=== PATIENT | male | born 1940 | race Caucasian/White ===

== ENCOUNTER 2020-04-10 13:44 | Emergency (ER) | payer MEDICARE, SELFPAY ==
[2020-04-10] VITALS (9 sets, daily range): BP systolic 57–136; BP diastolic 48–85; PULSE 99–132; RESP 17–115; O2SAT 88–100
--- NOTE | ~2020-04-10 | XR_ITS ---
EXAMINATION: XR chest ET placement EXAM DATE: 04/10/2020 15:00 INDICATION: Pulmonary emboli, cardiac arrest, respiratory failure. TECHNIQUE: Portable AP frontal chest x-ray was obtained. There is no prior study for comparison. FINDINGS: Endotracheal and nasogastric tubes are in position. There is mild cardiomegaly. There is pu lmonary vascular congestion. Patchy bilateral perihilar airspace disease probably some developing pul monary edema. Aspiration pneumonia not excludable. No pneumothorax or pleural effusion. IMPRESSION: 1. ET, NG tube in position. 2. Cardiomegaly, congestion. 3. Perihilar airspace disease, could be edema or pneumonia, aspiration pneumonia. Reviewed, dictated and finalized at location A. IMPRESSION: 1. ET, NG tube in position. 2. Cardiomegaly, congestion. 3. Perihilar airspace disease, could be edema or pneumonia, aspiration pneumon ia.
--- NOTE | ~2020-04-10 | CT_ITS ---
EXAMINATION: CTA chest abdomen pelvis DATE: 04/10/2020 14:21 INDICATION: Chest pain, syncope and shortness of breath TECHNIQUE: Computed tomography (CT) pulmonary angiogram of the chest was performed with 100 mL Omnipa que-350 intravenous contrast. Additional 3D reconstructions utilizing coronal maximum intensity proje ction (MIP) were performed. Additional CT angiogram of the abdomen and pelvis was performed utilizing the same contrast bolus. The dose-length product was 831.36 mGy-cm. COMPARISON: CT abdomen and pelvis dated 01/07/2010 FINDINGS: Chest: Good contrast opacification of the pulmonary arteries. There is moderate streak artifact from dense c ontrast in the superior vena cava and right atrium. Mild scattered respiratory motion artifact. There are extensive pulmonary arterial filling defects involving each of the lobar and many of the segment al and subsegmental pulmonary arteries in both lungs. Right-sided cardiomegaly with rightward bowing of the ventricular septum consistent with right heart strain. There is tricuspid regurgitation with r eflux of contrast into the inferior vena cava, hepatic and right renal veins. Mosaic attenuation with dependent predominant groundglass opacities in both lungs likely related to expiratory phase of imag ing and atelectasis with concave posterior wall of the trachea. There are few scattered bilateral dung cified pulmonary nodules as well as calcified mediastinal and hilar lymph nodes consistent with old g ranulomatous disease. Thoracic aorta is normal in caliber with no dissection. No pericardial or pleur al effusion moderate-sized hiatal hernia. Moderate thoracic spondylosis. There is streak artifact at the right shoulder related to a reverse left total shoulder arthroplasty. Abdomen/pelvis: Liver, pancreas, bilateral adrenal glands are normal. High attenuation sludge versus gallstones at th e neck of the otherwise normal-appearing gallbladder. Splenic calcifications consistent with old gran ulomatous disease. Bilateral nonobstructing nephrolithiasis bowels are normal with no wall thickening or obstruction. The appendix is not visualized. No pericecal inflammatory change to suggest acute ap pendicitis. Bladder is partially decompressed which limits evaluation. Prostatomegaly. No free intrap eritoneal gas or fluid. No pathologically enlarged abdominal or pelvic lymphadenopathy. Moderate lumb ar spondylosis with grade 1 anterolisthesis L4 on L5. IMPRESSION: 1. Extensive bilateral pulmonary emboli with high clot burden and with secondary right heart strain. Dr. Lucero discussed these findings with Dr. Gillespie at 2:25 PM. 2. Moderate-sized sliding-type hiatal hernia. 3. Sludge versus gallstones at the neck of the gallbladder. 4. Bilateral nonobstructing nephrolithiasis. Reviewed, dictated and finalized at location A. IMPRESSION: 1. Extensive bilateral pulmonary emboli with high clot burden and with secondar y right heart strain. Dr. Lucero discussed these findings with Dr. Gillespie at 2: 25 PM. 2. Moderate-sized sliding-type hiatal hernia. 3. Sludge versus gallstones at the neck of the gallbladder. 4. Bilateral nonobstructing nephrolithiasis.
--- NOTE | 2020-04-10 13:43 | ECG_ITS ---
Measurements Intervals [place] Rate: 101 P: 54 SC: 162 QRS: 82 QRSD: 120 T: 1 QT: 351 QTc: 457 Interpretive Statements SINUS TACHYCARDIA RIGHT BUNDLE BRANCH BLOCK BASELINE ARTIFACT- II, III, AVF ABNORMAL ECG Electronically Signed On 04-13-2020 7:06:00 CDT by Johann Jones D.O.
--- NOTE | 2020-04-10 13:48 | ECG_ITS ---
Measurements Intervals [place] Rate: 132 P: 14 MT: 201 QRS: 74 QRSD: 158 T: -20 QT: 368 QTc: 547 Interpretive Statements SINUS OR ECTOPIC ATRAL TACHYCARDIA VENTRICULAR BIGEMINY RIGHT BUNDLE BRANCH BLOCK ST-T WAVE ABNORMALITY IN INFERIOR LEADS- CONSIDER ISCHEMIA BASELINE WANDER- V1-V3 ABNORMAL ECG Electronically Signed On 04-10-2020 15:08:01 CDT by Johann Jones D.O.
--- NOTE | 2020-04-10 13:57 | WPDPROCEDUR ---
Procedures Intubation Intubation Date: 04/10/20 A pre-procedural Time-Out was completed immediately before starting the procedure and confirmed: Patient Identification, Site, Procedure, Patient Position and the Availability of Requisite Equipment: No ( patient was intubated with CPR was in progress in this CT scan area) Sedative: none Laryngoscope: Ton ET tube size: 8 Tube placement confirmation: visualized tube passing through cords, equal breath sounds bilaterally, no breath sounds over epigastrium and confirmation by capnometry Patient tolerated procedure: well Intubation complications: none Additional comments: ET Tube in appropriate position on chest x-ray done on 04/10/2020
[2020-04-10 14:04] LABS: Basophils Absolute Auto 0.1 K/mm3 (0.0-0.1); Basophils Percent Auto 0.5 % (0.2-1.2); Eosinophils Absolute Auto 0.3 K/mm3 (0-0.3); Eosinophils Percent Auto 2.3 % (0-4.4); Hematocrit 43.8 % (42.0-52.0); Hemoglobin 14.2 g/dL (14.0-18.0); Immature Granulocyte Absolute 0.07 K/mm3 (0.00-0.031); Immature Granulocyte Percent A 0.5 % (0-0.5); Lymphocytes Absolute Auto 4.49 K/mm3 (0.9-3.2); Lymphocytes Percent Auto 33.8 % (18.3-44.2); Mean Corpuscular HGB Conc 32.4 g/dl (32-36); Mean Corpuscular Hemoglobin 31.4 pg (26-34); Mean Corpuscular Volume 96.9 fl (80-100); Mean Platelet Volume 10.3 fl (7.4-10.4); Monocytes Absolute Auto 1.4 K/mm3 (0.1-0.6); Monocytes Percent Auto 10.3 % (2.6-8.5); Neutrophils Percent Auto 52.6 % (45.5-73.1); Platelet Count Result 241 k/mm3 (150-375); Red Blood Count 4.52 M/mm3 (4.6-6.20); Red Cell Distribution Width 13.6 % (11.5-14.5); White Blood Count 13.3 K/mm3 (4.5-10.0)
--- NOTE | 2020-04-10 14:10 | PC.NURSE ---
pt to ct via stretcher with 3 nurses at this time.
[2020-04-10 14:14] LABS: INR 1.2; Partial Thromboplastin Time 27.2 SECONDS (22.3-36.8); Prothrombin Time 14.5 Seconds (11.1-14.7)
--- NOTE | 2020-04-10 14:17 | PC.NURSE ---
pt became unresponsive during CT. Margarita borjas called, compressions started. See code blue sheet.
[2020-04-10 14:18] LABS: Anion Gap 9 mmol/L (8-16); Blood Urea Nitrogen 15 mg/dL (9-20); Calcium 8.4 mg/dL (8.4-10.2); Carbon Dioxide 23 mmol/L (22-30); Chloride 109 mmol/L (98-107); Estimated CRCL calculation 45 ml/min; Estimated Glomerular Filt Rate 53; Glucose 163 mg/dL (75-110); Potassium 3.7 mmol/L (3.4-5.0); Sodium 141 mmol/L (137-145)
[2020-04-10 14:30] LABS: Troponin I < 0.012 ng/mL (0.000-0.034)
--- NOTE | 2020-04-10 14:40 | PC.NURSE ---
VRBO 2mg iv push versed from dr red 1 time.
--- NOTE | 2020-04-10 14:40 | PC.NURSE ---
verbal order to give 20mg TPA bolus, then continue the Remaining 80mg over 2 hours.
--- NOTE | 2020-04-10 14:45 | PC.NURSE ---
TPA 80mg over 2 hours started at this time.
--- NOTE | 2020-04-10 14:46 | ED.GENADULT ---
HPI - General Adult General Chief complaint: Chest Pain Stated complaint: cp/syncopal episode Time Seen by Provider: 04/10/20 14:05 Source: patient and family History of Present Illness HPI narrative: Patient a 79 y/o male brought in by EMS for SOB and syncope. Patient appears to be in distress and unable to provide reliable history. He complained about chest pain earlier, but denies pain when asked about chest pain currently. He does admit to SOB when asked about it. states that they [place] from [place] and patient was complaining of SOB. She checked his BP and pulse and his BP was 110s and pulse in 80s. He came out rest room feeling dizziness and then laid down in bed. Then he became unresponsive. EMS then called. Per EMS, patient had another episode of syncope en route. Related Data Home Medications Medication Instructions Recorded Confirmed Lipitor 20 mg BYMOUTH DAILY 04/10/20 amlodipine 10 mg PO DAILY 04/10/20 aspirin 81 mg PO DAILY 04/10/20 docusate sodium [Stool Softener] 250 mg PO TID 04/10/20 folic acid 1 mg PO DAILY 04/10/20 levothyroxine 75 mcg PO DAILY 04/10/20 methotrexate sodium 20 mg PO WEEKLY 04/10/20 pdbnaddmbkas-spj-ahra-FA-vit K tablet PO 04/10/20 [Adults Multivitamin] naproxen 500 mg PO BID 04/10/20 omeprazole 20 mg PO DAILY 04/10/20 prednisone 1 mg DAILY 04/10/20 prednisone 2 mg PO DAILY 04/10/20 Allergies Allergy/AdvReac Type Severity Reaction Status Date / Time No Known Allergies Allergy Mild Verified 04/10/20 13:44 Review of Systems Review of Systems: ROS unobtainable: Yes unobtainable due to medical condition Constitutional: Constitutional: Reports as per HPI Cardiovascular: Cardiovascular: Reports as per HPI [facility] Family History Family History Mother Hypertension Father Family history of malignant neoplasm of urinary bladder Social History Social History Smoking status: Never smoker Alcohol intake: never Sexual Orientation (if Verbalized by the Patient): Straight or Heterosexual Exam Const: General: acute distress and ill appearing Orientation/consciousness: oriented to person and confusion HENMT: Head: normocephalic Ears: external ears normal General nose exam: Normal external nose present Eyes: General: appearance normal, both eyes and all related structures Conjunctivae: conjunctivae normal Neck: Neck: normal visual inspection and full ROM Chest: Chest palpation & inspection: normal inspection of the chest and no tenderness Resp: Effort & Inspection: not able to speak in complete sentences, respiratory distress and tachypneic Auscultation: clear to auscultation bilaterally Cardio: Rate: tachycardic Rhythm: regular rhythm GI: GI Palp: No abdominal tenderness and Yes Soft to palpation Skin: General skin exam: pallor Neuro: General: oriented to person and confusion Extrem: General: normal to inspection, full ROM and no pedal edema Psych: Appearance: grossly normal Mental Status: mental status grossly abnormal Affect: Blunted affect present Course Reevaluation(s) Reevaluation #1: Patient was in CT for evaluation of PE and/or dissection. However, shortly after CT is done while patient is still in CT room, he became pulseless and apneic. CPR was started. Monitor showed bradycardic, regular rhythm. He was in PEA. Patient is intubated by Dr. Knapp while CPR is in progress. ROSC was achieved later. I discussed with Dr. Lucero (radiologist) about CT results of PE shortly after ROSC. I discussed with patient's about patient's condition and advised tPA for massive PE causing cardiac arrest. I informed her about the risks of internal bleed and intracranial bleed. The risks of bleeding may be high due to recent CPR. However, I felt the benefits still outweigh the risks due to patient's condition. She agrees with tPA. Date: 04/10/20 Consulta
--- NOTE | 2020-04-10 15:15 | PC.NURSE ---
johanna spoke to penny at the [facility].
--- NOTE | 2020-04-10 15:24 | PC.NURSE ---
rn at bedside to collect covid swab.
--- NOTE | 2020-04-10 15:30 | PC.NURSE ---
face sheet faxed to [facility] [phone]
--- NOTE | 2020-04-10 16:20 | PC.NURSE ---
VRBO midazolam 4mg iv push per dr red.
--- NOTE | 2020-04-10 16:42 | PC.NURSE ---
Ivy RN report given to at [facility]
--- NOTE | 2020-04-10 17:35 | PC.NURSE ---
[facility] report given to Teresa. Midazolam drip not started, but [facility] took with them for during the flight if pt bp increased enough to start it..
[2020-04-10 17:38] LABS: Troponin I 0.401 ng/mL (0.000-0.034)
--- NOTE | 2020-04-10 17:38 | PC.NURSE ---
fentanyl drip taken by anthony rn's. fentanyl drip started outside on helipad by Teresa solorio.
[2020-04-11 18:20] LABS: SARS-CoV-2 RNA PCR Negative
== END 2020-04-10 17:44 | disposition short-term general hospital (02) ==
PROVIDERS: Emergency Provider Emergency Medicine; PCP Internal Medicine
DX: I26.99 Other pulmonary embolism without acute cor pulmonale (principal); I46.9 Cardiac arrest, cause unspecified; Z20.828 Contact with and (suspected) exposure to other viral communicable diseases; Z79.82 Long term (current) use of aspirin; R00.0 Tachycardia, unspecified; I45.10 Unspecified right bundle-branch block; R00.8 Other abnormalities of heart beat; R94.31 Abnormal electrocardiogram [ECG] [EKG]
CPT/HCPCS: 31500; 36415; 37195; 51702; 71275; 74174; 80048; 84484; 85025; 85610; 85730; 87635; 92950; 93005; 99291; C9803; J2250; J2310; J2997; J7030; Q9967; U0003

== ENCOUNTER 2020-06-22 10:57 | Emergency (ER) | payer MEDICARE, SELFPAY ==
[2020-06-22] VITALS (37 sets, daily range): BP systolic 136–151; BP diastolic 70–112; PULSE 88–109; RESP 13–23; TEMP 36.6; O2SAT 95–100
--- NOTE | ~2020-06-22 | XR_ITS ---
XR chest 2V 06/22/2020 12:19 Indication: Cough and shortness of breath Procedure: 2 view chest Comparison: 04/10/2020 Findings: Heart size normal for technique. Large hiatal hernia. No focal air space disease, pulmonary edema, pleural effusion or suspected pneumothorax. There are scattered calcified granulomas. There i s a left shoulder arthroplasty. Impression: 1: No acute cardiopulmonary disease. 2: Large hiatal hernia. Reviewed, dictated and finalized at location B. Impression: 1: No acute cardiopulmonary disease. 2: Large hiatal hernia.
--- NOTE | 2020-06-22 11:07 | ECG_ITS ---
Measurements Intervals [place] Rate: 100 P: 19 WI: 155 QRS: 31 QRSD: 94 T: 35 QT: 329 QTc: 424 Interpretive Statements SINUS TACHYCARDIA BORDERLINE ECG Electronically Signed On 06-22-2020 12:02:17 CDT by Johann Jones D.O.
--- NOTE | 2020-06-22 11:20 | PC.NURSE ---
patient here with dyspnea on exertion. see triage note. alert. oriented. resting on stretcher. hx reviewed with .
--- NOTE | 2020-06-22 11:55 | PC.NURSE ---
provider orders received. labs sent. resting on stretcher. on cashier office. at bedside.
[2020-06-22 12:01] LABS: Basophils Percent Auto 0.5 % (0.2-1.2); Eosinophils Absolute Auto 0.2 K/mm3 (0-0.3); Eosinophils Percent Auto 2.6 % (0-4.4); Hematocrit 35.1 % (42.0-52.0); Hemoglobin 11.2 g/dL (14.0-18.0); Immature Granulocyte Absolute 0.02 K/mm3 (0.00-0.031); Immature Granulocyte Percent A 0.2 % (0-0.5); Lymphocytes Absolute Auto 1.64 K/mm3 (0.9-3.2); Lymphocytes Percent Auto 18.8 % (18.3-44.2); Mean Corpuscular HGB Conc 31.9 g/dl (32-36); Mean Corpuscular Hemoglobin 29.8 pg (26-34); Mean Corpuscular Volume 93.4 fl (80-100); Mean Platelet Volume 10.1 fl (7.4-10.4); Monocytes Absolute Auto 0.6 K/mm3 (0.1-0.6); Monocytes Percent Auto 7.2 % (2.6-8.5); Neutrophils Absolute Auto 6.2 K/mm3 (1.3-6.7); Neutrophils Percent Auto 70.7 % (45.5-73.1); Platelet Count Result 393 k/mm3 (150-375); Red Blood Count 3.76 M/mm3 (4.6-6.20); Red Cell Distribution Width 15.1 % (11.5-14.5); White Blood Count 8.7 K/mm3 (4.5-10.0)
[2020-06-22 12:13] LABS: Anion Gap 5 mmol/L (8-16); Blood Urea Nitrogen 17 mg/dL (9-20); Calcium 9.3 mg/dL (8.4-10.2); Carbon Dioxide 29 mmol/L (22-30); Chloride 106 mmol/L (98-107); Estimated Glomerular Filt Rate 59; Glucose 99 mg/dL (75-110); Potassium 3.9 mmol/L (3.4-5.0); Sodium 140 mmol/L (137-145)
--- NOTE | 2020-06-22 12:14 | PC.NURSE ---
patient to Xray
[2020-06-22 12:22] LABS: NT Pro B Type Natriuretic Pept 50 PG/ML (5-100)
[2020-06-22] MEDS: ALBUTEROL SULFATE NEB 2.5 MG/0.5 ML INH 5 MG INHALATION ×2 (13:13→15:03)
[2020-06-22] MEDS: IPRATROPIUM BR 0.02% INH SOLN 0.5 MG/2.5 ML VIAL INHALATION ×2 (13:13→15:03)
--- NOTE | 2020-06-22 13:15 | PC.NURSE ---
respiratory at bedside for neb treatment.
--- NOTE | 2020-06-22 14:05 | PC.NURSE ---
resting on stretcher. in room. waiting for test results. call light in reach. on potline monitor.
--- NOTE | 2020-06-22 14:55 | PC.NURSE ---
patient has order for 2nd neb treatment. increased wheezing per MD after initial neb given. resting on stretcher. alert. oriented. in room. denies any other needs. questioning need for CT of chest due to recent dx of PE.
--- NOTE | 2020-06-22 15:22 | ED.SOB ---
HPI - SOB/Dyspnea General Chief Complaint: Shortness of Breath/Dyspnea Stated Complaint: SOB X2WKS Time Seen by Provider: 06/22/20 11:08 History of Present Illness HPI Narrative: Patient is a 79-year-old male who presents to the ER with complaint of shortness of breath. Ongoing for a couple of weeks but worsening over the last few days. Patient has history of pulmonary embolism that caused him to receive TPA and then be on ECMO. He has been compliant with his anticoagulation. He denies any recent infectious symptoms including sinus congestion/sore throat. He has had some persistent cough and can hear himself wheezing. She without nausea/vomiting/chest pain/dizziness. No lower extremity swelling. Patient reports recurrent negative Covid test. Related Data Home Medications Medication Instructions Recorded Confirmed Lipitor 20 mg BYMOUTH DAILY 04/10/20 amlodipine 10 mg PO DAILY 04/10/20 aspirin 81 mg PO DAILY 04/10/20 docusate sodium [Stool Softener] 250 mg PO TID 04/10/20 folic acid 1 mg PO DAILY 04/10/20 levothyroxine 75 mcg PO DAILY 04/10/20 methotrexate sodium 20 mg PO WEEKLY 04/10/20 pelldyapzxwa-dks-rcyr-FA-vit K tablet PO 04/10/20 [Adults Multivitamin] omeprazole 20 mg PO DAILY 04/10/20 apixaban [Eliquis] mg BID 06/22/20 Allergies Allergy/AdvReac Type Severity Reaction Status Date / Time No Known Allergies Allergy Mild Verified 04/10/20 13:44 Review of Systems Review of Systems: All systems reviewed & are unremarkable except as noted in HPI and below Constitutional: Constitutional: Denies chills and Denies fever(s) ENT: Denies nasal congestion and Denies sore throat Cardiovascular: Cardiovascular: Denies chest pain and Denies radiating jaw, neck or arm pain Respiratory: Respiratory: Reports cough, Reports dyspnea and Reports wheezing Gastrointestinal: Gastrointestinal: Denies abdominal pain, Denies diarrhea, Denies nausea and Denies vomiting [facility] Past Medical History Medical History (Updated 06/22/20 @ 16:34 by Ketan Gonzalez MD) BPH (benign prostatic hyperplasia) Colon cancer Hypercholesterolemia Hypothyroidism Pulmonary embolism Rheumatoid arthritis Surgical History Surgical History (Updated 06/22/20 @ 15:25 by Ketan Gonzalez MD) History of partial colectomy Family History Family History Mother Hypertension Father Family history of malignant neoplasm of urinary bladder Social History Social History Smoking status: Never smoker Alcohol intake: never Exam Narrative: Exam Narrative: GENERAL: Well-appearing, well-nourished, and in no acute distress. HEAD: Normocephalic, atraumatic. CHEST: Expiratory wheezing noted in bilateral lung damico in the apices and midlung zones. No basilar wheezing or rales. No respiratory distress. HEART: Regular rate and rhythm. Normal peripheral pulses. ABDOMEN: Soft, nontender, nondistended. EXTREMITIES: Normal range of motion. No edema. SKIN: Warm, dry, no rash. NEURO: Alert and oriented x3. PSYCH: Normal mood and affect. Course Course Emergency Course: Patient has had 2 nebulizer treatments. His lung sounds have improved and he now has some rhonchi throughout without the wheezing. He is ambulatory without hypoxia or fatigue. is concerned about pulmonary embolism. Discussed with arterial patient's symptoms and response to therapy or more indicative of bronchitis. Plan to start patient on a prednisone taper given his long-term use of prednisone at 3 mg daily. I also prescribed an albuterol inhaler that he should use scheduled for the next 3 to 4 days and then use as needed for shortness of breath. Patient's also concerned about patient having ventricular tachycardia in the ER. I reviewed patient's monitor and the alarm for which she reported him having V. tach shows artifact at 1529. I gave her reassurance.
--- NOTE | 2020-06-22 16:00 | PC.NURSE ---
discussed patient with Dr. Gonzalez. feels better after 2nd neb treatment. resting on stretcher. appears comfortable. wants to discuss need for CT of chest with MD.
--- NOTE | 2020-06-22 16:10 | PC.NURSE ---
patient ambulated approximately 20 feet on RA. sat >96% during walk. denies dyspnea. states he usually only feels short of breath with stairs. back in bed. back on monitor.
--- NOTE | 2020-06-22 16:26 | PC.NURSE ---
provider in room now. reviewing test results with patient and .
== END 2020-06-22 16:50 | disposition home or self-care (01) ==
PROVIDERS: Emergency Provider Emergency Medicine; PCP Physician Assistant
DX: J40 Bronchitis, not specified as acute or chronic (principal); Z86.711 Personal history of pulmonary embolism; Z79.01 Long term (current) use of anticoagulants; Z79.82 Long term (current) use of aspirin; N40.0 Benign prostatic hyperplasia without lower urinary tract symptoms; Z85.828 Personal history of other malignant neoplasm of skin; E78.00 Pure hypercholesterolemia, unspecified; E03.9 Hypothyroidism, unspecified; M06.9 Rheumatoid arthritis, unspecified; Z90.49 Acquired absence of other specified parts of digestive tract; K44.9 Diaphragmatic hernia without obstruction or gangrene; R00.0 Tachycardia, unspecified
CPT/HCPCS: 36415; 71046; 80048; 83880; 85025; 93005; 94640; 99283

== ENCOUNTER 2020-08-01 10:56 | Outpatient (CLI) | payer MEDICARE, SELFPAY ==
--- NOTE | ~2020-08-01 | CT_ITS ---
EXAMINATION: CT chest high resolution wo ma DATE: 08/01/2020 11:23 INDICATION: Dyspnea TECHNIQUE: Computed tomography (CT) of the chest was performed without intravenous contrast. The dose -length product was 299.44 mGy-cm. Automated exposure control and iterative reconstruction technique were employed. COMPARISON: CT dated 04/10/2020 FINDINGS: There is a large hiatal hernia possibly paraesophageal. No thoracic lymphadenopathy. There are calcified mediastinal lymph nodes and pulmonary nodules, consistent with chronic granulomatous di sease. No significant pleural or pericardial effusion. Heart size is normal. There are nonobstructing bilateral renal stones partially visualized. There are gallstones. No focal airspace consolidation. No evidence for focal pneumonia, edema or pneumothorax. IMPRESSION: 1. No acute cardiopulmonary disease. 2: Large hiatal hernia, possibly paraesophageal. 3: Nonobstructing bilateral nephrolithiasis. 4: Cholelithiasis. Reviewed, dictated and finalized at location B. [employer]
== END 2020-08-01 10:57 | disposition home or self-care (01) ==
PROVIDERS: PCP Physician Assistant; Visit Provider Physician Assistant
DX: R06.00 Dyspnea, unspecified (principal); K80.80 Other cholelithiasis without obstruction; K44.9 Diaphragmatic hernia without obstruction or gangrene; N20.0 Calculus of kidney; K80.20 Calculus of gallbladder without cholecystitis without obstruction
CPT/HCPCS: 71250

== ENCOUNTER 2020-08-11 13:32 | Outpatient (CLI) | payer MEDICARE, SELFPAY ==
--- NOTE | 2020-08-11 | ECHO_ITS ---
Patient Info Name: Kosta Li Age: 79 years : 1940 Gender: Male Ht: 70 in Wt: 195 lbs BSA: 2.11 m2 HR: 100 bpm BP: 136 / 95 mmHg Technical Quality: Good Exam Date: 08/11/2020 3:04 PM Exam Location: [facility] Patient Status: Outpatient Admit Date: 08/11/2020 Staff Ordering Physician: Jovanna, Savi BAUTISTA Mirror Installer: Tremayne Tam, SPEEDY, RT Attending Provider: Jovanna, Savi BAUTISTA Exam Type: CA echo doppler color flow Study Info Indications R06.00 - Dyspnea, unspecified Complete two-dimensional, color flow and Doppler transthoracic echocardiogram is performed. Strain analysis performed. Summary 1. Complete two-dimensional, color flow and Doppler transthoracic echocardiogram is performed. 2. Left ventricular chamber dimension is normal. 3. Ventricular septum is sigmoid shaped. No LVOT obstruction. 4. Left ventricular systolic function is normal, estimated at 55-60%. 5. There is mildly increased left ventricular wall thickness. 6. The left ventricular diastolic function is grade I diastolic dysfunction. 7. E/e' 13 is mildly elevated. 8. Global longitudinal strain is abnormal at -12.2%. 9. There is mild aortic valve sclerosis. Left Ventricle E/e' 13 is mildly elevated. Global longitudinal strain is abnormal at -12.2%. Ventricular septum is sigmoid shaped. No LVOT obstruction. Left ventricular chamber dimension is normal. Left ventricular systolic function is normal, estimated at 55-60%. There is mildly increased left ventricular wall thickness. The left ventricular diastolic function is grade I diastolic dysfunction. Right Ventricle Right ventricular chamber dimension is normal. Right ventricular systolic function is normal. Left Atria Left atrial chamber dimension is normal. Right Atria Right atrial chamber dimension is normal. Aortic Valve The aortic valve is trileaflet. There is mild aortic valve sclerosis. There is no aortic valve stenosis. There is no aortic valve regurgitation. Pulmonic Valve There is no pulmonic regurgitation. Mitral Valve There is no mitral valve stenosis. There is no mitral valve regurgitation. Tricuspid Valve There is no tricuspid valve regurgitation. Pericardium/Pleural There is no pericardial effusion. Inferior Vena Cava Normal inferior vena cava with >50% collapse upon inspiration consistent with normal right atrial pressure, 5 mmHg. Aorta The aortic root size at the sinus of Valsalva is normal. Left Ventricular Outflow Tract Name Value Normal LVOT 2D LVOT Diameter 2.1 cm LVOT Doppler LVOT Peak Gradient 3 mmHg LVOT Mean Gradient 2 mmHg LVOT VTI 16 cm LVOT VTI/AV VTI Ratio 0.8 LVOT Stroke Volume 55 ml LVOT CO 5.8 l/min LVOT CI 2.7 l/min/m2 Pulmonic Valve Name Value Normal --
--- NOTE | 2020-08-16 09:48 | WPDPFTINT ---
PFT Interpretation PFT Interpretation: This PFT met all criteria for ATS standards and reproducibility FEV/FVC post bronchodilator 74% FEV1 101% FVC 88% No bronchodilator challenge was given. TLC 90% RV 79% RV/TLC 37% DLCO 77% when adjusted for alveolar volume but not adjusted for hemoglobin Flow volume loops showed some end expiratory coving Impression: No significant obstruction or restriction. Mildly reduced diffusion capacity. In the absence of anemia or pulmonary hypertension, intrinsic lung disease cannot be ruled out. Clinical correlation is advised.
== END 2020-08-11 13:33 | disposition home or self-care (01) ==
PROVIDERS: PCP Physician Assistant; Visit Provider Physician Assistant
DX: R06.00 Dyspnea, unspecified (principal)
CPT/HCPCS: 93306; 94375; 94726; 94729

== ENCOUNTER 2020-10-11 00:31 | Emergency (ER) | payer MEDICARE, SELFPAY ==
--- NOTE | ~2020-10-11 | CT_ITS ---
EXAMINATION: CT abdomen pelvis wo con DATE: 10/11/2020 01:58 INDICATION: Left lower quadrant abdominal pain. TECHNIQUE: Computed tomography (CT) of the abdomen and pelvis was performed without intravenous contr ast. Automated exposure control and iterative reconstruction technique were employed. The dose-length product was 710.12 mGy-cm. COMPARISON: CT abdomen and pelvis 04/10/2020 FINDINGS: The visualized portions of the lung bases demonstrate mild atelectasis. Calcified pulmonary nodules and calcified hilar and mediastinal lymph nodes are consistent with old granulomatous diseas e. No pleural effusion. The heart size is normal. There are coronary artery calcifications. No perica rdial effusion. There is a moderate-sized sliding hiatal hernia. The liver is normal. There are galls tones in the gallbladder, which is normal in size. Calcifications in the spleen are consistent with o ld granulomatous disease. The pancreas and adrenal glands are normal. There are approximately 8 stone s in right kidney measuring up to 5 mm. There are greater than 10 stones in left kidney measuring up to 5 mm. There is mild left hydronephrosis. There is a 5 mm stone in proximal left ureter. The prosta te is mildly enlarged. There is diverticulosis of the colon without evidence of diverticulitis. There are no dilated loops of bowel. The appendix is not visualized. There are no pathologically enlarged lymph nodes. There is no free intraperitoneal fluid. There is a right inguinal hernia containing fat. Prominent fat in left inguinal canal may be a hernia. There are old healed right rib fractures. Ther e is moderate lumbar spondylosis. IMPRESSION: 1. 5 mm stone in proximal left ureter with mild left hydronephrosis. 2. Bilateral nonobstructing kidney stones. 3. Moderate-sized sliding hiatal hernia. Reviewed, dictated and finalized at location A. CHGEAR REPAIRER
[2020-10-11 00:34] VITALS: BP 94/59; PULSE 88; RESP 12; TEMP 36.8; O2SAT 97
[2020-10-11 01:39] LABS: Basophils Percent Auto 0.3 % (0.2-1.2); Eosinophils Absolute Auto 0.2 K/mm3 (0-0.3); Eosinophils Percent Auto 1.4 % (0-4.4); Hematocrit 37.4 % (42.0-52.0); Hemoglobin 11.6 g/dL (14.0-18.0); Immature Granulocyte Absolute 0.08 K/mm3 (0.00-0.031); Immature Granulocyte Percent A 0.5 % (0-0.5); Lymphocytes Absolute Auto 1.69 K/mm3 (0.9-3.2); Lymphocytes Percent Auto 11.5 % (18.3-44.2); Mean Corpuscular Hemoglobin 28.5 pg (26-34); Mean Corpuscular Volume 91.9 fl (80-100); Mean Platelet Volume 10.4 fl (7.4-10.4); Monocytes Absolute Auto 1.5 K/mm3 (0.1-0.6); Monocytes Percent Auto 10.4 % (2.6-8.5); Neutrophils Absolute Auto 11.2 K/mm3 (1.3-6.7); Neutrophils Percent Auto 75.9 % (45.5-73.1); Nucleated Red Blood Cells Perc 0.1 % (0.0-0.2); Platelet Count Result 336 k/mm3 (150-375); Red Blood Count 4.07 M/mm3 (4.6-6.20); Red Cell Distribution Width 18.7 % (11.5-14.5); White Blood Count 14.8 K/mm3 (4.5-10.0)
[2020-10-11 01:45] LABS: Alanine Aminotransferase 21 U/L (4-50); Albumin Level 3.6 g/dL (3.5-5.1); Alkaline Phosphatase 68 U/L (38-126); Anion Gap 4 mmol/L (8-16); Aspartate Amino Transferase 27 U/L (17-59); Bilirubin,Total 0.4 mg/dL (0.2-1.3); Blood Urea Nitrogen 17 mg/dL (9-20); Calcium 8.6 mg/dL (8.4-10.2); Carbon Dioxide 30 mmol/L (22-30); Chloride 105 mmol/L (98-107); Estimated CRCL calculation 37 ml/min; Estimated Glomerular Filt Rate 45; Glucose 146 mg/dL (75-110); Lipase 122 U/L (23-300); Potassium 4.4 mmol/L (3.4-5.0); Sodium 139 mmol/L (137-145)
[2020-10-11] MEDS: MORPHINE SULFATE (*CRX) 4 MG/ML INJ IV PUSH (01:48)
[2020-10-11] MEDS: SODIUM CHLORIDE 0.9% IV 500 ML 999 ML IV CONT (01:49)
[2020-10-11 02:00] VITALS: BP 133/81; PULSE 84; RESP 16; O2SAT 99
[2020-10-11 03:03] VITALS: BP 101/68; PULSE 91; RESP 17; O2SAT 100
[2020-10-11 03:27] LABS: Add Urine Microscopic? YES; Appearance Urine Clear (Clear); Bilirubin Urine Negative (Negative); Blood Urine 2+ (Negative); Color Urine Yellow (Yellow); Glucose Urine UA Negative (Negative); Ketones Urine Negative (Negative); Leukocyte Esterase Ur Negative LEU/UL (Negative); Mucus Urine Rare /lpf; Nitrate Urine Negative (Negative); Protein Urine 1+ mg/dL (Negative); RBC Urine 21-50 /hpf (0-2); Squamous Epithelial Cell Urine Rare /hpf (Few); Urobilinogen Urine Negative mg/dL (<2.0); WBC Urine 0-3 /hpf
--- NOTE | 2020-10-11 03:38 | ED.ABDPAIN ---
HPI - Abdominal Pain General Chief Complaint: Abdominal Pain Stated Complaint: Kidney Stone Time Seen by Provider: 10/11/20 01:23 History of Present Illness HPI narrative: Patient is a 80-year-old male who presents the ER with concerns for possible kidney stone. Has been having left lower quadrant pain for the last day but worsened tonight. Associate with some nausea but no vomiting. Denies urinary frequency urgency or dysuria. No aggravating or alleviating factors. No radiation. Related Data Home Medications Medication Instructions Recorded Confirmed Lipitor 20 mg BYMOUTH DAILY 04/10/20 amlodipine 10 mg PO DAILY 04/10/20 aspirin 81 mg PO DAILY 04/10/20 docusate sodium [Stool Softener] 250 mg PO TID 04/10/20 folic acid 1 mg PO DAILY 04/10/20 levothyroxine 75 mcg PO DAILY 04/10/20 methotrexate sodium 20 mg PO WEEKLY 04/10/20 hmbpxinkpbbc-noz-chvu-FA-vit K tablet PO 04/10/20 [Adults Multivitamin] omeprazole 20 mg PO DAILY 04/10/20 apixaban [Eliquis] mg BID 06/22/20 Allergies Allergy/AdvReac Type Severity Reaction Status Date / Time No Known Allergies Allergy Mild Verified 04/10/20 13:44 Review of Systems Review of Systems: All systems reviewed & are unremarkable except as noted in HPI and below Constitutional: Constitutional: Denies chills and Denies fever(s) Cardiovascular: Cardiovascular: Denies chest pain and Denies radiating jaw, neck or arm pain Gastrointestinal: Gastrointestinal: Reports abdominal pain, Reports nausea and Denies vomiting Genitourinary: Genitourinary: Denies hematuria, Denies oliguria, Denies dysuria, Denies testicular pain, Denies urinary frequency and Denies urinary incontinence [facility] Past Medical History Medical History (Updated 10/11/20 @ 03:44 by Ketan Gonzalez MD) BPH (benign prostatic hyperplasia) Colon cancer Hypercholesterolemia Hypothyroidism Pulmonary embolism Rheumatoid arthritis Surgical History Surgical History (Updated 06/22/20 @ 15:25 by Ketan Gonzalez MD) History of partial colectomy Family History Family History Mother Hypertension Father Family history of malignant neoplasm of urinary bladder Social History Social History Smoking status: Never smoker Alcohol intake: never Gender identity (if verbalized by the patient): Male Exam Narrative: Exam Narrative: GENERAL: Well-appearing, well-nourished, and in no acute distress. HEAD: Normocephalic, atraumatic. CHEST: Clear to auscultation. No respiratory distress. HEART: Regular rate and rhythm. Normal peripheral pulses. ABDOMEN: Soft, nontender, nondistended. EXTREMITIES: Normal range of motion. No edema. NEURO: Alert and oriented x3. PSYCH: Normal mood and affect. Course Course Emergency Course: Patient informed of results. Discharge home with supportive therapy. Recommend follow-up with urology. Vital Signs Vital signs: Vital Signs Temperature 98.2 F 10/11/20 00:34 Pulse Rate 88 10/11/20 00:34 Respiratory Rate 12 10/11/20 00:34 Blood Pressure 94/59 L 10/11/20 00:34 Pulse Oximetry 97 10/11/20 00:34 Temperature 98.2 F 10/11/20 00:34 Pulse Rate 88 10/11/20 00:34 Respiratory Rate 12 10/11/20 00:34 Blood Pressure 94/59 L 10/11/20 00:34 Pulse Oximetry 97 10/11/20 00:34 MDM - Abdominal Pain Lab Data Result diagrams: 10/11/20 01:02 10/11/20 01:02 Labs: Lab Results 10/11/20 10/11/20 10/11/20 Range/Units 01:02 01:02 03:17 WBC 14.8 H (4.5-10.0) K/mm3 RBC 4.07 L (4.6-6.20) M/mm3 Hgb 11.6 L (14.0-18.0) g/dL Hct 37.4 L (42.0-52.0) % MCV 91.9 (80-100) fl MCH 28.5 (26-34) pg MCHC 31.0 L (32-36) g/dl RDW 18.7 H (11.5-14.5) % Plt Count 336 (150-375) k/mm3 MPV 10.4 (7.4-10.4) fl Immature Gran % (Auto) 0.5 (0-0.5) % Neut % (Auto) 75.9 H (4
[2020-10-11 03:46] VITALS: BP 124/71; PULSE 82; RESP 18; O2SAT 98
== END 2020-10-11 03:50 | disposition home or self-care (01) ==
PROVIDERS: Emergency Provider Emergency Medicine; PCP Physician Assistant
DX: N13.2 Hydronephrosis with renal and ureteral calculous obstruction (principal); Z79.82 Long term (current) use of aspirin; Z79.01 Long term (current) use of anticoagulants; N40.0 Benign prostatic hyperplasia without lower urinary tract symptoms; Z85.038 Personal history of other malignant neoplasm of large intestine; E78.00 Pure hypercholesterolemia, unspecified; E03.9 Hypothyroidism, unspecified; Z86.711 Personal history of pulmonary embolism; M06.9 Rheumatoid arthritis, unspecified; Z90.49 Acquired absence of other specified parts of digestive tract; K44.9 Diaphragmatic hernia without obstruction or gangrene
CPT/HCPCS: 36415; 51701; 74176; 80053; 81001; 83690; 85025; 96361; 96374; 99284; J2270; J7040

== ENCOUNTER 2020-10-13 09:27 | Outpatient (CLI) | payer MEDICARE, SELFPAY ==
--- NOTE | ~2020-10-13 | XR_ITS ---
EXAMINATION: XR abdomen/kub 1V INDICATION: Left ureteral stone TECHNIQUE: Supine views of the abdomen were obtained on 2 radiographs. COMPARISON: CT, 10/21/2020 FINDINGS: The previously described 5 mm stone of the proximal left ureter appears to have migrated in to the mid ureter projecting at the level of the left L5 transverse process. There are multiple stone s in the kidneys. The largest on the left measures 5 mm in the lower pole. The largest identified on the right measures 4 mm in the lower pole. There is a large amount of stool in the proximal third of the colon and moderate gaseous distention of the distal two thirds of the colon. The lung bases are c lear. IMPRESSION: 1. Apparent distal migration of the known left ureteral stone to the level of the mid ureter. 2. Bilateral nephrolithiasis. Reviewed, dictated and finalized at location A. RECORDER IMPRESSION: 1. Apparent distal migration of the known left ureteral stone to the level of t he mid ureter. 2. Bilateral nephrolithiasis.
== END 2020-10-13 09:28 | disposition home or self-care (01) ==
LOC: ANHIMG 09:31
PROVIDERS: PCP Physician Assistant; Visit Provider Urology
DX: N20.2 Calculus of kidney with calculus of ureter (principal)
CPT/HCPCS: 74018

== ENCOUNTER 2020-10-14 12:12 | Emergency (ER) | payer MEDICARE, SELFPAY ==
--- NOTE | ~2020-10-14 | CT_ITS ---
EXAMINATION: CT cervical spine wo con DATE: 10/14/2020 13:28 INDICATION: . Neck pain after fall TECHNIQUE: Computed tomography (CT) of the cervical spine was performed without intravenous contrast. The dose-length product was 419 mGy-cm. Automated exposure control and iterative reconstruction tech nique were employed. COMPARISON: None FINDINGS: No acute fracture or traumatic malalignment. There is disc narrowing at C3-4, C4-5, C5-6, C 6-7 and C7-T1. Odontoid process within normal limits. There is an old avulsion fracture T1 spinous pr ocess. There is right lower upper lobe scarring. There is calcified granuloma in the right upper lobe . There is advanced multilevel uncinate and facet hypertrophy. No paraspinal soft tissue abnormality. IMPRESSION: 1. No acute abnormality of the cervical spine. 2: Moderate cervical spondylosis. Reviewed, dictated and finalized at location B. ALLATION HELPER
--- NOTE | ~2020-10-14 | CT_ITS ---
EXAMINATION: CT brain wo con DATE: 10/14/2020 13:28 INDICATION: Syncope. TECHNIQUE: Computed tomography (CT) of the head was performed without intravenous contrast. The mA wa s adjusted according to patient size. Iterative reconstruction technique was employed. The dose-lengt h product was 605.33 mGy-cm. COMPARISON: None FINDINGS: There are scattered areas of low attenuation in the cerebral white matter. There is no intr acranial hemorrhage, acute infarction, or abnormal intracranial mass lesion. The ventricles are seb l in size. There is mild mucosal thickening in the paranasal sinuses. The mastoid air cells are seb l. There are likely changes of ocular lens replacement surgeries. IMPRESSION: 1. Moderate nonspecific cerebral white matter disease, which likely represents chronic small vessel i schemic disease. Reviewed, dictated and finalized at location A. IC SEPARATOR OPERATOR IMPRESSION: 1. Moderate nonspecific cerebral white matter disease, which likely represents chronic small vessel ischemic disease.
[2020-10-14 12:23] VITALS: BP 140/83; PULSE 93; RESP 16; TEMP 36.7; O2SAT 100
[2020-10-14 13:15] LABS: Basophils Percent Auto 0.2 % (0.2-1.2); Eosinophils Absolute Auto 0.2 K/mm3 (0-0.3); Eosinophils Percent Auto 1.3 % (0-4.4); Hematocrit 33.8 % (42.0-52.0); Hemoglobin 10.6 g/dL (14.0-18.0); Immature Granulocyte Absolute 0.05 K/mm3 (0.00-0.031); Immature Granulocyte Percent A 0.4 % (0-0.5); Lymphocytes Percent Auto 7.6 % (18.3-44.2); Mean Corpuscular HGB Conc 31.4 g/dl (32-36); Mean Corpuscular Volume 89.4 fl (80-100); Mean Platelet Volume 9.9 fl (7.4-10.4); Monocytes Percent Auto 8.7 % (2.6-8.5); Neutrophils Absolute Auto 9.7 K/mm3 (1.3-6.7); Neutrophils Percent Auto 81.8 % (45.5-73.1); Platelet Count Result 302 k/mm3 (150-375); Red Blood Count 3.78 M/mm3 (4.6-6.20); Red Cell Distribution Width 18.5 % (11.5-14.5); White Blood Count 11.9 K/mm3 (4.5-10.0)
[2020-10-14 13:27] LABS: Anion Gap 3 mmol/L (8-16); Blood Urea Nitrogen 19 mg/dL (9-20); Calcium 8.4 mg/dL (8.4-10.2); Carbon Dioxide 30 mmol/L (22-30); Chloride 103 mmol/L (98-107); Estimated CRCL calculation 30 ml/min; Estimated Glomerular Filt Rate 34; Glucose 157 mg/dL (75-110); Potassium 4.1 mmol/L (3.4-5.0); Sodium 136 mmol/L (137-145)
--- NOTE | 2020-10-14 13:51 | ED.FALL ---
HPI - Fall General Chief Complaint: Fall Stated Complaint: syncopal Source: patient Mode of arrival: EMS Limitations: no limitations History of Present Illness HPI Narrative: A 80-year-old male is brought into the emergency department via EMS after a fall at home. Patient states that he has been trying to pass a kidney stone, was in the restroom trying to urinate when he passed out. Patient only complains of pain in his head where he fell and hit it. He notes that he bounced off the toilet. Patient did lose consciousness but is unclear for how long. He states that he was awake when his entered the room and she came in immediately when she heard him fall. Patient denies any pain elsewhere. Related Data Home Medications Medication Instructions Recorded Confirmed Lipitor 20 mg BYMOUTH DAILY 04/10/20 amlodipine 10 mg PO DAILY 04/10/20 aspirin 81 mg PO DAILY 04/10/20 docusate sodium [Stool Softener] 250 mg PO TID 04/10/20 folic acid 1 mg PO DAILY 04/10/20 levothyroxine 75 mcg PO DAILY 04/10/20 methotrexate sodium 20 mg PO WEEKLY 04/10/20 mwnrzbakgnxh-oqu-faie-FA-vit K tablet PO 04/10/20 [Adults Multivitamin] omeprazole 20 mg PO DAILY 04/10/20 apixaban [Eliquis] mg BID 06/22/20 Allergies Allergy/AdvReac Type Severity Reaction Status Date / Time No Known Allergies Allergy Mild Verified 04/10/20 13:44 Review of Systems Review of Systems: Narrative: CONSTITUTIONAL: Denies fever, chills, or sweats. EYES: Denies visual changes, redness, or discharge. ENT: Denies rhinorrhea, congestion, sore throat, or otalgia. CARDIOVASCULAR: Denies chest pain, palpitations, or edema. RESPIRATORY: Denies cough or dyspnea. GASTROINTESTINAL: Denies abdominal pain, nausea, vomiting, or diarrhea. GENITOURINARY: Denies dysuria or hematuria. SKIN: Denies rash or itching. MUSCULOSKELETAL: Denies back pain, joint pain, or myalgia. NEUROLOGIC: Denies headache, numbness, dizziness, or weakness. PSYCHIATRIC: Denies anxiety or depression. [facility] Past Medical History Medical History BPH (benign prostatic hyperplasia) Colon cancer Hypercholesterolemia Hypothyroidism Pulmonary embolism Rheumatoid arthritis Surgical History Surgical History History of partial colectomy Family History Family History Mother Hypertension Father Family history of malignant neoplasm of urinary bladder Social History Social History Smoking status: Never smoker Alcohol intake: never Gender identity (if verbalized by the patient): Male Exam Narrative: Exam Narrative: GENERAL: Well-appearing, well-nourished, and in no acute distress. HEAD: Normocephalic, atraumatic. EYES: PERRLA and EOMI. ENT: Nares clear, no rhinorrhea or epistaxis. Mucous membranes moist. NECK: Supple. No adenopathy or masses. No carotid bruits or JVD CHEST: Clear to auscultation. No respiratory distress. No wheezes rales or rhonchi HEART: Regular rate and rhythm. No murmur heard. Normal peripheral pulses. ABDOMEN: Soft, nontender, nondistended, normal active bowel sounds. EXTREMITIES: Normal range of motion. No edema. SKIN: Warm, dry, no rash. NEURO: No focal deficits. Alert and oriented x3. PSYCH: Normal mood and affect. Course Reevaluation(s) Reevaluation #1: Patient resting comfortably at this time. States that his symptoms have improved. At this time patient's vital signs look good. We will plan for discharge as soon as his IV fluids have finished. Time: 13:57 Vital Signs Vital signs: Vital Signs Temperature 36.7 C 10/14/20 12:23 Pulse Rate 93 10/14/20 12:23 Respiratory Rate 16 10/14/20 12:23 Blood Pressure 140/83 10/14/20 12:23 Pulse Oximetry 100 10/14/20 12:23 Temperature 36.7 C 10/14/20 12:23 Pulse Rate 93 10/14
[2020-10-14 14:12] VITALS: BP 140/86; PULSE 87; RESP 19; O2SAT 96
== END 2020-10-14 14:39 | disposition home or self-care (01) ==
PROVIDERS: Emergency Provider Emergency Medicine; PCP Physician Assistant
DX: R55 Syncope and collapse (principal); N40.0 Benign prostatic hyperplasia without lower urinary tract symptoms; E78.00 Pure hypercholesterolemia, unspecified; Z85.038 Personal history of other malignant neoplasm of large intestine; M06.9 Rheumatoid arthritis, unspecified; Z86.711 Personal history of pulmonary embolism; Z79.01 Long term (current) use of anticoagulants; Z79.82 Long term (current) use of aspirin; Z90.49 Acquired absence of other specified parts of digestive tract; R90.82 White matter disease, unspecified; M47.812 Spondylosis without myelopathy or radiculopathy, cervical region
CPT/HCPCS: 36415; 70450; 72125; 80048; 85025; 99284

== ENCOUNTER → 2020-10-15 00:55 | Outpatient (CLI) | payer MEDICARE, SELFPAY ==
[2020-10-15 19:48] LABS: SARS-CoV-2 RNA PCR Negative
== END ==
PROVIDERS: PCP Physician Assistant; Visit Provider Urology
DX: Z01.812 Encounter for preprocedural laboratory examination (principal); Z20.822 Contact with and (suspected) exposure to COVID-19
CPT/HCPCS: C9803; U0003; U0005

== ENCOUNTER 2020-10-18 01:08 | Day surgery (SDC) | payer MEDICARE, SELFPAY ==
[2020-10-14 15:22] VITALS: BMI 28.7
--- NOTE | 2020-10-17 11:16 | WPDANESEPPF ---
Anes - Initial Pre Proc Eval Procedure: Operation Date: 10/18/20 09:00 Proposed Procedures p Cystoscopy, Left Retrograde Pyelogram, Left Ureteroscopy, Possible Stone Extraction, Possible Stent Placement - Finn Fernandez MD s Possible Holmium Laser Procedure - Finn Fernandez MD Date/Time: 10/17/20 11:16 Surgeon: Finn Fernandez MD Pre Op Diagnosis: Left Ureteral Stone Patient Data Age: 80 Gender: M Height: 1.78 m Weight: 90.75 kg Allergies Allergy/AdvReac Type Severity Reaction Status Date / Time No Known Allergies Allergy Mild Verified 10/18/20 07:09 Home Medications Medication Instructions Recorded Confirmed Type Lipitor 20 mg PO DAILY 04/10/20 10/18/20 History amlodipine 10 mg PO HS 04/10/20 10/18/20 History aspirin 81 mg PO DAILY 04/10/20 10/18/20 History docusate sodium [Stool Softener] 250 mg PO BID 04/10/20 10/18/20 History folic acid 1 mg PO DAILY 04/10/20 10/18/20 History levothyroxine 75 mcg PO DAILY 04/10/20 10/18/20 History methotrexate sodium 20 mg PO WEEKLY 04/10/20 10/18/20 History lhxmphshhtsu-gzj-lleh-FA-vit K 1 tablet PO DAILY 04/10/20 10/18/20 History [Adults Multivitamin] omeprazole 40 mg PO BID 04/10/20 10/18/20 History apixaban [Eliquis] 5 mg PO BID 06/22/20 10/18/20 History hydrocodone-acetaminophen 1 tablet PO Q6H PRN #14 tablet 10/11/20 10/14/20 Rx ondansetron 4 mg PO Q6H PRN #10 tablet 10/11/20 10/14/20 Rx tamsulosin 0.4 mg PO DAILY #7 cap 10/11/20 10/18/20 Rx allopurinol 100 mg PO DAILY 10/14/20 10/18/20 History prednisone 3 mg PO DAILY 10/18/20 10/18/20 History Patient hx anesthesia problems: none Family hx anesthesia problems: none PMFSH Past Medical History Medical History (Updated 10/18/20 @ 08:16 by Kenn Arredondo DO) BPH (benign prostatic hyperplasia) Colon cancer GERD (gastroesophageal reflux disease) Gout Hypercholesterolemia Hypothyroidism Pulmonary embolism 04/2020 - patient coded, was sent to [facility] where he was placed on ECMO and further treated. Patient still has some residual dyspnea but overall much improved since april. Rheumatoid arthritis Surgical History Surgical History History of partial colectomy Family History Family History Mother Hypertension Father Family history of malignant neoplasm of urinary bladder Social History Social History Smoking status: Never smoker Alcohol intake: never Living arrangements: with family Gender identity (if verbalized by the patient): Male Spiritual care concerns: No Anes - Eval Final PreProcedure Day of Procedure 10/17/20 11:16 Patient weight: overweight Heart: regular rate and rhythm Lungs: clear to auscultation and normal air movement Airway: Mallampati scale class III Neurological: alert and oriented Last oral intake: >/= 8 hours ASA classification: III Emergent: no Anesthetic plan: proceed Anesthesia type and monitoring: general LMA and standard monitoring Informed Consent: The patient's anesthetic plan and its attendant risks and benefits were discussed with the patient/family/POA. Questions were solicited and answers provided to the satisfaction of the patient/family/POA.
[2020-10-18] VITALS (8 sets, daily range): BP systolic 118–149; BP diastolic 72–93; PULSE 76–100; RESP 14–20; TEMP 36.6–36.9; O2SAT 95–100
--- NOTE | ~2020-10-18 | XR_ITS ---
EXAMINATION: XR retrograde pyelo w/stent LT DATE: 10/18/2020 10:37 INDICATION: Left internal ureteral stent placement TECHNIQUE: Fluoroscopic images from a left internal ureteral stent placement are submitted for review . 21 seconds of fluoroscopy time. 6 fluoroscopic images. FINDINGS: There is a left double-J internal ureteral stent projecting in expected position, with proximal [place] loop at the level of the renal pelvis and distal loop in the pelvis within the bladder lumen. IMPRESSION: 1. Left internal ureteral stent placement. Please refer to real-time procedural findings for detail s. Reviewed, dictated and finalized at location A. KER PRESS OPERATOR IMPRESSION: 1. Left internal ureteral stent placement. Please refer to real-time procedur al findings for details.
--- NOTE | 2020-10-18 07:47 | PM.IMHP ---
H&P: HPI History of Present Illness Date/Time: 10/18/20 07:47 Chief Complaint: Left ureteral calculus Narrative: Kosta Li is a 80 year old male with a 5 mm left ureteral calculus. Failed conservative management Review of Systems Review of Systems: All systems reviewed & are unremarkable except as noted in HPI and below PMFSH Past Medical History Medical History BPH (benign prostatic hyperplasia) Colon cancer GERD (gastroesophageal reflux disease) Gout Hypercholesterolemia Hypothyroidism Pulmonary embolism Rheumatoid arthritis Surgical History Surgical History History of partial colectomy Family History Family History Mother Hypertension Father Family history of malignant neoplasm of urinary bladder Social History Social History Smoking status: Never smoker Alcohol intake: never Living arrangements: with family Gender identity (if verbalized by the patient): Male Spiritual care concerns: No Meds Home Medications and Allergies Home Medications Medication Instructions Recorded Confirmed Type Lipitor 20 mg PO DAILY 04/10/20 10/18/20 History amlodipine 10 mg PO HS 04/10/20 10/18/20 History aspirin 81 mg PO DAILY 04/10/20 10/18/20 History docusate sodium [Stool Softener] 250 mg PO BID 04/10/20 10/18/20 History folic acid 1 mg PO DAILY 04/10/20 10/18/20 History levothyroxine 75 mcg PO DAILY 04/10/20 10/18/20 History methotrexate sodium 20 mg PO WEEKLY 04/10/20 10/18/20 History efifhzzbeinr-wqc-lkyw-FA-vit K 1 tablet PO DAILY 04/10/20 10/18/20 History [Adults Multivitamin] omeprazole 40 mg PO BID 04/10/20 10/18/20 History apixaban [Eliquis] 5 mg PO BID 06/22/20 10/18/20 History hydrocodone-acetaminophen 1 tablet PO Q6H PRN #14 tablet 10/11/20 10/14/20 Rx ondansetron 4 mg PO Q6H PRN #10 tablet 10/11/20 10/14/20 Rx tamsulosin 0.4 mg PO DAILY #7 cap 10/11/20 10/18/20 Rx allopurinol 100 mg PO DAILY 10/14/20 10/18/20 History prednisone 3 mg PO DAILY 10/18/20 10/18/20 History Allergies Allergy/AdvReac Type Severity Reaction Status Date / Time No Known Allergies Allergy Mild Verified 10/18/20 07:09 Exam Const: General: cooperative HENMT: Head: normal to inspection Eyes: General: appearance normal, both eyes and all related structures Neck: Neck: normal visual inspection Chest: Chest palpation & inspection: normal inspection of the chest Resp: Effort & Inspection: normal respiratory effort Cardio: Rate: regular rate GI: Inspection: normal to inspection Assessment and Plan Assessment and plan (1) Left ureteral calculus: Code(s): N20.1 - Calculus of ureter Status: Acute Assessment and Plan: cystoscopy, left retrograde, left ureteroscopy with stone extraction, possible laser, stent placement
--- NOTE | 2020-10-18 07:49 | WPDHPUPDATE1 ---
History and Physical Update Update Date/Time: 10/18/20 07:49 History and Physical has been reviewed, including an updated exam of the patient. There are NO changes in the patient's condition. Risks, benefits, and alternatives have been discussed and questions answered. Patient agrees to proceed with procedure.
[2020-10-18] MEDS: LACTATED RINGERS 1,000 ML 30 ML IV CONT (07:55)
[2020-10-18] MEDS: ceFAZolin 2 GM/D5W 50 ML 2 GM/50 ML BAG IVPB (09:59)
[2020-10-18] MEDS: LIDOCAINE HCL 2% GEL UROJET 10 ML PKG MUCOUS MEM (10:34)
--- NOTE | 2020-10-18 10:36 | PM.PROC ---
Procedure Note - Detailed Date of procedure: 10/18/20 Pre-op diagnosis: Left Ureteral Stone Post-op diagnosis: same Procedure performed: Cystoscopy, left retrograde pyelogram, left ureteroscopy with holmium laser, stone extraction, left ureteral stent placement 4.8 Spanish contour Description of procedure: Patient is taken the operative suite and correctly identified. Once anesthesia was obtained he was placed in dorsal lithotomy position and prepped and draped usual sterile fashion. Twenty-two Spanish scope inserted in the bladder. He has some residual prostatic tissue along the left lobe at the base. The bladder itself was inspected without any evidence of tumors. Left ureteral orifice was cannulated with a guidewire. The stone had migrated to the distal UVJ area. We dilated the orifice using an 8/10 dilator. Rigid ureteral scope was then inserted. The stone was visualized was too large to extract in 1 piece. Using a 273 micron fiber we fragmented the stone in multiple small pieces. The largest of those were then sent for analysis. Reinspection revealed no residual stones. Pyelogram was then performed to confirm placement of the stent. 4.8 Spanish contour stent was then placed with the proximal end coiled in the renal pelvis and the distal in the bladder. 2% viscous lidocaine was inserted urethra patient is taken recovery stable condition. He will be discharged home. He will follow up in a week's time for stent removal. Call for that appointment. Anesthesia: GLMA Surgeon: Finn Fernandez MD Drains: Yes Packing: No Pathology: yes Complications: No immediate complications Condition: stable Disposition: PACU
== END 2020-10-18 12:30 | disposition home or self-care (01) ==
PROVIDERS: PCP Physician Assistant; Visit Provider Urology
PROC: (CPT 52352; principal; 2020-10-18 09:00)
PROC: (CPT 52356; 2020-10-18 09:00)
DX: N20.1 Calculus of ureter (principal); E78.00 Pure hypercholesterolemia, unspecified; E03.9 Hypothyroidism, unspecified; M06.9 Rheumatoid arthritis, unspecified; K21.9 Gastro-esophageal reflux disease without esophagitis; M10.9 Gout, unspecified; N40.0 Benign prostatic hyperplasia without lower urinary tract symptoms; Z85.038 Personal history of other malignant neoplasm of large intestine; Z86.711 Personal history of pulmonary embolism; Z79.01 Long term (current) use of anticoagulants; Z79.82 Long term (current) use of aspirin; Z90.49 Acquired absence of other specified parts of digestive tract
CPT/HCPCS: 52356; 74420; 82365; 88300; A9270; C1769; C2617; J0690; J1100; J2370; J2405; J2704; J3010; J7120; Q9966

== ENCOUNTER 2020-11-11 08:14 | Outpatient (CLI) | payer MEDICARE, SELFPAY ==
--- NOTE | 2020-11-11 16:42 | WPDSIXMINUTE ---
Six Minute Walk This is a 6 minutes walk test. The test was performed and interpreted in accordance with the 2014 ERS/ATS task force guidelines. Findings: The patient's resting room air oxygen saturation measured by pulse oximetry was 98% and her heart rate was 95 bpm. Patient ambulated for 305 meters and oxygen saturation remained 92 to 95%. Heart rate at the end of the study was 113 bpm. There are no prior studies for comparison.
== END 2020-11-11 08:15 | disposition home or self-care (01) ==
PROVIDERS: PCP Physician Assistant; Visit Provider Internal Medicine
DX: R09.89 Other specified symptoms and signs involving the circulatory and respiratory systems (principal)
CPT/HCPCS: 94618

== ENCOUNTER 2020-11-22 10:12 | Outpatient (CLI) | payer MEDICARE, SELFPAY ==
--- NOTE | ~2020-11-22 | XR_ITS ---
XR abdomen/kub 1V 11/22/2020 10:22 Indication: Renal stones Procedure: KUB Comparison: 10/13/2020 Findings: Bowel gas pattern is nonobstructive. There are bilateral renal stones. Nonobstructive bowel gas pattern with moderate colonic fecal loading. No acute osseous abnormality. Impression: 1: Bilateral nephrolithiasis. Reviewed, dictated and finalized at location A. Impression: 1: Bilateral nephrolithiasis.
== END 2020-11-22 10:13 | disposition home or self-care (01) ==
PROVIDERS: PCP Physician Assistant; Visit Provider Urology
DX: N20.0 Calculus of kidney (principal)
CPT/HCPCS: 74018

== ENCOUNTER 2020-12-19 10:15 | Emergency (ER) | payer MEDICARE, SELFPAY ==
--- NOTE | ~2020-12-19 | XR_ITS ---
EXAMINATION: XR elbow LT min 3V DATE: 12/19/2020 10:50 INDICATION: Left elbow swelling and erythema. TECHNIQUE: 4 views of left elbow were obtained. COMPARISON: None. FINDINGS: Bone alignment is normal. No fracture. There is mild elbow joint osteoarthritis. There is h eterotopic ossification at the medial aspect of the elbow joint. There is heterotopic ossification pr oximal to the olecranon. No elbow joint effusion. There is extensive soft tissue swelling overlying o lecranon, consistent with bursitis. IMPRESSION: 1. Olecranon bursitis. 2. Mild elbow joint osteoarthritis. Reviewed, dictated and finalized at location B.
[2020-12-19 10:19] VITALS: BP 150/92; PULSE 115; RESP 16; TEMP 36.4; O2SAT 98
--- NOTE | 2020-12-19 11:10 | ED.UPPEXIN ---
HPI - Extremity Injury (Upper) General Chief Complaint: Extremity Injury, Upper Stated Complaint: red, swollen elbow Time Seen by Provider: 12/19/20 10:40 Source: patient Mode of arrival: ambulatory Limitations: no limitations History of Present Illness HPI narrative: This is a 80 year old male that presents to the ER for left elbow swelling and redness since yesterday. Reports he was walking his dog a couple of weeks ago and tripped and fell. Reports landing on the left elbow. Reports since then he has intermittently had swelling and pain to the elbow. He saw his primary for this about a week ago who placed him on cephalexin and doxy. He has finished a week of these antibiotics. He noted yesterday worsening redness and swelling of the elbow which prompted him to be seen. He did have some bloody drainage out of the elbow yesterday after he picked a scab. Denies fever, or decreased range of motion. Related Data Home Medications Medication Instructions Recorded Confirmed Adults Multivitamin 1 tablet PO DAILY 04/10/20 11/25/20 amlodipine 10 mg PO HS 04/10/20 11/25/20 folic acid 1 mg PO DAILY 04/10/20 11/25/20 methotrexate sodium 20 mg PO WEEKLY 04/10/20 11/25/20 Eliquis 5 mg PO BID 06/22/20 11/25/20 allopurinol 100 mg PO DAILY 10/14/20 11/25/20 prednisone 3 mg PO DAILY 10/18/20 11/25/20 aspirin 81 mg PO DAILY 11/25/20 11/25/20 atorvastatin 20 mg PO DAILY 11/25/20 11/25/20 cholecalciferol (vitamin D3) 50 mcg PO DAILY 11/25/20 11/25/20 [Vitamin D3] indomethacin [Indocin] 50 mg PO BID PRN 11/25/20 11/25/20 levothyroxine 100 mcg PO DAILY 11/25/20 11/25/20 Allergies Allergy/AdvReac Type Severity Reaction Status Date / Time No Known Allergies Allergy Mild Verified 12/19/20 10:29 Review of Systems Review of Systems: Narrative: CONSTITUTIONAL: Denies fever SKIN: Reports erythema MUSCULOSKELETAL: Reports joint pain, and myalgia. NEUROLOGIC: Denies numbness All systems reviewed & are unremarkable except as noted in HPI and below PMFSH Past Medical History Medical History (Updated 12/19/20 @ 13:27 by Marilee Jaramillo PA-C) BPH (benign prostatic hyperplasia) Colon cancer GERD (gastroesophageal reflux disease) Gout Hypercholesterolemia Hypothyroidism Pulmonary embolism 04/2020 - patient coded, was sent to [employer] where he was placed on ECMO and further treated. Patient still has some residual dyspnea but overall much improved since april. Rheumatoid arthritis Surgical History Surgical History History of partial colectomy Family History Family History (Updated 11/25/20 @ 08:32 by Danna Silva RN) Mother Hypertension Father Diabetes mellitus Acute myocardial infarction Heart disease Hypercholesteremia Family history of malignant neoplasm of urinary bladder Cancer Pulmonary disease Sibling Cancer Sibling Cancer Social History Social History Smoking status: Never smoker Alcohol intake: never Gender identity (if verbalized by the patient): Male Spiritual care concerns: No Exam Narrative: Exam Narrative: GENERAL: Well-appearing, well-nourished, and in no acute distress. HEAD: Normocephalic, atraumatic. EYES: EOMI. CHEST: Clear to auscultation. No respiratory distress. No wheezes rales or rhonchi HEART: Regular rate and rhythm. No murmur heard. Normal peripheral pulses. EXTREMITIES: Normal range of motion. Mild-moderate edema and erythema about the left elbow dorsal surface consistent with olecranon bursitis. Normal radial pulses. Normal sensation SKIN: Warm, dry, no rash. NEURO: No focal deficits. Alert and oriented x3. PSYCH: Normal mood and affect Course Consultations Consultation #1: Spoke with Dr. Pickard about patient and workup. Recommends another course of antibiotics and for patient to be placed in a brace that will allow the elbow to heal. Date: 12/01
[2020-12-19 12:07] LABS: Basophils Percent Auto 0.5 % (0.2-1.2); Eosinophils Absolute Auto 0.2 K/mm3 (0-0.3); Eosinophils Percent Auto 2.6 % (0-4.4); Hematocrit 36.4 % (42.0-52.0); Hemoglobin 11.5 g/dL (14.0-18.0); Immature Granulocyte Absolute 0.03 K/mm3 (0.00-0.031); Immature Granulocyte Percent A 0.3 % (0-0.5); Lymphocytes Absolute Auto 1.51 K/mm3 (0.9-3.2); Lymphocytes Percent Auto 17.6 % (18.3-44.2); Mean Corpuscular HGB Conc 31.6 g/dl (32-36); Mean Corpuscular Volume 91.9 fl (80-100); Mean Platelet Volume 9.8 fl (7.4-10.4); Monocytes Absolute Auto 1.2 K/mm3 (0.1-0.6); Monocytes Percent Auto 13.4 % (2.6-8.5); Neutrophils Absolute Auto 5.7 K/mm3 (1.3-6.7); Neutrophils Percent Auto 65.6 % (45.5-73.1); Platelet Count Result 309 k/mm3 (150-375); Red Blood Count 3.96 M/mm3 (4.6-6.20); Red Cell Distribution Width 17.5 % (11.5-14.5); White Blood Count 8.6 K/mm3 (4.5-10.0)
[2020-12-19 12:18] LABS: Uric Acid 5.4 mg/dL (3.5-8.5)
[2020-12-19 12:21] LABS: Anion Gap 4 mmol/L (8-16); Blood Urea Nitrogen 15 mg/dL (9-20); CRP 0.8 mg/dL (<1.0); Calcium 8.8 mg/dL (8.4-10.2); Carbon Dioxide 28 mmol/L (22-30); Chloride 108 mmol/L (98-107); Estimated CRCL calculation 43 ml/min; Estimated Glomerular Filt Rate 53; Glucose 105 mg/dL (75-110); Sodium 140 mmol/L (137-145)
[2020-12-19 13:23] LABS: Erythrocyte Sedimentation Rate 24 mm/hr (0-20)
[2020-12-19 13:35] VITALS: BP 143/82; PULSE 90; RESP 16; O2SAT 96
[2020-12-19 15:12] VITALS: BP 148/90; PULSE 94; RESP 18; O2SAT 97
== END 2020-12-19 15:13 | disposition home or self-care (01) ==
PROVIDERS: Physician Assistant; Emergency Provider Emergency Medicine; PCP Physician Assistant
DX: M70.22 Olecranon bursitis, left elbow (principal); N40.0 Benign prostatic hyperplasia without lower urinary tract symptoms; Z85.038 Personal history of other malignant neoplasm of large intestine; K21.9 Gastro-esophageal reflux disease without esophagitis; M10.9 Gout, unspecified; E78.00 Pure hypercholesterolemia, unspecified; E03.9 Hypothyroidism, unspecified; Z86.711 Personal history of pulmonary embolism; M06.9 Rheumatoid arthritis, unspecified; Z79.01 Long term (current) use of anticoagulants; Z90.49 Acquired absence of other specified parts of digestive tract
CPT/HCPCS: 36415; 73080; 80048; 84550; 85025; 85652; 86140; 99283; A4565

== ENCOUNTER 2021-03-17 13:30 | Outpatient (RCR) | payer MEDICARE, SELFPAY ==
[2020-11-25 08:57] VITALS: PULSE 92
--- NOTE | 2021-02-07 11:57 | PCCPR ---
Pt called and cxl today- pt had biopsy done on leg and passed out, so derm office sent him to ER via EMS.
== END 2021-03-17 23:59 | disposition home or self-care (01) ==
LOC: ANHCPREHAB 13:30
PROVIDERS: PCP Physician Assistant; Visit Provider Internal Medicine
DX: I26.99 Other pulmonary embolism without acute cor pulmonale (principal)
CPT/HCPCS: 97150; G0239; G0424

== ENCOUNTER 2021-05-08 09:09 | Observation (INO) | payer MEDICARE, SELFPAY ==
[2021-05-08] VITALS (47 sets, daily range): BP systolic 100–170; BP diastolic 65–98; PULSE 76–105; RESP 12–25; TEMP 36.3–36.8; O2SAT 96–100; BMI 27.8
--- NOTE | ~2021-05-08 | CT_ITS ---
EXAMINATION: CTA chest PE protocol DATE: 05/08/2021 12:51 INDICATION: Chest pain and shortness of breath TECHNIQUE: Computed tomography (CT) pulmonary angiogram of the chest was performed with 100 mL Omnipa que-350 intravenous contrast. Additional 3D reconstructions utilizing coronal maximum intensity proje ction (MIP) were performed. Automated exposure control and iterative reconstruction technique were em ployed. The dose-length product was 496.10 mGy-cm. COMPARISON: None FINDINGS: Good contrast opacification of the pulmonary arteries. There is mild streak artifact from dense contr ast in the superior vena cava and right atrium. Minimal scattered respiratory motion artifact which d oes not significantly limit evaluation. No pulmonary embolism. Multiple scattered bilateral calcified pulmonary nodules along with calcified bilateral hilar and mediastinal lymph nodes and a few small h epatic and splenic calcifications consistent with old granulomatous disease. Large sliding-type hiata l hernia with organoaxial volvulus of the herniated portion of the stomach. The gastroesophageal junc tion is approximately 3 cm above the level of the thoracic hiatus. There is mild compressive atelecta sis in the bilateral lower lobes along side the hiatal hernia. Minimal scattered discoid atelectasis in both lungs. No pneumonia, pulmonary edema, pleural effusion or pneumothorax. Heart size is normal. Atherosclerotic coronary artery calcification. No pericardial effusion. Thoracic aorta is normal in caliber with no dissection. No pathologically enlarged thoracic lymphadenopathy. Degenerative skeleta l changes, mild to moderate in the thoracic spine and severe at the right glenohumeral joint. Streak artifact associated with a reverse left total shoulder arthroplasty. IMPRESSION: 1. No pulmonary embolism or other acute cardiopulmonary disease. 2. Large sliding-type hiatal hernia. Reviewed, dictated and finalized at location A.
--- NOTE | ~2021-05-08 | US_ITS ---
EXAMINATION: US abdomen complete DATE: 05/09/2021 12:32 INDICATION: Abnormal liver function tests. TECHNIQUE: Multiple grayscale and Doppler ultrasound images of the abdomen were obtained. COMPARISON: CT abdomen and pelvis 10/11/2020 FINDINGS: The visualized portions of the head, body, and tail of the pancreas are normal. The liver i s normal without focal lesion. No liver surface nodularity. There is normal flow in main portal vein. The gallbladder is normal in size and contains gallstones. No gallbladder wall thickening or sonogra phic Tam sign. The common duct is normal and measures 4 mm. The kidneys are normal in size. The sp laurita is normal in size. Calcifications in the spleen are consistent with old granulomatous disease. T he inferior vena cava is not well visualized. Abdominal aorta is normal in caliber. IMPRESSION: 1. Cholelithiasis. No evidence of acute cholecystitis. Reviewed, dictated and finalized at location A.
--- NOTE | ~2021-05-08 | XR_ITS ---
EXAMINATION: XR chest 2V DATE: 05/08/2021 09:25 INDICATION: Chest pain. Hypertension. TECHNIQUE: PA and lateral views of the chest were obtained. COMPARISON: Chest radiograph dated 06/22/[address] dated 08/01/2020 FINDINGS: Airspace opacities at the medial left lower lung zone along side a large hiatal hernia and favor atel ectasis over pneumonia. Multiple small bilateral calcified pulmonary nodules throughout both lungs al nilda with calcified bilateral hilar and mediastinal lymph nodes consistent with old granulomatous dise ase. No pulmonary edema, pleural effusion or pneumothorax. Heart size is normal. Severe right glenohu meral osteoarthritis and left reversed total shoulder arthroplasty. IMPRESSION: 1. Mild opacities along side a large hiatal hernia and favor atelectasis over pneumonia. Reviewed, dictated and finalized at location A. IMPRESSION: 1. Mild opacities along side a large hiatal hernia and favor atelectasis over p neumonia.
--- NOTE | ~2021-05-08 | NM_ITS ---
EXAMINATION: NM eugenia stress w perfusion DATE: 05/09/2021 11:52 INDICATION: Chest pain. TECHNIQUE: Rest images were obtained following intravenous administration of 9.7 mCi Tc99m tetrofosmi n (Myoview). The patient was infused intravenously with Lexiscan (regadenoson). Then, 31.1 mCi Tc99m tetrofosmin (Myoview) was administered intravenously, and stress images were obtained. Data was recon structed into short axis and horizontal and vertical long axis SPECT images. Gated SPECT images were also obtained. COMPARISON: Chest CT 05/08/2021 FINDINGS: There is no definite reversible or fixed perfusion abnormality to suggest ischemia or infar ction. There is no segmental wall motion abnormality. Left ventricular ejection fraction measures 5 9%. IMPRESSION: 1. No definite ischemia or infarct. 2. Normal left ventricular ejection fraction measuring 59%. Reviewed, dictated and finalized at location A.
--- NOTE | 2021-05-08 09:12 | ECG_ITS ---
SINUS RHYTHM BORDERLINE T WAVE ABNORMALITY- INFERIOR LEADS BASELINE ARTIFACT- I, II, AVR, AVL, AVF BORDERLINE ECG Electronically Signed On 05-08-2021 17:09:45 CDT by Johann TUBBS
[2021-05-08 10:01] LABS: Basophils Percent Auto 0.4 % (0.2-1.2); Eosinophils Absolute Auto 0.4 K/mm3 (0-0.3); Eosinophils Percent Auto 4.9 % (0-4.4); Hematocrit 36.5 % (42.0-52.0); Hemoglobin 10.6 g/dL (14.0-18.0); Immature Granulocyte Absolute 0.03 K/mm3 (0.00-0.031); Immature Granulocyte Percent A 0.4 % (0-0.5); Lymphocytes Absolute Auto 1.34 K/mm3 (0.9-3.2); Lymphocytes Percent Auto 18.1 % (18.3-44.2); Mean Corpuscular Hemoglobin 26.2 pg (26-34); Mean Corpuscular Volume 90.1 fl (80-100); Mean Platelet Volume 10.2 fl (7.4-10.4); Monocytes Absolute Auto 1.2 K/mm3 (0.1-0.6); Monocytes Percent Auto 15.6 % (2.6-8.5); Neutrophils Absolute Auto 4.5 K/mm3 (1.3-6.7); Neutrophils Percent Auto 60.6 % (45.5-73.1); Platelet Count Result 271 k/mm3 (150-375); Red Blood Count 4.05 M/mm3 (4.6-6.20); Red Cell Distribution Width 19.7 % (11.5-14.5); White Blood Count 7.4 K/mm3 (4.5-10.0)
[2021-05-08 10:11] LABS: Anion Gap 6 mmol/L (8-16); Blood Urea Nitrogen 22 mg/dL (9-20); Calcium 8.9 mg/dL (8.4-10.2); Carbon Dioxide 25 mmol/L (22-30); Chloride 107 mmol/L (98-107); Estimated CRCL calculation 46 ml/min; Estimated Glomerular Filt Rate 58; Glucose 128 mg/dL (65-110); Potassium 4.2 mmol/L (3.4-5.0); Sodium 138 mmol/L (137-145)
[2021-05-08 10:16] LABS: INR 1.2; Ovalocytes 1+ (NORMAL); Platelet Estimate Adequate (Adequate); Poikilocytosis 1+ (NORMAL); Prothrombin Time 15.2 Seconds (11.1-14.7)
[2021-05-08 10:17] LABS: Partial Thromboplastin Time 29.8 SECONDS (22.3-36.8)
[2021-05-08 10:23] LABS: Troponin I < 0.012 ng/mL (0.000-0.034)
--- NOTE | 2021-05-08 10:44 | ED.GENADULT ---
HPI - General Adult General Chief complaint: Chest Pain Stated complaint: CP Time Seen by Provider: 05/08/21 09:38 Source: patient History of Present Illness HPI narrative: Patient is a 80 y/o male complaining of chest pain starting about 8:30 AM this morning. He states that the pain was across his chest with no radiation. He rates his pain as 10/10 initially. EMS was called and he was given Aspirin and Nitro and he pain eventually subsided after about 30 minutes. He had some feelings of SOB and sweaty. Related Data Home Medications Medication Instructions Recorded Confirmed Adults Multivitamin 1 tablet PO DAILY 04/10/20 05/08/21 amlodipine 10 mg PO HS 04/10/20 05/08/21 folic acid 1 mg PO DAILY 04/10/20 05/08/21 methotrexate sodium 20 mg PO WEEKLY 04/10/20 05/08/21 Eliquis 5 mg PO BID 06/22/20 05/08/21 allopurinol 100 mg PO DAILY 10/14/20 05/08/21 prednisone 3 mg PO DAILY 10/18/20 05/08/21 aspirin 81 mg PO DAILY 11/25/20 05/08/21 atorvastatin 20 mg PO DAILY 11/25/20 05/08/21 cholecalciferol (vitamin D3) 50 mcg PO DAILY 11/25/20 05/08/21 [Vitamin D3] omeprazole 40 mg capsule,delayed 40 mg PO BID 12/21/20 05/08/21 release levothyroxine [Euthyrox] 88 mcg PO DAILY 05/08/21 05/08/21 Allergies Allergy/AdvReac Type Severity Reaction Status Date / Time No Known Allergies Allergy Mild Verified 12/21/20 13:22 Review of Systems Constitutional: Constitutional: Denies chills, Reports excessive sweating, Denies fever(s), Denies headache(s) and Denies weakness Eyes: Eyes: Denies blurry vision ENT: Denies headache(s) and Denies neck pain Cardiovascular: Cardiovascular: Reports chest pain and Reports dyspnea Respiratory: Respiratory: Denies cough and Reports dyspnea Gastrointestinal: Gastrointestinal: Denies abdominal pain, Denies diarrhea, Denies nausea and Denies vomiting Genitourinary: Genitourinary: Denies hematuria and Denies dysuria Musculoskeletal: Musculoskeletal: Denies back pain and Denies neck pain Neurologic: Denies headache(s) and Denies weakness [facility] Past Medical History Medical History (Updated 05/09/21 @ 16:16 by Romelia Gillespie MD) BPH (benign prostatic hyperplasia) Colon cancer COPD (chronic obstructive pulmonary disease) GERD (gastroesophageal reflux disease) Gout History of Mohs micrographic surgery for skin cancer (~2019) History of open sigmoidectomy (~1999) Hypercholesterolemia Hypertension Hypothyroidism Pulmonary embolism 04/2020 - patient coded, was sent to [place] where he was placed on ECMO and further treated. Patient still has some residual dyspnea but overall much improved since april. Rheumatoid arthritis Vocal cord granuloma (~04/10/20) Surgical History Surgical History History of back surgery stenosis, severe spinal decompression History of partial colectomy History of total left knee replacement (~2015) History of total replacement of left shoulder joint (~2019) Family History Family History Mother Hypertension Father Diabetes mellitus Acute myocardial infarction Heart disease Hypercholesteremia Family history of malignant neoplasm of urinary bladder Cancer Pulmonary disease Sibling Cancer Sibling Cancer Social History Social History (Updated 05/08/21 @ 19:14 by Sumaya Allen MD) Social History: . Retired from [employer] in 1999. Smoking status: Never smoker Alcohol intake: never Substance use: never Gender identity (if verbalized by the patient): Male Spiritual care concerns: No Exam Const: General: no acute distress and well developed Orientation/consciousness: oriented to person, oriented to place, oriented to time and patient oriented x3 HENMT: Head: normocephalic Ears: external ears normal General nose exam: Normal external nose present Eyes: General: appearance normal, both eyes and all
[2021-05-08 11:27] LABS: D Dimer 0.54 ug/mL (<0.48)
[2021-05-08 12:42] LABS: Troponin I < 0.012 ng/mL (0.000-0.034)
[2021-05-08 14:50] LABS: EDCOVIDSCREEN Negative (Negative)
[2021-05-08 15:43] LABS: Troponin I < 0.012 ng/mL (0.000-0.034)
--- NOTE | 2021-05-08 18:01 | PC.NURSE ---
This patient, Kosta Li, was admitted to IMU Room 231-01. Patient/family oriented to hospital policies and general routines including ID bracelet, bed and alarms, visiting hours, pain management, procedures, bathroom and other care routines, personal items, smoking policy, room service/diet, and visiting hours. Information on how to activate the Rapid Response Team has been discussed. Patient/Family are encouraged to report perceived risks to care and to ask questions if they do not understand what they are told or what they should do.
--- NOTE | 2021-05-08 19:05 | EST_ITS ---
Patient Info Name: Kosta Li Age: 80 years : 1940 Gender: Male Ht: 70 in Wt: 205 lbs BSA: 2.17 m2 HR: 80 bpm BP: 142 / 88 mmHg Heart Rhythm: Sinus Rhythm Technical Quality: Fair Exam Date: 05/09/2021 11:00 AM Exam Location: [facility] Stress Patient Status: Inpatient Admit Date: 05/08/2021 Staff Ordering Physician: Sumaya Allen MD Attending Provider: Sumaya Allen MD Exercise Technologist: Mikala Sauceda CT Exercise Physician: Sumaya Allen MD Exam Type: CA stress eugenia w NM Study Info A regadenoson stress test was performed. Summary 1. Nuclear test results to follow. 2. No abnormal ST-T wave changes with lexiscan. Protocol: Lexiscan Stress ECG Details Stage: REST Duration (min): 0 min : 46 sec HR (bpm): 79 SBP (mmHg): 142 DBP (mmHg): 88 Stage: REST Duration (min): 5 min : 18 sec HR (bpm): 83 SBP (mmHg): 142 DBP (mmHg): 88 Stage: STAGE 1 Duration (min): 1 min : 0 sec HR (bpm): 96 SBP (mmHg): 141 DBP (mmHg): 93 Stage: RECOVERY Duration (min): 1 min : 0 sec HR (bpm): 105 SBP (mmHg): 141 DBP (mmHg): 93 Stage: RECOVERY Duration (min): 2 min : 0 sec HR (bpm): 102 SBP (mmHg): 141 DBP (mmHg): 93 Stage: RECOVERY Duration (min): 3 min : 0 sec HR (bpm): 98 SBP (mmHg): 140 DBP (mmHg): 87 Stage: RECOVERY Duration (min): 3 min : 41 sec HR (bpm): 97 SBP (mmHg): 140 DBP (mmHg): 87 Rest HR: 83 bpm Peak HR: 105 bpm Rest Sys BP: 142 mmHg Peak Sys BP: 141 mmHg Max Pred HR: 141 bpm % Max Pred HR: 74 % Target HR: 120 bpm Max RPP: 14,805 bpm*mmHg BP Response: Normal blood pressure response Termination Reason: Completed protocol Cardiac Symptoms: None Total Time: 1 min : 0 sec Rest Green BP: 88 mmHg Peak Green BP: 93 mmHg Total Dose: 0.4 mg Resting ECG Normal sinus rhythm - normal ECG. Stress ECG No abnormal ST/T wave changes with exercise. Arrhythmias None. Report Signatures
--- NOTE | 2021-05-08 19:07 | PM.IMHP ---
H&P: HPI History of Present Illness Date/Time: 05/08/21 19:07 Chief Complaint: Chest pain Narrative: Mr. Santos araujo is a very pleasant 80-year-old white male who was admitted for observation for chest pain. He has a history of massive PE 1 year ago requiring treatment with ECMO at [facility] and has been taking Eliquis since then. No history of heart disease but does have hypertension. The patient exercises at [employer] 3 times a week and walks his dog half a mile daily. He was able to do his exercise last Saturday with no particular problems and this morning he walked his dog but when he came home and sat down he developed right-sided chest discomfort and tightness which radiated across his chest. He went to his bedroom to lay down and he had shortness of breath with ?serious? severe chest discomfort and a soaking sweat. He states when EMS arrived his blood pressure was 70/50. He was given aspirin and nitroglycerin and in 10 minutes he felt everything resolved. His chest was nontender. He can not recall if the pain was pleuritic or positional. No physical activity recently. Did receive his flu vaccine and his 3rd Moderna vaccination last Saturday. He has a history of gallstones but did not appear to have any abdominal discomfort. The patient saw Dr. Bermeo a year ago after his PE and everything was fine. There were no heart issues with PE that the patient can recall. He did have a recent echo done at [facility]. Review of Systems Constitutional: Constitutional: Denies fatigue and Denies weakness Eyes: Eyes: Reports blurry vision (Right eye injury, old) ENT: Reports system reviewed and no additional complaints, except as documented and Denies epistaxis Cardiovascular: Cardiovascular: Reports chest pain, Reports diaphoresis, Denies pedal edema, Denies leg edema, Denies lightheadedness and Denies palpitations Respiratory: Respiratory: Denies hemoptysis and Reports dyspnea Gastrointestinal: Gastrointestinal: Denies abdominal pain Genitourinary: Genitourinary: Denies dysuria Musculoskeletal: Musculoskeletal: Denies back pain and Reports arthralgias (History of rheumatoid arthritis) Integumentary/Breasts: Skin/Breast: Reports wounds (Mohs surgery right lower extremity done last week) Neurologic: Denies headache(s) Psychiatric: Psychiatric: Reports no additional psychiatric complaints and Denies behavioral changes [facility] Past Medical History Medical History (Updated 05/08/21 @ 19:16 by Sumyaa Allen MD) BPH (benign prostatic hyperplasia) Colon cancer COPD (chronic obstructive pulmonary disease) GERD (gastroesophageal reflux disease) Gout History of Mohs micrographic surgery for skin cancer (~2019) History of open sigmoidectomy (~1999) Hypercholesterolemia Hypertension Hypothyroidism Pulmonary embolism 04/2020 - patient coded, was sent to [place] where he was placed on ECMO and further treated. Patient still has some residual dyspnea but overall much improved since april. Rheumatoid arthritis Vocal cord granuloma (~04/10/20) Surgical History Surgical History History of back surgery stenosis, severe spinal decompression History of partial colectomy History of total left knee replacement (~2015) History of total replacement of left shoulder joint (~2019) Family History Family History Mother Hypertension Father Diabetes mellitus Acute myocardial infarction Heart disease Hypercholesteremia Family history of malignant neoplasm of urinary bladder Cancer Pulmonary disease Sibling Cancer Sibling Cancer Social History Social History (Updated 05/08/21 @ 19:14 by Sumaya Allen MD) Social History: . Retired from [employer]
[2021-05-08 20:06] LABS: Alanine Aminotransferase 168 U/L (4-50); Alkaline Phosphatase 91 U/L (38-126); Anion Gap 10 mmol/L (8-16); Aspartate Amino Transferase 151 U/L (17-59); Bilirubin,Total 0.3 mg/dL (0.2-1.3); Blood Urea Nitrogen 19 mg/dL (9-20); Calcium 8.6 mg/dL (8.4-10.2); Carbon Dioxide 23 mmol/L (22-30); Chloride 105 mmol/L (98-107); Estimated CRCL calculation 46 ml/min; Estimated Glomerular Filt Rate 58; Glucose 91 mg/dL (65-110); Potassium 4.3 mmol/L (3.4-5.0); Sodium 138 mmol/L (137-145)
[2021-05-08] MEDS: amLODIPine BESYLATE 5 MG TABLET 10 MG PO (20:36)
[2021-05-08] MEDS: APIXABAN 5 MG TABLET PO (20:36)
[2021-05-08] MEDS: PANTOPRAZOLE 40 MG TABLET PO (20:37)
[2021-05-09] VITALS (10 sets, daily range): BP systolic 117–136; BP diastolic 66–82; PULSE 75–94; RESP 12–20; TEMP 36.3–36.9; O2SAT 95–100
[2021-05-09] MEDS: LEVOTHYROXINE SODIUM 88 MCG TABLET PO (05:37)
[2021-05-09] MEDS: CHOLECALCIFEROL 1,000 UNITS TABLET 2000 UNITS PO (09:34)
[2021-05-09] MEDS: PANTOPRAZOLE 40 MG TABLET PO (09:34)
[2021-05-09] MEDS: ATORVASTATIN 20 MG TABLET PO (09:34)
[2021-05-09] MEDS: ASPIRIN 81 MG ENTERIC TABLET PO (09:35)
[2021-05-09] MEDS: APIXABAN 5 MG TABLET PO ×2 (09:35→17:03)
[2021-05-09] MEDS: predniSONE 1 MG TABLET 3 MG PO (09:35)
[2021-05-09] MEDS: FOLIC ACID 1 MG TABLET PO (09:35)
[2021-05-09] MEDS: allopurinoL 100 MG TABLET PO (09:35)
[2021-05-09] MEDS: MULTIVITAMINS /C LUTEIN (CENTRUM SILVER) TABLET *BKC 1 TAB PO (09:35)
--- NOTE | 2021-05-09 13:42 | PC.NURSE ---
PT arrived to [facility] from ICU. No Complaints
--- NOTE | 2021-05-09 16:51 | PM.DS ---
DS: Admitting Diagnosis Discharge Date 05/09/2021 <JOSHUA Feliz - Last Filed: 05/09/21 17:19> Admitting Diagnosis chest pain <JOSHUA Feliz - Last Filed: 05/09/21 17:19> DS: Discharge Diagnosis Discharge Diagnosis (1) Chest pain: Qualifiers: Chest pain type: unspecified Qualified Code(s): R07.9 - Chest pain, unspecified <JOSHUA Feliz - Last Filed: 05/09/21 17:19> Code(s): R07.9 - Chest pain, unspecified <JOSHUA Feliz - Last Filed: 05/09/21 17:19> Status: Acute <JOSHUA Feliz - Last Filed: 05/09/21 17:19> Assessment and Plan: One episode of severe right sided chest pain last night. No history of coronary disease or any heart disease. No evidence of recurrent PE or aortic dissection. Serial troponins negative, EKG with no evidence of ischemia. Lexiscan nuclear stress test was recommended and did not show any evidence of ischemia or infarct. EF59%. Abdominal ultrasound was also performed to rule out acute cholecystitis and was negative. 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 <JOSHUA Feliz - Last Filed: 05/09/21 17:19> (2) History of pulmonary embolism: Code(s): Z86.711 - Personal history of pulmonary embolism <JOSHUA Feliz - Last Filed: 05/09/21 17:19> Status: Acute <JOSHUA Feliz - Last Filed: 05/09/21 17:19> Assessment and Plan: History of massive PE complicated by cardiac arrest, requiring ECMO, last year. Compliant with his anticoagulation. <JOSHUA Feliz - Last Filed: 05/09/21 17:19> DS: Summary Hospital Course Reason for hospitalization: Chest pain <JOSHUA Feliz - Last Filed: 05/09/21 17:19> Hospital Course: Patient presented to the emergency department via EMS after experiencing an episode of severe right-sided chest pain that radiated across his chest. He was given aspirin and nitroglycerin by EMS personnel and experienced improvement of his symptoms. He does not have any history of coronary disease. Serial troponins were negative x3, EKG did not have any acute ST or T wave abnormalities that were suggestive of ischemia. Due to the severity of his pain and associated diaphoresis and shortness of breath a Lexiscan stress test was ordered to rule out ischemia. Lexiscan stress test was performed and was negative for any evidence of ischemia or infarct. Patient has not had any return of chest pain since he has been in the hospital. No evidence that his chest pain was of a cardiac cause. <JOSHUA Feliz - Last Filed: 05/09/21 17:19> Addendum: above, agree with [employer] Sally Vasquez's assessment and discharge plans. Pt had intense CP but neg troponins, EKG, CTA and lexiscan. Exam benign. Only abnormality was elevated LFTs, and gall stones on US, so I am still suspicious this was related to his cholelithiasis. Coronary calcification was noted on CT scan so pt has some degree of coronary atherosclerosis. Rec: Follow up with PCP Aislinn Nugent to repeat LFTs and consider more testing of gall bladder. Also consider addition of statin when LFTs have improved. <Sumaya Allen MD - Last Filed: 05/09/21 21:33> Status at Discharge Functional status at discharge: independent ambulation <JOSHUA Feliz - Last Filed: 05/09/21 17:19> Overall status at discharge: patient is back to baseline <JOSHUA Feliz - Last Filed: 05/09/21 17:19> Time Spent with Patient Time attestation: Total time spent providing and/or coordinating discharge services: <JOSHUA Feliz - Last Filed: 05/09/21 17:19> Time spent: Greater than 30 minutes <JOSHUA Feliz - Last Filed: 05/09/21 17:19> Exam Narrative: Pleasant older male who is in no distress <Regi Vasquez APN-Sandro - Last Filed: 05/09/21 17:19>
== END 2021-05-09 18:03 | disposition home or self-care (01) ==
LOC: ANHED 09:38 → ANHIMU 17:31 → ANHCPC 05-09 13:36
PROVIDERS: Admitting Provider Internal Medicine Cardiovascular Disease; Emergency Provider Emergency Medicine; PCP Physician Assistant; Visit Provider Internal Medicine Cardiovascular Disease
DX: R07.9 Chest pain, unspecified (principal); R06.02 Shortness of breath; I10 Essential (primary) hypertension; E78.00 Pure hypercholesterolemia, unspecified; E03.9 Hypothyroidism, unspecified; M06.9 Rheumatoid arthritis, unspecified; N40.0 Benign prostatic hyperplasia without lower urinary tract symptoms; K21.9 Gastro-esophageal reflux disease without esophagitis; M10.9 Gout, unspecified; Z85.038 Personal history of other malignant neoplasm of large intestine; Z86.711 Personal history of pulmonary embolism; Z90.49 Acquired absence of other specified parts of digestive tract; Z79.01 Long term (current) use of anticoagulants; Z79.82 Long term (current) use of aspirin; Z20.822 Contact with and (suspected) exposure to COVID-19
CPT/HCPCS: 36415; 71046; 71275; 76700; 78452; 80048; 80053; 84484; 85025; 85380; 85610; 85730; 87426; 93005; 93017; 99285; A9270; A9502; C9803; G0378; J2785; Q9967

== ENCOUNTER 2021-08-01 08:32 | Outpatient (CLI) | payer MEDICARE, SELFPAY ==
[2021-08-01 08:57] LABS: Basophils Absolute Auto 0.1 K/mm3 (0.0-0.1); Basophils Percent Auto 0.6 % (0.2-1.2); Eosinophils Absolute Auto 0.4 K/mm3 (0-0.3); Eosinophils Percent Auto 3.7 % (0-4.4); Hematocrit 43.9 % (42.0-52.0); Hemoglobin 13.7 g/dL (14.0-18.0); Immature Granulocyte Absolute 0.03 K/mm3 (0.00-0.031); Immature Granulocyte Percent A 0.3 % (0-0.5); Lymphocytes Absolute Auto 1.95 K/mm3 (0.9-3.2); Lymphocytes Percent Auto 20.7 % (18.3-44.2); Mean Corpuscular HGB Conc 31.2 g/dl (32-36); Mean Corpuscular Hemoglobin 28.7 pg (26-34); Mean Corpuscular Volume 91.8 fl (80-100); Mean Platelet Volume 9.7 fl (7.4-10.4); Monocytes Absolute Auto 0.9 K/mm3 (0.1-0.6); Monocytes Percent Auto 9.5 % (2.6-8.5); Neutrophils Absolute Auto 6.2 K/mm3 (1.3-6.7); Neutrophils Percent Auto 65.2 % (45.5-73.1); Platelet Count Result 309 k/mm3 (150-375); Red Blood Count 4.78 M/mm3 (4.6-6.20); Red Cell Distribution Width 21.1 % (11.5-14.5); White Blood Count 9.4 K/mm3 (4.5-10.0)
[2021-08-01 09:11] LABS: Anion Gap 6 mmol/L (8-16); Blood Urea Nitrogen 18 mg/dL (9-20); Calcium 9.1 mg/dL (8.4-10.2); Carbon Dioxide 30 mmol/L (22-30); Chloride 101 mmol/L (98-107); Estimated Glomerular Filt Rate > 60; Glucose 96 mg/dL (65-110); Potassium 4.3 mmol/L (3.4-5.0); Sodium 137 mmol/L (137-145)
[2021-08-01 09:15] LABS: INR 1.2
[2021-08-01 09:16] LABS: Partial Thromboplastin Time 33.3 SECONDS (22.3-36.8)
== END 2021-08-01 08:33 | disposition home or self-care (01) ==
LOC: ANHSURGERY 08:36
PROVIDERS: PCP Physician Assistant; Visit Provider Urology
DX: Z01.812 Encounter for preprocedural laboratory examination (principal); N40.0 Benign prostatic hyperplasia without lower urinary tract symptoms; Z86.711 Personal history of pulmonary embolism; Z51.81 Encounter for therapeutic drug level monitoring; Z79.899 Other long term (current) drug therapy
CPT/HCPCS: 36415; 80048; 85025; 85610; 85730; 87086; 87088

== ENCOUNTER 2021-08-08 01:21 | Day surgery (SDC) | payer MEDICARE, SELFPAY ==
[2021-07-25 12:55] VITALS: BMI 29.0
--- NOTE | 2021-07-25 13:36 | PC.NURSE ---
Report to the Outpatient Waiting Room, entrance under the green pavilion located off [facility], at time _0600_ on date _08/08/21_. OR Time: _0730 AM__. - You and your visitor will be asked a series of questions to screen for COVID 19 for your protection. - A mask is required within the hospital. - Only one visitor is allowed at this time. Patient visitors will be guided where to wait when not with patient. Preoperative COVID Testing Requirements: No COVID Test needed if: (proof is required; if not received patient will have Rapid Test prior to entry) - Patient has received COVID Vaccine at least 14 days prior to procedure date or - Patient has positive COVID test result within last 90 days of surgery date. COVID Test needed if above criteria is not met If not COVID vaccinated a COVID test must be conducted within 72 hours of surgery and patient is asked to isolate self from time of testing until procedure. You will go to the [facility] for your COVID testing. The [facility] site is located at the corner of [address] [facility]. You will only be called if COVID results are positive and your surgeon may reschedule your elective surgery date. Patients may have clear liquids (water, carbonated beverages, clear teas, apple juice) until 3 hours prior to surgery (0430 AM) with a maximum of 20 ounces. - No food from midnight until time of surgery - Infants may have breast milk until 4 hours before surgery, infant formula 6 hours prior to surgery. - Children will be allowed to drink immediately following surgery. If applicable, please bring a bottle or sippy cup to assist with drinking. Juice, water, soda, and popsicles are readily available. For infants on formula, please bring formula the day of surgery. Pacifiers are allowed. Take the following medications with a SIP of water the morning of surgery: __EUTHYROX, NITRO IF NEEDED Medications to discontinue per physician _ASPIRIN & ELIQUIS PER DR. TITUS____ Date to take last dose_ALL VITAMINS & SUPPLEMENTS 3 DAYS PRIOR TO SURGERY (08/04/21)___ Please no make-up, nail lithuanian, hairspray, perfume, deodorant, or body powder the day of surgery. No jewelry (including any body piercings) or valuables the day of surgery, leave them at home. Please take a shower or bath the night before, or the morning of, surgery with an antibacterial soap. Wear comfortable, loose fitting clothing. Children are encouraged to wear pajamas. - Jewelry must be removed prior to entering the operating room. Rings and piercings that are not removed may be cut off. - The hospital will not accept responsibility for valuables. - Please leave all valuables, including medications, at home the day of surgery. If you are going home after surgery, a licensed nascar driver must drive you home. - NO public transportation without another adult. - We recommend that an adult stay with you for 24 hours following discharge. - We also recommend that you do not drive, make important decision, drink alcoholic beverages, or take any drugs that were not prescribed by your health care provider for at least 24 hours after your discharge time. For Pediatric surgeries, we recommend two adults accompany the child home (only one inside the building at this time). Follow any additional instructions given to you from your surgeon. Telephone instructions given to _PT'S SPOUSE (KRISTINA) and asked if any additional questions and then verbalized understanding. Patient advised to call surgeon office or pre surgery nurse liaison [phone] if any additional questions.
[2021-08-08] VITALS (13 sets, daily range): BP systolic 116–144; BP diastolic 66–92; PULSE 63–88; RESP 12–20; TEMP 36–36.9; O2SAT 95–100
[2021-08-08] MEDS: LACTATED RINGERS 1,000 ML 30 ML IV CONT (10:30)
--- NOTE | 2021-08-08 10:31 | WPDHPUPDATE1 ---
History and Physical Update Update Date/Time: 08/08/21 10:31 History and Physical has been reviewed, including an updated exam of the patient. There are NO changes in the patient's condition. Risks, benefits, and alternatives have been discussed and questions answered. Patient agrees to proceed with procedure.
--- NOTE | 2021-08-08 10:52 | WPDANESEPPF ---
Anes - Initial Pre Proc Eval Procedure: Operation Date: 08/08/21 12:00 Proposed Procedures p Trans Urethral Resection Prostate - Finn Fernandez MD Date/Time: 08/08/21 10:52 Surgeon: Finn Fernandez MD Pre Op Diagnosis: bph Patient Data Age: 80 Gender: M Height: 1.78 m Weight: 91.81 kg Allergies Allergy/AdvReac Type Severity Reaction Status Date / Time No Known Allergies Allergy Mild Verified 07/25/21 12:42 Home Medications Medication Instructions Recorded Confirmed Type Adults Multivitamin 1 tablet PO DAILY 04/10/20 07/25/21 History amlodipine 10 mg PO HS 04/10/20 07/25/21 History folic acid 1 mg PO DAILY 04/10/20 07/25/21 History methotrexate sodium 15 mg PO WEEKLY 04/10/20 07/25/21 History Eliquis 5 mg PO BID 06/22/20 07/25/21 History allopurinol 200 mg PO DAILY 10/14/20 07/25/21 History prednisone 3 mg PO DAILY 10/18/20 07/25/21 History aspirin 81 mg PO DAILY 11/25/20 07/25/21 History atorvastatin 20 mg PO QAM 11/25/20 07/25/21 History cholecalciferol (vitamin D3) 50 mcg PO DAILY 11/25/20 07/25/21 History [Vitamin D3] ascorbic acid (vitamin C) [Vitamin 2,000 mg PO DAILY 07/25/21 07/25/21 History C] diphenhydramine HCl [Benadryl] 25 mg PO HS 07/25/21 07/25/21 History ferrous sulfate [Iron (ferrous 325 mg PO DAILY 07/25/21 07/25/21 History sulfate)] levothyroxine [Euthyrox] 100 mcg PO DAILY 07/25/21 07/25/21 History nitroglycerin 0.4 mg SUBLINGUAL PRN PRN 07/25/21 07/25/21 History omeprazole 20 mg PO DAILY 07/25/21 07/25/21 History Patient hx anesthesia problems: none Family hx anesthesia problems: none Results Review: All pre-operative results and documents have been reviewed as part of the pre-operative evaluation. [facility] Past Medical History Medical History BPH (benign prostatic hyperplasia) Colon cancer COPD (chronic obstructive pulmonary disease) GERD (gastroesophageal reflux disease) Gout History of Mohs micrographic surgery for skin cancer (~2019) History of open sigmoidectomy (~1999) Hypercholesterolemia Hypertension Hypothyroidism Pulmonary embolism 04/2020 - patient coded, was sent to [place] where he was placed on ECMO and further treated. Patient still has some residual dyspnea but overall much improved since april. Rheumatoid arthritis Vocal cord granuloma (~04/10/20) Surgical History Surgical History History of back surgery stenosis, severe spinal decompression History of partial colectomy History of total left knee replacement (~2015) History of total replacement of left shoulder joint (~2019) Family History Family History Mother Hypertension Father Diabetes mellitus Acute myocardial infarction Heart disease Hypercholesteremia Family history of malignant neoplasm of urinary bladder Cancer Pulmonary disease Sibling Cancer Sibling Cancer Social History Social History Social History: . Retired from [employer] in 1999. Smoking status: Never smoker Second hand tobacco smoke exposure: No Alcohol intake: never Substance use: never Substance use type: does not use Living arrangements: with family Gender identity (if verbalized by the patient): Male Spiritual care concerns: No Anes - Eval Final PreProcedure Day of Procedure 08/08/21 10:52 Patient weight: overweight Heart: regular rate and rhythm Lungs: decreased breath sounds Airway: Mallampati scale class II Neurological: alert and oriented Last oral intake: >/= 8 hours ASA classification: III Emergent: no Anesthetic plan: proceed Anesthesia type and monitoring: general LMA and standard monitoring Other findings: pre treat atropine 0.2 avoid fentanyl since increased vagal responses Results Review: All pre-operative
[2021-08-08] MEDS: ceFAZolin 2 GM/D5W 50 ML 2 GM/50 ML BAG IVPB (11:07)
[2021-08-08 11:10] LABS: Prothrombin Time 13.2 Seconds (11.1-14.7)
[2021-08-08] MEDS: LIDOCAINE HCL 2% GEL UROJET 10 ML PKG MUCOUS MEM (11:45)
--- NOTE | 2021-08-08 11:49 | W.PM.PROC2 ---
Procedure Note - Detailed Date of Procedure 08/08/21 Pre-op Diagnosis bph Post-op Diagnosis same Procedure Performed Transurethral resection of prostate Surgeon Finn Fernandez MD Anesthesia general Description of Procedure Patient is taken the operative suite and correctly identified. Once anesthesia was obtained was placed in dorsal lithotomy position and prepped draped usual sterile fashion. Twenty-four Indonesian resectoscope sheath was inserted in the bladder. There are no tumors noted. The patient does have residual prostatic tissue which appears obstructive in nature. Also was fairly edematous at the 12 o'clock position. We went ahead and resected this area from the bladder neck to the verumontanum. We fulgurated for hemostasis. Chips were sent for analysis. Prostatic channel was opened and there was no irregularities noted at this time. 2% viscous lidocaine was inserted into the urethra. Twenty-four Indonesian [address] was placed with 20 cc in the balloon. This connected to continuous bladder irrigation. Patient is taken recovery stable condition. He will be admitted overnight for CBI and have the catheter removed either Saturday or Saturday. Drains Yes Packing No Pathology yes Complications No immediate complications Condition stable Disposition PACU
--- NOTE | 2021-08-08 13:50 | ADMGEN ---
This patient, Kosta Li, was admitted to Medical Room 243-. Patient/family oriented to hospital policies and general routines including ID bracelet, bed and alarms, visiting hours, pain management, procedures, bathroom and other care routines, personal items, smoking policy, room service/diet, and visiting hours. Information on how to activate the Rapid Response Team has been discussed. Patient/Family are encouraged to report perceived risks to care and to ask questions if they do not understand what they are told or what they should do.
[2021-08-08] MEDS: DEXTROSE 5%/LACTATED RINGERS 1,000 ML 125 ML IV CONT (15:33)
[2021-08-08] MEDS: DOCUSATE SODIUM 100 MG CAPSULE PO (16:43)
[2021-08-08] MEDS: amLODIPine BESYLATE 5 MG TABLET 10 MG PO (21:05)
[2021-08-08] MEDS: HYDROcodone/acetaminophen (*CRX) 5-325 MG TABLET 1 TAB PO (21:08)
[2021-08-09 00:45] VITALS: BP 112/55; PULSE 84; RESP 18; TEMP 36.9; O2SAT 94
[2021-08-09 05:01] VITALS: BP 121/67; PULSE 81; RESP 16; TEMP 36.5; O2SAT 95
[2021-08-09 06:18] LABS: Anion Gap 4 mmol/L (8-16); Blood Urea Nitrogen 12 mg/dL (9-20); Calcium 8.3 mg/dL (8.4-10.2); Carbon Dioxide 29 mmol/L (22-30); Chloride 102 mmol/L (98-107); Estimated CRCL calculation 46 ml/min; Estimated Glomerular Filt Rate 58; Glucose 89 mg/dL (65-110); Hemoglobin 11.3 g/dL (14.0-18.0); Sodium 135 mmol/L (137-145)
[2021-08-09] MEDS: LEVOTHYROXINE SODIUM 100 MCG TABLET PO (06:27)
[2021-08-09 07:54] VITALS: BP 124/62; PULSE 90; RESP 16; TEMP 36.4; O2SAT 99
--- NOTE | 2021-08-09 08:02 | WPDUROPN2 ---
Progress Note: A&P Assessment and Plan (1) BPH (benign prostatic hyperplasia): Code(s): N40.0 - Benign prostatic hyperplasia without lower urinary tract symptoms Status: Acute Assessment and Plan: Doing well at this time with minimal CBI. Turned CBI to off. If urine remains clear will discharge home later today. Patient can remove catheter at home over weekend if his urine remains clear. 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 Subjective Subjective Date/Time Seen: 08/09/21 08:02 Post Op day: 1 (Transurethral resection of prostate) Principal diagnosis: BPH Interval history: Doing well at this time. Urine is clear with minimal CBI no major complaints Review of Systems Review of Systems: All systems reviewed & are unremarkable except as noted in HPI and below Exam Const: General: cooperative and no acute distress Resp: Effort & Inspection: normal respiratory effort Cardio: Rate: regular rate Rhythm: regular rhythm Objective Data Vital Signs Vital Signs: Vital Signs - 24 hr 08/08/21 10:30 08/08/21 11:55 08/08/21 12:10 Temperature 36.9 C 36.6 C Pulse Rate 86 80 80 Respiratory Rate 16 13 16 Blood Pressure 139/92 H 116/73 126/73 Pulse Oximetry 96 99 100 08/08/21 12:25 08/08/21 12:40 08/08/21 12:55 Temperature Pulse Rate 79 67 70 Respiratory Rate 15 12 15 Blood Pressure 132/80 124/79 136/71 Pulse Oximetry 100 96 98 08/08/21 13:10 08/08/21 13:25 08/08/21 13:35 Temperature Pulse Rate 71 78 68 Respiratory Rate 14 20 16 Blood Pressure 136/71 124/74 144/89 H Pulse Oximetry 95 100 100 08/08/21 14:05 08/08/21 14:35 08/08/21 15:35 Temperature 36.0 C L 36.4 C 36.7 C Pulse Rate 71 63 88 Respiratory Rate 18 18 20 Blood Pressure 131/74 133/66 120/66 Pulse Oximetry 100 97 98 08/08/21 19:38 08/09/21 00:45 08/09/21 05:01 Temperature 36.7 C 36.9 C 36.5 C Pulse Rate 77 84 81 Respiratory Rate 18 18 16 Blood Pressure 121/67 112/55 L 121/67 Pulse Oximetry 96 94 95 08/09/21 07:54 Temperature 36.4 C Pulse Rate 90 Respiratory Rate 16 Blood Pressure 124/62 Pulse Oximetry 99 Intake/Output Intake/Output: Intake & Output 08/06/21 08/07/21 08/08/21 08/09/21 23:59 23:59 23:59 23:59 Intake Total 777 400 Output Total 6700 700 Balance -5923 -300 Meds/Results Medications: Active Medications Generic Name Dose Route Start Last Admin Trade Name Freq PRN Reason Stop Dose Admin Hydrocodone Bitart/Acetaminophen 1 tab 08/08/21 13:53 08/08/21 21:08 Hydrocodone/Acetaminophen (*Crx) 5-325 Mg Tablet PO 1 tab Q4H PRN Administration Pain Rated 1-6 Allopurinol 200 mg 08/09/21 09:00 Allopurinol 100 Mg Tablet PO DAILY KRYSTAL Amlodipine Besylate 10 mg 08/08/21 21:00 08/08/21 21:05 Amlodipine Besylate 5 Mg Tablet PO 10 mg HS KRYSTAL Administration Atorvastatin Calcium 20 mg 08/09/21 09:00 Atorvastatin 20 Mg Tablet PO QAM [facility] Cephalexin HCl 500 mg 08/09/21 09:00 Cephalexin 500 Mg Capsule PO QID KRYSTAL Docusate Sodium 100 mg 08/08/21 17:00 08/08/21 16:43 Docusate Sodium 100 Mg Capsule PO 100 mg BID KRYSTAL Administration Hyoscyamine 0.125 mg 08/08/21 13:53 Hyoscyamine Sulfate 0.125 Mg Tablet SUBLINGUAL Q6H PRN Bladder Spasm Levothyroxine Sodium 100 mcg 08/09/21 06:30 08/09/21 06:27 Levothyroxine Sodium 100 Mcg Tablet PO 100 mcg DAILY@0630 KRYSTAL Administration Morphine Sulfate 2 mg 08/08/21 13:53 Morphine Sulfate (*Crx) 2 Mg/Ml Inj IV PUSH Q2H PRN Pain Rated 7-10 Naloxone HCl 0.1 mg 08/08/21 13:53 Naloxone Hcl 0.4 Mg/Ml Vial IV PUSH Q2M PRN Opiate Reversal Nitroglycerin 0.4 mg 08/08/21 13:53 Nitroglycerin Sl 0.4 Mg Tablet SUBLINGUAL PRN PRN Chest Pain Ondansetron HCl 4 mg 08/08/21 13:53 Ondansetron Inj 4 Mg/2 Ml Vial IV PUSH Q12H PRN Nausea And Vomiting Pantoprazole Sodium 40 mg 08/09/21 09:00 Pantoprazole 40 Mg Tabl
[2021-08-09] MEDS: PANTOPRAZOLE 40 MG TABLET PO (08:12)
[2021-08-09] MEDS: allopurinoL 100 MG TABLET 200 MG PO (08:12)
[2021-08-09] MEDS: CEPHALEXIN 500 MG CAPSULE PO ×2 (08:12→12:16)
[2021-08-09] MEDS: ATORVASTATIN 20 MG TABLET PO (08:12)
[2021-08-09] MEDS: CHOLECALCIFEROL 1,000 UNITS TABLET 2000 UNITS PO (08:12)
[2021-08-09] MEDS: predniSONE 1 MG TABLET 3 MG PO (08:12)
[2021-08-09] MEDS: DOCUSATE SODIUM 100 MG CAPSULE PO (08:12)
--- NOTE | 2021-08-09 08:58 | WPDANESPN ---
Anes - Prog Note Post-Op Date/Time: 08/09/21 08:58 Cardiovascular status: normal Respiratory status: normal Airway patency: baseline Mental status: baseline Post-Op hydration status: normal Vital Signs: Last Vital Signs Temp 36.4 C 08/09/21 07:54 Pulse 90 08/09/21 07:54 Resp 16 08/09/21 07:54 BP 124/62 08/09/21 07:54 Pulse Ox 99 08/09/21 07:54 Pain Score (VAS): 3 I/O: Intake & Output 08/08/21 08/09/21 08/09/21 23:59 07:59 15:59 Intake Total 427 400 600 Output Total 250 700 Balance 177 -300 600 Laboratory Tests 08/09/21 05:43 08/09/21 05:43 08/08/21 08/09/21 08/09/21 10:42 05:43 05:43 Hgb 11.3 L Hct 36.0 L PT 13.2 INR 1.0 Sodium 135 L Potassium 4.0 Chloride 102 Carbon Dioxide 29 Anion Gap 4 L BUN 12 D Creatinine 1.20 Estim Creat Clear Calc 46 Estimated GFR 58 L Glucose 89 Calcium 8.3 L Post-procedural complaints: none Patient Feedback: Patient satisfied with anesthetic care.
[2021-08-09 10:00] VITALS: BP 135/56; PULSE 90; RESP 18; TEMP 36.8; O2SAT 96
--- NOTE | 2021-08-09 11:31 | PCCCNOTE ---
On 08/09/21, the student, [Dang Palacios ], provided care and completed [employer] documentation on this patient. I have reviewed the student's documentation and agree with the findings.
[2021-08-09 11:38] VITALS: BP 135/73; PULSE 88; RESP 14; TEMP 36.4; O2SAT 95
[2021-08-09] MEDS: HYOSCYAMINE SULFATE 0.125 MG TABLET SUBLINGUAL (13:53)
== END 2021-08-09 14:05 | disposition home or self-care (01) ==
LOC: ANHSURGERY 09:45 → ANH2MED 13:55
PROVIDERS: Anesthesiology; PCP Physician Assistant; Visit Provider Urology
PROC: 0VT08ZZ Resection of Prostate, Via Natural or Artificial Opening Endoscopic (ICD-10-PCS; CPT 52601; principal; 2021-08-08 12:00)
DX: N40.1 Benign prostatic hyperplasia with lower urinary tract symptoms (principal); R39.13 Splitting of urinary stream; R30.0 Dysuria; J44.9 Chronic obstructive pulmonary disease, unspecified; K21.9 Gastro-esophageal reflux disease without esophagitis; M10.9 Gout, unspecified; I10 Essential (primary) hypertension; E78.00 Pure hypercholesterolemia, unspecified; E03.9 Hypothyroidism, unspecified; M06.9 Rheumatoid arthritis, unspecified; Z86.711 Personal history of pulmonary embolism; Z90.49 Acquired absence of other specified parts of digestive tract; Z79.01 Long term (current) use of anticoagulants; Z79.82 Long term (current) use of aspirin
CPT/HCPCS: 52601; 36415; 80048; 85014; 85018; 85610; 88305; A9270; C1758; J0461; J0690; J2405; J2704; J7120; J7121

== ENCOUNTER 2023-05-13 17:12 | Observation (INO) | payer MEDICARE, SELFPAY ==
--- NOTE | ~2023-05-13 | XR_ITS ---
EXAMINATION: XR chest 2V Exam Date/Time: 05/13/2023 17:47 CDT HISTORY: CP Comparison: 05/08/2021. RESULT: Lines, tubes, and devices: Partially visualized left shoulder arthroplasty hardware. Lungs and pleura: Senescent change. Linear scar/atelectasis in the left lung base. Multiple calcifie d granulomas. Cardiomediastinal silhouette: Stable. Large hiatal hernia. Other: No acute osseous or upper abdominal finding. IMPRESSION: No acute cardiopulmonary process. Reviewed, dictated and finalized at location K.
--- NOTE | ~2023-05-13 | NM_ITS ---
EXAMINATION: NM eugenia stress w perfusion DATE: 05/14/2023 11:24 CDT INDICATION: Chest pain TECHNIQUE: Rest images were obtained following intravenous administration of 10.4 mCi Tc99m tetrofosm in (Myoview). The patient was infused intravenously with Lexiscan (regadenoson). Then, 33.9 mCi Tc99m tetrofosmin (Myoview) was administered intravenously, and stress images were obtained. Data was sandrine nstructed into short axis and horizontal and vertical long axis SPECT images. Gated SPECT images were also obtained. COMPARISON: 05/09/2021. FINDINGS: There is no definite reversible or fixed perfusion abnormality to suggest ischemia or infar ction. There is no segmental wall motion abnormality. Left ventricular ejection fraction measures 6 5%. IMPRESSION: 1. No definite ischemia or infarct. 2. Normal left ventricular ejection fraction measuring 65%. Reviewed, dictated and finalized at location L.
--- NOTE | 2023-05-13 17:15 | ECG_ITS ---
Measurements Intervals [place] Rate: 108 P: 10 [place]: 163 QRS: 7 QRSD: 86 T: 7 QT: 309 QTc: 415 Interpretive Statements SINUS TACHYCARDIA CONSIDER INFERIOR INFARCT, AGE INDETERMINATE ABNORMAL ECG COMPARED TO ECG 05/08/2021 09:13:06 SINUS TACHYCARDIA NOW PRESENT Electronically Signed On 05-13-2023 17:54:17 CDT by Johann Jones D.O.
[2023-05-13 17:41] VITALS: BP 140/100; PULSE 99; RESP 18; TEMP 36.8; O2SAT 100
[2023-05-13 17:58] LABS: Alanine Aminotransferase 21 U/L (6-50); Albumin Level 4.2 g/dL (3.5-5.1); Alkaline Phosphatase 58 U/L (38-126); Anion Gap 6 mmol/L (8-16); Aspartate Amino Transferase 33 U/L (17-59); Bilirubin,Total 1.2 mg/dL (0.2-1.3); Blood Urea Nitrogen 12 mg/dL (9-20); Calcium 8.7 mg/dL (8.4-10.2); Carbon Dioxide 28 mmol/L (22-30); Chloride 105 mmol/L (98-107); Estimated CRCL calculation 53 ml/min; Estimated Glomerular Filt Rate > 60; Glucose 93 mg/dL (65-110); Lipase 124 U/L (23-300); Potassium 4.3 mmol/L (3.4-5.0); Sodium 139 mmol/L (137-145)
[2023-05-13 18:04] LABS: Troponin I < 0.012 ng/mL (0.000-0.034)
[2023-05-13 21:41] VITALS: BP 151/87; PULSE 93; RESP 22; O2SAT 97
[2023-05-13 22:10] LABS: Basophils Percent Auto 0.3 % (0.2-1.2); Eosinophils Absolute Auto 0.3 K/mm3 (0-0.3); Eosinophils Percent Auto 3.1 % (0-4.4); Hemoglobin 15.9 g/dL (14.0-18.0); Immature Granulocyte Absolute 0.04 K/mm3 (0.00-0.031); Immature Granulocyte Percent A 0.5 % (0-0.5); Lymphocytes Absolute Auto 1.97 K/mm3 (0.9-3.2); Lymphocytes Percent Auto 24.7 % (18.3-44.2); Mean Corpuscular HGB Conc 33.1 g/dl (32-36); Mean Corpuscular Hemoglobin 32.8 pg (26-34); Mean Platelet Volume 10.4 fl (7.4-10.4); Monocytes Absolute Auto 0.7 K/mm3 (0.1-0.6); Monocytes Percent Auto 9.3 % (2.6-8.5); Neutrophils Percent Auto 62.1 % (45.5-73.1); Platelet Count Result 218 k/mm3 (150-375); Red Blood Count 4.85 M/mm3 (4.6-6.20); Red Cell Distribution Width 14.2 % (11.5-14.5)
--- NOTE | 2023-05-13 22:16 | ED.CHESTPAIN ---
HPI - Chest Pain General Chief Complaint: Chest Pain Stated Complaint: chest pain Time Seen by Provider: 05/13/23 21:45 Source: patient Mode of arrival: ambulatory Limitations: no limitations History of Present Illness HPI narrative: Patient is an 82-year-old male who presents ED with report of chest tightness. Patient reports he developed chest tightness this afternoon which has been constant since then. He denies ever having tightness like this before. Denies anything truly feeling like pain, more just an abnormal tight sensation along his lower chest. He denies any aggravating or alleviating factors to the tightness. No aggravation with exertion. Patient denies any associated symptoms. Denies shortness of breath, palpitations, pain with taking deep breaths, nausea, vomiting, diaphoresis, abdominal pain, cough or cold symptoms. Patient reports previous history of pulmonary embolisms that resulted in cardiac arrest/ECMO. He is on Eliquis. Has not missed any doses. 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 He has previously seen Dr. Brown with cardiology. Related Data Home Medications Medication Instructions Recorded Confirmed amlodipine 10 mg tablet 10 mg PO HS 04/10/20 08/08/21 folic acid 1 mg tablet 1 mg PO DAILY 04/10/20 08/08/21 methotrexate sodium 2.5 mg tablet 15 mg PO WEEKLY 04/10/20 08/08/21 multivit with minerals-iron 18 1 tablet PO DAILY 04/10/20 08/08/21 mg-folic ac 400 mcg-vit K 25 mcg tablet (Adults Multivitamin) apixaban 5 mg tablet (Eliquis) 5 mg PO BID 06/22/20 08/08/21 allopurinol 100 mg tablet 200 mg PO DAILY 10/14/20 08/08/21 prednisone 1 mg tablet 3 mg PO DAILY 10/18/20 08/08/21 aspirin 81 mg tablet 81 mg PO DAILY 11/25/20 08/08/21 atorvastatin 20 mg tablet 20 mg PO QAM 11/25/20 08/08/21 cholecalciferol (vitamin D3) 50 50 mcg PO DAILY 11/25/20 08/08/21 mcg (2,000 unit) capsule (Vitamin D3) ascorbic acid (vitamin C) 2,000 mg 2,000 mg PO DAILY 07/25/21 08/08/21 tablet,extended release diphenhydramine HCl 25 mg capsule 25 mg PO HS 07/25/21 08/08/21 (Benadryl) ferrous sulfate 325 mg (65 mg 325 mg PO DAILY 07/25/21 08/08/21 iron) tablet (Iron (ferrous sulfate)) levothyroxine 100 mcg tablet 100 mcg PO DAILY 07/25/21 08/08/21 (Euthyrox) nitroglycerin 0.4 mg sublingual 0.4 mg sublingual PRN PRN Chest 07/25/21 07/25/21 tablet Pain omeprazole 20 mg capsule,delayed 20 mg PO DAILY 07/25/21 08/08/21 release Allergies Allergy/AdvReac Type Severity Reaction Status Date / Time No Known Allergies Allergy Mild Verified 08/08/21 11:02 Review of Systems Review of Systems: CONSTITUTIONAL: Denies fever, chills, or sweats. CARDIOVASCULAR: See HPI. RESPIRATORY: Denies cough or dyspnea. GASTROINTESTINAL: Denies abdominal pain, nausea, vomiting, or diarrhea. GENITOURINARY: Denies dysuria or hematuria. SKIN: Denies rash or itching. MUSCULOSKELETAL: Denies back pain, joint pain, or myalgia. All systems reviewed & are unremarkable except as noted in HPI and below PMFSH Past Medical History Medical History BPH (benign prostatic hyperplasia) Colon cancer COPD (chronic obstructive pulmonary disease) GERD (gastroesophageal reflux disease) Gout History of Mohs micrographic surgery for skin cancer (~2019) History of open sigmoidectomy (~1999) Hypercholesterolemia Hypertension Hypothyroidism Pulmonary embolism 04/2020 - patient coded, was sent to [place] where he was placed on ECMO and further treated. Patient still has some residual dyspnea but overall much improved since april. Rheumatoid arthritis Vocal cord granuloma (~04/10/20) Surgical History Surgical History History of back surgery stenosis, severe spinal decompression History of partial colectomy History of total lef
[2023-05-13 22:20] LABS: Atypical Lymphocytes Present; Platelet Estimate Adequate (Adequate); Schistocytes None Seen (NORMAL)
[2023-05-13 23:08] LABS: INR 1.2; Prothrombin Time 15.8 Seconds (11.1-14.7)
[2023-05-13 23:09] LABS: Partial Thromboplastin Time 35.8 SECONDS (22.3-36.8)
--- NOTE | 2023-05-13 23:17 | PC.NURSE ---
pt report and care given to EDIN Dasilva. all questions answered.
[2023-05-13 23:34] LABS: D Dimer 0.31 ug/mL (<0.48)
[2023-05-14] VITALS (10 sets, daily range): BP systolic 139–158; BP diastolic 77–89; PULSE 65–112; RESP 15–20; TEMP 36.3–36.7; O2SAT 94–99; BMI 29.7
[2023-05-14 00:08] LABS: NT Pro B Type Natriuretic Pept 54 pg/mL (19.9-100); Troponin I < 0.012 ng/mL (0.000-0.034)
[2023-05-14] MEDS: BELLADONNA ALK/PHENOB ELIX 10 ML, MAG HYDROX/ALUMINUM HYD/SIMETH 30 ML, LIDOCAINE HCL 2... PO (00:28)
[2023-05-14] MEDS: amLODIPine BESYLATE 5 MG TABLET 10 MG PO (02:07)
[2023-05-14] MEDS: APIXABAN 5 MG TABLET PO ×2 (02:10→11:28)
[2023-05-14 02:55] LABS: Troponin I < 0.012 ng/mL (0.000-0.034)
--- NOTE | 2023-05-14 03:38 | ADMGEN ---
This patient, Kosta Li, was admitted to IMU Room 200-01. Patient/family oriented to hospital policies and general routines including ID bracelet, bed and alarms, visiting hours, pain management, procedures, bathroom and other care routines, personal items, smoking policy, room service/diet, and visiting hours. Information on how to activate the Rapid Response Team has been discussed. Patient/Family are encouraged to report perceived risks to care and to ask questions if they do not understand what they are told or what they should do.
--- NOTE | 2023-05-14 05:25 | EST_ITS ---
Patient Info Name: Kosta Li Age: 82 years : 1940 Gender: Male Ht: 68 in Wt: 195 lbs BSA: 2.08 m2 Exam Date: 05/14/2023 10:12 AM Exam Location: [facility] Stress Patient Status: Inpatient Admit Date: 05/14/2023 Staff Ordering Physician: Essie Alexander DO Attending Provider: Essie Alexander DO Exercise Technologist: Alanis Murguia RDCS Nurse: Regi Vasquez APN Exercise Physician: Sumaya Allen MD Exam Type: CA stress eugenia w NM Study Info Indications R07.9 - Chest pain, unspecified A regadenoson stress test was performed. Summary 1. Please correlate with nuclear medicine images, reported separately. 2. No abnormal ST-T wave changes with lexiscan. Protocol: Lexiscan Stress ECG Details Stage: REST Duration (min): 0 min : 44 sec HR (bpm): 101 SBP (mmHg): 152 DBP (mmHg): 96 Stage: REST Duration (min): 7 min : 10 sec HR (bpm): 101 SBP (mmHg): 152 DBP (mmHg): 96 Stage: STAGE 1 Duration (min): 1 min : 0 sec HR (bpm): 110 SBP (mmHg): 155 DBP (mmHg): 91 Stage: RECOVERY Duration (min): 1 min : 0 sec HR (bpm): 111 SBP (mmHg): 137 DBP (mmHg): 84 Stage: RECOVERY Duration (min): 2 min : 0 sec HR (bpm): 113 SBP (mmHg): 137 DBP (mmHg): 84 Stage: RECOVERY Duration (min): 3 min : 0 sec HR (bpm): 110 SBP (mmHg): 133 DBP (mmHg): 83 Stage: RECOVERY Duration (min): 3 min : 5 sec HR (bpm): 110 SBP (mmHg): 133 DBP (mmHg): 83 Rest HR: 101 bpm Peak HR: 114 bpm Rest Sys BP: 152 mmHg Peak Sys BP: 155 mmHg Max Pred HR: 139 bpm % Max Pred HR: 82 % Target HR: 118 bpm Max RPP: 17,670 bpm*mmHg BP Response: Normal blood pressure response Termination Reason: Completed protocol Cardiac Symptoms: None Total Time: 1 min : 0 sec Rest Green BP: 96 mmHg Peak Green BP: 91 mmHg Total Dose: 0.4 mg Resting ECG Normal sinus rhythm. Sinus tachycardia. Stress ECG No abnormal ST/T wave changes with exercise. Arrhythmias No arrhythmias were observed during the examination. Report Signatures
--- NOTE | 2023-05-14 05:27 | PM.IMHP ---
H&P: HPI History of Present Illness Date/Time: 05/14/23 06:15 Chief Complaint: Chest pain Narrative: 82-year-old male with a past medical history of gout, essential hypertension, hypothyroidism, GERD, rheumatoid arthritis and massive pulmonary embolism resulting in cardiac arrest in April 2022 presented to the ER with chest discomfort that started afternoon of the . He reports that the discomfort as a tightness and he has never had symptoms like this before. Sensation is more in his lower chest. He has not noticed any aggravating or relieving factors. Patient's heart score was 5 due to age nonspecific EKG changes and risk factors including hypertension hyperlipidemia and known nonocclusive coronary disease. Subsequently, the patient was admitted to hospital for evaluation. Patient's supplies that when the patient had his pulmonary embolism stated heart catheterization at that time which demonstrated 1 vessels at was 50% occluded. The patient had a negative Lexiscan stress test May 2021. The patient and states the patient has followed with Dr. Brown in the past. However the patient has also been evaluated by [facility] Cardiology group here when hospitalized for chest pain and 2020. Patient's follows with Dr. Arreaga as outpatient and would like to transition the patient's care to [facility] Cardiology group. Two sets of troponins were performed in the ER were negative at less than 0.012. D-dimer in the ER was also negative. Patient has been compliant with his Eliquis. Patient did receive full-dose aspirin in the ER. The patient has that he had a similar episode in 2020 after he had his COVID shot. His chest tightness at that time occurred 3 days after headaches COVID vaccine. Incidentally he had his influenza and RSV vaccine 3 days ago. He is wondering if his chest tightness is not associated with that. He reports that the tightness is across his entire chest. It is been constant with episodes of worsening that her moderate in intensity. He has not had any associated diaphoresis, cough, congestion or fever. He has not had any radiation of the pain. He has not noticed any relieving factors. He had a GI cocktail in the ER without improvement in symptoms. Patient stated that he would nephew even come into the ER for evaluation but he was concerned because his was recently diagnosed with 2 vessel coronary artery disease when she went to the ER for evaluation of difficulty moving her leg. She was incidentally found to have an elevated troponin and had heart catheterization at that time. He had onset of his who had no history could have 2 vessel disease without heart symptoms that he could also. He states that he has been walking every day with his dog. He also has been going to the gym 2 to 3 times a week for the last couple of weeks. He denies any shortness of breath or chest pain with walking on the treadmill. He admits that he does not walk vigorously over at a necessarily rapid pace. Review of Systems Review of Systems: 12 systems were reviewed with pertinent positives and negatives per HPI. Except as documented in the HPI, all other systems were reviewed and are negative. [facility] Past Medical History Medical History (Updated 05/14/23 @ 07:56 by Essie Alexander DO) BPH (benign prostatic hyperplasia) Cardiac arrest with pulseless electrical activity (04/2020) Due to massive PE Colon cancer COPD (chronic obstructive pulmonary disease) Essential hypertension GERD (gastroesophageal reflux disease) Gout Hypercholesterolemia Hypothyroidism Obstructive sleep apnea on CPAP Pulmonary embolism 04/2020 - patient coded, was sent to [place] where he was placed on ECMO and further treated. Rheumatoid arthritis Vocal cord granuloma (~04/10/20) Surgical History Surgical History (Updated 05/14/23 @ 05:37 by Essie Alexander DO) History of back surgery stenosis, severe spinal decompression History
[2023-05-14] MEDS: FERROUS SULFATE 325 MG TABLET DR BY MOUTH (11:27)
[2023-05-14] MEDS: predniSONE 1 MG TABLET 2 MG PO (11:27)
[2023-05-14] MEDS: ATORVASTATIN 20 MG TABLET PO (11:28)
[2023-05-14] MEDS: ASPIRIN 81 MG ENTERIC TABLET PO (11:28)
[2023-05-14] MEDS: CHOLECALCIFEROL 1,000 UNITS TABLET 2000 UNITS PO (11:28)
[2023-05-14] MEDS: DOCUSATE SODIUM 100 MG CAPSULE PO ×2 (11:28→16:07)
[2023-05-14] MEDS: PANTOPRAZOLE 40 MG TABLET PO (11:28)
[2023-05-14] MEDS: MULTIVITAMINS /C LUTEIN (CENTRUM SILVER) TABLET *BKC 1 TAB PO (11:29)
[2023-05-14] MEDS: FOLIC ACID 1 MG TABLET PO (11:29)
[2023-05-14] MEDS: ASCORBIC ACID 500 MG TABLET 2000 MG PO (11:29)
[2023-05-14] MEDS: allopurinoL 100 MG TABLET 200 MG PO (11:34)
--- NOTE | 2023-05-14 15:25 | PM.CNCAR ---
Assessment and Plan Assessment and plan (1) PSVT (paroxysmal supraventricular tachycardia): Code(s): I47.1 - Supraventricular tachycardia Status: Acute Assessment and Plan: Telemetry shows 1 brief episode of SVT rate 117. No history of arrhythmias or sensation of tachycardias. Thus, likely benign. TSH was normal. --okay for discharge --will arrange for an outpatient monitor to evaluate for a longer episodes that might require treatment --counseled patient and his (2) Sinus tachycardia: Code(s): R00.0 - Tachycardia, unspecified Status: Acute Assessment and Plan: Patient has had some sinus tachycardia intermittently, with heart rates in the 100-105 range. Not anemic, TSH was normal, normal LV function. --no further evaluation recommended (3) Chest pain: Qualifiers: Chest pain type: unspecified Qualified Code(s): R07.9 - Chest pain, unspecified Code(s): R07.9 - Chest pain, unspecified Status: Acute Assessment and Plan: The patient was admitted with atypical chest pain, workup negative as above. Temporally related to receiving his RSV and flu vaccines, so perhaps myalgias related to this. Also, he resumed his exercise at [employer] last week so there is likely a musculoskeletal component. --no further workup recommended. (4) Essential hypertension: Code(s): I10 - Essential (primary) hypertension Status: Acute Assessment and Plan: Blood pressure is running high end of normal range, counseled patient and his regarding desirable blood pressures (5) CAD (coronary artery disease): Code(s): I25.10 - Atherosclerotic heart disease of [place] coronary artery without angina pectoris Status: Acute Assessment and Plan: Catheterization in 2020 showed 40-50% stenosis of the proximal Left anterior descending. Asymptomatic. --continue heart healthy lifestyle, Eliquis and atorvastatin. History of Present Illness History of Present Illness Consult date/time: 05/14/23 15:25 Reason For Visit: Chest Pain Narrative: Kosta Li is an 82-year-old male whom I was asked to see at the request of Dr. Vizcaino for my advice and opinion regarding episode of tachycardia, in consultation. Mr. Li has a history of massive PE requiring ECMO in 2019, hypertension, dyslipidemia, sleep apnea, vasovagal syncope, seronegative rheumatoid arthritis, and GERD. I met him when he was admitted in May 2021 for chest pain. He has been followed by Dr. Bermeo in the past as well as . His CT a was negative, and Lexiscan was negative. Later that month he apparently had another stress test elsewhere and underwent cardiac catheterization elsewhere which showed [id number] CAD with 40-50% proximal Left anterior descending stenosis; he had a vasovagal reaction post procedure. Patient was admitted here on 05/14/2023 after having continuous chest tightness since the prior afternoon. He was given a GI cocktail in the emergency room without improvement, and admitted. It was nonpleuritic and non tender, non positional. No associated symptoms. he has had 3 negative troponins. ProBNP was 54. D-dimer was normal. Lexiscan stress test showed no defects, EF 65%. This afternoon around 230 p.m. the patient had episode of tachycardia; the telemetry rhythm strip shows a narrow complex regular rhythm, rate approximately 117, which appears to be an SVT As far as I can tell this lasted for about a minute. (There is another rhythm strip recorded under ?alarms? that shows artifact.) The patient denies any history of palpitations or arrhythmias. Of note, the patient used to exercise regularly at [employer], but has not done so recently. He resumed exercise 1 week ago. Also he had a recent vaccination for RSV and influenza; he recalls that when he was admitted for chest pain in 2020 it was a few days after he had a COVID vaccinatio
--- NOTE | 2023-05-14 16:20 | PM.DS ---
DS: Admitting Diagnosis Discharge Date 05/14/23 Admitting Diagnosis cp DS: Discharge Diagnosis Discharge Diagnosis (1) Chest pain: Qualifiers: Chest pain type: unspecified Qualified Code(s): R07.9 - Chest pain, unspecified Code(s): R07.9 - Chest pain, unspecified Status: Acute (2) History of pulmonary embolism: Code(s): Z86.711 - Personal history of pulmonary embolism Status: Acute (3) Obstructive sleep apnea on CPAP: Code(s): G47.33 - Obstructive sleep apnea (adult) (pediatric) Status: Acute (4) Essential hypertension: Code(s): I10 - Essential (primary) hypertension Status: Acute Plan Patient is having atypical chest pain with chest tightness. I am wondering if some of the patient's symptoms may not be due to elevated blood pressure and maybe some tachycardia. Symptoms could also be due to recent immunizations. Given the patient's history of nonocclusive coronary disease in the past a Lexiscan stress test has been ordered to rule out myocardial ischemia. If no evidence of the ischemia on imaging patient may benefit from addition of a beta-kelly to his medication regimen to help reduce blood pressure and heart rate. Will continue to monitor patient on telemetry in the IMU. Patient does have hypothyroidism and is on levothyroxine. Will check TSH make sure the patient isn't supratherapeutic on his levothyroxine. Will resume the remainder the patient's home medications including antihypertensives and rheumatoid arthritis medications. Methotrexate is on hold as is a once weekly doses that the patient has already received. The patient's blood pressures are upper limits of goal range. Again the patient may benefit from addition of a 2nd antihypertensive specially beta-kelly given heart rate as discussed above. If patient remains hospitalized overnight patient will need auto titrating CPAP. He reports that he is compliant with his CPAP therapy every night. Patient has been admitted as observation status. DS: Summary Hospital Course Hospital Course: atypical cp on admission, [place]ck[place] negative fu cardiology on dc for holter monitor set up no cp now, ok for dc Time Spent with Patient Time attestation: Total time spent providing and/or coordinating discharge services: Exam Narrative: Weight 88.9 kg BMI 29.8 Const: Other: No acute distress, well-developed well-nourished, appears younger than stated age HENMT: Other: Mucous membranes are tacky, no oral pharyngeal erythema, head is normocephalic atraumatic, crowded posterior oropharynx Eyes: Other: Pupils are equal and reactive, no scleral icterus, no conjunctival pallor Neck: Other: Large neck circumference, no JVD Resp: Other: Clear to auscultation bilaterally, no increased work of breathing Cardio: Other: Regular rhythm, rate upper limit of normal GI: Other: Soft, nontender, nondistended, positive bowel sounds Skin: Other: No jaundice, no pallor, normal temperature to touch Neuro: Other: Alert oriented x4, speech is clear, no facial asymmetry, hard of hearing Extrem: Other: No clubbing, cyanosis or edema, moves all extremities equally Psych: Other: Appropriate mood and affect, pleasant and cooperative, judgment and insight intact DS: Data Data Completed and Pending Labs on day of discharge: Labs from last 24 hours 05/14/23 05/14/23 05/13/23 08:42 02:26 22:53 WBC RBC Hgb Hct MCV MCH MCHC RDW Plt Count MPV Immature Gran % (Auto) Neut % (Auto) Lymph % (Auto) Hart % (Auto) Eos % (Auto) Baso % (Auto) Lymph # (Auto) Hart # (Auto) Eos # (Auto) Baso # (Auto) Abs Immat Gran (auto) Absolute Neuts (auto) Absolute Nucleated RBC Nucleated RBC % Atypical Lymphocytes Platelet Estimate Schistocytes PT 15.8 H INR 1.2 APT
== END 2023-05-14 17:06 | disposition home or self-care (01) ==
LOC: ANHED 05-14 01:02 → ANHIMU 05-14 03:20
PROVIDERS: Emergency Medicine; Admitting Provider Internal Medicine; Emergency Provider Physician Assistant; PCP Physician Assistant; Visit Provider Chiropractor
DX: R07.89 Other chest pain (principal); I10 Essential (primary) hypertension; I25.10 Atherosclerotic heart disease of native coronary artery without angina pectoris; N40.0 Benign prostatic hyperplasia without lower urinary tract symptoms; I47.1 Supraventricular tachycardia; N32.89 Other specified disorders of bladder; R94.31 Abnormal electrocardiogram [ECG] [EKG]; J44.9 Chronic obstructive pulmonary disease, unspecified; K21.9 Gastro-esophageal reflux disease without esophagitis; M10.9 Gout, unspecified; E78.00 Pure hypercholesterolemia, unspecified; M06.9 Rheumatoid arthritis, unspecified; G47.33 Obstructive sleep apnea (adult) (pediatric); E03.9 Hypothyroidism, unspecified; Z90.49 Acquired absence of other specified parts of digestive tract; F10.90 Alcohol use, unspecified, uncomplicated; Z86.711 Personal history of pulmonary embolism; Z86.74 Personal history of sudden cardiac arrest; Z79.01 Long term (current) use of anticoagulants; Z75.2 Other waiting period for investigation and treatment; Z79.82 Long term (current) use of aspirin; Z79.899 Other long term (current) drug therapy; Z84.89 Family history of other specified conditions; Z83.42 Family history of familial hypercholesterolemia
CPT/HCPCS: 36415; 71046; 78452; 80053; 83690; 83880; 84443; 84484; 85025; 85380; 85610; 85730; 93005; 93017; 99285; A9270; A9502; G0378; J2785

== ENCOUNTER 2023-05-20 10:09 | Observation (INO) | payer MEDICARE, SELFPAY ==
[2023-05-20] VITALS (11 sets, daily range): BP systolic 122–151; BP diastolic 56–89; PULSE 81–107; RESP 16–20; TEMP 36.5–37.6; O2SAT 95–99; BMI 27.6
--- NOTE | ~2023-05-20 | CT_ITS ---
CT ANGIOGRAM NECK AND HEAD History: Double vision, syncope. Technique: Axial noncontrast imaging of the brain was performed. Serial spiral axial images through t he head and neck were then obtained during arterial phase IV injection of 100 cc of Omnipaque 350. 3- D postprocessing and MIP images were then reconstructed on the remote workstation. Dose reduction juan hnique was used on this scan by utilizing automated exposure control and iterative reconstruction juan hnique. The dose-length product (DLP) was 1781.32 mGy-cm. CTA neck findings: Bilateral vertebral arteries are patent. Bilateral common carotid, internal carot id, and external carotid arteries are patent. There are small calcified plaques at the bilateral prox imal internal carotid arteries, without stenosis. No large vessel occlusion. No aneurysm. The proxima l right internal carotid artery demonstrates 0% stenosis relative to the normal distal artery lumen d iameter. The proximal left internal carotid artery demonstrates 0% stenosis relative to the normal di stal artery lumen diameter. CTA head findings: Distal vertebral arteries, basilar artery, and posterior cerebral arteries are pat ent. Distal internal carotid arteries, middle cerebral arteries, and anterior cerebral arteries are p atent. No large vessel occlusion. No stenosis or aneurysm. Axial noncontrast imaging of the brain demonstrates no evidence for acute infarct, intracranial hemor rhage, or mass lesion. There are mild chronic appearing hypodensities in the periventricular white ma tter bilaterally. Ventricles and subarachnoid spaces are nondilated. Impression: No significant vascular abnormality seen. Mild chronic microvascular ischemic change in the brain. Reviewed, dictated and finalized at location . Impression: No significant vascular abnormality seen. Mild chronic microvascular ischemic change in the brain.
--- NOTE | ~2023-05-20 | CT_ITS ---
EXAMINATION: CT brain wo con DATE: 05/20/2023 11:35 INDICATION: Syncopal episode and diplopia TECHNIQUE: Computed tomography (CT) of the head was performed without intravenous contrast. Sagittal and coronal reconstructions were performed. The mA was adjusted according to patient size. Iterative reconstruction technique was employed. The dose-length product was 605.33 mGy-cm. COMPARISON: head CT dated 10/14/2020 FINDINGS: No acute intracranial hemorrhage, acute infarction or abnormal extra axial fluid collection. There is moderate scattered white matter hypoattenuation consistent with chronic small vessel ischemic diseas e. Ventricles are normal and symmetric. No mass/mass effect. Changes of bilateral intraocular lens r eplacement. The orbits and mastoid air cells are normal. Mild mucosal thickening at the ethmoid sinus es. IMPRESSION: 1. No significant interval change in moderate scattered nonspecific cerebral white matter hypoattenua tion consistent with chronic small vessel ischemic disease. Reviewed, dictated and finalized at location A. IMPRESSION: 1. No significant interval change in moderate scattered nonspecific cerebral wh ite matter hypoattenuation consistent with chronic small vessel ischemic diseas e.
--- NOTE | ~2023-05-20 | XR_ITS ---
Clinical Indication: Syncope AP and lateral views of the chest: Comparison: 05/13/2023 Findings: Calcified granulomas are present. The lungs are otherwise clear, without evidence of focal consolidation or pleural effusion. Cardiomediastinal silhouette is within normal limits. Left should er arthroplasty again noted. Probable moderate hiatal hernia present. Impression: No acute abnormality. Calcified pulmonary granulomas. Probable moderate sliding hiatal hernia. Reviewed, dictated and finalized at location . Impression: No acute abnormality. Calcified pulmonary granulomas. Probable moderate sliding hiatal hernia.
--- NOTE | ~2023-05-20 | CT_ITS ---
EXAMINATION: CTA chest PE protocol DATE: 05/20/2023 11:36 INDICATION: Transient alteration of awareness TECHNIQUE: Computed tomography angiography (CTA) of the chest was performed with 100 mL Omnipaque-350 intravenous contrast timed to evaluate the pulmonary arteries. Coronal maximum intensity projection 3D-reconstructions were created by the technologist. The dose-length product (DLP) was 413.08 mGy-cm. Automated exposure control and iterative reconstruction technique were employed. COMPARISON: 05/08/2021 FINDINGS: The pulmonary arteries are well-opacified. No pulmonary embolism is identified. There is mi ld dependent atelectasis. No pleural effusion or pneumothorax. No pathologically enlarged thoracic ly mph nodes are identified. The heart size is normal. There is a large hiatal hernia. Calcified pulmona ry nodules and calcified subcarinal and mediastinal lymph nodes are consistent with old granulomatous disease. There are changes of left total shoulder arthroplasty. There is moderate thoracic spondylos is. IMPRESSION: 1. No pulmonary embolus identified. 2. Mild atelectasis. Reviewed, dictated and finalized at location B.
--- NOTE | 2023-05-20 10:20 | ECG_ITS ---
Measurements Intervals [place] Rate: 99 P: 28 ND: 161 QRS: 12 QRSD: 96 T: 11 QT: 328 QTc: 421 Interpretive Statements SINUS RHYTHM CONSIDER INFERIOR INFARCT, AGE INDETERMINATE BASELINE WANDER- V4, V6 ABNORMAL ECG COMPARED TO ECG 05/13/2023 17:21:08 SINUS RHYTHM NOW PRESENT Electronically Signed On 05-20-2023 11:13:17 CDT by Johann Jones D.O.
[2023-05-20 10:56] LABS: Basophils Absolute Auto 0.1 K/mm3 (0.0-0.1); Basophils Percent Auto 0.4 % (0.2-1.2); Eosinophils Absolute Auto 0.2 K/mm3 (0-0.3); Eosinophils Percent Auto 1.3 % (0-4.4); Hematocrit 44.9 % (42.0-52.0); Hemoglobin 14.9 g/dL (14.0-18.0); Immature Granulocyte Absolute 0.07 K/mm3 (0.00-0.031); Immature Granulocyte Percent A 0.5 % (0-0.5); Lymphocytes Absolute Auto 2.22 K/mm3 (0.9-3.2); Lymphocytes Percent Auto 16.3 % (18.3-44.2); Mean Corpuscular HGB Conc 33.2 g/dl (32-36); Mean Corpuscular Hemoglobin 32.5 pg (26-34); Mean Platelet Volume 10.1 fl (7.4-10.4); Monocytes Absolute Auto 1.4 K/mm3 (0.1-0.6); Monocytes Percent Auto 10.6 % (2.6-8.5); Neutrophils Absolute Auto 9.7 K/mm3 (1.3-6.7); Neutrophils Percent Auto 70.9 % (45.5-73.1); Platelet Count Result 294 k/mm3 (150-375); Red Blood Count 4.58 M/mm3 (4.6-6.20); Red Cell Distribution Width 13.6 % (11.5-14.5); White Blood Count 13.6 K/mm3 (4.5-10.0)
[2023-05-20 11:11] LABS: Alanine Aminotransferase 17 U/L (6-50); Albumin Level 4.3 g/dL (3.5-5.1); Alkaline Phosphatase 55 U/L (38-126); Anion Gap 7 mmol/L (8-16); Aspartate Amino Transferase 29 U/L (17-59); Bilirubin,Total 1.1 mg/dL (0.2-1.3); Blood Urea Nitrogen 15 mg/dL (9-20); Calcium 8.9 mg/dL (8.4-10.2); Carbon Dioxide 24 mmol/L (22-30); Chloride 102 mmol/L (98-107); Estimated CRCL calculation 41 ml/min; Estimated Glomerular Filt Rate 53; Glucose 93 mg/dL (65-110); Potassium 4.4 mmol/L (3.4-5.0); Sodium 133 mmol/L (137-145)
[2023-05-20] MEDS: SODIUM CHLORIDE 0.9% IV 1,000 ML 999 ML IV CONT ×2 (11:37→12:56)
[2023-05-20 11:55] LABS: Magnesium 2.1 mg/dL (1.6-2.3)
--- NOTE | 2023-05-20 13:13 | ED.SYNCOPE ---
HPI - Syncope General Chief Complaint: Syncope Stated Complaint: syncope Time Seen by Provider: 05/20/23 10:22 History of Present Illness HPI narrative: This is an 82-year-old male, with past history of PE on Eliquis, who presents emergency department after 2 episodes of syncope today. The patient states he was walking in his kitchen, when he found himself awake on the floor covered in a cold sweat. He states he stood, felt improved, but while walking again woke on the floor covered in a cold sweat. He denies preceding chest pain, shortness of breath, weakness or numbness. He states with the past 2 weeks he has had intermittent double vision. Related Data Home Medications Medication Instructions Recorded Confirmed amlodipine 10 mg tablet 10 mg PO HS 04/10/20 05/20/23 folic acid 1 mg tablet 1 mg PO DAILY 04/10/20 05/20/23 methotrexate sodium 2.5 mg tablet 15 mg PO WEEKLY 04/10/20 05/20/23 multivit with minerals-iron 18 1 tablet PO DAILY 04/10/20 05/20/23 mg-folic ac 400 mcg-vit K 25 mcg tablet (Adults Multivitamin) apixaban 5 mg tablet (Eliquis) 5 mg PO BID 06/22/20 05/20/23 allopurinol 100 mg tablet 200 mg PO DAILY 10/14/20 05/20/23 prednisone 1 mg tablet 2 mg PO DAILY 10/18/20 05/20/23 aspirin 81 mg tablet 81 mg PO DAILY 11/25/20 05/20/23 atorvastatin 20 mg tablet 20 mg PO HS 11/25/20 05/20/23 cholecalciferol (vitamin D3) 50 50 mcg PO DAILY 11/25/20 05/20/23 mcg (2,000 unit) capsule (Vitamin D3) ascorbic acid (vitamin C) 2,000 mg 2,000 mg PO DAILY 07/25/21 05/20/23 tablet,extended release diphenhydramine HCl 25 mg capsule 25 mg PO HS 07/25/21 05/20/23 (Benadryl) levothyroxine 100 mcg tablet 100 mcg PO DAILY 07/25/21 05/20/23 (Euthyrox) nitroglycerin 0.4 mg sublingual 0.4 mg sublingual PRN PRN Chest 07/25/21 05/20/23 tablet Pain omeprazole 20 mg capsule,delayed 20 mg PO DAILY 07/25/21 05/20/23 release ciprofloxacin HCl 500 mg tablet 500 mg PO BID 05/20/23 05/20/23 (Cipro) Allergies Allergy/AdvReac Type Severity Reaction Status Date / Time No Known Allergies Allergy Mild Verified 05/20/23 14:17 Review of Systems Review of Systems: CONSTITUTIONAL: Denies fever, chills, or sweats. EYES: Double vision for the past 2 weeks denies redness, or discharge. CARDIOVASCULAR: Denies chest pain, palpitations, or edema. RESPIRATORY: Denies cough or dyspnea. GASTROINTESTINAL: Denies abdominal pain, nausea, vomiting, or diarrhea. GENITOURINARY: Denies dysuria or hematuria. SKIN: Denies rash or itching. MUSCULOSKELETAL: Denies back pain, joint pain, or myalgia. NEUROLOGIC: Syncope denies headache, numbness, dizziness, or weakness. PSYCHIATRIC: Denies anxiety or depression. [facility] Past Medical History Medical History (Updated 05/20/23 @ 14:48 by Marti Simon PA-C) Basal cell carcinoma of skin Benign prostatic hyperplasia Cardiac arrest with pulseless electrical activity (04/2020) Due to massive PE requiring ECMO. Chronic anticoagulation Chronic obstructive pulmonary disease Colon cancer Status post sigmoidectomy and chemotherapy. Coronary artery disease Cardiac catheterization in 2020 showed 40-50% stenosis of the proximal Left anterior descending, normal LV function. Lexiscan stress test was negative in May 2023 with normal MPI and EF of 65%. Essential hypertension Gastroesophageal reflux Gout Hypercholesterolemia Hypothyroidism Kidney stones Obstructive sleep apnea on CPAP Paroxysmal supraventricular tachycardia Pulmonary embolism (04/2020) Massive PE resulting in cardiac arrest for which she was transferred to [place] for ECMO. Seronegative rheumatoid arthritis Vasovagal syncope (05/2021) Following cardiac catheterization. Surgical History Surgical History (Updated 05/20/23 @ 14:29 by Marti Simon PA-C) History of appendectomy History of back surgery stenosis, severe spinal decompression History of bilateral cataract extraction History of cardiac catheterization (
--- NOTE | 2023-05-20 14:00 | ADMGEN ---
This patient, Kosta Li, was admitted to Medical Room 255-. Patient/family oriented to hospital policies and general routines including ID bracelet, bed and alarms, visiting hours, pain management, procedures, bathroom and other care routines, personal items, smoking policy, room service/diet, and visiting hours. Information on how to activate the Rapid Response Team has been discussed. Patient/Family are encouraged to report perceived risks to care and to ask questions if they do not understand what they are told or what they should do.
--- NOTE | 2023-05-20 14:12 | PM.IMHP ---
H&P: HPI History of Present Illness Date/Time: 05/20/23 14:45 Chief Complaint: Syncope. Narrative: This is a pleasant 82-year-old male with history of vasovagal syncope post cardiac catheterization in May 2021, tilt-table examination years ago after which he was told he had evidence of neurocardiogenic syncope, cardiac arrest related to massive pulmonary embolism requiring ECMO in April 2022, chronic anticoagulation, nonobstructing coronary artery disease, seronegative rheumatoid arthritis, essential hypertension, hyperlipidemia, hypothyroidism, gout, gastroesophageal reflux disease, and remote history of colon cancer who presented to the emergency department via EMS from home for evaluation of syncopal episode x2. The patient provides the following history. He was admitted to the hospital overnight on 05/13/2023 after presenting to the ED with chest pain at which time had a brief run of SVT. Lexiscan stress test showed no abnormal ST T-wave changes, no definite ischemia or infarct on MPI, and a normal left ventricular ejection fraction measuring 65%. He was seen in consult by Dr. 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 He was not feeling great when he got up this morning however he goes on to say he has not been feeling well for couple of weeks. He reports occasional dizziness and weakness. This morning however he reports feeling fine when he got up about 05:00. He went to the kitchen to make some coffee and the next thing he knew he was waking up on his side on the kitchen floor. He was able to get himself up and returned back to preparing the coffee but once again found himself on the floor. He had no warning prior to the syncopal episodes in specifically denies feelings of lightheadedness and dizziness. He also denies chest discomfort, sensations of racing heart, palpitations, and shortness of breath. Luckily he did not sustain any injuries in the fall. Each time that he woke from these episodes he reports that he was profusely sweating. He denies nausea and vomiting. Thereafter he went about his morning and eventually he told his what happened and she made him come in for evaluation. Since admission he has been doing fine, getting up to the bathroom, and has not had any issues. Of note the patient was vaccinated for RSV and influenza on 05/11/2023 and he is wondering if perhaps his symptoms are related to the vaccines. In the ED: He was afebrile on arrival with stable blood pressures and heart rates in the 80s, sinus rhythm. Labs were pretty unremarkable aside from a WBC count of 13.6 and sodium 133. EKG showed sinus rhythm, normal axis and intervals, Q-waves in lead 3 and AVF, no acute ST segment changes. Tracing is similar to that obtained during last week's hospitalization. Head CT and chest x-ray showed no acute findings. Chest CTA was negative for pulmonary embolus. Interventions in the ED include 2 L normal saline bolus. He is being admitted in this setting for close monitoring on telemetry and Cardiology consultation due to concerns for possible arrhythmogenic syncope. At the time my evaluation Review of Systems Review of Systems: Twelve systems were reviewed and are negative except for as per HPI. [facility]LY [facility] Past Medical History Medical History (Updated 05/21/23 @ 16:07 by Marti Simon PA-C) Basal cell carcinoma of skin Benign prostatic hyperplasia Cardiac arrest with pulseless electrical activity (04/2020) Due to massive PE requiring ECMO. Chronic anticoagulation Chronic obstructive pulmonary disease Colon cancer Status post sigmoidectomy and chemotherapy. Coronary artery disease Cardiac catheterization in 2020 showed 40-50% stenosis of the proximal Left anterior descending, normal LV function. Lexiscan stress test was negative in May 2023 with normal MPI and EF of 65%. Essential
--- NOTE | 2023-05-20 16:25 | PM.CNCAR ---
Assessment and Plan Assessment and plan (1) Syncope: Code(s): R55 - Syncope and collapse Status: Acute Plan This is an 82-year-old man with 2 episodes of syncope this morning that occurred in his kitchen. There is new mediate reason for this that is obvious based on his telemetry ECG and a recent history. He is quite fortunate to have survived a submassive pulmonary embolism 3 years ago treated with thrombolytic therapy and [facility] ECMO over at [facility] [place]. He was found both noninvasively and invasively after that not have any significant coronary disease. Echocardiogram June following that does not show any persistent right ventricular dysfunction which is wonderful. He had a Lexiscan nuclear stress test again earlier this month because of some chest pain which was again negative. Interestingly he does provide a history of a tilt-table exam having been done many years ago and being told that he had evidence of neuro cardiogenic syncope. At this time I am going to recommend transitioning his amlodipine to metoprolol because of this and I will request a new echocardiogram to be done as he has not had 1 in about a year. We will follow him with you on telemetry. I would like him to be able to ambulate with assistance to ensure that his vital signs and rhythm are stable with ambulation. Brendan Bermeo MD [facility] History of Present Illness History of Present Illness Consult date/time: 05/20/23 16:25 Reason For Visit: Syncope Narrative: This is an 82-year-old gentleman I am seeing at the request of the hospitalist because of syncopal episodes which occurred are earlier this morning. The patient is known to me from an outpatient consultation several years ago following a massive pulmonary embolism. He is not known to have any other specific cardiac problems but did state today that he was told by a ride mechanic approximately 15 years ago that he had evidence of neurocardiogenic syncope based on tilt-table testing. The patient states that he has not had any syncopal episodes in quite a few years. This morning he was feeling relatively well at his house he wakes up early while his is still sleeping. He was in his kitchen getting ready to make some coffee and as he was filling the sailmaker with water he abruptly lost consciousness and found himself on the floor. When he awakened on the floor he did not have any apparent injuries he stated that he did not feel too badly he got himself up slowly and start to finish the job of making coffee he was not particularly concerned about this. Shortly there after about 5 minutes later the same sort of episode occurred he felt to the kitchen floor again in awakened after losing consciousness briefly. He then sat in a chair enjoyed a cup of coffee any told his about these episodes later when she awakened. They called the primary care physician who told him to come to the emergency room. In the emergency room he was evaluated and was admitted to the hospital. I do not see that there was any I had any problem identified in the emergency room that would explain any of this. He has not had any specific cardiac problems in the past other than the remote diagnosis of neurocardiogenic syncope. He does have a history of rheumatoid arthritis and presented very fairly dramatically here in April of 2020 with a submassive pulmonary embolism. He had syncopal episode with that as well. He was given thrombolytics therapy with tPA and transferred emergently over to [facility] where he was treated aggressively and actually was placed on [facility] ECMO for about a week. He was in the hospital for some time eventually made a nice recovery in fact I would say a very remarkable recovery and has done well. After that event I saw him in the office in consultation because he was reporting some shortness of breath which I do not find to be too surprising after massive pulmonary embolism. I did not recommend any ischemi
[2023-05-20] MEDS: METOPROLOL SUCCINATE EXT REL 50 MG TABCR PO (16:35)
[2023-05-20] MEDS: APIXABAN 5 MG TABLET PO (20:50)
[2023-05-21] VITALS (10 sets, daily range): BP systolic 112–122; BP diastolic 64–70; PULSE 71–80; RESP 18; TEMP 36.6–36.8; O2SAT 96–98
[2023-05-21 00:11] LABS: Appearance Urine Clear (Clear); Bilirubin Urine Negative (Negative); Blood Urine Negative (Negative); Color Urine Yellow (Yellow); Glucose Urine UA Negative (Negative); Ketones Urine Negative (Negative); Leukocyte Esterase Ur Negative LEU/UL (Negative); Nitrate Urine Negative (Negative); Protein Urine Negative (Negative); Specific Grav Ur 1.025 (1.001-1.035)
[2023-05-21 00:18] LABS: Add Urine Microscopic? NO
[2023-05-21] MEDS: LEVOTHYROXINE SODIUM 100 MCG TABLET PO (05:18)
[2023-05-21 05:45] LABS: Basophils Percent Auto 0.4 % (0.2-1.2); Eosinophils Absolute Auto 0.3 K/mm3 (0-0.3); Eosinophils Percent Auto 3.3 % (0-4.4); Hematocrit 40.4 % (42.0-52.0); Hemoglobin 13.2 g/dL (14.0-18.0); Immature Granulocyte Absolute 0.03 K/mm3 (0.00-0.031); Immature Granulocyte Percent A 0.3 % (0-0.5); Lymphocytes Absolute Auto 1.73 K/mm3 (0.9-3.2); Mean Corpuscular HGB Conc 32.7 g/dl (32-36); Mean Corpuscular Hemoglobin 32.6 pg (26-34); Mean Corpuscular Volume 99.8 fl (80-100); Monocytes Absolute Auto 1.3 K/mm3 (0.1-0.6); Monocytes Percent Auto 12.5 % (2.6-8.5); Neutrophils Absolute Auto 6.8 K/mm3 (1.3-6.7); Neutrophils Percent Auto 66.5 % (45.5-73.1); Platelet Count Result 282 k/mm3 (150-375); Red Blood Count 4.05 M/mm3 (4.6-6.20); Red Cell Distribution Width 13.8 % (11.5-14.5); White Blood Count 10.2 K/mm3 (4.5-10.0)
[2023-05-21 05:57] LABS: Anion Gap 6 mmol/L (8-16); Blood Urea Nitrogen 14 mg/dL (9-20); Carbon Dioxide 22 mmol/L (22-30); Chloride 106 mmol/L (98-107); Estimated CRCL calculation 53 ml/min; Estimated Glomerular Filt Rate > 60; Glucose 92 mg/dL (65-110); Sodium 134 mmol/L (137-145)
[2023-05-21] MEDS: METOPROLOL SUCCINATE EXT REL 50 MG TABCR PO (09:51)
[2023-05-21] MEDS: ASCORBIC ACID 500 MG TABLET 2000 MG PO (09:51)
[2023-05-21] MEDS: DOCUSATE SODIUM 100 MG CAPSULE PO ×2 (09:51→18:13)
[2023-05-21] MEDS: ASPIRIN 81 MG ENTERIC TABLET PO (09:51)
[2023-05-21] MEDS: allopurinoL 100 MG TABLET 200 MG PO (09:52)
[2023-05-21] MEDS: FOLIC ACID 1 MG TABLET PO (09:52)
[2023-05-21] MEDS: APIXABAN 5 MG TABLET PO ×2 (09:52→20:05)
[2023-05-21] MEDS: CHOLECALCIFEROL 1,000 UNITS TABLET 2000 UNITS PO (09:52)
[2023-05-21] MEDS: MULTIVITAMINS /C LUTEIN (CENTRUM SILVER) TABLET *BKC 1 TAB PO (09:52)
[2023-05-21] MEDS: PANTOPRAZOLE 40 MG TABLET PO (09:53)
[2023-05-21] MEDS: predniSONE 1 MG TABLET 2 MG PO (09:53)
--- NOTE | 2023-05-21 10:23 | ECHO_ITS ---
Patient Info Name: Kosta Li Age: 82 years : 1940 Gender: Male Ht: 70 in Wt: 190 lbs BSA: 2.08 m2 HR: 80 bpm BP: 116 / 67 mmHg Heart Rhythm: Sinus Rhythm Technical Quality: Good Exam Date: 05/21/2023 10:55 AM Exam Location: [facility] Patient Status: Inpatient Admit Date: 05/20/2023 Staff Ordering Physician: Regi Vasquez Supervisor Prepress: Chris Keen RDCS Attending Provider: Danisha Duron MD Referring Physician: Christina MUNSON; Exam Type: CA echo doppler color flow Study Info Indications - syncope Complete two-dimensional, color flow and Doppler transthoracic echocardiogram is performed. Summary 1. Complete two-dimensional, color flow and Doppler transthoracic echocardiogram is performed. 2. Left ventricular chamber dimension is normal. 3. Left ventricular systolic function is normal, estimated at 60-65%. 4. There is mildly increased left ventricular wall thickness. 5. The left ventricular diastolic function is grade I diastolic dysfunction. 6. Right ventricular systolic function is normal. 7. No significant valvular disease. Left Ventricle Left ventricular chamber dimension is normal. Left ventricular systolic function is normal, estimated at 60-65%. There is mildly increased left ventricular wall thickness. The left ventricular diastolic function is grade I diastolic dysfunction. Right Ventricle Right ventricular chamber dimension is normal. Right ventricular systolic function is normal. Left Atria Left atrial chamber dimension is normal. Right Atria Right atrial chamber dimension is normal. Atrial Septum Intact interatrial septum visualized by color flow imaging. Aortic Valve The aortic valve is not well visualized. There is mild aortic valve sclerosis. There is no aortic valve stenosis. There is no aortic valve regurgitation. Pulmonic Valve The pulmonic valve is not well visualized. Mitral Valve There is trace mitral valve regurgitation. Tricuspid Valve There is trace tricuspid valve regurgitation. Pericardium/Pleural There is no pericardial effusion. Inferior Vena Cava Normal inferior vena cava with >50% collapse upon inspiration consistent with normal right atrial pressure, 3 mmHg. Aorta The aortic root size at the sinus of Valsalva is normal. Left Ventricular Outflow Tract Name Value Normal LVOT 2D LVOT Diameter 1.7 cm LVOT Doppler LVOT Peak Gradient 5 mmHg LVOT Mean Gradient 3 mmHg LVOT VTI 25 cm LVOT VTI/AV VTI Ratio 0.8 LVOT Stroke Volume 57 ml LVOT CO 3.9 l/min LVOT CI 1.9 l/min/m2 Pulmonic Valve Name Value Normal RVOT Doppler RVOT Peak Gradient 1 mmHg PV Doppler
--- NOTE | 2023-05-21 12:55 | PM.IMPN ---
Progress Note: A&P Assessment and Plan (1) Syncope: Code(s): R55 - Syncope and collapse Status: Acute Assessment and Plan: 2 episodes without prodrome. CTA PE protocol negative, telemetry sinus rhythm rate in the 70s, no dysrhythmias thus far. (2) Essential hypertension: Code(s): I10 - Essential (primary) hypertension Status: Acute Assessment and Plan: Stable, blood pressure reviewed on 05/21 (3) Chronic anticoagulation: Code(s): Z79.01 - manager long term care (current) use of anticoagulants Status: Acute Assessment and Plan: Eliquis b.i.d. due to prior history of massive PE (4) Seronegative rheumatoid arthritis: Code(s): M06.00 - Rheumatoid arthritis without rheumatoid factor, unspecified site Status: Acute Assessment and Plan: Chronic, on immunosuppressants (5) Obstructive sleep apnea on CPAP: Code(s): G47.33 - Obstructive sleep apnea (adult) (pediatric) Status: Acute Assessment and Plan: CPAP while here Plan MRI due to double vision and ataxia Time Spent With Patient Time with patient: 25 - 35 minutes Subjective Date/time seen: 05/21/23 12:55 Interval history: This is an 82-year-old male patient admitted to the hospital for couple of syncopal episodes. He is being seen in consultation with Cardiology. Patient reports that he has been having difficulty walking as well as occasional double vision ongoing since about the time he received flu and RSV vaccines over a week ago. Patient reports He could not drive because he was seeing the solid white line as a double line and then it began to drift towards the middle of the road so he began to drive improperly. He reports that he has also not been able to walk well that he has been stumbling for the same length of time. He attributes all of this to the vaccine. He notes sensitivity to the top his head to light touch. Patient's well described syncopal episodes yesterday were without prodrome. No resulting chest pain or shortness of breath. Patient reports that he feels fine now except feeling off balance and still having double vision. Review of Systems Review of Systems: Twelve systems were reviewed and are negative except for as per HPI. All systems reviewed & are unremarkable except as noted in HPI and below Exam Narrative: General: Well-developed, nontoxic-appearing gentleman sitting in bed eating lunch. HEENT: Normocephalic, atraumatic. pupils are unequal, right 4 mm left 1-2 mm., EOMI. Sclera anicteric. Oral mucosa moist. Neck: Supple. No obvious carotid bruits. Respiratory: Lungs are clear to auscultation bilaterally. Cardiovascular: Regular rate and rhythm with S1-S2. Gastrointestinal: Abdomen is soft, nontender, and nondistended with positive bowel sounds. Skin: Warm and dry. No rash or lesions on limited exam. Extremities: No cyanosis, clubbing, or edema. Radial and pedal pulses intact. Neurological: Alert. Cranial nerves 2-12 are grossly intact. No gross focal deficits to casual conversation. ambulation deferred due to reported difficulty ambulating /ataxia Psychiatric: Pleasant and cooperative with normal mood and affect. Judgment and insight intact. Objective Data Vital Signs Vital Signs: Vital Signs - 24 hr 05/20/23 13:03 05/20/23 13:03 05/20/23 13:15 Temperature Pulse Rate 88 88 91 Respiratory Rate 18 20 Blood Pressure 136/82 Pulse Oximetry 97 96 95 Oxygen Delivery 05/20/23 15:02 05/20/23 16:35 05/20/23 16:03 Temperature 36.7 C Pulse Rate 90 93 92 Respiratory Rate 16 Blood Pressure 122/56 L Pulse Oximetry 99 Oxygen Delivery 05/20/23 19:47 05/20/23 20:00 05/20/23 20:00 Temperature 36.5 C Pulse Rate 81 81 Respiratory Rate 20 Blood Pressure 125/69 Pulse Oximetry 96 Oxygen Delivery Room Air 05/21/23 00:00 05/21/23 04:08 05/21/23 04:00 Temperature 36.6 C Pulse Rate 78 79 73
[2023-05-21] MEDS: ATORVASTATIN 20 MG TABLET PO (20:05)
[2023-05-21] MEDS: diphenhydrAMINE HCl CAP 25 MG CAPSULE PO (20:05)
[2023-05-22] VITALS (11 sets, daily range): BP systolic 117–118; BP diastolic 62–74; PULSE 68–74; RESP 17–20; TEMP 36.7–36.8; O2SAT 94–96
[2023-05-22 06:18] LABS: Basophils Percent Auto 0.4 % (0.2-1.2); Eosinophils Absolute Auto 0.4 K/mm3 (0-0.3); Eosinophils Percent Auto 3.6 % (0-4.4); Hematocrit 41.4 % (42.0-52.0); Hemoglobin 13.6 g/dL (14.0-18.0); Immature Granulocyte Absolute 0.04 K/mm3 (0.00-0.031); Immature Granulocyte Percent A 0.4 % (0-0.5); Lymphocytes Absolute Auto 1.84 K/mm3 (0.9-3.2); Lymphocytes Percent Auto 17.9 % (18.3-44.2); Mean Corpuscular HGB Conc 32.9 g/dl (32-36); Mean Corpuscular Hemoglobin 32.7 pg (26-34); Mean Corpuscular Volume 99.5 fl (80-100); Mean Platelet Volume 10.3 fl (7.4-10.4); Monocytes Absolute Auto 0.9 K/mm3 (0.1-0.6); Neutrophils Absolute Auto 7.1 K/mm3 (1.3-6.7); Neutrophils Percent Auto 68.7 % (45.5-73.1); Platelet Count Result 290 k/mm3 (150-375); Red Blood Count 4.16 M/mm3 (4.6-6.20); Red Cell Distribution Width 13.7 % (11.5-14.5); White Blood Count 10.3 K/mm3 (4.5-10.0)
[2023-05-22] MEDS: LEVOTHYROXINE SODIUM 100 MCG TABLET PO (06:32)
[2023-05-22 06:34] LABS: Anion Gap 5 mmol/L (8-16); Blood Urea Nitrogen 16 mg/dL (9-20); Calcium 8.2 mg/dL (8.4-10.2); Carbon Dioxide 26 mmol/L (22-30); Chloride 103 mmol/L (98-107); Estimated CRCL calculation 48 ml/min; Estimated Glomerular Filt Rate > 60; Glucose 84 mg/dL (65-110); Potassium 4.2 mmol/L (3.4-5.0); Sodium 134 mmol/L (137-145)
--- NOTE | 2023-05-22 07:30 | PM.IMPN ---
Progress Note: A&P Assessment and Plan (1) Syncope: Code(s): R55 - Syncope and collapse Status: Acute Assessment and Plan: 2 episodes at home without prodrome. CTA PE protocol negative telemetry sinus rhythm rate in the 70s no dysrhythmias thus far. Cardiology recommends 30 day event monitor at discharge and cardiology follow up. (2) Leukocytosis: Code(s): D72.829 - Elevated white blood cell count, unspecified Status: Acute Assessment and Plan: WBCs 13.6 on admission without documented fevers Trending 13.6->10.2->10.3 U/A negative, chest x-ray negative No other symptoms to support infectious process, possibly inflammatory related? Add on CRP to am labs --negative. (3) Essential hypertension: Code(s): I10 - Essential (primary) hypertension Status: Acute Assessment and Plan: Stable, blood pressure reviewed. 122-117/60-70 Cards stopped amlodipine and started metoprolol due to patient report history of neurocardiogenic syndrome. 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 due to prior history of massive PE (5) Seronegative rheumatoid arthritis: Code(s): M06.00 - Rheumatoid arthritis without rheumatoid factor, unspecified site Status: Acute Assessment and Plan: Chronic, on immunosuppressants (6) Obstructive sleep apnea on CPAP: Code(s): G47.33 - Obstructive sleep apnea (adult) (pediatric) Status: Acute Assessment and Plan: CPAP while here Plan once seen by PT/OT if he is safe to d/c home he will d/c with 30 day event monitor and cardiology follow up. Subjective Date/time seen: 05/22/23 07:30 Interval history: HPI obtained from the chart, This is a pleasant 82-year-old male with history of vasovagal syncope post cardiac catheterization in May 2021, tilt-table examination years ago after which he was told he had evidence of neurocardiogenic syncope, cardiac arrest related to massive pulmonary embolism requiring ECMO in April 2022, chronic anticoagulation, nonobstructing coronary artery disease, seronegative rheumatoid arthritis, essential hypertension, hyperlipidemia, hypothyroidism, gout, gastroesophageal reflux disease, and remote history of colon cancer who presented to the emergency department via EMS from home for evaluation of syncopal episode x2. The patient provides the following history. He was admitted to the hospital overnight on 05/13/2023 after presenting to the ED with chest pain at which time had a brief run of SVT. Lexiscan stress test showed no abnormal ST T-wave changes, no definite ischemia or infarct on MPI, and a normal left ventricular ejection fraction measuring 65%. He was seen in consult by Dr. 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 He was not feeling great when he got up this morning however he goes on to say he has not been feeling well for couple of weeks. He reports occasional dizziness and weakness. This morning however he reports feeling fine when he got up about 05:00. He went to the kitchen to make some coffee and the next thing he knew he was waking up on his side on the kitchen floor. He was able to get himself up and returned back to preparing the coffee but once again found himself on the floor. He had no warning prior to the syncopal episodes in specifically denies feelings of lightheadedness and dizziness. He also denies chest discomfort, sensations of racing heart, palpitations, and shortness of breath. Luckily he did not sustain any injuries in the fall. Each time that he woke from these episodes he reports that he was profusely sweating. He denies nausea and vomiting. Thereafter he went about his morning and e
[2023-05-22] MEDS: CHOLECALCIFEROL 1,000 UNITS TABLET 2000 UNITS PO (08:30)
[2023-05-22] MEDS: DOCUSATE SODIUM 100 MG CAPSULE PO ×2 (08:30→16:46)
[2023-05-22] MEDS: APIXABAN 5 MG TABLET PO ×2 (08:31→20:35)
[2023-05-22] MEDS: MULTIVITAMINS /C LUTEIN (CENTRUM SILVER) TABLET *BKC 1 TAB PO (08:31)
[2023-05-22] MEDS: allopurinoL 100 MG TABLET 200 MG PO (08:31)
[2023-05-22] MEDS: ASCORBIC ACID 500 MG TABLET 2000 MG PO (08:31)
[2023-05-22] MEDS: METOPROLOL SUCCINATE EXT REL 50 MG TABCR PO (08:31)
[2023-05-22] MEDS: FOLIC ACID 1 MG TABLET PO (08:31)
[2023-05-22] MEDS: ASPIRIN 81 MG ENTERIC TABLET PO (08:32)
[2023-05-22] MEDS: PANTOPRAZOLE 40 MG TABLET PO (08:32)
[2023-05-22] MEDS: predniSONE 1 MG TABLET 2 MG PO (08:32)
--- NOTE | 2023-05-22 09:14 | PM.PNCARD ---
Progress Note: A&P Assessment and Plan (1) Syncope: Code(s): R55 - Syncope and collapse Status: Acute Assessment and Plan: Uncertain etiology. Concerning for arrhythmogenic etiology. He does have a history of what he says is vasovagal syncope or neurocardiogenic. His amlodipine was stopped by Dr. Arreaga he was started metoprolol. Echocardiogram was unremarkable. At this point, there is no need for further inpatient monitoring. Will recommend at minimum a 30 day awake overnight monitor upon discharge and follow-up with Dr. Bermeo Subjective Date/time seen: 05/22/23 09:14 Interval history: 82-year-old admitted for syncope Date of service 05/22/2023: No recurrence. Echocardiogram is unremarkable. No chest pain or shortness of breath Review of Systems Constitutional: Constitutional: Reports no additional constitutional complaints Eyes: Eyes: Reports no additional eye complaints ENT: Reports system reviewed and no additional complaints, except as documented Cardiovascular: Cardiovascular: Reports as per HPI Respiratory: Respiratory: Reports no additional respiratory complaints Gastrointestinal: Gastrointestinal: Reports no additional gastrointestinal complaints Musculoskeletal: Musculoskeletal: Reports no additional musculoskeletal complaints Integumentary/Breasts: Skin/Breast: Reports system reviewed and no additional complaints, except as docu Neurologic: Reports as per HPI Endocrine: Endocrine: Reports no additional endocrine complaints Hematologic/Lymphatic: Hematologic/Lymphatic: Reports no additional hematologic/lymphatic complaints Allergic/Immunologic: Allergic/Immunologic: Reports no additional allergic/immunologic complaints Exam Const: General: comfortable and no acute distress Other: Very pleasant well-developed well-nourished white male appearing her stated age in no distress of any kind HENMT: Mouth: Yes moist mucous membranes Eyes: Sclera: sclerae normal Neck: Neck: supple and no JVD Other: Normal carotid upstrokes bilaterally Resp: Effort & Inspection: normal respiratory effort Auscultation: clear to auscultation bilaterally Cardio: Rate: regular rate Rhythm: regular rhythm Other: PMI difficult to palpate grossly nondisplaced S1-S2 normal no significant murmur gallop GI: Auscultation: normal bowel sounds Skin: General skin exam: normal color Neuro: Other: Alert and oriented x3 Extrem: Other: No edema, good distal pulses Objective Data Vital Signs Vital Signs: Vital Signs - 24 hr 05/21/23 09:51 05/21/23 14:00 05/21/23 12:00 Temperature 36.8 C Pulse Rate 80 77 71 Respiratory Rate 18 Blood Pressure 112/64 Pulse Oximetry 98 Oxygen Delivery 05/21/23 16:00 05/21/23 20:00 05/21/23 20:12 Temperature 36.8 C Pulse Rate 79 72 Respiratory Rate 18 Blood Pressure 122/70 Pulse Oximetry 96 Oxygen Delivery Room Air 05/21/23 20:00 05/22/23 03:57 05/22/23 00:00 Temperature 36.8 C Pulse Rate 73 72 68 Respiratory Rate 20 Blood Pressure 117/68 Pulse Oximetry 96 Oxygen Delivery 05/22/23 04:00 05/22/23 08:31 Temperature Pulse Rate 72 73 Respiratory Rate Blood Pressure Pulse Oximetry Oxygen Delivery Intake/Output Intake/Output: Intake & Output 05/19/23 05/20/23 05/21/23 05/22/23 23:59 23:59 23:59 23:59 Intake Total 2730 1900 290 Output Total 200 400 600 Balance 2530 1500 -310 Meds/Results Medications: Active Medications Generic Name Dose Route Start Last Admin Trade Name Slim PRN Reason Stop Dose Admin Allopurinol 200 mg 05/21/23 08:00 05/22/23 08:31 Allopurinol 100 Mg Tablet PO 200 mg DAILY@0800 [facility] Administration Apixaban 5 mg 05/20/23 21:00 05/22/23 08:31 Apixaban 5 Mg Tablet PO 5 mg Q12HR KRYSTAL Administration Ascorbic Acid 2,000 mg 05/21/23 09:00 05/22/23 08:31 Ascorbic Acid 500 Mg Tablet PO 2,000 mg
[2023-05-22 16:40] LABS: CRP < 0.5 mg/dL (<1.0)
[2023-05-22] MEDS: ATORVASTATIN 20 MG TABLET PO (20:35)
[2023-05-22] MEDS: diphenhydrAMINE HCl CAP 25 MG CAPSULE PO (20:35)
[2023-05-23] VITALS: PULSE 70
[2023-05-23 04:00] VITALS: PULSE 70
[2023-05-23 05:28] VITALS: BP 118/71; PULSE 73; RESP 18; TEMP 36.8; O2SAT 95
[2023-05-23 06:42] LABS: Basophils Absolute Auto 0.1 K/mm3 (0.0-0.1); Basophils Percent Auto 0.5 % (0.2-1.2); Eosinophils Absolute Auto 0.5 K/mm3 (0-0.3); Eosinophils Percent Auto 4.2 % (0-4.4); Hematocrit 42.3 % (42.0-52.0); Immature Granulocyte Absolute 0.04 K/mm3 (0.00-0.031); Immature Granulocyte Percent A 0.4 % (0-0.5); Lymphocytes Absolute Auto 1.79 K/mm3 (0.9-3.2); Lymphocytes Percent Auto 16.7 % (18.3-44.2); Mean Corpuscular HGB Conc 33.1 g/dl (32-36); Mean Corpuscular Hemoglobin 32.3 pg (26-34); Mean Corpuscular Volume 97.5 fl (80-100); Mean Platelet Volume 10.1 fl (7.4-10.4); Monocytes Percent Auto 9.6 % (2.6-8.5); Neutrophils Absolute Auto 7.4 K/mm3 (1.3-6.7); Neutrophils Percent Auto 68.6 % (45.5-73.1); Platelet Count Result 325 k/mm3 (150-375); Red Blood Count 4.34 M/mm3 (4.6-6.20); Red Cell Distribution Width 13.5 % (11.5-14.5); White Blood Count 10.7 K/mm3 (4.5-10.0)
[2023-05-23] MEDS: LEVOTHYROXINE SODIUM 100 MCG TABLET PO (06:45)
--- NOTE | 2023-05-23 07:01 | PM.DS ---
DS: Admitting Diagnosis Discharge Date 05/22/23 Admitting Diagnosis syncope DS: Discharge Diagnosis Discharge Diagnosis (1) Syncope: Code(s): R55 - Syncope and collapse Status: Acute Assessment and Plan: 2 episodes at home without prodrome. CTA PE protocol negative telemetry sinus rhythm rate in the 70s no dysrhythmias thus far. Cardiology recommends 30 day event monitor at discharge and cardiology follow up. (2) Leukocytosis: Code(s): D72.829 - Elevated white blood cell count, unspecified Status: Acute Assessment and Plan: WBCs 13.6 on admission without documented fevers Trending 13.6->10.2->10.3 U/A negative, chest x-ray negative No other symptoms to support infectious process, possibly inflammatory related? Add on CRP to am labs --negative. (3) Essential hypertension: Code(s): I10 - Essential (primary) hypertension Status: Acute Assessment and Plan: Stable, blood pressure reviewed. 122-117/60-70 Cards stopped amlodipine and started metoprolol due to patient report history of neurocardiogenic syndrome. Patient on tele (4) Chronic anticoagulation: Code(s): Z79.01 - long-term (current) use of anticoagulants Status: Acute Assessment and Plan: Eliquis b.i.d. due to prior history of massive PE (5) Seronegative rheumatoid arthritis: Code(s): M06.00 - Rheumatoid arthritis without rheumatoid factor, unspecified site Status: Acute Assessment and Plan: Chronic, on immunosuppressants (6) Obstructive sleep apnea on CPAP: Code(s): G47.33 - Obstructive sleep apnea (adult) (pediatric) Status: Acute Assessment and Plan: CPAP while here Plan once seen by PT/OT if he is safe to d/c home he will d/c with 30 day event monitor and cardiology follow up. DS: Summary Hospital Course Hospital Course: Interval history: HPI obtained from the chart, This is a pleasant 82-year-old male with history of vasovagal syncope post cardiac catheterization in May 2021, tilt-table examination years ago after which he was told he had evidence of neurocardiogenic syncope, cardiac arrest related to massive pulmonary embolism requiring ECMO in April 2022, chronic anticoagulation, nonobstructing coronary artery disease, seronegative rheumatoid arthritis, essential hypertension, hyperlipidemia, hypothyroidism, gout, gastroesophageal reflux disease, and remote history of colon cancer who presented to the emergency department via EMS from home for evaluation of syncopal episode x2. The patient provides the following history. He was admitted to the hospital overnight on 05/13/2023 after presenting to the ED with chest pain at which time had a brief run of SVT. Lexiscan stress test showed no abnormal ST T-wave changes, no definite ischemia or infarct on MPI, and a normal left ventricular ejection fraction measuring 65%. He was seen in consult by Dr. Allen (cardiology) and she recommended outpatient event monitor which has yet to be arranged as his was admitted to the hospital the day he was supposed to meat pickler the monitor. He was not feeling great when he got up this morning however he goes on to say he has not been feeling well for couple of weeks. He reports occasional dizziness and weakness. This morning however he reports feeling fine when he got up about 05:00. He went to the kitchen to make some coffee and the next thing he knew he was waking up on his side on the kitchen floor. He was able to get himself up and returned back to preparing the coffee but once again found himself on the floor. He had no warning prior to the syncopal episodes in specifically denies feelings of lightheadedness and dizziness. He also denies chest discomfort, sensations of racing heart, palpitations, and shortness of breath. Luckily he did not sustain any injuries in the fall. Each time that he woke from these episodes he reports that he was profu
[2023-05-23 07:05] LABS: Anion Gap 7 mmol/L (8-16); Blood Urea Nitrogen 14 mg/dL (9-20); Calcium 8.5 mg/dL (8.4-10.2); Carbon Dioxide 24 mmol/L (22-30); Chloride 105 mmol/L (98-107); Estimated CRCL calculation 48 ml/min; Estimated Glomerular Filt Rate > 60; Glucose 119 mg/dL (65-110); Magnesium 2.1 mg/dL (1.6-2.3); Potassium 3.8 mmol/L (3.4-5.0); Sodium 136 mmol/L (137-145)
[2023-05-23 08:03] VITALS: PULSE 71
[2023-05-23 08:39] VITALS: O2SAT 95
[2023-05-23] MEDS: ASCORBIC ACID 500 MG TABLET 2000 MG PO (09:27)
[2023-05-23] MEDS: allopurinoL 100 MG TABLET 200 MG PO (09:27)
[2023-05-23] MEDS: DOCUSATE SODIUM 100 MG CAPSULE PO (09:27)
[2023-05-23] MEDS: FOLIC ACID 1 MG TABLET PO (09:27)
[2023-05-23 09:28] VITALS: PULSE 73; RESP 18; O2SAT 95
[2023-05-23] MEDS: PANTOPRAZOLE 40 MG TABLET PO (09:28)
[2023-05-23] MEDS: ASPIRIN 81 MG ENTERIC TABLET PO (09:28)
[2023-05-23] MEDS: APIXABAN 5 MG TABLET PO (09:28)
[2023-05-23] MEDS: METOPROLOL SUCCINATE EXT REL 50 MG TABCR PO (09:28)
[2023-05-23] MEDS: CHOLECALCIFEROL 1,000 UNITS TABLET 2000 UNITS PO (09:28)
[2023-05-23] MEDS: MULTIVITAMINS /C LUTEIN (CENTRUM SILVER) TABLET *BKC 1 TAB PO (09:35)
[2023-05-23] MEDS: predniSONE 1 MG TABLET 2 MG PO (09:35)
== END 2023-05-23 11:25 | disposition home or self-care (01) ==
LOC: ANHED 13:20 → ANH2MED 13:30
PROVIDERS: Nurse Practitioner; Nurse Practitioner Acute Care; Physician Assistant; Admitting Provider Family Medicine; Emergency Provider Preventive Medicine Aerospace Medicine; PCP Physician Assistant; Visit Provider Student in an Organized Health Care Education/Training Program
DX: R55 Syncope and collapse (principal); D72.829 Elevated white blood cell count, unspecified; I10 Essential (primary) hypertension; I25.10 Atherosclerotic heart disease of native coronary artery without angina pectoris; J44.9 Chronic obstructive pulmonary disease, unspecified; E78.00 Pure hypercholesterolemia, unspecified; E03.9 Hypothyroidism, unspecified; G47.33 Obstructive sleep apnea (adult) (pediatric); I47.1 Supraventricular tachycardia; N40.0 Benign prostatic hyperplasia without lower urinary tract symptoms; M06.00 Rheumatoid arthritis without rheumatoid factor, unspecified site; M10.9 Gout, unspecified; Z92.21 Personal history of antineoplastic chemotherapy; Z90.49 Acquired absence of other specified parts of digestive tract; Z85.038 Personal history of other malignant neoplasm of large intestine; Z86.711 Personal history of pulmonary embolism; Z86.74 Personal history of sudden cardiac arrest; Z79.01 Long term (current) use of anticoagulants; Z79.82 Long term (current) use of aspirin; Z87.440 Personal history of urinary (tract) infections
CPT/HCPCS: 36415; 70450; 70496; 70498; 71046; 71275; 80048; 80053; 81003; 83735; 85025; 86140; 87040; 93005; 93306; 96360; 96361; 97161; 97165; 99285; A9270; G0378; J7030; Q9967

== ENCOUNTER 2025-02-23 12:14 | Outpatient (CLI) | payer MEDICARE, SELFPAY ==
--- NOTE | ~2025-02-23 | XR_ITS ---
3 VIEWS LUMBAR SPINE Ordering provider: Aislinn Nugent, PAMichael[facility] History: . ACUTE LEFT SIDED LBP W/O SCIATICA . Comparison: None. FINDINGS: VERTEBRAL BODIES:Minimal anterolisthesis at the level of L4-L5. Otherwise, No visible fracture or sub luxation. Degenerative changes of the spine DISK SPACES: Narrowing of the disc L2-L3, and L4-5 SOFT TISSUES: Atherosclerotic changes of the aorta. IMPRESSION: No acute osseous abnormality lumbar spine. Multilevel degenerative disc images. Reviewed, dictated and finalized at location A.
== END 2025-02-23 12:15 | disposition home or self-care (01) ==
PROVIDERS: PCP Physician Assistant; Visit Provider Physician Assistant
DX: M51.369 Other intervertebral disc degeneration, lumbar region without mention of lumbar back pain or lower extremity pain (principal)
CPT/HCPCS: 72100

== ENCOUNTER 2025-03-03 13:50 | Outpatient (CLI) | payer MEDICARE, SELFPAY ==
--- NOTE | ~2025-03-03 | CT_ITS ---
Non-contrast CT scan of the Abdomen and Pelvis Clinical indication: Left flank pain Technique: 2.5 mm axial scans were obtained through the abdomen and pelvis without intravenous or or al contrast. Dose reduction technique was used on this scan by utilizing automated exposure control a nd iterative reconstruction technique. The dose-length product (DLP) was 720.40 mGy-cm. Findings: Images through the lung bases reveal large hiatal hernia. Multiple bilateral nonobstructing renal stones are present, largest measuring 7 mm at the right upper pole. No ureteral stone or hydronephrosis on either side. The liver, spleen, pancreas, and adrenals appear normal. There are multiple small layering gallstones and/or gallbladder sludge. There are atherosclerotic calcifications of the aorta. . There is no evidence of bowel obstruction. Images through the pelvis were performed. There is no evidence of ascites or lymphadenopathy. Urinary bladder unremarkable. No pelvic mass seen. No ascites. Impression: Multiple bilateral nonobstructing renal stones, as detailed above. No ureteral stone or hydronephrosi s. Cholelithiasis/gallbladder sludge. Large hiatal hernia. Reviewed, dictated and finalized at [facility]. Impression: Multiple bilateral nonobstructing renal stones, as detailed above. No ureteral stone or hydronephrosis. Cholelithiasis/gallbladder sludge. Large hiatal hernia.
--- OUTSIDE RECORDS SUMMARY | 2025-03-03 14:03 | XMS_ITS | Data Portability ---
Author Organization ID - [facility] OFFICE Address [address] [place] [id number] Assessment No assessment recorded. Plan of Treatment Reminders Order Date Submit Date Provider Last Modified By Organization Details Last Modified Time Details Appointments None recorded. Lab None recorded. Referral None recorded. Procedures None recorded. Surgeries None recorded. Imaging electrocard iogram 2021 022 JUSTYNA Not available 10:25:38 electrocard iogram 2020 021 JUSTYNA Not available 14:52:33 electrocard iogram 2020 021 JUSTYNA Not available 19:08:52 Medication Orders nitroglycer in 0.4 mg sublingual tablet 2022 023 [facility], [address] [place] [address], [id number], 3 10:56:43 nitroglycer in 0.4 mg sublingual tablet 2021 022 [facility] [address], [address] [place] [address], [id number], 2 10:14:09 nitroglycer in 0.4 mg sublingual tablet 2020 021 [facility], [address] [place] [address], [id number], 12:20:52 Patient TargetsNo targets recorded. Patient Instructions Encounter Date Encounter Id Patient Instructions Last Modified By Organization Details Last Modified Time 05/19/2021 [id number] Exercise advised Low cholesterol diet advised Low sodium diet advised. susana Not available 05/19/2021 10:53:00 11/10/2021 [id number] Exercise advised Low cholesterol diet advised Low sodium diet advised. [email or web address] Not available 11/10/2021 10:13:59 06/07/2022 [id number] Weight loss 20 pounds Exercise advised Low cholesterol diet advised Low sodium diet advised. [email or web address] Not available 06/07/2022 18:15:26 Reason for Referral None Reported. Results Created Date Observation Date Name Description Value Unit Range Abnormal Flag Note LastModifiedBy Organization Detail LastModifiedTime 05/18/20 21 05/18/2021 elect rocar diogr am No observ ation record ed. keiko Brown MD [address] [facility] [address], [place], [address], 06/26/2021 19:08:52 06/05/20 21 05/08/2021 elect rocar diogr am No observ ation record ed. [email or web address] Not Available 2020 12:50:20 06/07/20 21 05/19/2021 elect rocar diogr am No observ ation record ed. [email or web address] Not Available 2020 17:08:10 06/09/20 21 06/09/2021 elect rocar diogr am No observ ation record ed. keiko Brown MD [address] [facility] [address], [place], [address], 06/22/2021 14:52:33 09/12/19 22 06/01/[address] ment in coron delilah arter y(s) for coron delilah angio graph y; with left heart darrian teriz ation inclu ding intra proce dural injec tion( s) for left ventr iculo graph y (PROC ) No observ ation record ed. [email or web address] Not Available 2021 10:53:13 09/26/19 22 05/08/2021 XR, chest , 2 view No observ ation record ed. [email or web address] Not Available 2021 17:10:09 11/10/19 22 11/10/2021 elect rocar diogr am No observ ation record ed. [email or web address] Juan Brown MD [address] [facility] [address], [place], [address], 11/10/2021 10:25:38 12/19/19 22 11/24/2021 US, atul x, shannon s, upper extre mity, compl ete No observ ation record ed. [email or web address] Not Available 2021 12:47:15 06/08/2006/07/2022 elect rocar diogr am No observ ation record ed. [email or web address] Not Available 2021 10:26:27 06/17/20 22 06/13/2022 [place], [facility] peggy gram No observ ation record ed. [facility] [address] [facility] [address], [place], [address], 06/18/2022 17:55:31 12/11/1912/07/2022 elect rocar diogr am No observ ation record ed. [email or web address] Not Available 2022 13:46:04 Result Notes Documentation Provider Name and Address Organization Details Recorded Time Cmp, Serum Or Plasma : 06/01/21:Na 142,K 4.2,CL 107,CO2 27,Glu 126,Bun 17,Cr 1.2. 06/01/21:WBC 8.0,RBC 4.4,HGB 11.2,HCT 37.2,PLT 364. Ronald higgins [place] - [facility] 07/04/2021 17:19:09 Lipid Panel, Blood : 05/12/21:Na 141,K 4.7,CL 105,CO2 31,Glu 95,Bun 19,Cr 1.3,AST 20. 05/12/21:WBC 9.5,RBC 4.37,HGB 11,HCT 38.3,PLT 383. 05/08/21:Na 138,K 4.3,CL 105,CO2 23,Glu 91,Bun 19,Cr 1.2,AST 151,ALT 168,CK . 05/08/21:WBC 7.4,RBC 4.05,HGB 10.6,HCT 36.5,PLT 271. 05/08/21:PT 15.2,INR 1.2,aPTT 29.8. Ronald Holden [facility], [place] - [facility] 07/20/2021 16:33:43 Problems Name Problem SNOMED Code Status Onset Date Resolution Date Notes Provider Name and Address Organization Details Recorded Time Pulmonary embolism 55686912 Active 2020 Marely Cabrera null, [place] - [facility] 1 10:15:52 Acute coronary syndrome 062939289 Active 2021 Ronald Holden null, [place] - [facility] 2 16:57:50 Peripheral venous insufficiency 89494883 Active 2021 Ronald Holden [facility] 2 16:58:01 Problem Notes None recorded. Medical Equipment None Reported. Allergies No known drug allergies Medications Name Sig Start Date Stop Date Status Note LastModified by Organization Details LastModified Time amoxicilli n 500 mg capsule TAKE 2 CAPSULES BY MOUTH NOW THEN 1 THREE TIMES DAILY UNTIL GONE active pt is no longer taking 06/07/22 SA Not Available Not Available Not Available prednisone 10 mg tablet 05/19 completed Not Available Not Available Not Available doxycyclin e hyclate 100 mg capsule TAKE 1 CAPSULE BY MOUTH TWICE DAILY WITH FOOD 05/19 completed Not Available Not Available Not Available atorvastat in 20 mg tablet TAKE 1 TABLET BY MOUTH ONCE DAILY active Not Available Not Available No t Available clindamyci n HCl 300 mg capsule TAKE 1 CAPSULE BY MOUTH EVERY 6 HOURS FOR 7 DAYS 05/19 completed Not Available Not Available Not Available hydrocodon e 5 mg-acetami nophen 325 mg tablet TAKE 1 TABLET BY MOUTH EVERY 6 HOURS NEEDED FOR PAIN active prn Not Available Not Available No t Available alendronat e 70 mg tablet TAKE ONE TABLET BY MOUTH EVERY 7 DAYS. TAKE ON AN EMPTY STOMACH, AND DO NOT LIE DOWN OR EAT FOR 30 MINUTES AFTER TAKING active Not Available Not Available No t Available penicillin V potassium 500 mg tablet TAKE 1 TABLET BY MOUTH 4 TIMES DAILY UNTIL GONE active pt is no longer taking 12/07/22 SA Not Available Not Available Not Available acetaminop hen 300 mg-codeine 30 mg tablet TAKE 1 TO 2 TABLETS BY MOUTH EVERY 6 HOURS NEEDED FOR PAIN active Not Available Not Available No t Available allopurino l 100 mg tablet TAKE 2 TABLETS BY MOUTH ONCE DAILY active Not Available Not Available No t Available ciprofloxa toyin 500 mg tablet TAKE 1 TABLET BY MOUTH TWICE DAILY active pt is no longer taking 06/07/22 SA Not Available Not Available Not Available sulfametho xazole 800 mg-trimeth oprim 160 mg tablet TAKE 1 TABLET BY MOUTH EVERY 12 HOURS 05/19 completed Not Available Not Available Not Available peg-electr olyte solution 420 gram oral solution TAKE 4,000ML BY MOUTH ONE TIME ONLY FOR 1 DOSE. FOLLOW PRESCRIB ING PHYSICIA N S INSTRUCT ION ONLY. THESE WERE SENT BY MAIL OR EMAIL. active Not Available Not Available No t Available omeprazole 40 mg capsule,de layed release TAKE 1 CAPSULE BY MOUTH TWICE DAILY active Not Available Not Available No t Available aspirin 81 mg tablet,del ayed release TAKE 1 TABLET BY MOUTH ONCE DAILY active Not Available Not Available No t Available levothyrox ine 100 mcg tablet TAKE 1 TABLET BY MOUTH ONCE DAILY IN THE MORNING active Not Available Not Available No t Available methocarba mol 750 mg tablet active Not Available Not Available Not Available methotrexa te sodium 2.5 mg tablet TAKE 4 TABLETS BY MOUTH ONCE A WEEK active Not Available Not Available No t Available tamsulosin 0.4 mg capsule 05/19 completed Not Available Not Available Not Available prednisone 1 mg tablet TAKE 3 TABLETS BY MOUTH IN THE MORNING active Not Available Not Available No t Available amlodipine 10 mg tablet TAKE 1 TABLET BY MOUTH ONCE DAILY active Not Available Not Available No t Available cephalexin 500 mg capsule TAKE 1 CAPSULE BY MOUTH 4 TIMES DAILY 11/10 completed Not Available Not Available Not Available Euthyrox 88 mcg tablet TAKE 1 TABLET BY MOUTH ONCE DAILY 05/19 completed Not Available Not Available Not Available hyoscyamin e 0.125 mg sublingual tablet DISSOLVE 1 TABLET IN MOUTH EVERY 6 HOURS NEEDED FOR BLADDER SPASM active Not Available Not Available No t Available indomethac in 50 mg capsule TAKE 1 CAPSULE BY MOUTH THREE TIMES DAILY NEEDED WITH FOOD active Not Available Not Available No t Available nitroglyce rin 0.4 mg sublingual tablet DISSOLVE ONE TABLET UNDER THE TONGUE EVERY 5 MINUTES NEEDED FOR CHEST PAIN. DO NOT EXCEED A TOTAL OF 3 DOSES IN 15 MINUTES active Not Available Not Available No t Available omeprazole 20 mg capsule,de layed release TAKE 1 CAPSULE BY MOUTH ONCE DAILY IN THE MORNING active Not Available Not Available No t Available folic acid 1 mg tablet TAKE 1 TABLET BY MOUTH ONCE DAILY active Not Available Not Available No t Available albuterol sulfate HFA 90 mcg/actuat ion aerosol inhaler 11/10 completed pt no longer takes 06/09/20 21 nj Not Available Not Available Not Available ondansetro n 4 mg disintegra ting tablet 05/19 completed Not Available Not Available Not Available doxycyclin e hyclate 100 mg tablet TAKE 1 TABLET BY MOUTH TWICE DAILY active pt is no longer taking 06/07/22 SA Not Available Not Available Not Available amoxicilli n 875 mg-potassi um clavulanat e 125 mg tablet 05/19 completed Not Available Not Available Not Available SilvaSorb topical gel,extend ed release APPLY TOPICALL Y THREE TIMES A WEEK active Not Available Not Available No t Available nitrofuran toin monohydrat e/macrocry stals 100 mg capsule TAKE 1 CAPSULE BY MOUTH TWICE DAILY active Not Available Not Available No t Available Vitamin C 1 TAB DAILY active Not Available Not Available No t Available iron 1 TAB DAILY active Not Available Not Available No t Available cephalexin 750 mg capsule 11/10 completed Not Available Not Available Not Available Eliquis 5 mg tablet TAKE 1 TABLET BY MOUTH EVERY 12 HOURS active Not Available Not Available No t Available COVID-19 test specimen collection TEST DIRECTED TODAY active Not Available Not Available No t Available BinaxNOW COVID-19 Ag Self Test kit Use as Directed on the Package active Not Available Not Available No t Available Paxlovid 300 mg (150 mg x 2)-100 mg tablets in a dose pack active Not Available Not Available Not Available Vitals Date Recorded Body height Body mass index (BMI) Body weight Heart rate Oxygen saturation Oxygen saturation in Arterial blood by Pulse oximetry Systolic blood pressure Diastolic blood pressure Provider Name and Address Organization Details Last Updated DateTime 2 177.8 cm 30.7 kg/m2 96781.7 7 g 75 /min 95 % 95 % 140 mm[Hg] 100 mm[Hg] Juan Godfrey i, MD [address] [place], [address] [place] - [facility] 2 09:58:11 Date Recorded Body height Body mass index (BMI) Body weight Oxygen saturation Oxygen saturation in Arterial blood by Pulse oximetry Heart rate Systolic blood pressure Diastolic blood pressure Provider Name and Address Organization Details Last Updated DateTime 3 177.8 cm 27.5 kg/m2 84502.7 4 g 92 % 92 % 87 /min 110 mm[Hg] 86 mm[Hg] [facility] 3 10:35:58 Date Recorded Body height Body mass index (BMI) Body weight Heart rate Oxygen saturation Oxygen saturation in Arterial blood by Pulse oximetry Systolic blood pressure Diastolic blood pressure Provider Name and Address Organization Details Last Updated DateTime 1 177.8 cm 30 kg/m2 62277.8 1 g 89 /min 94 % 94 % 132 mm[Hg] 82 mm[Hg] Marely Cabrera [facility] 1 10:10:15 Date Recorded Body height Body mass index (BMI) Body weight Oxygen saturation Oxygen saturation in Arterial blood by Pulse oximetry Heart rate Systolic blood pressure Diastolic blood pressure Provider Name and Address Organization Details Last Updated DateTime 2 177.8 cm 29.8 kg/m2 45850.4 2 g 97 % 97 % 88 /min 140 mm[Hg] 88 mm[Hg] [facility] 2 18:05:03 Date Recorded Body height Oxygen saturation Oxygen saturation in Arterial blood by Pulse oximetry Heart rate Body mass index (BMI) Body weight Systolic blood pressure Diastolic blood pressure Provider Name and Address Organization Details Last Updated DateTime 1 177.8 cm 97 % 97 % 99 /min 29.8 kg/m2 00110.2 1 g 134 mm[Hg] 84 mm[Hg] SANA CHAIDEZ [facility] 1 12:13:17 Social History Question Answer Notes LastModified by Organizat ion Details LastModified Time Tobacco Smoking Status Never Smoker Marely Cabrera [facility] 05/19/2021 10:18:05 What Is Your Level Of Caffeine Consumption? Occasional Information not available 05/19/2021 What Type Of Diet Are You Following? SPECIFIC Information not available 05/19/2021 How Many Children Do You Have? 2 Information not available 05/19/2021 What Is Your Relationship Status? Information not available 05/19/2021 Sex: Unknown Functional Status Question Answer Note LastModified by Organization D etails LastModified Time What is your level of alcohol consumption? None Information not available 05/19/2021 What is your exercise level? Moderate Information not available 05/19/2021 Mental Status None recorded. Family History Nothing Reported. Medical History Condition Response Thyroid Disease Y Cancer Y High Cholesterol Y Kidney Disease Y Anemia Y Sleep Apnea Y Hypertension Y Past Encounters Encounter ID Performer Location Encounter Start Date Encounter Closed Date Diagnosis/Indication Diagnosis SNOMED-CT Code Diagnosis ICD10 Code Diagnosis Note [id number] Juan Brown MD [facility] OFF[facility] [address] [place] [id number] 05/19/2021 09:44:53 05/19/2021 10:55:23 Acute coronary syndrome 107217000 I24.9 The patient will be scheduled for left heart catheteriz ation, with coronary angiogram, and possible PTCA/Stent . The procedure was discussed with the patient, and risks, benefits, and alternativ e options were explained. The patient was given informatio n about heart catheteriz ation and interventi onal procedures . The patient agrees to proceed. Pulmonary embolism 72016 003 I26.99 s/p ECMO now on Eliquis Peripheral venous insufficiency 74259659 I87.2 Venous duplex and reflux study [id number] Juan Brown MD [facility] [address] [place] [id number] 06/09/2021 11:59:01 06/09/2021 12:24:42 Acute coronary syndrome 740600319 I24.9 cath with 40% LAD Pulmonary embolism 21840 003 I26.99 s/p ECMO now on Eliquis Peripheral venous insufficiency 19186997 I87.2 Venous duplex and reflux study [id number] Juan Brown MD [facility] [address] [place] [address] 11/10/2021 09:31:54 11/10/2021 10:18:02 Acute coronary syndrome 176612974 I24.9 cath with 40% LAD Pulmonary embolism 79261 003 I26.99 s/p ECMO now on Eliquis Peripheral venous insufficiency 06738978 I87.2 Venous duplex and reflux study [id number] Juan Brown MD [facility] [address] [place] [address] 06/07/2022 17:24:28 06/07/2022 18:21:11 Acute coronary syndrome 357986551 I24.9 cath with 40% LAD Pulmonary embolism 39909 003 I26.99 s/p ECMO now on EliquisObt ain echo to evaluate for structural /functiona l disease. Peripheral venous insufficiency 57173164 I87.2 Venous duplex and reflux study [id number] Juan Brown MD [facility] [address] [place] [address] 12/07/2022 10:02:30 12/07/2022 11:01:22 Acute coronary syndrome 493862320 I24.9 cath with 40% LAD Pulmonary embolism 74390 003 I26.99 s/p ECMO now on EliquisObt ain echo to evaluate for structural /functiona l disease. Peripheral venous insufficiency 57921158 I87.2 Venous duplex and reflux study Atypical chest pain 1025 41543 R07.89 No recurence Health Concerns Section Related Observation LastModified by Organization Detai ls LastModified Time None Recorded Concern Status LastModified by Organization Details LastModified Time None Recorded Advance Directives Directive None Recorded Payers Insurance Date Sequence Insurance Name Policy Number Policy Montesinos Covered Member ID Montesinos Member ID Guarantor Name 12/04/2022 2 [place] [id number] Kosta Li [id number] Kosta Li 12/04/2022 1 [place] Kosta Li [id number] Kosta Li Notes Date Note Type Note Provider Name and Address Organization Details Recorded Time 05/19/2021 text/html 05/19/21CC : [facility] pain80 years-old Male with h/o Hypertension, was referred for cardiac evaluation due to chest pain, he had alla PE, and had massive PE with need for ECMO, had a chest pain again last week. was in [facility], had negative tropToday reports:Denies chest pain.Denies shortness of breath at rest. Has mild dyspnea on exertion.No orthopnea. No PNDs.Denies heart palpitations.Denies dizziness. Denies syncope or near syncope.No ankle or leg edema.No major bleeding events.No reported side effects from medications. Taking medications as prescribed with no missed doses.Denies snoring, daytime somnolence and AM headache.Last LDL done on .Pt takes Angi Brown MD [address] [place], [address], [facility] 05/27/2021 20:35:56 06/09/2021 text/html 06/09/21CC : [facility] pain80 years-old Male with h/o Hypertension, was referred for cardiac evaluation due to chest pain, he had alla PE, and had massive PE with need for ECMO, had a chest pain again last week. was in [facility], had negative trop , had a cath with mild Coronary Artery Disease He has occasional chest pain, had a cath with 40% LADDenies shortness of breath at rest. Has mild dyspnea on exertion.No orthopnea. No PNDs.Denies heart palpitations.Denies dizziness. Denies syncope or near syncope.No ankle or leg edema.No major bleeding events.No reported side effects from medications. Taking medications as prescribed with no missed doses.Denies snoring, daytime somnolence and AM headache.Last LDL done on .Pt takes Angi Brown MD [address] [place], [address], [facility] 06/24/2021 20:29:33 11/10/2021 text/html 11/10/21CC : [facility] pain81 years-old Male with h/o Hypertension, acute coronary syndrome, peripheral venous insufficiency, and pulmonary embolism is here for 3 month follow up. He was last seen in the clinic on 06/09/21 , since then he gained few pounds. he is active with exercise Denies chest pain.Denies shortness of breath at rest. Has mild dyspnea on exertion.No orthopnea. No PNDs.Denies heart palpitations.Denies dizziness. Denies syncope or near syncope.No ankle or leg edema.No major bleeding events.No reported side effects from medications. Taking medications as prescribed with no missed doses.Denies snoring, daytime somnolence and AM headache.*Last LDL was done on .Pt takes. Previously : He had alla PE, and had massive PE with need for ECMO, had a chest pain again last week. was in [facility], had negative trop , had a cath with mild Coronary Artery Disease He has occasional chest pain, had a cath with 40% LADDenies shortness of breath at rest. Has mild dyspnea on exertion.No orthopnea. No PNDs.Denies heart palpitations.Denies dizziness. Denies syncope or near syncope.No ankle or leg edema.No major bleeding events.No reported side effects from medications. Taking medications as prescribed with no missed doses.Denies snoring, daytime somnolence and AM headache.Last LDL done on .Pt takes Lipitor Juan Brown MD [address] [place], [address], [facility] 11/10/2021 10:14:18 06/07/2022 text/html 06/07/22CC : [facility] follow up81 years-old Male with h/o Hypertension, acute coronary syndrome, peripheral venous insufficiency, and pulmonary embolism is here for 6 month follow up. He was last seen in the clinic on 11/10/21, since then he is active nowHe denies ER visits and hospitalizations since he was last seen. He had COVID last month Denies chest pain.Denies shortness of breath at rest. Has mild dyspnea on exertion.No orthopnea. No PNDs.Denies heart palpitations.Denies dizziness. Denies syncope or near syncope.No ankle or leg edema.No major bleeding events.No reported side effects from medications. Taking medications as prescribed with no missed doses.Denies snoring, daytime somnolence and AM headache.*Pt dose not have any lipid labs previously. dose not takes any statins. Previously:He had alla PE, and had massive PE with need for ECMO, had a chest pain again last week. was in [facility], had negative trop ,He had a cath with mild Coronary Artery DiseaseHe has occasional chest pain, had a cath with 40% LAD Juan Brown MD [address] [place], [address], [facility] 06/07/2022 18:16:56 12/07/2022 text/html 12/07/22CC : Car diac follow up, dyspnea on [id number] years-old Male with h/o Hypertension, acute coronary syndrome, peripheral venous insufficiency, and pulmonary embolism is here for 6 month follow up with ECHO results. He was last seen in the clinic on 06/07/22, since then he is active nowHe denies ER visits and hospitalizations since he was last seen. Denies chest pain.Denies shortness of breath at rest. Has mild dyspnea on exertion.No orthopnea. No PNDs.Denies heart palpitations.Denies dizziness. Denies syncope or near syncope.No ankle or leg edema.No major bleeding events.No reported side effects from medications. Taking medications as prescribed with no missed doses.Denies snoring, daytime somnolence and AM headache.*Last LDL was done on unknown time.Pt takes atorvastatin 20 mg. *Had ECHO on 06/13/22 showed LV chamber size is normal,there is normal global systolic function and contractility.LVEF 55-60%. Previously:He had COVID last year.He had alla PE, and had massive PE with need for ECMO, had a chest pain again last week. was in [facility], had negative trop ,He had a cath with mild Coronary Artery DiseaseHe has occasional chest pain, had a cath with 40% LAD Juan Brown MD [address] [place], [address], [place] - [facility] 12/07/2022 10:56:44
--- OUTSIDE RECORDS SUMMARY | 2025-03-03 14:03 | XMS_ITS ---
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 Do to the severity of the of the PE the patient will remain on life long anticoagulation. Assessment & Plan (10/25/2021 8:51 AM RESPIRATORY EQUIPMENT ASSISTANT): The patient continues on Eliquis 5 mg twice a day. Do to the severity of the of the PE the patient will remain on life long anticoagulation. Iron deficiency anemia 10/18/2021 [place]ILTON (obstructive sleep apnea) 01/20/2021 Assessment & Plan (11/04/2024 9:50 AM RESPIRATORY EQUIPMENT ASSISTANT): The patient has requested a new CPAP set at 10 cm water pressure. I have sent an order over to [employer]. Assessment & Plan (11/01/2023 10:25 AM RESPIRATORY EQUIPMENT ASSISTANT): The patient continue to wear his CPAP at 10 cm water pressure while sleeping. His DME is [employer]. Assessment & Plan (10/31/2022 10:02 AM RESPIRATORY EQUIPMENT ASSISTANT): The patient will continue CPAP therapy at 10 cm water pressure. Denied need for supplies. DME [employer] Assessment & Plan (10/25/2021 8:38 AM RESPIRATORY EQUIPMENT ASSISTANT): Patient continue to wear CPAP at 10 cm water pressure while sleeping. His DME is [employer]. Assessment & Plan (04/12/2021 10:20 AM CDT): The patient continues to benefit from CPAP at 10 cm water pressure. His DME is [facility]. Assessment & Plan (02/22/2021 3:25 PM CDT): The patient will continue with CPAP therapy at 10 cm water pressure to treat obstructive sleep apnea. The patient denied need for supplies. DME company [employer]. The patient is benefitting from CPAP therapy. Assessment & Plan (01/20/2021 8:49 AM CDT): I did encourage the patient to start using the CPAP at 10 cm water pressure while sleeping. He will be using [facility] as his supplier. Dyspnea on exertion 01/20/2021 Assessment & Plan (04/12/2021 10:20 AM CDT): The dyspnea on exertion has almost completely resolved. His methacholine challenge was negative. His chest CT angiogram was discussed with the patient and is listed above. Assessment & Plan (02/22/2021 3:24 PM CDT): Due to the patient stating that he still has some shortness of breath and his spouse is reporting slight wheezes on occasion, I have recommended the patient complete a methacholine challenge to evaluate whether he has asthma. This is been ordered for the patient. Assessment & Plan (01/20/2021 8:50 AM CDT): The patient has dyspnea on exertion and wheezing. 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 Leukocytosis 04/28/2020 Assessment & Plan (05/02/2020 3:39 PM CDT): WBC slightly downward today Afebrile Will continue IVAB Anemia 04/28/2020 Overview (04/28/2020): Recent hospitalization for PE Now readmit with left groin wound 04/28 hgb 9.1 was 10.4 Will monitor with daily labs Trending down, will monitor for hematuria/hematochezia Assessment & Plan (04/29/2020 10:40 AM CDT): Present on admission H/H stable Will continue to monitor Abscess of groin, left 04/26/2020 Assessment & Plan (05/03/2020 11:04 AM CDT): S/p left groin washout and packing 04/28/2020 Wound vac placed, replaced 05/02 OR cultures + E coli- IVAB changed to Ertapenem by ID Current plan is for 2 weeks of IVAB from 04/29/2020 thru 05/13 PICC RUE Waiting for bed back to [facility] Assessment & Plan (04/26/2020 3:18 AM CDT): F/u blood cx Vanc/zosyn Plan for I&D when appropriate from an anticoagulation standpoint History of pulmonary embolism 04/26/2020 Assessment & Plan (11/04/2024 9:51 AM RESPIRATORY EQUIPMENT ASSISTANT): Due to the severity of the pulmonary embolism the patient is on lifelong Eliquis. Assessment & Plan (10/31/2022 10:03 AM RESPIRATORY EQUIPMENT ASSISTANT): Will continue Eliquis on a lifelong basis. Denied symptoms Assessment & Plan (04/12/2021 10:19 AM CDT): The patient had a near leathal pulmonary embolus in April 2020. He continues on Eliquis. Assessment & Plan (02/22/2021 3:26 PM CDT): The patient had bilateral PEs in a April 2020, I have ordered the patient a CT angiogram to evaluate if pulmonary embolisms have resolved. The patient does continue with anticoagulant. Assessment & Plan (05/04/2020 2:29 PM CDT): Taking Eliquis as outpatient, last dose 04/25 Wound vac placed to left groin without further bleeding Vac remains intact Resumed Eliquis VAC changed 05/02 Plan to change vac on 05/05 prior to discharge Assessment & Plan (04/26/2020 3:20 AM CDT): Taking Eliquis as outpatient, last dose 04/25 Plan for hep gtt Wound of left groin 04/25/2020 Overview (04/27/2020): Added automatically from request for surgery [id number] Assessment & Plan (04/28/2020 3:24 PM CDT): Plan for washout./debridement of left groin on 04/28 Acute pulmonary embolism with acute cor pulmonal e 04/11/2020 Assessment & Plan (04/18/2020 12:11 AM CDT): - OSH with bilateral clot burden and RV strain. Acutely decompensated on arrival from OSH with initiation of high dose pressors -> V-A ecmo cannulation and taken to IR for thrombectomy. Diagnostic pulmonary angiogram negative for clot burden (received tPA at OSH). Arrested x1 at OSH and achieved ROSC after 1 round of epi. Profound metabolic acidosis 2/2 lactic acidosis (>15) and acute renal failure. - Decannulated from [facility] on 04/13. Postop MARICHUY with mild RV dilation with goo biventricular function. - MAP>65, currently off pressors - Epi off 04/15 1900 -now on RA -continuing heparin gtt -ASA Assessment & Plan (04/16/2020 9:41 PM CDT): - OSH with bilateral clot burden and RV strain. Acutely decompensated on arrival from OSH with initiation of high dose pressors -> V-A ecmo cannulation and taken to IR for thrombectomy. Diagnostic pulmonary angiogram negative for clot burden (received tPA at OSH). Arrested x1 at OSH and achieved ROSC after 1 round of epi. Profound metabolic acidosis 2/2 lactic acidosis (>15) and acute renal failure. - Decannulated from [facility] on 04/13. Postop MARICHUY with mild RV dilation with goo biventricular function. - MAP>65, currently off pressors - Epi off 04/15 1900 -now on NC -continuing heparin gtt -ASA rectal while NPO Assessment & Plan (04/15/2020 9:30 PM CDT): - OSH with bilateral clot burden and RV strain. Acutely decompensated on arrival from OSH with initiation of high dose pressors -> V-A ecmo cannulation and taken to IR for thrombectomy. Diagnostic pulmonary angiogram negative for clot burden (received tPA at OSH). Arrested x1 at OSH and achieved ROSC after 1 round of epi. Profound metabolic acidosis 2/2 lactic acidosis (>15) and acute renal failure. - Decannulated from [facility] on 04/13. Postop MARICHUY with mild RV dilation with goo biventricular function. - MAP>65, currently off pressors - Epi off 04/15 1900 Assessment & Plan (04/14/2020 5:28 PM CDT): - OSH with bilateral clot burden and RV strain. Acutely decompensated on arrival from OSH with initiation of high dose pressors -> V-A ecmo cannulation and taken to IR for thrombectomy. Diagnostic pulmonary angiogram negative for clot burden (received tPA at OSH). Arrested x1 at OSH and achieved ROSC after 1 round of epi. Profound metabolic acidosis 2/2 lactic acidosis (>15) and acute renal failure. - Decannulated from [facility] on 04/13. Postop MARICHUY with mild RV dilation with goo biventricular function. - MAP>65, currently off pressors - Epi at 0.04, wean Q8 for ScVO2>60 Assessment & Plan (04/14/2020 12:29 AM CDT): - OSH with bilateral clot burden and RV strain. Acutely decompensated on arrival from OSH with initiation of high dose pressors -> V-A ecmo cannulation and taken to IR for thrombectomy. Diagnostic pulmonary angiogram negative for clot burden (received tPA at OSH). Arrested x1 at OSH and achieved ROSC after 1 round of epi. Profound metabolic acidosis 2/2 lactic acidosis (>15) and acute renal failure. - Decannulated from [facility] on 04/13. Postop MARICHUY with mild RV dilation with goo biventricular function. - MAP>65, currently off pressors - Continue epi at 0.05 Assessment & Plan (04/13/2020 5:35 AM CDT): - OSH with bilateral clot burden and RV strain. Acutely decompensated on arrival from OSH with initiation of high dose pressors -> V-A ecmo cannulation and taken to IR for thrombectomy. Diagnostic pulmonary angiogram negative for clot burden (received tPA at OSH). Arrested x1 at OSH and achieved ROSC after 1 round of epi. Profound metabolic acidosis 2/2 lactic acidosis (>15) and acute renal failure. - Aim to wean Norepi + Vasopressin for MAP >65; Epi = 0.04, Vaso = OFF, Norepi = 0.02 - TTE notable for [facility] ECMO @ 3300 RPM and 2.54 L/m; pt is boderdeline tachycardic; grossly normal LV and RV size and systolic function; E/A reversal c/w impaired diastolic function; no significant changes in LVEF before and after turn down (04/12/20) - Continue Q8H CBC + BMP - Continue to trend lactate + ABG Q4H - Trend troponin Q8H until downtrend - Repeat ABG demonstrated increasing alkalosis, decrease sweep to 4 and plan to re-check ABG - Down-trending Troponin = 0.86 --> 0.74 --> 0.53 - Down-trending Lactate = 14.0 --> 5.6 --> 2.6 - ECMO = 4000 / 3.49L / 100% / 2 - Ventilator = PC/AC14/DP12/50%/7.5 - Fentanyl = 100, Propofol = 20, Ketamine = 150 - plan for decannulation today Assessment & Plan (04/12/2020 5:16 AM CDT): - OSH with bilateral clot burden and RV strain. Acutely decompensated on arrival from OSH with initiation of high dose pressors -> V-A ecmo cannulation and taken to IR for thrombectomy. Diagnostic pulmonary angiogram negative for clot burden (received tPA at OSH). Arrested x1 at OSH and achieved ROSC after 1 round of epi. Profound metabolic acidosis 2/2 lactic acidosis (>15) and acute renal failure. - Aim to wean Norepi + Vasopressin for MAP >65; Epi = 0.08, Vaso = OFF, Norepi = 0.01 - Bedside TTE performed; Formal TTE pending - Continue Q8H CBC + BMP - Continue to trend lactate + ABG Q4H - Trend troponin Q8H until downtrend - Wean Propofol to 20, increase Ketamine to 150, aim to wean Fentanyl ~100 - Plan for neurological examination when wean sedation - Repeat ABG demonstrated increasing alkalosis, decrease sweep to 4 and plan to re-check ABG - Down-trending Troponin = 0.86 --> 0.74 --> 0.53 - Down-trending Lactate = 14.0 --> 5.6 --> 2.6 - ECMO = 3800 / 3.21L / 4 - Ventilator = PC / AC, 40%, 20 / min, PEEP = 7.5, Drive pressure = 12 - Fentanyl = 100, Propofol = 20, Ketamine = 150 Assessment & Plan (04/11/2020 4:59 AM CDT): OSH with bilateral clot burden and RV strain. Acutely decompensated on arrival from OSH with initiation of high dose pressors -> V-A ecmo cannulation and taken to IR for thrombectomy. Diagnostic pulmonary angiogram negative for clot burden (received tPA at OSH). Arrested x1 at OSH and achieved ROSC after 1 round of epi. Profound metabolic acidosis 2/2 lactic acidosis (>15) and acute renal failure. - Keep epi at 0.1 - keep iVeletri at 20K - wean NE and then vaso for MAP 70-80 - 500mL albumin now - POC abg reviewed, sweep increased to 6 - q4h lactate - obtain formal TTE to evaluate RV strain - LED to evaluate for DVT - q1h NV checks 0415: repeat POC reviewed, sweep increased to 8 and RR increased to 20. Bicarb gtt infusing and additional 500mL LR given for volume resuscitation. Repeat abg in 30 minutes. Acute renal failure (ARF) 04/11/2020 Assessment & Plan (04/18/2020 12:11 AM CDT): - Baseline Motor Vehicle Representative upon Ecare everywhere review is ~1.0-1.2. - Avoid nephrotoxins, renally dose meds as appropriate - No dialysis per , continuing to make urine - Creatinine improving Assessment & Plan (04/16/2020 9:42 PM CDT): - Baseline Motor Vehicle Representative upon Ecare everywhere review is ~1.0-1.2. - Avoid nephrotoxins, renally dose meds as appropriate -No dialysis per , continuing to make urine Assessment & Plan (04/15/2020 9:30 PM CDT): - Baseline Motor Vehicle Representative upon Ecare everywhere review is ~1.0-1.2. - Avoid nephrotoxins, renally dose meds as appropriate Assessment & Plan (04/14/2020 5:28 PM CDT): - Baseline Motor Vehicle Representative upon Ecare everywhere review is ~1.0-1.2. - Avoid nephrotoxins, renally dose meds as appropriate Assessment & Plan (04/14/2020 12:30 AM CDT): - Baseline Motor Vehicle Representative upon Ecare everywhere review is ~1.0-1.2. - Avoid nephrotoxins, renally dose meds as appropriate Assessment & Plan (04/13/2020 5:36 AM CDT): - Baseline Motor Vehicle Representative upon Ecare everywhere review is ~1.0-1.2. Motor Vehicle Representative up to 1.55 on admission. Profound metabolic acidosis 2/2 cardiogenic shock with high dose triple pressor therapy. - Avoid nephrotoxins, renally dose meds as appropriate Assessment & Plan (04/12/2020 5:19 AM CDT): - Baseline Motor Vehicle Representative upon Ecare everywhere review is ~1.0-1.2. Motor Vehicle Representative up to 1.55 on admission. Profound metabolic acidosis 2/2 cardiogenic shock with high dose triple pressor therapy. - Aim to wean Norepi + Vasopressin for MAP >65; Epi = 0.08, Vaso = OFF, Norepi = 0.01 - Continue Q8H CBC + BMP - Repeat ABG demonstrated increasing alkalosis, decrease sweep to 4 and plan to re-check ABG - Down-trending Troponin = 0.86 --> 0.74 --> 0.53 - Down-trending Lactate = 14.0 --> 5.6 --> 2.6 - ECMO = 3800 / 3.21L / 4 - Ventilator = PC / AC, 40%, 20 / min, PEEP = 7.5, Drive pressure = 12 - Fentanyl = 100, Propofol = 20, Ketamine = 150 - Avoid nephrotoxins, renally dose meds as appropriate Assessment & Plan (04/11/2020 4:35 AM CDT): Baseline Motor Vehicle Representative upon Ecare everywhere review is ~1.0-1.2. Motor Vehicle Representative up to 1.55 on admission. Profound metabolic acidosis 2/2 cardiogenic shock with high dose triple pressor therapy. - wean NE and then vaso for MAP > 70 - 2 amp bicarb now - start 1:1 bicarb infusion @ 50meq/hr - volume resuscitation as outlined above - q8h BMP - perfusion to place pigtails on ecmo circuit - discuss consulting renal if patient becomes oliguric. - Avoid nephrotoxins, renally dose meds as appropriate - avoid hypotension Hyperglycemia 04/11/2020 Assessment & Plan (04/18/2020 12:12 AM CDT): - BGL on arrival >300, improving -HDSSI - Adult diet with nectar thick liquids Assessment & Plan (04/16/2020 9:42 PM CDT): - BGL on arrival >300 - Start insulin infusion now per cticu protocol - Strict npo, SBFT will be placed by GI Assessment & Plan (04/15/2020 9:31 PM CDT): - BGL on arrival >300 - Start insulin infusion now per cticu protocol - Strict npo Assessment & Plan (04/14/2020 5:29 PM CDT): - BGL on arrival >300 - Start insulin infusion now per cticu protocol - Strict npo Assessment & Plan (04/13/2020 5:36 AM CDT): - BGL on arrival >300 - Start insulin infusion now per cticu protocol - Strict npo Assessment & Plan (04/12/2020 5:19 AM CDT): - BGL on arrival >300 - Start insulin infusion now per cticu protocol - Strict npo Assessment & Plan (04/11/2020 4:48 AM CDT): BGL on arrival >300 - start insulin infusion now per cticu protocol - strict npo Lesion of left lower eyelid 01/20/2020 Overview (01/20/2020): Added automatically from request for surgery [id number] Hypertension 10/29/2019 Assessment & Plan (04/28/2020 3:23 PM CDT): Home meds:continue amlodipine Hyperlipidemia 10/29/2019 GERD (gastroesophageal reflux disease) 0 Hypothyroidism 10/29/2019 Assessment & Plan (04/28/2020 3:23 PM CDT): Home meds:continue levothyroxine Risk factors for obstructive sleep apnea 020 Rotator cuff arthropathy of left shoulder 2019 Overview (09/17/2019): Added automatically from request for surgery [id number] Recurrent kidney stones 07/29/2018 Basal cell carcinoma of left thigh 07/14/2017 Presence of left artificial knee joint 7 Osteoarthritis of left knee 10/04/2016 Pain in buttock 03/14/2016 Postlaminectomy syndrome of lumbar region 2015 Chronic pain 03/14/2016 Lumbar radiculopathy 03/14/2016 Vertiginous syndrome 12/07/2015 Skew deviation 12/07/2015 Head revolving around 11/09/2015 Diplopia 11/09/2015 Hx of carcinoma in situ of colon 11/04/2015 Positive D dimer 11/04/2015 Overview (10/25/2021): d Dimer 0.83, CT Chest neg. PE. 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 Past Treatment and Therapy Plans No past plan information found. Lifetime Dose Tracking * Chemical Lifetime Dose Automatic Entry Manual Entr y Fluoro Time 2.1 minutes 2.1 minutes 0 minutes Air kerma at the reference point (Ka,r) 426 mGy 1 07 mGy 319 mGy DLP 585 mGycm 585 mGycm 0 mGycm Resolved Problems Problem Noted Date Diagnosed Date Resolved Date Acute respiratory failure 04/11/2020 Assessment & Plan (04/16/2020 9:42 PM CDT): Extubated to DC Assessment & Plan (04/15/2020 9:30 PM CDT): - Intubated on arrival to ED with increased respiratory distress and hemodynamic instability. OSH CT showed large bilateral clot burden and received tPA. (04/11) to IR for diagnostic pulmonary angiogram without thrombectomy. - Wean FiO2 for sats > 92% - Veletri off Assessment & Plan (04/14/2020 5:28 PM CDT): - Intubated on arrival to ED with increased respiratory distress and hemodynamic instability. OSH CT showed large bilateral clot burden and received tPA. (04/11) to IR for diagnostic pulmonary angiogram without thrombectomy. - Wean FiO2 for sats > 92% - Veletri off Assessment & Plan (04/14/2020 12:29 AM CDT): - Intubated on arrival to ED with increased respiratory distress and hemodynamic instability. OSH CT showed large bilateral clot burden and received tPA. (04/11) to IR for diagnostic pulmonary angiogram without thrombectomy. - Wean FiO2 for sats > 92% - Veletri @ 8mL/hr for elevated PAP Assessment & Plan (04/13/2020 5:36 AM CDT): - Intubated on arrival to ED with increased respiratory distress and hemodynamic instability. OSH CT showed large bilateral clot burden and received tPA. (04/11) to IR for diagnostic pulmonary angiogram without thrombectomy. - Wean FiO2 for sats > 92% - PC/AC14/DP12/50%/7.5 - Fentanyl = 100, Propofol = 20, Ketamine = 150 Assessment & Plan (04/12/2020 5:17 AM CDT): - Intubated on arrival to ED with increased respiratory distress and hemodynamic instability. OSH CT showed large bilateral clot burden and received tPA. (04/11) to IR for diagnostic pulmonary angiogram without thrombectomy. - Wean FiO2 for sats > 92% - Ventilator = PC / AC, 40%, 20 / min, PEEP = 7.5, Drive pressure = 12 - Fentanyl = 100, Propofol = 20, Ketamine = 150 Assessment & Plan (04/11/2020 5:00 AM CDT): Intubated on arrival to ED with increased respiratory distress and hemodynamic instability. OSH CT showed large bilateral clot burden and received tPA. (04/11) to IR for diagnostic pulmonary angiogram without thrombectomy. - send coags now, if PTT < 60 will start heparin gtt per nomogram without boluses - no plans for PSV until weaned off iVeletri and hemodynamically stable - Wean FiO2 for sats > 92% - f/u CXR and KUB now - start fentanyl cadd and continue propofol for sedation for RASS -3 to -4 Cardiogenic shock 04/10/2020 04/14/2020 Overview (04/12/2020): Added automatically from request for surgery [id number]
--- OUTSIDE RECORDS SUMMARY | 2025-03-03 14:03 | XMS_ITS | Encounter Summary ---
Author Organization [facility] Care Team Providers Care Software Solutions Architect Name Role Phone Carolee Caruso Primary Care Provider [phone] Aislinn Nugent Primary Care Pr ovider Priya Novak MD PhD Unavailable [phone] Miscellaneous, Not In File Unavailable Unava ilable Encounter Details Date Type Department Care Team (Latest Contact Info) Description 11/10/2015 Orders Only [facility] Provider, MD Josselin [address] [place], [place] [id number] Social History Tobacco Use Types Packs/Day Years Used Date Smoking Tobacco: Never Assessed Sex and Gender Information Value Date Recorded Sex Assigned at Not on file Legal Sex Male 4:18 AM COPYWRITER Gender Identity Male 11/11/2020 8:35 AM COPYWRITER Sexual Orientation Not on file documented as of this encounter Plan of Treatment Not on file documented as of this encounter Procedures Procedure Name Priority Date/Time Associated Diagnosis Comments SCAN - LABS 01/12/2016 12:00 AM CDT documented in this encounter Results * SCAN - LABS (01/12/2016 12:00 AM CDT) Narrative 01/12/2016 12:00 AM CDT Ordered by an unspecified provider. Historical Provider Final Res ult documented in this encounter Visit Diagnoses Not on filedocumented in this encounter Additional Health Concerns Infection Onset Date Last Indicated Resolved Time COVID: Suspected 04/11/2020 04/11/2020 04/11/2020 1:33 PM CDT Respiratory Infection (SARAH), contact + droplet Comment:Automatically added due to negative COVID-19 result. Patient classified as Low Risk for COVID-19 and has one negative COVID-19 test. Patient meets criteria for COVID-19 isolation discontinuation 04/11/2020 04/11/2020 04/11/2020 2:05 PM C DT 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 04/27/2020 documented as of this encounter Care Teams Software Solutions Architect Relationship Specialty Start Date End Date Carolee Caruso PA [address] [place] [id number] PCP - General 04/17/17 09/06/19 Aislinn Nugent PA [address] [place] [address] [phone] PCP - General Physician Superintendent Institution 09/07/19 Priya Novak MD PhD [address] [place] [address] [id number] Surgeon Cardiothoracic Surgery 05/05/20 Miscellaneous, Not In File 05/05/20 documented as of this encounter
--- OUTSIDE RECORDS SUMMARY | 2025-03-03 14:03 | XMS_ITS | Data Portability ---
Author Organization [facility] [employer], Main Office Address [address] [place] [address] Care Team Providers Care Urgent Care Nurse Practitioner Name Role Phone HAYLEY NORMAN Primary Care Provider [phone] ESTER HAYLEY Referring Provider [phone] Assessment No assessment recorded. Plan of Treatment Reminders Order Date Submit Date Provider Last Modified By Organization Details Last Modified Time Details Appointments None recorded. Lab uric acid, serum or plasma 2022 024 Not available 4 08:24:34 PSA, serum or plasma 2022 024 Not available 4 08:24:33 hepatic function panel, serum 2022 024 Not available 4 08:24:34 CBC w/ auto diff 2022 024 [email or web address] Not available 4 08:24:34 BMP, serum or plasma 2022 024 [email or web address] Not available 4 08:24:34 lipid panel, serum 2022 024 [email or web address] Not available 4 08:24:34 TSH + free T4, serum 2022 024 [email or web address] Not available 4 08:24:34 Referral None recorded. Procedures None recorded. Surgeries None recorded. Imaging None recorded. Medication Orders None recorded. Patient TargetsNo targets recorded. Patient InstructionsNo instructions recorded. Reason for Referral None Reported. Results Created Date Observation Date Name Description Value Unit Range Abnormal Flag Note LastModifiedBy Organization Detail LastModifiedTime 10/23/19 22 10/24/2021 CBC (INCL UDES DIFF/ PLT) white blood cell count 8.1 thous and/u L 3.8-10 .8 normal Not Available [address], [address], 10/24/2021 05:05:00 10/23/19 22 10/24/2021 CBC (INCL UDES DIFF/ PLT) red blood cell count 4.69 jamaica on/uL 4.20-5 .80 normal Not Available [address], [address], 10/24/2021 05:05:00 10/23/19 22 10/24/2021 CBC (INCL UDES DIFF/ PLT) hemoglobin 13.3 g/dL 13.2-1 7.1 normal Not Available [address], [address], 10/24/2021 05:05:00 10/23/19 22 10/24/2021 CBC (INCL UDES DIFF/ PLT) hematocrit 42.7 % 38.5-5 0.0 normal Not Available [address], [address], 10/24/2021 05:05:00 10/23/19 22 10/24/2021 CBC (INCL UDES DIFF/ PLT) MCV 91.0 fL 80.0-1 00.0 normal Not Available [address], [address], 10/24/2021 05:05:00 10/23/19 22 10/24/2021 CBC (INCL UDES DIFF/ PLT) MCH 28.4 pg 27.0-3 3.0 normal Not Available [address], [address], 10/24/2021 05:05:00 10/23/19 22 10/24/2021 CBC (INCL UDES DIFF/ PLT) MCHC 31.1 g/dL 32.0-3 6.0 low Not Available [address], [address], 10/24/2021 05:05:00 10/23/19 22 10/24/2021 CBC (INCL UDES DIFF/ PLT) RDW 16.4 % 11.0-1 5.0 high Not Available [address], [address], 10/24/2021 05:05:00 10/23/19 22 10/24/2021 CBC (INCL UDES DIFF/ PLT) platelet count 322 thous and/u L 140-40 0 normal Not Available [address], [address], 10/24/2021 05:05:00 10/23/19 22 10/24/2021 CBC (INCL UDES DIFF/ PLT) MPV 11.2 fL 7.5-12 .5 normal Not Available [address], [address], 10/24/2021 05:05:00 10/23/19 22 10/24/2021 CBC (INCL UDES DIFF/ PLT) absolute neutrophils 4334 cells /uL 1500-7 800 normal Not Available [address], [address], 10/24/2021 05:05:00 10/23/19 22 10/24/2021 CBC (INCL UDES DIFF/ PLT) absolute lymphocytes 2454 cells /uL 850-39 00 normal Not Available [facility] [address], [address], 10/24/2021 05:05:00 10/23/19 22 10/24/2021 CBC (INCL UDES DIFF/ PLT) absolute monocytes 883 cells /uL 200-95 0 normal Not Available [address], [address], 10/24/2021 05:05:00 10/23/19 22 10/24/2021 CBC (INCL UDES DIFF/ PLT) lymphocytes 30.3 % normal Not Available [facility] [address], [address], 10/24/2021 05:05:00 10/23/19 22 10/24/2021 CBC (INCL UDES DIFF/ PLT) absolute eosinophils 381 cells /uL 15-500 normal Not Available [facility] [address], [address], 10/24/2021 05:05:00 10/23/19 22 10/24/2021 CBC (INCL UDES DIFF/ PLT) absolute basophils 49 cells /uL 0-200 normal Not Available [facility] [address], [address], 10/24/2021 05:05:00 10/23/19 22 10/24/2021 CBC (INCL UDES DIFF/ PLT) neutrophils 53.5 % normal Not Available [facility] [address], [address], 10/24/2021 05:05:00 10/23/19 22 10/24/2021 CBC (INCL UDES DIFF/ PLT) monocytes 10.9 % normal Not Available [facility] [address], [address], 10/24/2021 05:05:00 10/23/19 22 10/24/2021 CBC (INCL UDES DIFF/ PLT) eosinophils 4.7 % normal Not Available [facility] [address], [address], 10/24/2021 05:05:00 10/23/19 22 10/24/2021 CBC (INCL UDES DIFF/ PLT) basophils 0.6 % normal Not Available [facility] [address], [address], 10/24/2021 05:05:00 10/23/19 22 10/24/2021 HEPAT IC FUNCT ION PANEL protein, total 6.8 g/dL 6.1-8. 1 normal Not Available [address], [address], 10/24/2021 05:04:59 10/23/19 22 10/24/2021 HEPAT IC FUNCT ION PANEL albumin 4.2 g/dL 3.6-5. 1 normal Not Available [address], [address], 10/24/2021 05:04:59 10/23/19 22 10/24/2021 HEPAT IC FUNCT ION PANEL globulin 2.6 g/dL_ (calc ) 1.9-3. 7 normal Not Available [address], [address], 10/24/2021 05:04:59 10/23/19 22 10/24/2021 HEPAT IC FUNCT ION PANEL albumin/glob ulin ratio 1.6 (calc ) 1.0-2. 5 normal Not Available [address], [address], 10/24/2021 05:04:59 10/23/19 22 10/24/2021 HEPAT IC FUNCT ION PANEL bilirubin, total 0.6 mg/dL 0.2-1. 2 normal Not Available [address], [address], 10/24/2021 05:04:59 10/23/19 22 10/24/2021 HEPAT IC FUNCT ION PANEL bilirubin, direct 0.1 mg/dL < or = 0.2 normal Not Available [address], [address], 10/24/2021 05:04:59 10/23/19 22 10/24/2021 HEPAT IC FUNCT ION PANEL bilirubin, indirect 0.5 mg/dL _(dung c) 0.2-1. 2 normal Not Available [address] [address] [place], [address], 10/24/2021 05:04:59 10/23/19 22 10/24/2021 HEPAT IC FUNCT ION PANEL alkaline phosphatase 67 U/L 35-144 normal Not Available [facility] [employer] [address] [address] [place], [address], 10/24/2021 05:04:59 10/23/19 22 10/24/2021 HEPAT IC FUNCT ION PANEL AST 18 U/L 10-35 normal Not Available [address] [address] [place], [address], 10/24/2021 05:04:59 10/23/19 22 10/24/2021 HEPAT IC FUNCT ION PANEL ALT 16 U/L 9-46 normal Not Available [address] [address] [place], [address], 10/24/2021 05:04:59 10/23/19 22 10/24/2021 BASIC METAB OLIC PANEL glucose 87 mg/dL 65-99 normal Fasti ng refer ence inter pilar Not Available [facility] [address], [address], 10/24/2021 05:04:59 10/23/19 22 10/24/2021 BASIC METAB OLIC PANEL urea nitrogen (BUN) 17 mg/dL 7-25 normal Not Available [address], [address], 10/24/2021 05:04:59 10/23/19 22 10/24/2021 BASIC METAB OLIC PANEL creatinine 1.30 mg/dL 0.70-1 .11 high For patie nts >49 years of age, the refer ence limit for Creat inine is appro ximat maryam 13% highe r for peopl e ident ified as Afric an-Am debbi n. Not Available [facility] [address], [address], 10/24/2021 05:04:59 10/23/19 22 10/24/2021 BASIC METAB OLIC PANEL eGFR non-afr. romanian 52 mL/mi n/1.7 3m2 > or = 60 low Not Available [address], [address], 10/24/2021 05:04:59 10/23/19 22 10/24/2021 BASIC METAB OLIC PANEL eGFR 60 mL/mi n/1.7 3m2 > or = 60 normal Not Available [address], [address], 10/24/2021 05:04:59 10/23/19 22 10/24/2021 BASIC METAB OLIC PANEL BUN/creatini ne ratio 13 (calc ) 6-22 normal Not Available [address], [address], 10/24/2021 05:04:59 10/23/19 22 10/24/2021 BASIC METAB OLIC PANEL sodium 145 mmol/ L 135-14 6 normal Not Available [address], [address], 10/24/2021 05:04:59 10/23/19 22 10/24/2021 BASIC METAB OLIC PANEL potassium 4.9 mmol/ L 3.5-5. 3 normal Not Available [address], [address], 10/24/2021 05:04:59 10/23/19 22 10/24/2021 BASIC METAB OLIC PANEL chloride 105 mmol/ L 98-110 normal Not Available [address], [address], 10/24/2021 05:04:59 10/23/19 22 10/24/2021 BASIC METAB OLIC PANEL carbon dioxide 31 mmol/ L 20-32 normal Not Available [address] [place], [address], 10/24/2021 05:04:59 10/23/19 22 10/24/2021 BASIC METAB OLIC PANEL calcium 9.6 mg/dL 8.6-10 .3 normal Not Available [address], [address], 10/24/2021 05:04:59 10/23/19 22 10/24/2021 IRON, TIBC AND MISA TIN PANEL ferritin 12 NG/mL 24-380 low Not Available [address], [address], 10/24/2021 05:04:58 10/23/19 22 10/24/2021 IRON, TIBC AND MISA TIN PANEL iron, total 52 mcg/d L 50-180 normal Not Available [address], [address], 10/24/2021 05:04:58 10/23/19 22 10/24/2021 IRON, TIBC AND MISA TIN PANEL iron binding capacity 370 mcg/d L_(ca lc) 250-42 5 normal Not Available [address], [address], 10/24/2021 05:04:58 10/23/19 22 10/24/2021 IRON, TIBC AND MISA TIN PANEL % saturation 14 %_(ca lc) 20-48 low Not Available [address], [address], 10/24/2021 05:04:58 03/06/20 22 03/07/2022 CBC (INCL UDES DIFF/ PLT) white blood cell count 7.6 thous and/u L 3.8-10 .8 normal Not Available [address], [address], 03/07/2022 02:26:04 03/06/20 22 03/07/2022 CBC (INCL UDES DIFF/ PLT) red blood cell count 5.06 jamaica on/uL 4.20-5 .80 normal Not Available [address], [address], 03/07/2022 02:26:04 03/06/20 22 03/07/2022 CBC (INCL UDES DIFF/ PLT) hemoglobin 15.5 g/dL 13.2-1 7.1 normal Not Available [address], [address], 03/07/2022 02:26:04 03/06/20 22 03/07/2022 CBC (INCL UDES DIFF/ PLT) hematocrit 48.2 % 38.5-5 0.0 normal Not Available [address], [address], 03/07/2022 02:26:04 03/06/20 22 03/07/2022 CBC (INCL UDES DIFF/ PLT) MCV 95.3 fL 80.0-1 00.0 normal Not Available [address], [address], 03/07/2022 02:26:04 03/06/20 22 03/07/2022 CBC (INCL UDES DIFF/ PLT) MCH 30.6 pg 27.0-3 3.0 normal Not Available [address], [address], 03/07/2022 02:26:04 03/06/20 22 03/07/2022 CBC (INCL UDES DIFF/ PLT) MCHC 32.2 g/dL 32.0-3 6.0 normal Not Available [address], [address], 03/07/2022 02:26:04 03/06/20 22 03/07/2022 CBC (INCL UDES DIFF/ PLT) RDW 14.5 % 11.0-1 5.0 normal Not Available [facility] [place] [address] [address], [place], [address], 03/07/2022 02:26:04 03/06/20 22 03/07/2022 CBC (INCL UDES DIFF/ PLT) platelet count 273 thous and/u L 140-40 0 normal Not Available [address], [address], 03/07/2022 02:26:04 03/06/20 22 03/07/2022 CBC (INCL UDES DIFF/ PLT) MPV 10.6 fL 7.5-12 .5 normal Not Available [address], [address], 03/07/2022 02:26:04 03/06/20 22 03/07/2022 CBC (INCL UDES DIFF/ PLT) absolute neutrophils 4507 cells /uL 1500-7 800 normal Not Available [address], [address], 03/07/2022 02:26:04 03/06/20 22 03/07/2022 CBC (INCL UDES DIFF/ PLT) absolute lymphocytes 2014 cells /uL 850-39 00 normal Not Available [address], [address], 03/07/2022 02:26:04 03/06/20 22 03/07/2022 CBC (INCL UDES DIFF/ PLT) absolute monocytes 752 cells /uL 200-95 0 normal Not Available [facility] [address], [address], 03/07/2022 02:26:04 03/06/20 22 03/07/2022 CBC (INCL UDES DIFF/ PLT) absolute eosinophils 289 cells /uL 15-500 normal Not Available [facility] [address], [address], 03/07/2022 02:26:04 03/06/20 22 03/07/2022 CBC (INCL UDES DIFF/ PLT) absolute basophils 38 cells /uL 0-200 normal Not Available [address], [address], 03/07/2022 02:26:04 03/06/20 22 03/07/2022 CBC (INCL UDES DIFF/ PLT) neutrophils 59.3 % normal Not Available [address], [address], 03/07/2022 02:26:04 03/06/20 22 03/07/2022 CBC (INCL UDES DIFF/ PLT) lymphocytes 26.5 % normal Not Available [address], [address], 03/07/2022 02:26:04 03/06/20 22 03/07/2022 CBC (INCL UDES DIFF/ PLT) monocytes 9.9 % normal Not Available [address], [address], 03/07/2022 02:26:04 03/06/20 22 03/07/2022 CBC (INCL UDES DIFF/ PLT) eosinophils 3.8 % normal Not Available [address], [address], 03/07/2022 02:26:04 03/06/20 22 03/07/2022 CBC (INCL UDES DIFF/ PLT) basophils 0.5 % normal Not Available [address], [address], 03/07/2022 02:26:04 03/06/20 22 03/07/2022 HEPAT IC FUNCT ION PANEL albumin/glob ulin ratio 1.5 (calc ) 1.0-2. 5 normal Not Available [address], [address], 03/07/2022 02:26:03 03/06/20 22 03/07/2022 HEPAT IC FUNCT ION PANEL protein, total 6.9 g/dL 6.1-8. 1 normal Not Available [address], [address], 03/07/2022 02:26:03 03/06/20 22 03/07/2022 HEPAT IC FUNCT ION PANEL albumin 4.1 g/dL 3.6-5. 1 normal Not Available [address], [address], 03/07/2022 02:26:03 03/06/20 22 03/07/2022 HEPAT IC FUNCT ION PANEL globulin 2.8 g/dL_ (calc ) 1.9-3. 7 normal Not Available [address], [address], 03/07/2022 02:26:03 03/06/20 22 03/07/2022 HEPAT IC FUNCT ION PANEL bilirubin, total 0.7 mg/dL 0.2-1. 2 normal Not Available [address], [address], 03/07/2022 02:26:03 03/06/20 22 03/07/2022 HEPAT IC FUNCT ION PANEL bilirubin, direct 0.1 mg/dL < or = 0.2 normal Not Available [address], [address], 03/07/2022 02:26:03 03/06/20 22 03/07/2022 HEPAT IC FUNCT ION PANEL bilirubin, indirect 0.6 mg/dL _(dung c) 0.2-1. 2 normal Not Available [address], [address], 03/07/2022 02:26:03 03/06/20 22 03/07/2022 HEPAT IC FUNCT ION PANEL alkaline phosphatase 61 U/L 35-144 normal Not Available [address], [address], 03/07/2022 02:26:03 03/06/20 22 03/07/2022 HEPAT IC FUNCT ION PANEL AST 14 U/L 10-35 normal Not Available [address], [address], 03/07/2022 02:26:03 03/06/20 22 03/07/2022 HEPAT IC FUNCT ION PANEL ALT 13 U/L 9-46 normal Not Available [address], [address], 03/07/2022 02:26:03 03/06/20 22 03/07/2022 URIC ACID uric acid 5.4 mg/dL 4.0-8. 0 normal Thera peuti c targe t for gout patie nts: <6.0 mg/dL Not Available [address], [address], 03/07/2022 02:26:01 03/06/20 22 03/07/2022 BASIC METAB OLIC PANEL glucose 90 mg/dL 65-99 normal Fasti ng refer ence inter pilar Not Available [address], [address], 03/07/2022 02:26:00 03/06/20 22 03/07/2022 BASIC METAB OLIC PANEL urea nitrogen (BUN) 17 mg/dL 7-25 normal Not Available [address], [address], 03/07/2022 02:26:00 03/06/20 22 03/07/2022 BASIC METAB OLIC PANEL creatinine 1.30 mg/dL 0.70-1 .11 high For patie nts >49 years of age, the refer ence limit for Creat inine is appro ximat maryam 13% highe r for peopl e ident ified as Afric an-Am debbi n. Not Available [address] [place], [address], 03/07/2022 02:26:00 03/06/20 22 03/07/2022 BASIC METAB OLIC PANEL eGFR non-afr. romanian 52 mL/mi n/1.7 3m2 > or = 60 low Not Available [address], [address], 03/07/2022 02:26:00 03/06/20 22 03/07/2022 BASIC METAB OLIC PANEL eGFR 60 mL/mi n/1.7 3m2 > or = 60 normal Not Available [address], [address], 03/07/2022 02:26:00 03/06/20 22 03/07/2022 BASIC METAB OLIC PANEL BUN/creatini ne ratio 13 (calc ) 6-22 normal Not Available [address], [address], 03/07/2022 02:26:00 03/06/20 22 03/07/2022 BASIC METAB OLIC PANEL sodium 140 mmol/ L 135-14 6 normal Not Available [address], [address], 03/07/2022 02:26:00 03/06/20 22 03/07/2022 BASIC METAB OLIC PANEL potassium 4.6 mmol/ L 3.5-5. 3 normal Not Available [address], [address], 03/07/2022 02:26:00 03/06/20 22 03/07/2022 BASIC METAB OLIC PANEL chloride 106 mmol/ L 98-110 normal Not Available [address], [address], 03/07/2022 02:26:00 03/06/20 22 03/07/2022 BASIC METAB OLIC PANEL carbon dioxide 28 mmol/ L 20-32 normal Not Available [facility] [place] [address] [address], [place], [address], 03/07/2022 02:26:00 03/06/20 22 03/07/2022 BASIC METAB OLIC PANEL calcium 9.1 mg/dL 8.6-10 .3 normal Not Available [address], [address], 03/07/2022 02:26:00 03/06/20 22 03/07/2022 LIPID PANEL WITH RATIO S HDL cholesterol 52 mg/dL > or = 40 normal Not Available [address], [address], 03/07/2022 02:25:59 03/06/20 22 03/07/2022 LIPID PANEL WITH RATIO S cholesterol, total 171 mg/dL <200 normal Not Available [address], [address], 03/07/2022 02:25:59 03/06/20 22 03/07/2022 LIPID PANEL WITH RATIO S triglyceride s 188 mg/dL <150 high Not Available [address], [address], 03/07/2022 02:25:59 03/06/20 22 03/07/2022 LIPID PANEL WITH RATIO S LDL-choleste rol 91 mg/dL _(dung c) normal Refer ence range : <100 [place]il[place] able range <100 mg/dL for prima ry preve ntion ; <70 mg/dL for patie nts with CHD or diabe tic patie nts with > or = 2 CHD risk facto rs. LDL-C is now calcu lated using the Kimberly n-Hop kins juanu alexandra n, which is a valid ated novel kennedy painter r accur acy than the Fried jes equat ion in the estim ation of LDL-C . Kimberly tobin SS et al. GENEVIEVE. 2013; 310(1 9): 2061- 2068 (http ://ed ucati on.Qu estDi agnos DoApps. com/f aq/FA Q164) Not Available [address], [address], 03/07/2022 02:25:59 03/06/20 22 03/07/2022 LIPID PANEL WITH RATIO S chol/HDLC ratio 3.3 (calc ) <5.0 normal Not Available [address], [address], 03/07/2022 02:25:59 03/06/20 22 03/07/2022 LIPID PANEL WITH RATIO S LDL/HDL ratio 1.8 (calc ) Below Cawood ge Risk: <2.28 Cawood ge Risk: 2.29- 4.90 Moder ate Risk: 4.91- 7.12 High Risk: >7.13 Not Available [address], [address], 03/07/2022 02:25:59 03/06/20 22 03/07/2022 LIPID PANEL WITH RATIO S non HDL cholesterol 119 mg/dL _(dung c) <130 normal For patie nts with diabe kim plus 1 major ASCVD risk facto r, treat ing to a non-H DL-C goal of <100 mg/dL (LDL- C of <70 mg/dL ) is bernard woodsono n. Not Available [address], [address], 03/07/2022 02:25:59 03/06/20 22 03/07/2022 TSH+F REE T4 TSH 3.38 mIU/L 0.40-4 .50 normal Not Available [address], [address], 03/07/2022 02:25:56 03/06/20 22 03/07/2022 TSH+F REE T4 T4, free 1.0 NG/dL 0.8-1. 8 normal Not Available [facility] [address], [place], [address], 03/07/2022 02:25:56 06/05/2006/06/2022 PSA, TOTAL PSA, total 2.81 NG/mL < or = 4.00 normal The total PSA value from this assay syste m is stand ardiz ed again st the WHO stand guille. The test resul t will be appro ximat maryam 20% lower when jose l red to the equim olar- stand ardiz ed total PSA (Gao man Coult er). Jose L rison of seria l PSA resul ts shoul d be inter prete d with this fact in mind. This test was perfo rmed using the TempoIQ chemi lumin escen t metho d. Value s obtai salvador from diffe rent assay metho ds canno t be used inter chilel eably . PSA level s, regar dless of value , shoul d not be inter prete d as absol [place] evide nce of the prese nce or absen ce of disea se. Not Available [facility] [address] [address] [place], [address], 06/06/2022 01:29:13 10/17/1910/18/2022 HEPAT IC FUNCT ION PANEL bilirubin, total 0.5 mg/dL 0.2-1. 2 normal Not Available [facility] [address] [address] [place], [address], 10/18/2022 04:57:49 10/17/1910/18/2022 HEPAT IC FUNCT ION PANEL protein, total 6.8 g/dL 6.1-8. 1 normal Not Available [facility] [address] [address] [place], [address], 10/18/2022 04:57:49 10/17/1910/18/2022 HEPAT IC FUNCT ION PANEL albumin 4.1 g/dL 3.6-5. 1 normal Not Available [facility] [address] [address] [place], [address], 10/18/2022 04:57:49 10/17/19 23 10/18/2022 HEPAT IC FUNCT ION PANEL globulin 2.7 g/dL_ (calc ) 1.9-3. 7 normal Not Available [address], [address], 10/18/2022 04:57:49 10/17/19 23 10/18/2022 HEPAT IC FUNCT ION PANEL albumin/glob ulin ratio 1.5 (calc ) 1.0-2. 5 normal Not Available [address], [address], 10/18/2022 04:57:49 10/17/19 23 10/18/2022 HEPAT IC FUNCT ION PANEL bilirubin, direct 0.1 mg/dL < or = 0.2 normal Not Available [address], [address], 10/18/2022 04:57:49 10/17/19 23 10/18/2022 HEPAT IC FUNCT ION PANEL bilirubin, indirect 0.4 mg/dL _(dung c) 0.2-1. 2 normal Not Available [address], [address], 10/18/2022 04:57:49 10/17/19 23 10/18/2022 HEPAT IC FUNCT ION PANEL alkaline phosphatase 50 U/L 35-144 normal Not Available [address] [address] [place], [address], 10/18/2022 04:57:49 10/17/19 23 10/18/2022 HEPAT IC FUNCT ION PANEL AST 21 U/L 10-35 normal Not Available [address], [address], 10/18/2022 04:57:49 10/17/19 23 10/18/2022 HEPAT IC FUNCT ION PANEL ALT 18 U/L 9-46 normal Not Available [address], [address], 10/18/2022 04:57:49 10/17/1910/18/2022 URIC ACID uric acid 5.0 mg/dL 4.0-8. 0 normal Thera peuti c targe t for gout patie nts: <6.0 mg/dL Not Available [address], [address], 10/18/2022 04:57:48 10/17/19 23 10/18/2022 BASIC METAB OLIC PANEL glucose 88 mg/dL 65-99 normal Fasti ng refer ence inter pilar Not Available [address], [address], 10/18/2022 04:57:48 10/17/1910/18/2022 BASIC METAB OLIC PANEL urea nitrogen (BUN) 20 mg/dL 7-25 normal Not Available [address], [address], 10/18/2022 04:57:48 10/17/1910/18/2022 BASIC METAB OLIC PANEL creatinine 1.26 mg/dL 0.70-1 .22 high Not Available [address], [address], 10/18/2022 04:57:48 10/17/1910/18/2022 BASIC METAB OLIC PANEL eGFR 57 mL/mi n/1.7 3m2 > or = 60 low The eGFR is based on the CKD-E PI 2020 equat ion. To calcu late the new eGFR from a previ ous Creat inine or Cysta tin C resul t, go to https :[email or web address] [email or web address].o kenna/kayla bragg s/ kdoqi /gfr% 5Fcal culat or Not Available [address], [address], 10/18/2022 04:57:48 10/17/19 23 10/18/2022 BASIC METAB OLIC PANEL BUN/creatini ne ratio 16 (calc ) 6-22 normal Not Available [address], [address], 10/18/2022 04:57:48 10/17/19 23 10/18/2022 BASIC METAB OLIC PANEL sodium 142 mmol/ L 135-14 6 normal Not Available [address], [address], 10/18/2022 04:57:48 10/17/19 23 10/18/2022 BASIC METAB OLIC PANEL potassium 4.7 mmol/ L 3.5-5. 3 normal Not Available [address], [address], 10/18/2022 04:57:48 10/17/19 23 10/18/2022 BASIC METAB OLIC PANEL chloride 107 mmol/ L 98-110 normal Not Available [address], [address], 10/18/2022 04:57:48 10/17/19 23 10/18/2022 BASIC METAB OLIC PANEL carbon dioxide 30 mmol/ L 20-32 normal Not Available [address], [address], 10/18/2022 04:57:48 10/17/19 23 10/18/2022 BASIC METAB OLIC PANEL calcium 9.5 mg/dL 8.6-10 .3 normal Not Available [address], [address], 10/18/2022 04:57:48 10/17/19 23 10/18/2022 LIPID PANEL WITH RATIO S cholesterol, total 177 mg/dL <200 normal Not Available [address], [address], 10/18/2022 04:57:47 02/15/20 23 10/18/2022 LIPID PANEL WITH RATIO S HDL cholesterol 52 mg/dL > or = 40 normal Not Available [facility] [address] [place], [address], 10/18/2022 04:57:47 10/17/19 23 10/18/2022 LIPID PANEL WITH RATIO S triglyceride s 211 mg/dL <150 high If a non-f astin g speci men was colle cted, consi paras repea t trigl yceri de testi ng on a fasti ng speci men if clini ashley indic ated. Tremayne austin et al. J. of Clin. Lipid ol. 2015; 9:129 -169. Not Available [address] [address] [place], [address], 10/18/2022 04:57:47 10/17/19 23 10/18/2022 LIPID PANEL WITH RATIO S LDL-choleste rol 94 mg/dL _(dung c) normal Refer ence range : <100 [place] able range <100 mg/dL for prima ry preve ntion ; <70 mg/dL for patie nts with CHD or diabe tic patie nts with > or = 2 CHD risk facto rs. LDL-C is now calcu lated using the Kimberly n-Hop kins calcu alexandra n, which is a valid ated novel metho d provi ding madina r accur acy than the Fried jes equat ion in the estim ation of LDL-C . Kimberly tobin SS et al. GENEVIEVE. 2013; 310(1 9): 2061- 2068 (http ://ed ucati on.Qu estDi zePASSos DoApps. com/f aq/FA Q164) Not Available [facility] [address] [place], [address], 10/18/2022 04:57:47 10/17/19 23 10/18/2022 LIPID PANEL WITH RATIO S chol/HDLC ratio 3.4 (calc ) <5.0 normal Not Available [facility] [address] [place], [address], 10/18/2022 04:57:47 10/17/19 23 10/18/2022 LIPID PANEL WITH RATIO S LDL/HDL ratio 1.8 (calc ) Below [place] ge Risk: <2.28 [place] ge Risk: 2.29- 4.90 Moder ate Risk: 4.91- 7.12 High Risk: >7.13 Not Available [address] [place], [address], 10/18/2022 04:57:47 10/17/19 23 10/18/2022 LIPID PANEL WITH RATIO S non HDL cholesterol 125 mg/dL _(dung c) <130 normal For patie nts with diabe kim plus 1 major ASCVD risk facto r, treat ing to a non-H DL-C goal of <100 mg/dL (LDL- C of <70 mg/dL ) is consi deysi a shannan pejay c optio n. Not Available [address], [address], 10/18/2022 04:57:47 10/17/19 23 10/18/2022 TSH+F REE T4 TSH 3.86 mIU/L 0.40-4 .50 normal Not Available [address], [address], 10/18/2022 04:57:47 10/17/1910/18/2022 TSH+F REE T4 T4, free 1.0 NG/dL 0.8-1. 8 normal Not Available [address] [place], [address], 10/18/2022 04:57:47 10/17/19 23 10/18/2022 CBC (INCL UDES DIFF/ PLT) white blood cell count 7.7 thous and/u L 3.8-10 .8 normal Not Available [address], [address], 10/18/2022 04:57:49 10/17/19 23 10/18/2022 CBC (INCL UDES DIFF/ PLT) red blood cell count 4.99 [place] on/uL 4.20-5 .80 normal Not Available [address], [address], 10/18/2022 04:57:49 10/17/19 23 10/18/2022 CBC (INCL UDES DIFF/ PLT) hemoglobin 15.7 g/dL 13.2-1 7.1 normal Not Available [address], [address], 10/18/2022 04:57:49 10/17/1910/18/2022 CBC (INCL UDES DIFF/ PLT) hematocrit 47.8 % 38.5-5 0.0 normal Not Available [address], [address], 10/18/2022 04:57:49 10/17/19 23 10/18/2022 CBC (INCL UDES DIFF/ PLT) MCV 95.8 fL 80.0-1 00.0 normal Not Available [address], [address], 10/18/2022 04:57:49 10/17/1910/18/2022 CBC (INCL UDES DIFF/ PLT) MCH 31.5 pg 27.0-3 3.0 normal Not Available [address], [address], 10/18/2022 04:57:49 10/17/1910/18/2022 CBC (INCL UDES DIFF/ PLT) MCHC 32.8 g/dL 32.0-3 6.0 normal Not Available [address], [address], 10/18/2022 04:57:49 10/17/1910/18/2022 CBC (INCL UDES DIFF/ PLT) RDW 14.2 % 11.0-1 5.0 normal Not Available [address], [address], 10/18/2022 04:57:49 10/17/1910/18/2022 CBC (INCL UDES DIFF/ PLT) platelet count 281 thous and/u L 140-40 0 normal Not Available [address], [address], 10/18/2022 04:57:49 10/17/19 23 10/18/2022 CBC (INCL UDES DIFF/ PLT) MPV 10.8 fL 7.5-12 .5 normal Not Available [address], [address], 10/18/2022 04:57:49 10/17/1910/18/2022 CBC (INCL UDES DIFF/ PLT) absolute neutrophils 4420 cells /uL 1500-7 800 normal Not Available [address], [address], 10/18/2022 04:57:49 10/17/19 23 10/18/2022 CBC (INCL UDES DIFF/ PLT) absolute lymphocytes 2164 cells /uL 850-39 00 normal Not Available [address], [address], 10/18/2022 04:57:49 10/17/1910/18/2022 CBC (INCL UDES DIFF/ PLT) absolute monocytes 801 cells /uL 200-95 0 normal Not Available [address], [address], 10/18/2022 04:57:49 10/17/1910/18/2022 CBC (INCL UDES DIFF/ PLT) absolute eosinophils 293 cells /uL 15-500 normal Not Available [address], [address], 10/18/2022 04:57:49 10/17/19 23 10/18/2022 CBC (INCL UDES DIFF/ PLT) absolute basophils 23 cells /uL 0-200 normal Not Available [address], [address], 10/18/2022 04:57:49 10/17/19 23 10/18/2022 CBC (INCL UDES DIFF/ PLT) neutrophils 57.4 % normal Not Available [address], [address], 10/18/2022 04:57:49 10/17/19 23 10/18/2022 CBC (INCL UDES DIFF/ PLT) lymphocytes 28.1 % normal Not Available [address], [address], 10/18/2022 04:57:49 10/17/19 23 10/18/2022 CBC (INCL UDES DIFF/ PLT) monocytes 10.4 % normal Not Available [address], [address], 10/18/2022 04:57:49 10/17/19 23 10/18/2022 CBC (INCL UDES DIFF/ PLT) eosinophils 3.8 % normal Not Available [address], [address], 10/18/2022 04:57:49 10/17/1910/18/2022 CBC (INCL UDES DIFF/ PLT) basophils 0.3 % normal Not Available [address], [address], 10/18/2022 04:57:49 07/17/2007/17/2021 XR, tibia + fibul a No observ ation record ed. [id number] Not Available 10/31/2022 13:01:32 09/15/19 22 09/22/2021 upper endos copy (EGD) with diagn ostic colon oscop y (PROC ) No observ ation record ed. [id number] Brendan Fitzgerald MD [address], [place], [address], 10/31/2022 13:01:32 11/04/19 22 09/13/2021 upper endos copy (EGD) with diagn ostic colon oscop y (PROC ) No observ ation record ed. [id number] Brendan Fitzgerald MD [address], [place], [address], 10/31/2022 13:01:32 07/15/20 23 05/14/2023 XR, chest , 2 view No observ ation record ed. [address] [facility] [address], [place], [address], 07/16/2023 15:43:32 Result Notes None recorded. Problems Name Problem SNOMED Code Status Onset Date Resolution Date Notes Provider Name and Address Organization Details Recorded Time Atypical chest pain 876158007 Active 2021 Not Available [facility] 3 11:38:14 Benign essential hypertension 5901653 Active 2021 Not Available [facility] 3 11:38:14 Gastroesophag eal reflux disease 377793782 Active 2019 Not Available [facility] 3 11:38:14 Long-term drug therapy Active 2021 Not Available [facility] 3 11:38:14 Low back pain 611956407 Active 2021 Not Available [facility] 3 11:38:14 Hypertensive disorder 01391130 Active 2019 Not Available [facility] 3 11:38:14 Hypothyroidis m 70345386 Active 2019 Not Available [facility] 3 11:38:14 Screening for malignant neoplasm of prostate Active 2021 Not Available [facility] 3 11:38:14 Hyperlipidemi a 09880469 Active 2019 Not Available [facility] 3 11:38:14 Rheumatoid arthritis 03093384 Active 2019 Not Available [facility] 3 11:38:14 Cholelithiasi s without obstruction 67725851 Active 2021 Not Available [facility] 3 11:38:14 Long-term current use of anticoagulant 150734729 Active 2021 Not Available [facility] 3 11:38:14 Obstructive sleep apnea syndrome 39203600 Active 2020 Not Available [facility] 3 11:38:14 COVID-19 585965790 Active 2021 Not Available [facility] 3 11:38:14 Iron deficiency anemia 77686538 Active 2021 Not Available [facility] 3 11:38:14 Gout 65621153 Active 2019 Not Available [facility] 3 11:38:14 Acute urinary tract infection 894602460 Active 2022 MARK Haas [address] [place] [address], [place] [address], [place], [address] , [facility] 3 17:48:04 Notes:COVID-19 pos 05/17/22 Problem Notes None recorded. 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 Not Available [facility] 10/31/2022 12:53:21 09/02/19 16 Total knee arthroplasty completed Not Available [facility] 10/31/2022 12:53:21 09/02/19 15 bilateral extraction of cataracts completed Not Available [facility] 10/31/2022 12:53:21 Laminectomy completed Not Available [facility] 10/31/2022 12:53:21 sigmoid colectomy completed Not Available [facility] 10/31/2022 12:53:21 operation on prostate completed Not Available [facility] 10/31/2022 12:53:21 Imaging Results None recorded. Procedure Notes None recorded. Medical Equipment None Reported. Allergies Allergen ID Allergen Name Allergen Category Reaction Reaction Severity Criticality Documentation Date Start Date Code Code System Note Provider Name and Address Organization Details Recorded Time 79047 lidocaine medicatio n Not available Not available Not available 10/31/2022 6387 RxNorm when BP drop with anesh esia Not Available [facility] 3 13:01:25 Medications Name Sig Start Date Stop Date Status Note LastModified by Organization Details LastModified Time amoxicillin 500 mg capsule TAKE 2 CAPSULES BY MOUTH NOW THEN 1 THREE TIMES DAILY UNTIL GONE 10/23 completed Not Available Not Available Not Available prednisone 10 mg tablet active Not Available Not Available Not Available doxycycline hyclate 100 mg capsule TAKE 1 CAPSULE BY MOUTH TWICE DAILY WITH FOOD active Not Available Not Available No t Available atorvastati n 20 mg tablet active Not Available Not Available Not Available clindamycin HCl 300 mg capsule TAKE 1 CAPSULE BY MOUTH EVERY 6 HOURS FOR 7 DAYS 01/31 completed Not Available Not Available Not Available ofloxacin 0.3 % eye drops active Not Available Not Available Not Available metoprolol succinate ER 50 mg tablet,exte nded release 24 hr TAKE 1 TABLET BY MOUTH IN THE MORNING active Not Available Not Available No t Available hydrocodone 5 mg-acetamin ophen 325 mg tablet TAKE 1 TABLET BY MOUTH EVERY 6 HOURS NEEDED FOR PAIN 10/26 completed Not Available Not Available Not Available phenazopyri dine 200 mg tablet TAKE 1 TABLET BY MOUTH THREE TIMES DAILY NEEDED FOR 3 DAYS active Not Available Not Available No t Available alendronate 70 mg tablet TAKE ONE TABLET BY MOUTH EVERY 7 DAYS. TAKE ON AN EMPTY STOMACH, AND DO NOT LIE DOWN OR EAT FOR 30 MINUTES AFTER TAKING active Not Available Not Available No t Available prednisone 5 mg tablet TAKE 1 TABLET BY MOUTH ONCE DAILY active Not Available Not Available No t Available penicillin V potassium 500 mg tablet TAKE 1 TABLET BY MOUTH 4 TIMES DAILY UNTIL GONE 10/26 completed Not Available Not Available Not Available amlodipine 2.5 mg tablet Take 1 tablet every day by oral route at bedtime. active Not Available Not Available No t Available metronidazo le 500 mg tablet 03/20 completed Not Available Not Available Not Available acetaminoph en 300 mg-codeine 30 mg tablet TAKE 1 TO 2 TABLETS BY MOUTH EVERY 6 HOURS NEEDED FOR PAIN active Not Available Not Available No t Available amlodipine 5 mg tablet Take 1 tablet every day by oral route. active Not Available Not Available No t Available allopurinol 100 mg tablet TAKE 2 TABLETS BY MOUTH ONCE DAILY active Not Available Not Available No t Available ciprofloxac in 500 mg tablet TAKE 1 TABLET BY MOUTH EVERY 12 HOURS active Not Available Not Available No t Available sulfamethox azole 800 mg-trimetho prim 160 mg tablet TAKE 1 TABLET BY MOUTH EVERY 12 HOURS active Not Available Not Available No t Available peg-electro lyte solution 420 gram oral solution TAKE 4,000ML BY MOUTH ONE TIME ONLY FOR 1 DOSE. FOLLOW [facility] PHYSICIAN S INSTRUCTI ON ONLY. THESE WERE SENT BY MAIL OR EMAIL. 10/26 completed Not Available Not Available Not Available omeprazole 40 mg capsule,del ayed release TAKE 1 CAPSULE BY MOUTH TWICE DAILY 10/26 completed Not Available Not Available Not Available aspirin 81 mg tablet,sun yed release TAKE 1 TABLET BY MOUTH ONCE DAILY active Not Available Not Available No t Available ketorolac 10 mg tablet 09/04 completed Not Available Not Available Not Available levothyroxi ne 75 mcg tablet TAKE 1 TABLET BY MOUTH ONCE DAILY FOR 90 DAYS 01/31 completed Not Available Not Available Not Available levothyroxi ne 100 mcg tablet TAKE 1 TABLET BY MOUTH ONCE DAILY IN THE MORNING active Not Available Not Available No t Available methocarbam ol 750 mg tablet Take 1 tablet 3 times a day by oral route as needed. active Not Available Not Available No t Available methotrexat e sodium 2.5 mg tablet TAKE 3 TABLETS BY MOUTH ONCE A WEEK active Not Available Not Available No t Available tamsulosin 0.4 mg capsule active Not Available Not Available Not Available prednisone 1 mg tablet TAKE 2 TABLETS BY MOUTH ONCE DAILY active Not Available Not Available No t Available amlodipine 10 mg tablet TAKE 1 TABLET BY MOUTH ONCE DAILY active Not Available Not Available No t Available cephalexin 500 mg capsule TAKE 1 CAPSULE BY MOUTH 4 TIMES DAILY 10/26 completed Not Available Not Available Not Available erythromyci n 5 mg/gram (0.5 %) eye ointment APPLY OINTMENT TO LEFT EYELID INCISIONS THREE TIMES DAILY. ONLY PLACE OINTMENT INSIDE THE EYE FOR IRRITATIO N active Not Available Not Available No t Available Euthyrox 88 mcg tablet TAKE 1 TABLET BY MOUTH ONCE DAILY active Not Available Not Available No t Available hyoscyamine 0.125 mg sublingual tablet DISSOLVE 1 TABLET IN MOUTH EVERY 6 HOURS NEEDED FOR BLADDER SPASM active Not Available Not Available No t Available indomethaci n 50 mg capsule TAKE 1 CAPSULE BY MOUTH THREE TIMES DAILY NEEDED WITH FOOD 04/25 completed Not Available Not Available Not Available nitroglycer in 0.4 mg sublingual tablet DISSOLVE ONE TABLET UNDER THE TONGUE EVERY 5 MINUTES NEEDED FOR CHEST PAIN. DO NOT EXCEED A TOTAL OF 3 DOSES IN 15 MINUTES active Not Available Not Available No t Available omeprazole 20 mg capsule,del ayed release TAKE 1 CAPSULE BY MOUTH ONCE DAILY IN THE MORNING active Not Available Not Available No t Available folic acid 1 mg tablet TAKE 1 TABLET BY MOUTH ONCE DAILY active Not Available Not Available No t Available albuterol sulfate HFA 90 mcg/actuati on aerosol inhaler active Not Available Not Available Not Available ondansetron 4 mg disintegrat ing tablet active Not Available Not Available N ot Available cefdinir 300 mg capsule 09/04 completed Not Available Not Available Not Available doxycycline hyclate 100 mg tablet 09/05 completed Not Available Not Available Not Available finasteride 5 mg tablet 09/07 completed Not Available Not Available Not Available amoxicillin 875 mg-potassiu m clavulanate 125 mg tablet Take 1 tablet every 12 hours by oral route. active Not Available Not Available No t Available tobramycin 0.3 %-dexametha sone 0.1 % eye drops,suspe nsion 09/04 completed Not Available Not Available Not Available oxycodone 5 mg tablet 04/24 completed Not Available Not Available Not Available SilvaSorb topical gel,extende d release APPLY TOPICALLY THREE TIMES A WEEK active Not Available Not Available No t Available nitrofurant oin monohydrate /macrocryst als 100 mg capsule TAKE 1 CAPSULE BY MOUTH TWICE DAILY 10/26 completed Not Available Not Available Not Available prednisolon e 3mg daily, Dr. Bird 06/30 completed Not Available Not Available Not Available naproxen prn 05/06 completed Not Available Not Available Not Available prednisone 5 mg once daily 04/24 completed Not Available Not Available Not Available Stool Softener takes 250mg x2 2018 active Not Available Not Available Not Avai lable Vitamin D3 2000 units daily, otc 2020 active Not Available Not Available Not Avai lable multivitami n one daily 2018 active Not Available Not Available Not Avai lable Keflex 750 mg capsule Take 1 capsule twice a day by oral route. 09/05 completed Not Available Not Available Not Available Eliquis 5 mg tablet TAKE 1 TABLET TWICE A DAY active Not Available Not Available No t Available Shingrix (PF) 50 mcg/0.5 mL intramuscul ar suspension, kit 04/24 completed Not Available Not Available Not Available Fluzone High-Dose (PF) 180 mcg/0.5 mL intramuscul ar syringe ADM 0.5ML IM UTD 09/07 completed Not Available Not Available Not Available COVID-19 test specimen collection TEST DIRECTED TODAY 10/26 completed Not Available Not Available Not Available Fluzone High-Dose Quad (PF) 240 mcg/0.7 mL IM syringe ADM 0.7ML IM UTD 04/24 completed Not Available Not Available Not Available BinaxNOW COVID-19 Ag Self Test kit Use as Directed on the Package 10/23 completed Not Available Not Available Not Available Paxlovid 300 mg (150 mg x 2)-100 mg tablets in a dose pack 300 mg nirmatrel vir (two 150 mg tablets) with 100 mg ritonavir (one 100 mg tablet) with all three tablets taken together orally twice daily for 5 days. do not take atorvasta tin for 7 days active Not Available Not Available No t Available Vitals Date Recorded Body height Oxygen saturation Oxygen saturation in Arterial blood by Pulse oximetry Heart rate Body temperature Body weight Systolic blood pressure Diastolic blood pressure Provider Name and Address Organization Details Last Updated DateTime 3 177.8 cm 97 % 97 % 70 /min 97.9 [degF] 87064.4 g 122 mm[Hg] 80 mm[Hg] Not Available [facility] 3 12:56:00 Date Recorded Body mass index (BMI) Body height Oxygen saturation Oxygen saturation in Arterial blood by Pulse oximetry Heart rate Respiratory rate Body temperature Body weight Systolic blood pressure Diastolic blood pressure Provider Name and Address Organization Details Last Updated DateTime 2 30.3 kg/m2 177.8 cm 96 % 96 % 96 /min 16 /min 97.8 [degF] 72903.7 1 g 140 mm[Hg] 88 mm[Hg] Not Available [facility] 3 12:55:59 Date Recorded Body height Body temperature Body mass index (BMI) Body weight Heart rate Oxygen saturation Oxygen saturation in Arterial blood by Pulse oximetry Systolic blood pressure Diastolic blood pressure Provider Name and Address Organization Details Last Updated DateTime 3 177.8 cm 98.3 [degF] 28.6 kg/m2 65452.8 8 g 71 /min 97 % 97 % 116 mm[Hg] 68 mm[Hg] Shante Aguilar RN [place] [facility] 3 11:54:07 Date Recorded Body mass index (BMI) Body height Oxygen saturation Oxygen saturation in Arterial blood by Pulse oximetry Heart rate Respiratory rate Body temperature Body weight Systolic blood pressure Diastolic blood pressure Provider Name and Address Organization Details Last Updated DateTime 2 30 kg/m2 177.8 cm 97 % 97 % 93 /min 16 /min 97.4 [degF] 17299.8 1 g 134 mm[Hg] 88 mm[Hg] Not Available [facility] 3 12:56:00 Date Recorded Body mass index (BMI) Body height Oxygen saturation Oxygen saturation in Arterial blood by Pulse oximetry Heart rate Body temperature Body weight Systolic blood pressure Diastolic blood pressure Provider Name and Address Organization Details Last Updated DateTime 1 29.7 kg/m2 177.8 cm 97 % 97 % 88 /min 97.2 [degF] 71309.6 2 g 120 mm[Hg] 80 mm[Hg] Not Available [facility] 3 12:55:59 Social History Question Answer Notes LastModified by Organizat ion Details LastModified Time Tobacco Smoking Status Never Smoker Not Available [facility] 10/31/2022 12:53:17 What Is Your Level Of Caffeine Consumption? Moderate One Cup Daily [id number] Information not available 10/31/2022 How Much Tobacco Do You Chew? None [id number] Information not available 10/31/2022 In The 14 Days Before Symptom Onset, Have You Had Close Contact With A Laboratory-confir med COVID-19 While That Case Was Ill? No [id number] Information not available 10/31/2022 In The 14 Days Before Symptom Onset, Have You Had Close Contact With A Person Who Is Under Investigation For COVID-19 While That Person Was Ill? No [id number] Information not available 10/31/2022 What Type Of Diet Are You Following? REGULAR [id number] Information not available 10/31/2022 Which Illicit Or Recreational Drugs Have You Used? None [id number] Information not available 10/31/2022 Have There Been Any Changes To Your Family Or Social Situation? No [id number].[id number] 0412 Information not available 10/31/2022 Do You Use Insect Repellent Routinely? No [id number] Information not available 10/31/2022 What Is Your Relationship Status? [id number] Information not available 10/31/2022 Do You Use Your Seat Belt Or Car Seat Routinely? Yes [id number] Information not available 10/31/2022 Do You Have Smoke And Carbon Monoxide Detectors In Your Home? Yes [id number] Information not available 10/31/2022 How Much Tobacco Do You Smoke? No [id number].[id number] Information not available 10/31/2022 Do You Use Sunscreen Routinely? Yes [id number].[id number] Information not available 10/31/2022 Have You Recently Traveled Abroad? No [id number].[id number] Information not available 10/31/2022 Do You Have Difficulty Walking Or Climbing Stairs? No [id number].[id number] Information not available 10/31/2022 Do You Have Any Dietary Restrictions? No [id number].[id number] Information not available 10/31/2022 Sex: Unknown Functional Status Question Answer Note LastModified by Organizat ion Details LastModified Time Do you use any illicit or recreational drugs? No [id number].[id number] Information not available 10/31/2022 Do you or have you ever used any other forms of tobacco or nicotine? No [id number] Information not available 10/31/2022 What is your level of alcohol consumption? Occasional [id number].[id number] Information not available 10/31/2022 Do you or have you ever used smokeless tobacco? Never used smokeless tobacco MIGRATION.[id number] Information not available 10/31/2022 Do you have transportation difficulties? No [id number] Information not available 10/31/2022 Are you able to care for yourself? Yes [id number].[id number] Information not available 10/31/2022 What is your occupation? [employer] MIGRATION.[id number] Information not available 10/31/2022 Do you have difficulty dressing or bathing? No MIGRATION.87762 [id number] Information not available 10/31/2022 Do you or have you ever used e-cigarettes or vape? Never used electronic cigarettes MIGRATION.[id number] Information not available 10/31/2022 What is your exercise level? Moderate Walking every day [id number].[id number] Information not available 10/31/2022 Mental Status None recorded. Family History Relationship Description Onset Age of this Age Resolved Age Notes LastModified by Organization Details LastModified Time Mother Hypertensive disorder [id number] Not available 10/31/2022 12:53:22 Father Carcinoma of prostate [id number] Not available 10/31/2022 12:53:22 Father Malignant neoplasm of urinary bladder [id number] Not available 10/31/2022 12:53:22 Medical History Condition Response DIZZINESS Y ENT Y PROSTATE Y HEARTBURN / REFLUX Y RADIATION / CHEMOTHERAPY Y HIGH CHOLESTEROL / HYPERLIPIDEMIA Y CANCER: SPECIFY Y URINARY/BLADDER/KIDNEY PROBLEMS Y GOUT Y Immunizations Vaccine Type Date Status Note Provider Nam e and Address Organization Details Recorded Time influenza, unspecified formulation 3 completed DIMPLE Christy [facility] [employer] 05/30/2023 11:23:33 Respiratory syncytial virus (RSV), unspecified 3 completed DIMPLE Christy [facility] [employer] 05/30/2023 11:23:51 zoster, unspecified formulation 0 completed Not Available [facility] 10/31/2022 13:01:19 Influenza, high-dose, quadrivalent, PF 0 completed Not Available [facility] 10/31/2022 13:01:19 influenza, unspecified formulation 9 completed Not Available [facility] 10/31/2022 13:01:19 Past Encounters Encounter ID Performer Location Encounter Start Date Encounter Closed Date Diagnosis/Indication Diagnosis SNOMED-CT Code Diagnosis ICD10 Code Diagnosis Note [id number] MARK Haas [facility] [address] [place] [address] 12/07/2020 00:00:00 12/13/2020 14:27:55 [id number] MARK Haas [facility] [address] [place] [address] 01/31/2021 00:00:00 01/31/2021 10:33:25 [id number] MARK Haas [facility] [address] [place] [address] 04/25/2021 00:00:00 04/30/2021 18:30:44 [id number] MARK Haas [facility] [address] [place] [address] 05/16/2021 00:00:00 05/31/2021 23:18:53 [id number] MARK Haas [facility] [address] [place] [address] 07/17/2021 00:00:00 08/01/2021 20:24:41 [id number] MARK Haas [facility] [address] [place] [address] 10/26/2021 00:00:00 10/26/2021 19:54:01 [id number] Brendan Robertson MD [facility] [address] [place] [address] 04/25/2022 00:00:00 04/29/2022 00:05:14 [id number] MARK Haas [facility] [address] [place] [address] 10/24/2022 00:00:00 10/27/2022 23:38:43 [id number] MARK Haas [facility] [address] [place] [address] 04/17/2023 11:37:16 04/17/2023 12:22:02 Hypothyroidism 60765045 E03.9 stable on levothyrox ine 100mcg daily. labs due again in Oct. Hyperlipidemia 78656726 E78.5 stable on atorvastat in 20mg daily. fasting lipids due in Oct. Gastroesop hageal reflux disease 398183946 K21.9 stable on omeprazole 20mg daily. Benign ess ential hypertension 1915838 I10 stable on medication . Gout 83165823 M10.9 on allopurino l and due for uric acid in oct. Long-term current use of anticoagulant 750814760 Z79.01 stable on eliquis therapy 5mg bid. Long-term drug therapy 194321558 Z79.899 Rheumatoid arthritis 698 97120 M06.9 sees specialist and on prednisone maintenanc e and MTX Screening for malignant neoplasm of prostate 957667226 Z12.5 PsA due in oct. Health Concerns Section Related Observation LastModified by Organization Detai ls LastModified Time None Recorded Concern Status LastModified by Organization Details LastModified Time None Recorded Advance Directives Directive None Recorded Payers Insurance Date Sequence Insurance Name Policy Number Policy Montesinos Covered Member ID Montesinos Member ID Guarantor Name 10/15/2023 1 [place] Kosta Li [id number] Kosta iL 10/15/2023 2 [place] [id number] Kosta Li [id number] Kosta Li Notes Date Note Type Note Provider Name and Address Organization Details Recorded Time 07/17/20 21 text/ht ml Generic HPI TemplateReported bypatient.Notes:Pt is here today with c/o lump on his right sal bone, says only hurts when it is touched, noted for a week, is not sure how he got it Not Available [place] [facility] [employer] 08/01/2021 20:24:41 10/26/19 22 text/ht ml HyperlipidemiaReported bypatient.Duration:chronic Control:usually well controlled Current Therapy:currently taking: (atorvastatin 20mg) Compliance:compliant; compliant with diet; exercises Complications:no coronary artery disease; no peripheral artery disease; no cardiovascular disease Risk Factors:hypertensionHypertension Reported bypatient.Duration:has noted for years Onset/Timing:better Alleviating Factors:medication Self Care:not under emotional stress Associated Symptoms:no shortness of breath; no fatigue; no palpitations; no decline in exercise capacity; no snoringHypothyroidismReported bypatient.Duration:constant Onset/Timing:still present Context/Risk:normal thyroid levels; no history of head or neck radiation during childhood; no history of thyroid disease; no history of hyperthyroidism; no excess iron exposure;history of hypothyroidism Modifying Factors:medication Exercisegets exercise Associated Symptoms:no cold intolerance; no heat intolerance; no weight loss; no weight gain; no double vision; no dry eyes; no hoarseness; no difficulty swallowing; no neck masses; no deepening of the voice; no fast heart rate; no increased blood pressure; no palpitations; no chest pain; no chest tightess or pressure; no constipation; no diarrhea; no vomiting; no decreased appetite; no loose stools; no irregular menstrual periods; no excessive sweating; no joint pain; no numbness; no tingling of the hands or feet; no dry skin; no tremor; no nervousness; no anxiety; no depression; no fatigue; no sleep difficulties; no skin changes; no hair changesReflux/GERDReported bypatient.Symptomsasymptomatic; no difficulty swallowing; no pain swallowing; no postprandial pain Severity:same Duration:present 5 or more years Onset/Timing:gone now Context:non-smoker; no drug/alcohol abuse; no drug alcohol withdrawal; not related to food/drink Alleviating Factors:medication Associated Symptoms:no frequent coughing; no hoarseness; no food getting stuck; no belching/burping; no vomiting; not vomiting blood; no regurgitation; no shortness of breath; no chest pain; no heartburn; no difficulty swallowing; no pain when swallowing; no bad taste; no decreased appetite; no weight loss; no black/tarry stools; no fatigue; no throat pain; no dental erosion; no bloating; no early satiety; no halitosis Not Available [place] [employer] [facility] 10/26/2021 19:54:01 04/25/20 22 text/ht ml HyperlipidemiaReported bypatient.Control:usually well controlled; improving; at goal Compliance:compliant; compliant with diet; exercises Complications:no coronary artery disease; no peripheral artery disease; no cardiovascular diseaseHypertensionReported bypatient.Onset/Timing:better Self Care:not under emotional stress Associated Symptoms:no shortness of breath; no fatigue; no palpitations; no decline in exercise capacity; no snoringHypothyroidismReported bypatient.Onset/Timing:better Context/Risk:normal thyroid levels; no history of head or neck radiation during childhood; no history of thyroid disease; no history of hypothyroidism; no history of hyperthyroidism; no excess iron exposure Exercisegets exercise Associated Symptoms:no cold intolerance; no heat intolerance; no weight loss; no weight gain; no double vision; no dry eyes; no hoarseness; no difficulty swallowing; no neck masses; no deepening of the voice; no fast heart rate; no increased blood pressure; no palpitations; no chest pain; no chest tightess or pressure; no constipation; no diarrhea; no vomiting; no decreased appetite; no loose stools; no irregular menstrual periods; no excessive sweating; no joint pain; no numbness; no tingling of the hands or feet; no dry skin; no tremor; no nervousness; no anxiety; no depression; no fatigue; no sleep difficulties; no skin changes; no hair changesReflux/GERDReported bypatient.Symptomsasymptomatic; no difficulty swallowing; no pain swallowing; no postprandial pain Severity:improving Context:non-smoker; no drug/alcohol abuse; no drug alcohol withdrawal; not related to food/drink Associated Symptoms:no frequent coughing; no feeling of fullness/mass in throat; no hoarseness; no food getting stuck; no belching/burping; no nausea; no vomiting; not vomiting blood; no regurgitation; no shortness of breath; no chest pain; no heartburn; no difficulty swallowing; no pain when swallowing; no bad taste; no decreased appetite; no weight loss; no black/tarry stools; no fatigue; no throat pain; no dental erosion; no bloating; no early satiety; no halitosis Not Available [place] [facility] [employer] [facility] [employer] 04/29/2022 00:05:14 10/24/19 23 text/ht ml HyperlipidemiaReported bypatient.Control:usually well controlled; improving; at goal Compliance:compliant; compliant with diet; exercises Complications:no coronary artery disease; no peripheral artery disease; no cardiovascular diseaseHypertensionReported bypatient.Onset/Timing:better Self Care:not under emotional stress Associated Symptoms:no shortness of breath; no fatigue; no palpitations; no decline in exercise capacity; no snoringHypothyroidismReported bypatient.Onset/Timing:better Context/Risk:normal thyroid levels; no history of head or neck radiation during childhood; no history of thyroid disease; no history of hypothyroidism; no history of hyperthyroidism; no excess iron exposure Exercisegets exercise Associated Symptoms:no cold intolerance; no heat intolerance; no weight loss; no weight gain; no double vision; no dry eyes; no hoarseness; no difficulty swallowing; no neck masses; no deepening of the voice; no fast heart rate; no increased blood pressure; no palpitations; no chest pain; no chest tightess or pressure; no constipation; no diarrhea; no vomiting; no decreased appetite; no loose stools; no irregular menstrual periods; no excessive sweating; no joint pain; no numbness; no tingling of the hands or feet; no dry skin; no tremor; no nervousness; no anxiety; no depression; no fatigue; no sleep difficulties; no skin changes; no hair changesReflux/GERDReported bypatient.Symptomsasymptomatic; no difficulty swallowing; no pain swallowing; no postprandial pain Severity:improving Context:non-smoker; no drug/alcohol abuse; no drug alcohol withdrawal; not related to food/drink Associated Symptoms:no frequent coughing; no feeling of fullness/mass in throat; no hoarseness; no food getting stuck; no belching/burping; no nausea; no vomiting; not vomiting blood; no regurgitation; no shortness of breath; no chest pain; no heartburn; no difficulty swallowing; no pain when swallowing; no bad taste; no decreased appetite; no weight loss; no black/tarry stools; no fatigue; no throat pain; no dental erosion; no bloating; no early satiety; no halitosis Not Available [facility] [employer] [facility] 10/27/2022 23:38:43 04/17/20 23 text/ht ml HyperlipidemiaReported bypatient.Duration:chronic Control:usually well controlled; improving; at goal Compliance:compliant; compliant with diet; exercises Complications:no coronary artery disease; no peripheral artery disease; no cardiovascular diseaseHypertensionReported bypatient.Onset/Timing:better Associated Symptoms:no shortness of breath; no fatigue; no palpitations; no decline in exercise capacity; no snoringHypothyroidismReported bypatient.Onset/Timing:better Context/Risk:normal thyroid levels; no history of head or neck radiation during childhood; no history of thyroid disease; no history of hypothyroidism; no history of hyperthyroidism; no excess iron exposure;history of hypothyroidism Exercisegets exercise Associated Symptoms:no cold intolerance; no heat intolerance; no weight loss; no weight gain; no double vision; no dry eyes; no hoarseness; no difficulty swallowing; no neck masses; no deepening of the voice; no fast heart rate; no increased blood pressure; no palpitations; no chest pain; no chest tightess or pressure; no constipation; no diarrhea; no vomiting; no decreased appetite; no loose stools; no irregular menstrual periods; no excessive sweating; no joint pain; no numbness; no tingling of the hands or feet; no dry skin; no tremor; no nervousness; no anxiety; no depression; no fatigue; no sleep difficulties; no skin changes; no hair changesReflux/GERDReported bypatient.Severity:improving Context:non-smoker; no drug/alcohol abuse; no drug alcohol withdrawal; not related to food/drink Alleviating Factors:medication Associated Symptoms:no frequent coughing; no feeling of fullness/mass in throat; no hoarseness; no food getting stuck; no belching/burping; no vomiting; not vomiting blood; no regurgitation; no shortness of breath; no chest pain; no heartburn; no difficulty swallowing; no pain when swallowing; no bad taste; no decreased appetite; no weight loss; no black/tarry stools; no fatigue; no throat pain MARK Haas [address] [facility], [facility] [address], [place], [address], [facility] 05/02/2023 21:38:57
--- OUTSIDE RECORDS SUMMARY | 2025-03-03 14:03 | XMS_ITS | Data Portability ---
Author Organization [facility] [place] Mitchell Address [address] [facility] [place] [id number] Care Team Providers Care Historic Preservationist Name Role Phone AISLINN NUGENT Primary Care Provider WILLIE Wheatley Skiving Machine Operator Assessment No assessment recorded. Plan of Treatment Reminders Order Date Submit Date Provider Last Modified By Organization Details Last Modified Time Details Appointments ANY 15 2024 09:00A M MARK Haas Not available Not available Not available Lab CBC w/ auto diff 2024 025 [email or web address] [facility], [address], [place], [address], 10/12/2024 10:33:19 BMP, serum or plasma 2024 025 [email or web address] [facility], [address], [place], [address], 10/12/2024 10:33:19 hepati c functi on panel, serum 2024 025 [email or web address] [facility], [address], [place], [address], 10/12/2024 10:33:19 TSH + free T4, serum 2024 025 [email or web address] [facility], [address], [place], [address], 10/12/2024 10:33:19 lipid panel, serum 2024 025 [email or web address] [facility], [address], [place], [address], 10/12/2024 10:33:19 PSA, total + free, serum or plasma 2023 024 [email or web address], [address], [place], [address], 05/15/2024 16:22:33 CBC w/ auto diff 2023 025 [email or web address] [facility], [address], [place], [address], 11/02/2024 09:41:17 BMP, serum or plasma 2023 025 [email or web address] [facility], [address], [place], [address], 11/02/2024 09:41:17 hepati c functi on panel, serum 2023 025 [email or web address], [address], [place], [address], 11/02/2024 09:41:17 TSH + free T4, serum 2023 025 [email or web address], [address], [place], [address], 11/06/2024 11:52:16 lipid panel, serum 2023 025 [email or web address], [address], [place], [address], 11/06/2024 11:52:17 PSA, serum or plasma 2023 024 [email or web address] [facility], [address], [place], [address], 12/05/2023 16:55:21 CBC w/ auto diff 2023 024 BOND [facility], [address], [place], [address], 11/20/2023 09:45:01 BMP, serum or plasma 2023 024 [email or web address] [facility], [address], [place], [address], 12/05/2023 16:55:21 hepati c functi on panel, serum 2023 024 [email or web address] [facility], [address], [place], [address], 12/05/2023 16:55:21 TSH + free T4, serum 2023 024 BOND [facility], [address], [place], [address], 11/20/2023 09:45:01 lipid panel, serum 2023 024 BOND [facility], [address], [place], [address], 11/20/2023 09:45:01 Referral urolog ist referr al 2023 024 [email or web address] Alexander MD, [address], [address], [place], [address], 06/30/2024 14:06:08 Procedures None record ed. Surgeries None record ed. Imaging XR, lumbos acral spine, 2 or 3 view 2024 025 [facility] (Im[facility]), [address], [place], [address], 02/24/2025 15:00:18 CT, abdome n + pelvis , w/o contra st 2024 025 [facility] ([facility]), [address], [place], [address], 03/01/2025 17:19:36 Medication Orders None record ed. Patient TargetsNo targets recorded. Patient Instructions Encounter Date Encounter Id Patient Instructions Last Modified By Organization Details Last Modified Time 10/12/2024 [id number] A healthy lifestyle: care instructions [email or web address] Not available 10/12/2024 10:33:19 Reason for Referral Urologist Referral for Prost ate specific antigen above reference range PSA has increased over 1 point in the last year. Referring Physician: Aislinn Nugent, Internal Medicine, Encounter Date: 05/13/2024 Results Created Date Observation Date Name Description Value Unit Range Abnormal Flag Note LastModifiedBy Organization Detail LastModifiedTime 10/01/1910/01/2024 CBC W Auto Diffe renti al panel - Blood leukocytes [#/volume] in blood by automated count 8.8 K/uL low: 3.6K/u Lhigh: 11.2K/ uL White Blood Count 8.8 3.6 - 11.2 K/uL [facility] Not Available Not Available 10/15/2024 15:29:49 10/01/19 25 10/01/2024 CBC W Auto Diffe renti al panel - Blood erythrocytes [#/volume] in blood by automated count 4.26 text: 4.06 - 5.63 M/uL RBC 4.26 4.06 - 5.63 M/uL [facility] Not Available Not Available 10/15/2024 15:29:49 10/01/19 25 10/01/2024 CBC W Auto Diffe renti al panel - Blood hemoglobin [mass/volume ] in blood 14.2 g/dL low: 13g/dL high: 17.5g/ dL Hemog lobin 14.2 13.0 - 17.5 g/dL [facility] Not Available Not Available 10/15/2024 15:29:49 10/01/19 25 10/01/2024 CBC W Auto Diffe renti al panel - Blood hematocrit [volume fraction] of blood by automated count 42.6 % low: 40.7%h igh: 50.3% Hemat ocrit 42.6 40.7 - 50.3 % [facility] Not Available Not Available 10/15/2024 15:29:49 10/01/19 25 10/01/2024 CBC W Auto Diffe renti al panel - Blood MCV [entitic volume] by automated count 100.1 fL low: 80fLhi gh: 97.6fL high MCV 100.1 (H) 80.0 - 97.[address] [facility] Not Available Not Available 10/15/2024 15:29:49 10/01/19 25 10/01/2024 CBC W Auto Diffe renti al panel - Blood MCH [entitic mass] by automated count 33.5 pg low: 26.7pg high: 33.7pg MCH 33.5 26.7 - 33.[address] [facility] Not Available Not Available 10/15/2024 15:29:49 10/01/19 25 10/01/2024 CBC W Auto Diffe renti al panel - Blood MCHC [mass/volume ] by automated count 33.4 g/dL low: 32.7g/ dLhigh : 35.5g/ dL MCHC 33.4 32.7 - 35.5 g/dL [facility] Not Available Not Available 10/15/2024 15:29:49 10/01/19 25 10/01/2024 CBC W Auto Diffe renti al panel - Blood erythrocyte distribution width [ratio] by automated count 14.7 % low: 12.3%h igh: 17% RBC Dist Width 14.7 12.3 - 17.0 % [facility] Not Available Not Available 10/15/2024 15:29:49 10/01/19 25 10/01/2024 CBC W Auto Diffe renti al panel - Blood platelets [#/volume] in blood by automated count 270 K/uL low: 140K/u Lhigh: 440K/u L Plate let Count 270 140 - 440 K/uL [facility] Not Available Not Available 10/15/2024 15:29:49 10/01/19 25 10/01/2024 CBC W Auto Diffe renti al panel - Blood platelet mean volume [entitic volume] in blood by automated count 8.9 fL low: 6.8fLh igh: 10.4fL MPV 8.9 6.8 - 10.[address] [facility] Not Available Not Available 10/15/2024 15:29:49 10/01/19 25 10/01/2024 CBC W Auto Diffe renti al panel - Blood neutrophils/ 100 leukocytes in blood by automated count 66.9 % low: 38.7%h igh: 74.5% Neutr ophil s % 66.9 38.7 - 74.5 % [facility] Not Available Not Available 10/15/2024 15:29:49 10/01/19 25 10/01/2024 CBC W Auto Diffe renti al panel - Blood lymphocytes/ 100 leukocytes in blood by automated count 19.7 % low: 20%hig h: 54.3% low Lymph ocyte % 19.7 (L) 20.0 - 54.3 % [facility] Not Available Not Available 10/15/2024 15:29:49 10/01/19 25 10/01/2024 CBC W Auto Diffe renti al panel - Blood monocytes/10 0 leukocytes in blood by automated count 10.1 % low: 4.3%hi gh: 13.5% Monoc ytes % 10.1 4.3 - 13.5 % [facility] Not Available Not Available 10/15/2024 15:29:49 10/01/19 25 10/01/2024 CBC W Auto Diffe renti al panel - Blood eosinophils/ 100 leukocytes in blood by automated count 2.8 % low: 0%high : 6% Eosin ophil s % 2.8 0.0 - 6.0 % [facility] Not Available Not Available 10/15/2024 15:29:49 10/01/19 25 10/01/2024 CBC W Auto Diffe renti al panel - Blood basophils/10 0 leukocytes in blood by automated count 0.5 % low: 0%high : 3% Basop hil % 0.5 0.0 - 3.0 % [facility] Not Available Not Available 10/15/2024 15:29:49 10/01/19 25 10/01/2024 CBC W Auto Diffe renti al panel - Blood neutrophils [#/volume] in blood by automated count 5.9 K/uL low: 1.8K/u Lhigh: 6.6K/u L Absol [place] Neutr ophil 5.9 1.8 - 6.6 K/uL [facility] Not Available Not Available 10/15/2024 15:29:49 10/01/19 25 10/01/2024 CBC W Auto Diffe renti al panel - Blood lymphocytes [#/volume] in blood by automated count 1.7 K/uL low: 0.8K/u Lhigh: 3.3K/u L Absol [place] Lymph ocyte 1.7 0.8 - 3.3 K/uL [facility] Not Available Not Available 10/15/2024 15:29:49 10/01/19 25 10/01/2024 CBC W Auto Diffe renti al panel - Blood monocytes [#/volume] in blood by automated count 0.9 K/uL low: 0.2K/u Lhigh: 1.2K/u L Absol [place] Monoc yte 0.9 0.2 - 1.2 K/uL [facility] Not Available Not Available 10/15/2024 15:29:49 10/01/19 25 10/01/2024 CBC W Auto Diffe renti al panel - Blood eosinophils [#/volume] in blood by automated count 0.2 K/uL low: 0K/uLh igh: 0.5K/u L Absol [place] Eosin ophil 0.2 0.0 - 0.5 K/uL [facility] Not Available Not Available 10/15/2024 15:29:49 10/01/19 25 10/01/2024 CBC W Auto Diffe renti al panel - Blood basophils [#/volume] in blood by automated count 0 K/uL low: 0K/uLh igh: 0.2K/u L Absol [place] Basop hil 0.0 0.0 - 0.2 K/uL [facility] Not Available Not Available 10/15/2024 15:29:49 10/01/19 25 10/01/2024 CBC W Auto Diffe renti al panel - Blood nucleated erythrocytes /100 leukocytes [ratio] in blood by automated count 0.1 text: 0.0 - 0.4 /100 WBC Nucle ated RBC % 0.1 0.0 - 0.4 /[address] [facility] Not Available Not Available 10/15/2024 15:29:49 10/01/19 25 10/01/2024 CBC W Auto Diffe renti al panel - Blood interpretati on and review of laboratory results ABNORM AL Not Available Not Available 15:29:49 10/01/19 25 10/01/2024 C react octavia prote in [Mass /volu me] in Serum or Plasm a C reactive protein [mass/volume ] in serum or plasma 7.5 mg/L high: 5mg/L high C-Naomy ctive Prote in, Acute 7.5 (H) <5.0 mg/L [facility] Not Available Not Available 10/15/2024 15:29:49 10/01/19 25 10/01/2024 C react octavia prote in [Mass /volu me] in Serum or Plasm a interpretati on and review of laboratory results ABNORM AL Not Available Not Available 15:29:49 10/01/19 25 10/01/2024 Compr ehens octavia metab olic 1999 panel - Serum or Plasm a protein [mass/volume ] in serum or plasma 7.2 g/dL low: 6.1g/d Lhigh: 8.4g/d L Total Prote in 7.2 6.1 - 8.4 g/dL [facility] Not Available Not Available 10/15/2024 15:29:49 10/01/19 25 10/01/2024 Compr ehens octavia metab olic 1999 panel - Serum or Plasm a albumin [mass/volume ] in serum or plasma by bromocresol green (bcg) dye binding method 4.2 g/dL low: 3.5g/d Lhigh: 5.2g/d L Album in 4.2 3.5 - 5.2 g/dL [facility] Not Available Not Available 10/15/2024 15:29:49 10/01/19 25 10/01/2024 Compr ehens octavia metab olic 1999 panel - Serum or Plasm a calcium [mass/volume ] in serum or plasma 9.5 mg/dL low: 8.6mg/ dLhigh : 10.3mg /dL Calci um 9.5 8.6 - 10.3 mg/dL [facility] Not Available Not Available 10/15/2024 15:29:49 10/01/19 25 10/01/2024 [facility] [employer] octavia [employer] olic 2000 panel - Serum or Plasm a urea nitrogen [mass/volume ] in serum or plasma 17 mg/dL low: 7mg/dL high: 23mg/d L BUN 17 7 - 23 mg/dL [facility] Not Available Not Available 10/15/2024 15:29:49 10/01/19 25 10/01/2024 [facility] [employer] olic 2000 panel - Serum or Plasm a bilirubin.to andres [mass/volume ] in serum or plasma 0.43 mg/dL low: 0.2mg/ dLhigh : 1.4mg/ dL Total Bilir ubin 0.43 0.20 - 1.40 mg/dL [facility] Not Available Not Available 10/15/2024 15:29:49 10/01/19 25 10/01/2024 [facility] [email or web address] olic 2000 panel - Serum or Plasm a alkaline phosphatase [enzymatic activity/vol ume] in serum or plasma 67 text: 35 - 129 IU/L Alk Phos, Total 67 35 - 129 IU/L [facility] Not Available Not Available 10/15/2024 15:29:49 10/01/19 25 10/01/2024 [facility] [email or web address] olic 2000 panel - Serum or Plasm a aspartate aminotransfe rase [enzymatic activity/vol ume] in serum or plasma 19 text: 11 - 47 IU/L AST (SGOT ) 19 11 - 47 IU/L [facility] Not Available Not Available 10/15/2024 15:29:49 10/01/19 25 10/01/2024 [facility] [employer] olic 2000 panel - Serum or Plasm a alanine aminotransfe rase [enzymatic activity/vol ume] in serum or plasma by no addition of P-5'-P 16 text: 6 - 53 IU/L ALT (SGPT ) 16 6 - 53 IU/L [facility] Not Available Not Available 10/15/2024 15:29:49 10/01/19 25 10/01/2024 Compr ehens octavia metab olic 1999 panel - Serum or Plasm a creatinine [mass/volume ] in serum or plasma 1.24 mg/dL low: 0.7mg/ dLhigh : 1.3mg/ dL Creat inine 1.24 0.70 - 1.30 mg/dL [facility] Not Available Not Available 10/15/2024 15:29:49 10/01/19 25 10/01/2024 Compr ehens octavia metab olic 1999 panel - Serum or Plasm a sodium [moles/volum e] in serum or plasma 142 mmol/ L low: 135mmo l/Lhig h: 145mmo l/L Sodiu m 142 135 - 145 mmol/ L [facility] Not Available Not Available 10/15/2024 15:29:49 10/01/19 25 10/01/2024 Compr ehens octavia metab olic 1999 panel - Serum or Plasm a potassium [moles/volum e] in serum or plasma 4.6 mmol/ L low: 3.3mmo l/Lhig h: 5.1mmo l/L Potas sium 4.6 3.3 - 5.1 mmol/ L [facility] Not Available Not Available 10/15/2024 15:29:49 10/01/19 25 10/01/2024 Compr ehens octavia metab olic 1999 panel - Serum or Plasm a chloride [moles/volum e] in serum or plasma 103 mmol/ L low: 95mmol /Lhigh : 107mmo l/L Chlor elke 103 95 - 107 mmol/ L [facility] Not Available Not Available 10/15/2024 15:29:49 10/01/19 25 10/01/2024 Compr ehens octavia metab olic 1999 panel - Serum or Plasm a bicarbonate [moles/volum e] in serum or plasma 27 mmol/ L low: 21mmol /Lhigh : 29mmol /L CO2 Sabiha nt 27 21 - 29 mmol/ L [facility] Not Available Not Available 10/15/2024 15:29:49 10/01/19 25 10/01/2024 Compr ehens octavia metab olic 1999 panel - Serum or Plasm a glucose [mass/volume ] in serum or plasma 112 mg/dL low: 64mg/d Lhigh: 99mg/d L high Gluco se 112 (H) 64 - 99 mg/dL [facility] Not Available Not Available 10/15/2024 15:29:49 10/01/19 25 10/01/2024 Compr ehens octavia metab olic 1999 panel - Serum or Plasm a glomerular filtration rate/1.73 sq M.predicted among non-blacks [volume rate/area] in serum, plasma or blood by creatinine-b ased formula (MDRD) 57.7 text: >60.0 mL/min /1.73 m2 low eGFR 57.7 (L) >60.0 mL/mi n/1.[address] [facility] Not Available Not Available 10/15/2024 15:29:49 10/01/19 25 10/01/2024 Compr ehens octavia metab olic 1999 panel - Serum or Plasm a interpretati on and review of laboratory results ABNORM AL Not Available Not Available 15:29:49 02/25/20 25 02/23/2025 XR, lumbo sacra l spine , 2 or 3 view No observ ation record ed. [facility] [address], [place], [address], 03/01/2025 17:19:10 Result Notes None recorded. Problems Name Problem SNOMED Code Status Onset Date Resolution Date Notes Provider Name and Address Organization Details Recorded Time Gastroesoph ageal reflux disease without esophagitis 840787491 Active 2023 Hannah higgins, [place] - [facility] 4 11:12:57 Benign essential hypertensio n 8474202 Active 2023 Hannah Boggs null, [place] [facility] 4 11:12:55 Hypothyroid ism 29579907 Active 2023 Hannah Boggs [place] [facility] 4 11:13:01 Hyperlipide yasmin 93354098 Active 2023 Hannah Boggs [place], [place] [facility] 4 11:12:59 Osteoarthri tis 647560100 Active 2023 MARK Haas Attn: Accountin g,[address] [facility], [place], [address], [place] - [facility] 4 10:30:53 Long-term drug therapy Active 2023 MARK Haas Attn: Accountin g,[address] [facility], [place], [address], [place] [facility] 4 10:30:55 Obstructive sleep apnea syndrome 85029604 Active 2023 MARK Haas Attn: Accountin g,[address] [facility], [place], [address], [place] [facility] 4 11:05:29 History of calculus of kidney 289995871 Active 2023 MARK Haas Attn: Accountin g,[address] [place], [address], [place] [facility] 4 10:28:02 History of malignant neoplasm of colon 924909914 Active 2023 MARK Haas Attn: Accountin g,[address] [place], [address], [place] [facility] 4 10:28:03 History of pulmonary embolism on long-term anticoagula tion therapy 5502072475933 9101 Active 2023 MARK Haas Attn: Accountin g,[address] [place], [address], [place] [facility] 4 10:28:04 Rheumatoid arthritis 13128295 Active 2023 MARK Haas Attn: Accountin g,[address] [place], [address], [place] [facility] 4 10:28:06 Body mass index 30+ - obesity 633211961 Active 2024 Gerald Diaz MA null[place] - [facility] 5 10:09:10 Obesity 520160702 Active 2024 MARK Haas Attn: Adelso chaney,[address] [facility], [place], [address], [facility] - [facility] 5 14:55:40 Overweight in adulthood with body mass index of 25 or more but less than 30 973552523 Active 2024 MAKR Haas Attn: Adelso chaney,[address] [facility], [place], [address], [facility] 5 14:59:16 Problem Notes None recorded. Medical Equipment None Reported. Allergies No known drug allergies Medications Name Sig Start Date Stop Date Status Note LastModified by Organization Details LastModified Time atorvastati n 20 mg tablet TAKE 1 TABLET BY MOUTH ONCE DAILY active Not Available Not Available No t Available clindamycin HCl 300 mg capsule TAKE 1 CAPSULE BY MOUTH THREE TIMES DAILY FOR 10 DAYS 05/13 completed Not Available Not Available Not Available metoprolol succinate ER 50 mg tablet,exte nded release 24 hr TAKE 1 TABLET BY MOUTH ONCE DAILY IN THE MORNING active Not Available Not Available No t Available hydrocodone 5 mg-acetamin ophen 325 mg tablet TAKE 1 TABLET BY MOUTH EVERY 6 HOURS NEEDED FOR PAIN 05/13 completed Not Available Not Available Not Available phenazopyri dine 200 mg tablet TAKE 1 TABLET BY MOUTH THREE TIMES DAILY NEEDED FOR 3 DAYS 05/13 completed Not Available Not Available Not Available alendronate 70 mg tablet TAKE 1 TABLET BY MOUTH ONCE A WEEK IN THE MORNING WITH A FULL GLASS OF WATER, 30 MINUTES BEFORE THE FIRST MEAL, BEVERAGE OR MEDICATIO N OF THE DAY. REMAIN UPRIGHT active Not Available Not Available No t Available prednisone 5 mg tablet TAKE 1 TABLET BY MOUTH ONCE DAILY 05/13 completed Not Available Not Available Not Available penicillin V potassium 500 mg tablet TAKE 1 TABLET BY MOUTH 4 TIMES DAILY UNTIL GONE active Not Available Not Available No t Available allopurinol 100 mg tablet TAKE 2 TABLETS BY MOUTH ONCE DAILY active Not Available Not Available No t Available ciprofloxac in 500 mg tablet TAKE 1 TABLET BY MOUTH EVERY 12 HOURS 11/29 completed Not Available Not Available Not Available levothyroxi ne 100 mcg tablet TAKE 1 TABLET BY MOUTH ONCE DAILY active Not Available Not Available No t Available methotrexat e sodium 2.5 mg tablet TAKE 4 TABLETS BY MOUTH ONCE A WEEK active Not Available Not Available No t Available prednisone 1 mg tablet TAKE 3 TABLETS BY MOUTH THREE TIMES DAILY active Not Available Not Available No t Available amlodipine 10 mg tablet Take 1 tablet every day by oral route. active Not Available Not Available No t Available nitroglycer in 0.4 mg sublingual tablet DISSOLVE ONE TABLET UNDER THE TONGUE EVERY 5 MINUTES NEEDED FOR CHEST PAIN. DO NOT EXCEED A TOTAL OF 3 DOSES IN 15 MINUTES active Not Available Not Available No t Available omeprazole 20 mg capsule,del ayed release TAKE 1 CAPSULE BY MOUTH ONCE DAILY active Not Available Not Available No t Available folic acid 1 mg tablet TAKE 1 TABLET BY MOUTH ONCE DAILY active Not Available Not Available No t Available amoxicillin 875 mg-potassiu m clavulanate 125 mg tablet TAKE 1 TABLET BY MOUTH EVERY 12 HOURS active Not Available Not Available No t Available tobramycin 0.3 %-dexametha sone 0.1 % eye drops,suspe nsion INSTILL 1 DROP INTO LEFT EYE 4 TIMES DAILY FOR 7 DAYS active Not Available Not Available No t Available Benadryl Allergy 25 mg tablet Take 1 tablet every day by oral route at bedtime. 11/29 completed Not Available Not Available Not Available methotrexat e 2.5 mg tablet Take 3 tablets every week by oral route. 11/29 completed Not Available Not Available Not Available prednisone 2 mg tablet,sun yed release Take 1 tablet every day by oral route. active Not Available Not Available No t Available Eliquis 5 mg tablet Take 1 tablet twice a day by oral route. active Not Available Not Available No t Available Arthritis Pain (diclofenac ) 1 % topical gel APPLY 2 GRAMS TOPICALLY TO RIGHT THUMB THREE TIMES DAILY active Not Available Not Available No t Available allopurinol 200 mg tablet Take 1 tablet every day by oral route. 05/13 completed Not Available Not Available Not Available Vitals Date Recorded Oxygen saturation Oxygen saturation in Arterial blood by Pulse oximetry Respiratory rate Systolic blood pressure Diastolic blood pressure Provider Name and Address Organization Details Last Updated DateTime 5 99 % 99 % 16 /min 140 mm[Hg] 80 mm[Hg] MARK Haas Attn: Adelso chaney,[address] [place], [address], [facility] 5 10:39:06 Date Recorded Body height Body mass index (BMI) Body weight Heart rate Systolic blood pressure Diastolic blood pressure Systolic blood pressure Diastolic blood pressure Provider Name and Address Organization Details Last Updated DateTime 5 177.8 cm 31.3 kg/m2 67732.1 4 g 68 /min 110 mm[Hg] 70 mm[Hg] 132 mm[Hg] 82 mm[Hg] Gerald Diaz MA [facility] 5 10:06:52 Date Recorded Systolic blood pressure Diastolic blood pressure Provider Name and Address Organization Details Last Updated DateTime 11/11/2023 124 mm[Hg] 80 mm[Hg] MARK Haas Attn: Accounting,[address] [place], [address], [facility] 11/11/2023 10:42:11 Date Recorded Body height Body mass index (BMI) Body weight Heart rate Oxygen saturation Oxygen saturation in Arterial blood by Pulse oximetry Systolic blood pressure Diastolic blood pressure Provider Name and Address Organization Details Last Updated DateTime 4 177.8 cm 27.7 kg/m2 08769.3 3 g 64 /min 98 % 98 % 130 mm[Hg] 82 mm[Hg] Rose Cortez MA [facility] 4 10:18:06 Date Recorded Body height Body mass index (BMI) Body weight Heart rate Oxygen saturation Oxygen saturation in Arterial blood by Pulse oximetry Systolic blood pressure Diastolic blood pressure Provider Name and Address Organization Details Last Updated DateTime 5 177.8 cm 28.8 kg/m2 21427.0 7 g 83 /min 98 % 98 % 140 mm[Hg] 60 mm[Hg] Robi Baker MA [facility] 5 17:31:39 Date Recorded Systolic blood pressure Diastolic blood pressure Provider Name and Address Organization Details Last Updated DateTime 05/13/2024 140 mm[Hg] 80 mm[Hg] MARK Haas Attn: Accounting,[address] [place], [address], [facility] 05/13/2024 10:53:42 Date Recorded Body height Body mass index (BMI) Body weight Respiratory rate Oxygen saturation Oxygen saturation in Arterial blood by Pulse oximetry Heart rate Systolic blood pressure Diastolic blood pressure Provider Name and Address Organization Details Last Updated DateTime 177.8 cm 29.1 kg/m2 08174.5 4 g 18 /min 98 % 98 % 60 /min 136 mm[Hg] 80 mm[Hg] Gerald Diaz MA ID - [facility] 10:20:26 Social History Question Answer Notes LastModified by Organizat ion Details LastModified Time Tobacco Smoking Status Never Smoker Rose Cortez MA null, [place] - [facility] 11/11/2023 10:18:52 Do You Have An Advance Directive? Yes Information n ot available 05/13/2024 Are You Blind Or Do You Have Difficulty Seeing? No Information n ot available 05/13/2024 What Is Your Level Of Caffeine Consumption? Occasional Information not available 05/13/2024 In The 14 Days Before Symptom Onset, Have You Had Close Contact With A Laboratory-confirm ed COVID-19 While That Case Was Ill? No Information n ot available 05/13/2024 In The 14 Days Before Symptom Onset, Have You Had Close Contact With A Person Who Is Under Investigation For COVID-19 While That Person Was Ill? No Information not available 05/13/2024 Have You Been To An Area Known To Be High Risk For COVID-19? No Information not available 05/13/2024 Are You Deaf Or Do You Have Serious Difficulty Hearing? No Information not available 05/13/2024 What Type Of Diet Are You Following? REGULAR Information n ot available 05/13/2024 Are There Any Guns Present In Your Home? No Information not available 05/13/2024 What Was The Date Of Your Most Recent Tobacco Screening? 10/12/2024 Information not available 10/12/2024 What Is Your Relationship Status? Information not available 05/13/2024 Do You Use Your Seat Belt Or Car Seat Routinely? Yes Information not available 05/13/2024 Do You Have Smoke And Carbon Monoxide Detectors In Your Home? Yes Information not available 05/13/2024 Do You Use Sunscreen Routinely? No Information not available 05/13/2024 Has Tobacco Cessation Counseling Been Provided? Yes Information not available 05/13/2024 On What Date Was Tobacco Cessation Counseling Provided? 10/12/2024 Information not available 10/12/2024 Sex: Male Functional Status Question Answer Note LastModified by Organizat ion Details LastModified Time Do you use any illicit or recreational drugs? No Information not available 05/13/2024 Do you or have you ever used any other forms of tobacco or nicotine? No [email or web address] Information not available 11/11/2023 What is your level of alcohol consumption? None Information not available 05/13/2024 Are you currently employed? No Information not available 05/13/2024 Are you able to care for yourself? Yes Information n ot available 05/13/2024 What is your exercise level? Occasional Information not available 05/13/2024 Mental Status Question Answer Note LastModified by Organization D etails LastModified Time Do you feel stressed (tense, restless, nervous, or anxious, or unable to sleep at night)? [id number] Information not available 05/13/2024 Family History Relationship Description Onset Age of this Age Resolved Age Notes LastModified by Organization Details LastModified Time Father Malignant neoplasm of urinary bladder [email or web address] Not available 2023 10:18:45 Notes:no change Medical History No medical history recorded. Immunizations Vaccine Type Date Status Note Provider Nam e and Address Organization Details Recorded Time zoster recombinant 0 completed Shari [place], [place] - [facility] 10/09/2024 11:45:43 zoster recombinant 0 [place] [facility] 10/09/2024 11:45:43 pneumococcal, unspecified formulation 5 completed MARK Haas Attn: Accounting[address] [place], [address], [place] [facility] 11/11/2023 10:47:46 Influenza, high-dose, quadrivalent, PF 1 completed [place] [facility] 10/09/2024 11:45:43 Influenza, high-dose, quadrivalent, PF 0 completed Shari [place] [facility] 10/09/2024 11:45:43 Influenza, adjuvanted, quadrivalent, PF 3 completed [place] [facility] 10/09/2024 11:45:43 Influenza, adjuvanted, quadrivalent, PF 2 completed [place] [facility] 10/09/2024 11:45:43 COVID-19, mRNA, LNP-S, PF, 100 mcg/0.5mL dose or 50 mcg/0.25mL dose 1 completed [place] [facility] 10/09/2024 11:45:43 COVID-19, mRNA, LNP-S, PF, 100 mcg/0.5mL dose or 50 mcg/0.25mL dose 1 completed [place] [facility] 10/09/2024 11:45:43 COVID-19, mRNA, LNP-S, PF, 100 mcg/0.5mL dose or 50 mcg/0.25mL dose 1 completed [place] [facility] 10/09/2024 11:45:43 RSV, bivalent, protein subunit RSVpreF, diluent reconstituted, 0.5 mL, PF 3 completed [place] [facility] 10/09/2024 11:45:43 pneumococcal polysaccharide PPV23 2 completed Sh[place] [facility] 10/09/2024 11:45:43 influenza, unspecified formulation 3 completed [place] [facility] 10/09/2024 11:45:43 Tdap 7 completed [place] [facility] 10/09/2024 11:45:43 Pneumococcal conjugate PCV 13 6 [place] [facility] 10/09/2024 11:45:43 varicella 2 completed Sh[place] [facility] 10/09/2024 11:45:43 Influenza, high-dose, trivalent, PF 7 completed [place] [facility] 10/09/2024 11:45:43 Influenza, high-dose, trivalent, PF 9 completed [place] [facility] 10/09/2024 11:45:43 Tdap [address] [facility] 02/22/2025 17:26:16 Influenza, high-dose, trivalent, PF [address] [facility] 02/22/2025 17:26:16 Past Encounters Encounter ID Performer Location Encounter Start Date Encounter Closed Date Diagnosis/Indication Diagnosis SNOMED-CT Code Diagnosis ICD10 Code Diagnosis Note [id number] Willie Robertson MD [facility] [address] [place] [address] 11/11/2023 09:51:49 11/11/2023 11:13:14 Gastroesophageal reflux disease without esophagitis 684626907 K21.9 stable on omeprazole 20mg daily. Benign ess ential hypertension 7005309 I10 stable on metoprolol ER 50mg daily, amlodipine 10mg daily Hypothyroidism 18594980 E03.9 on thyroid supplement and due for TFT panel Hyperlipidemia 27908985 E78.5 stable on lipitor 20mg daily. due for fasting lipids Osteoarthritis 201496305 M19.90 chronic OA hx. Rheumatoid arthritis 698 92652 M06.9 stable on MTX. Rheumatolo gist is Dr. Valera at [facility] Long[facility]term drug therapy 696846993 Z79.899 routine cbc, cmp and LFT panels due Screening for malignant neoplasm of prostate 520826114 Z12.5 annual PSA may be due History of pulmonary embolism on long-term anticoagulation therapy 5920914953 2618242 Z86.711 hx of ECMO, follows with dr. thakur and all stable. History of malignant neoplasm of colon 081063674 Z85.038 hx colonoscop y 3 years ago, next in 2 years. History of calculus of kidney 199852936 Z87.[address] alexander. Obstructiv e sleep apnea syndrome 44534874 G47.33 stable on cpap with dr. tobar in [place] . [id number] Willie Robertson MD [facility] [place] [facility] [place] [address] [place] [id number] 05/13/2024 10:01:08 05/13/2024 12:55:20 Benign essential hypertension 0615083 I10 stable on metoprolol ER 50mg daily, amlodipine 10mg daily Hyperlipidemia 18699242 E78.5 stable on lipitor 20mg daily. Next fasting lipids will be due in October of 2024 Gastroesop hageal reflux disease without esophagitis 922419767 K21.9 stable on omeprazole 20mg daily. Hypothyroidism 98715433 E03.9 on thyroid supplement and due for TFT panel in October Obstructiv e sleep apnea syndrome 61843036 G47.33 stable on cpap with dr. tobar in [place] . Osteoarthritis 534936280 M19.90 chronic OA hx. Rheumatoid arthritis 698 83631 M06.9 stable on MTX. Rheumatolo gist is Dr. Valera at [facility] Long-term drug therapy 213477732 Z79.899 routine cbc, cmp and LFT panels due in October History of pulmonary embolism on long-term anticoagulation therapy 0320815469 9995551 Z86.711 Remote hx of ECMO, follows with dr. thakur and all stable. History of malignant neoplasm of colon 609124994 Z85.038 hx colonoscop y 3 years ago, next in 2 years. History of calculus of kidney 130909392 Z87.[address] alexander. Prostate s pecific antigen above reference range 896376646 R97.20 Most recent PSA was 3.38 which maybe a little higher than last year, over 1 point increase in 1 calendar year.. We will go ahead and check a free and total level and refer to Urology for discussion [id number] Willie Robertson MD [facility] [employer] [address] [place] [address] 10/12/2024 09:58:06 10/12/2024 11:03:39 Benign essential hypertension 0538245 I10 140/80 blood pressure. Borderline stable on metoprolol ER 50mg daily, amlodipine 10mg daily Hyperlipidemia 21633344 E78.5 stable on lipitor 20mg daily. Next fasting lipids will be due in May Gastroesop hageal reflux disease without esophagitis 665863894 K21.9 stable on omeprazole 20mg daily. Hypothyroidism 35712271 E03.9 on thyroid supplement and due for TFT panel in May Obstructiv e sleep apnea syndrome 93134251 G47.33 stable on cpap with dr. Tobar in [place] . Osteoarthritis 910336948 M19.90 chronic OA hx. Rheumatoid arthritis 698 79930 M06.9 stable on MTX. Rheumatolo gist is Dr. Valera at [facility] Long-term drug therapy 584751089 Z79.899 routine cbc, cmp and LFT panels due in October History of pulmonary embolism on long-term anticoagulation therapy 5509483185 6619780 Z86.711 Remote hx of ECMO, follows with dr. thakur and all stable. History of malignant neoplasm of colon 207777601 Z85.038 hx colonoscop y 3 years ago, next in 2 years. History of calculus of kidney 045081228 Z87.[address] alexander. Prostate s pecific antigen above reference range 576733889 R97.20 Most recent PSA was 3.38 which maybe a little higher than last year, over 1 point increase in 1 calendar year.. We will go ahead and check a free and total level and refer to Urology for discussion Body mass index 30+ - obesity 937378805 Z68.31 BMI 31.3 Obesity 214759861 E66.9 [id number] Willie Robertson MD [facility] [employer] [address] [place] [address] 02/22/2025 17:24:36 02/24/2025 14:33:35 Overweight in adulthood with body mass index of 25 or more but less than 30 859110351 E66.3 Z68.28 Left flank pain 30882349 [address] abdomen and pelvis without contrast to rule out any underlying renal stone or renal abnormalit y Acute low back pain 2788 41284 M54.50 There is a chance that symptoms could be musculoske letal in nature so we are going to check a plain film x-ray of the lumbosacra l spine Benign ess ential hypertension 3866364 I10 140/70 today. borderline stable on metoprolol ER 50mg daily, amlodipine 10mg daily. Encouragin g patient to decrease sodium in the diet Health Concerns Section Related Observation LastModified by Organization Detai ls LastModified Time None Recorded Concern Status LastModified by Organization Details LastModified Time None Recorded Advance Directives Directive Y: Payers Insurance Date Sequence Insurance Name Policy Number Policy Montesinos Covered Member ID Montesinos Member ID Guarantor Name 02/19/2025 1 [place] Kosta Li [id number] 3 Kosta Li 02/19/2025 [place] [facility] Kosta Li [id number] Kosta Li 02/19/2025 2 [place] [id number] Kosta Li [id number] Kosta Li Notes Date Note Type Note Provider Name and Address Organization Details Recorded Time 11/11/19 24 text/htm l Coronary Artery Disease F/UReported bypatient.Notes:pt is stable on eliquis, statin and beta kelly therapy. pt denies and chest pain or PADILLA or PNDHyperlipidemiaReported bypatient.Notes:stable on lipitor 20mg daily.HypertensionReported bypatient.Notes:stable on metoprolol and amlodipineMusculoskeletal PainReported bypatient.Notes:rheumatoid arthritis patient. on MTX and prednisone low dose.Obstructive Sleep Apnea F/UReported bypatient.Notes:pt is stable , using cpap machine routinely.ThyroidReported bypatient.Notes:stable on thyroid supplement. due for labs MARK Haas Attn: Accounting[address] [facility], [place], [address], [facility] 11/30/2023 22:28:20 05/13/20 24 text/htm l Coronary Artery Disease F/UReported bypatient.Notes:pt is stable on eliquis, statin and beta kelly therapy. pt denies and chest pain or PADILLA or PNDHyperlipidemiaReported bypatient.Notes:stable on lipitor 20mg daily.HypertensionReported bypatient.Notes:stable on metoprolol and amlodipineMusculoskeletal PainReported bypatient.Notes:rheumatoid arthritis patient. on MTX and prednisone low dose.Obstructive Sleep Apnea F/UReported bypatient.Notes:pt is stable , using cpap machine routinely.ThyroidReported bypatient.Notes:stable on thyroid supplement. due for labs MARK Haas Attn: Accounting[address] [facility], [place], [address], [facility] 05/31/2024 13:57:17 10/12/19 25 text/htm l Coronary Artery Disease F/UReported bypatient.Notes:pt is stable on eliquis, statin and beta kelly therapy. pt denies and chest pain or PADILLA or PNDHyperlipidemiaReported bypatient.Notes:stable on lipitor 20mg daily.HypertensionReported bypatient.Notes:stable on metoprolol and amlodipineMusculoskeletal PainReported bypatient.Notes:rheumatoid arthritis patient. on MTX and prednisone low dose.Obstructive Sleep Apnea F/UReported bypatient.Notes:pt is stable , using cpap machine routinely.ThyroidReported bypatient.Notes:stable on thyroid supplement. due for labs MARK Haas Attn: Accounting[address] [facility], [place], [address], [facility] 10/31/2024 14:56:00 02/23/20 25 text/htm l Patient presents with a couple of weeks of left-sided back and flank pain. He does not have any urinary symptoms and no blood in the urine but he does have pain that started in the left flank. No fevers or chills no nausea or vomiting no abdominal area pain. MARK Haas Attn: Accounting[address] [facility], [place], [address], [facility] 02/23/2025 14:59:55
--- OUTSIDE RECORDS SUMMARY | 2025-03-03 14:03 | XMS_ITS | Referral Summary ---
Author Organization [facility] Address [address] [place] [address] Care Team Providers Care Director Of Oncology Name Role Phone Aislinn Nugent Primary Care Pr ovider Priya Novak MD PhD Unavailable [phone] Miscellaneous, Not In File Unavailable Unava ilable Encounters Date Type Department Care Team Description 02/08/2025 Telephone [facility] Cardiology [address] [place] [address] Brendan Bermeo MD from Last 3 Months Allergies No known active allergies Medications atorvastatin (LIPITOR) 20 mg tabletIndications: hyperlipidemia Take 1 tablet (20 mg total) by mouth every morning Active multivitamin tabletIndications: Vitamin Deficiency Prevention Take 1 tablet by mouth every morning Active aspirin 81 mg enteric coated tabletIndications: Myocardial Reinfarction Prevention Take 1 tablet (81 mg total) by mouth every morning Active allopurinoL (ZYLOPRIM) 100 mg tablet Take 2 tablets (200 mg total) by mouth daily 021 Active Euthyrox 100 mcg tablet TAKE 1 TABLET BY MOUTH ONCE DAILY IN THE MORNING 021 Active diphenhydrAMINE (BENADRYL) 25 mg capsule Take 1 tablet/capsule (25 mg total) by mouth nightly sleep Active docusate sodium (COLACE) 250 mg capsule Take 1 capsule (250 mg total) by mouth 2 (two) times a day Active nitroglycerin (NITROSTAT) 0.4 mg SL tablet nitroglycerin 0.4 mg sublingual tablet Active omeprazole (PriLOSEC) 20 mg capsule TAKE 1 CAPSULE BY MOUTH ONCE DAILY IN THE MORNING 022 Active ascorbic acid (VITAMIN C ORAL) Vitamin C 1 TAB DAILY Active alendronate (FOSAMAX) 70 mg tabletIndications: osteopenia Take 1 tablet (70 mg total) by mouth every 7 days Take on an empty stomach. Do not lie down or eat for 1/2 hour after taking. 12 tablet 1 025 2024 Active folic acid (FOLVITE) 1 mg tabletIndications: Rheumatoid arthritis involving multiple sites with positive rheumatoid factor (HCC) Take 1 tablet (1,000 mcg total) by mouth daily 90 tablet 2 025 Active methotrexate 2.5 mg tabletIndications: Rheumatoid Arthritis Take 4 tablets (10 mg total) by mouth every 7 days 48 tablet 1 025 2024 Active predniSONE (DELTASONE) 1 mg tabletIndications: Rheumatoid arthritis involving multiple sites with positive rheumatoid factor (HCC) Take 3 tablets (3 mg) by mouth daily 270 tablet 1 025 2024 Active apixaban (ELIQUIS) 5 mg tabletIndications: hx PE Take 1 tablet (5 mg total) by mouth every 12 (twelve) hours 180 tablet 2 025 2025 Active metoprolol XL (TOPROL-XL) 50 mg extended release tabletIndications: PSVT (paroxysmal supraventricular tachycardia) TAKE 1 TABLET BY MOUTH ONCE DAILY IN THE MORNING 90 tablet 025 Active apixaban (ELIQUIS) 5 mg tabletIndications: hx PE Take 1 tablet (5 mg total) by mouth every 12 (twelve) hours 180 tablet 2 024 2024 Discontinued( Reorder) metoprolol XL (TOPROL-XL) 50 mg extended release tabletIndications: PSVT (paroxysmal supraventricular tachycardia) TAKE 1 TABLET BY MOUTH IN THE MORNING 90 tablet 025 2024 Discontinued Active Problems Problem Noted Date Diagnosed Date Paroxysmal supraventricular tachycardia 10/22/19 24 Chronic 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 Do to the severity of the of the PE the patient will remain on life long anticoagulation. Assessment & Plan (10/25/2021 8:51 AM COUNTY EXTENSION AGENT): The patient continues on Eliquis 5 mg twice a day. Do to the severity of the of the PE the patient will remain on life long anticoagulation. Iron deficiency anemia 10/18/2021 [place] (obstructive sleep apnea) 01/20/2021 Assessment & Plan (11/04/2024 9:50 AM COUNTY EXTENSION AGENT): The patient has requested a new CPAP set at 10 cm water pressure. I have sent an order over to [facility]. Assessment & Plan (11/01/2023 10:25 AM COUNTY EXTENSION AGENT): The patient continue to wear his CPAP at 10 cm water pressure while sleeping. His DME is [facility]. Assessment & Plan (10/31/2022 10:02 AM COUNTY EXTENSION AGENT): The patient will continue CPAP therapy at 10 cm water pressure. Denied need for supplies. DME [facility] Assessment & Plan (10/25/2021 8:38 AM COUNTY EXTENSION AGENT): Patient continue to wear CPAP at 10 [...] PICC RUE Waiting for bed back to [facility] Assessment & Plan (04/26/2020 3:18 AM CDT): F/u blood cx Vanc/zosyn Plan for I&D when appropriate from an anticoagulation standpoint History of pulmonary embolism 04/26/2020 Assessment & Plan (11/04/2024 9:51 AM COUNTY EXTENSION AGENT): Due to the severity of the pulmonary embolism the patient is on lifelong Eliquis. Assessment & Plan (10/31/2022 10:03 AM COUNTY EXTENSION AGENT): Will continue Eliquis on a lifelong basis. [...] (04/27/2020): Added automatically from request for surgery [id number] Assessment & Plan (04/28/2020 3:24 PM CDT): [...] Plan (04/18/2020 12:11 AM CDT): - Baseline Mold Hoister upon Ecare everywhere review is ~1.0-1.2. - Avoid nephrotoxins, renally dose meds as appropriate - No dialysis per , continuing to make urine - Creatinine improving Assessment & Plan (04/16/2020 9:42 PM CDT): - Baseline Mold Hoister upon Ecare everywhere review is ~1.0-1.2. - Avoid nephrotoxins, renally dose meds as appropriate -No dialysis per , continuing to make urine Assessment & Plan (04/15/2020 9:30 PM CDT): - Baseline Mold Hoister upon Ecare everywhere review is ~1.0-1.2. - Avoid nephrotoxins, renally dose meds as appropriate Assessment & Plan (04/14/2020 5:28 PM CDT): - Baseline Mold Hoister upon Ecare everywhere review is ~1.0-1.2. - Avoid nephrotoxins, renally dose meds as appropriate Assessment & Plan (04/14/2020 12:30 AM CDT): - Baseline Mold Hoister upon Ecare everywhere review is ~1.0-1.2. - Avoid nephrotoxins, renally dose meds as appropriate Assessment & Plan (04/13/2020 5:36 AM CDT): - Baseline Mold Hoister upon Ecare everywhere review is ~1.0-1.2. Mold Hoister up to 1.55 on admission. Profound metabolic acidosis 2/2 cardiogenic shock with high dose triple pressor therapy. - Avoid nephrotoxins, renally dose meds as appropriate Assessment & Plan (04/12/2020 5:19 AM CDT): - Baseline Mold Hoister upon Ecare everywhere review is ~1.0-1.2. Mold Hoister up to 1.55 on admission. Profound metabolic [...] & Plan (04/11/2020 4:35 AM CDT): Baseline Mold Hoister upon Ecare everywhere review is ~1.0-1.2. Mold Hoister up to 1.55 on admission. Profound metabolic [...] (01/20/2020): Added automatically from request for surgery [id number] Hypertension 10/29/2019 Assessment & Plan (04/28/2020 3:23 PM CDT): Home meds:continue amlodipine Hyperlipidemia 10/29/2019 GERD (gastroesophageal reflux disease) 0 Hypothyroidism 10/29/2019 Assessment & Plan (04/28/2020 3:23 PM CDT): Home meds:continue levothyroxine Risk factors for obstructive sleep apnea 020 Rotator cuff arthropathy of left shoulder 2019 Overview (09/17/2019): Added automatically from request for surgery [id number] Recurrent kidney stones 07/29/2018 Basal cell carcinoma [...] 03/19/2012 Polymyalgia rheumatica 03/28/2011 Colon cancer 09/02/1999 Resolved Problems Problem Noted Date Diagnosed Date Resolved Date Acute respiratory failure 04/11/2020 Assessment & Plan (04/16/2020 9:42 PM CDT): Extubated to [place] Assessment & Plan (04/15/2020 9:30 PM CDT): [...] large bilateral clot burden and received tPA. (8) to IR for diagnostic pulmonary angiogram without [...] (04/12/2020): Added automatically from request for surgery [id number] Immunizations Immunization Administration Dates Next Due Influenza, Trivalent, High D ose, Split, Preservative Free, Intramuscular 07/01/2019,06/14/2017 Influenza, Trivalent, Preservative Free, Intramu scular 06/02/2015 Social History Tobacco Use Types Packs/Day Years Used Date Smoking Tobacco: Never Passive Smoke Exposure: Never Smokeless Tobacco: Never Tobacco Cessation:Counseling Given: Not Answered Comments:Never used in any form Alcohol Use Standard Drinks/Week Comments Yes 0 (1 standard drink = 0.6 oz pur e alcohol) one beer a month Social Connection and Isolat ion Panel [NHANES] Answer Date Recorded In a typical week, how many times do you talk on the phone with family, friends, or neighbors? Three times a week 03/18/2024 How often do you get togethe r with friends or relatives? Once a week 03/18/2024 How often do you attend chur or congregation services? More than 4 times per year 03/18/2024 Do you belong to any clubs o r organizations such as anabaptism groups, unions, fraternal or athletic groups, or school groups? Yes 03/18/2024 How often do you attend meet ings of the clubs or organizations you belong to? More than 4 times per year 03/18/2024 Are you , , di vorced, , never , or living with a partner? 03/18/2024 Overall Financial Resource Strain (CARDIA) Answe r Date Recorded How hard is it for you to pa y for the very basics like food, housing, medical care, and heating? Not very hard 03/18/2024 PHQ-2 Answer Date Recorded Patient Health Questionnaire-2 Score 0 03/18/2024 [facility] - Occupational Stress Questionnaire Answer Date Recorded Do you feel stress - tense, restless, nervous, or anxious, or unable to sleep at night because your mind is troubled all the time - these days? Not at all 03/18/2024 Exercise Vital Sign Answer Date Recorde d On average, how many days pe r week do you engage in moderate to strenuous exercise (like a brisk walk)? 0 days 03/18/2024 On average, how many minutes do you engage in exercise at this level? 0 min 03/18/2024 Hunger Vital Sign Answer Date Recorded Within the past 12 months, y ou worried that your food would run out before you got the money to buy more. Never true 03/18/20 24 Within the past 12 months, t he food you bought just didn't last and you didn't have money to get more. Never true 03/18/2024 PRAPARE - Transportation Answer Date Re corded In the past 12 months, has l ack of transportation kept you from medical appointments or from getting medications? No 03/02 In the past 12 months, has l ack of transportation kept you from meetings, work, or from getting things needed for daily living? No 03/18/2024 Housing Stability Vital Sign Answer Ryan e Recorded In the last 12 months, was t here a time when you were not able to pay the mortgage or rent on time? No 09/09/2023 In the last 12 months, how many places have you lived? 1 09/09/2023 In the last 12 months, was t here a time when you did not have a steady place to sleep or slept in a custodial (including now)? No 09/09/2023 Personal Safety Answer Date Recorded Have you ever been in or are you currently in a harmful physical or emotional relationship or is someone making you feel afraid or unsafe? Denies 11/19/2023 Sex and Gender Information Value Date Recorded Sex Assigned at Not on file Legal Sex Male 4:18 AM COUNTY EXTENSION AGENT Gender Identity Male 11/11/2020 8:35 AM COUNTY EXTENSION AGENT Sexual Orientation Not on file Last Filed Vital Signs Vital Sign Reading Time Taken Comments Blood Pressure 128/78 11/04/2024 9:36 AM COUNTY EXTENSION AGENT Pulse 72 11/04/2024 9:36 AM COUNTY EXTENSION AGENT Temperature 36.7 C (98 F) 11/04/2024 9:36 AM COUNTY EXTENSION AGENT Respiratory Rate 18 11/04/2024 9:36 AM COUNTY EXTENSION AGENT Oxygen Saturation 95% 11/04/2024 9:36 AM COUNTY EXTENSION AGENT Inhaled Oxygen Concentration - - Weight 92.6 kg (204 lb 3.2 oz) 11/04/2024 9:36 A M COUNTY EXTENSION AGENT Height 177.8 cm (5' 10) 11/04/2024 9:36 AM COUNTY EXTENSION AGENT Body Mass Index 29.3 11/04/2024 9:36 AM COUNTY EXTENSION AGENT Plan of Treatment Not on file Medical Devices Implanted Type Area Strainer Cleaner Device Identifier Shelf Expiration Date Model / Serial / Lot Hardware Left: Knee [employer] [id number] Base Plate 26mm Tm Reverse 20m - [id number] Implanted:Qty: 1 on 11/02/2019 by Jan Aguiar MD at [facility] [employer] [id number] / / [id number] [employer] [id number] Ncb Anatomical Shoulder 4.5mm 48mm Inverse Reverse Lock Self Tap - [id number] Implanted:Qty: 1 on 11/02/2019 by Jan Aguiar MD at [facility] [employer] [id number] .[id number] / / [id number] [employer] .[id number] Ncb Anatomical Shoulder 4.5mm 42mm Inverse Reverse Lock Self Tap - [id number] Implanted:Qty: 1 on 11/02/2019 by Jan Aguiar MD at [facility] [employer] [id number] / / [id number] [employer] [id number] Glenosphere Tm Reverse 36mm Centric - [id number] Implanted:Qty: 1 on 11/02/2019 by Jan Aguiar MD at [facility] [employer] [id number] / / [id number] [employer] [id number] 14mm 130mm Shoulder Stem Humeral Trabecular Metal Tivanium - [id number] Implanted:Qty: 1 on 11/02/2019 by Jan Aguiar MD at [facility] [employer] [id number] / / [id number] [employer] [id number] 36mm H+3mm Reverse Humerus 7d Standard Liner Shoulder Trabecular - [id number] Implanted:Qty: 1 on 11/02/2019 by Jan Aguiar MD at [facility] [employer] [id number] / / [id number] [employer] Craniomaxillofac ial [id number] Impl Soft Tissue [id number] Moist Tough Flex Sheet Enduragen - S0 - [id number] Implanted:Qty: 1 on 02/15/2020 by Bishnu Canas MD at [facility] Left: Eyelid [employer] Craniomaxillof[employer] 01/31/2024 [id number] / 0 / [id number] Description:Enduragen collag en implant Explanted Type Area Strainer Cleaner Device Identifier Shelf Expiration Date Model / Serial / Lot [employer] [id number] [facility] 3/32in 9in 2 Trocar Pin Fixation Nonsterile - S0 - [id number] Explanted:Qty: 1 on 11/02/2019 by Jan Aguiar MD at [facility] [employer] [id number] / 0 / [employer] [id number] 36mm H+3mm Reverse Humerus 7d Standard Liner Shoulder Trabecular - [id number] Implanted:Qty: 1 Explanted:Qty: 1 on 11/02/2019 at [facility] [employer] [id number] 06/01/2027 [id number] / / [id number] Additional Health Concerns Infection Onset Date Last 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 04/27/2020 Insurance MEDICARE [employer] [facility] MEDICARE [employer] [facility] MEDICARE [facility] MEDICARE SUPPLEMENT Advance Directives For more information, please contact: [phone] Documents on File Type Date Recorded Patient Roll Contour Grinder Expl anation ADVANCE DIRECTIVE 06/02/2021 11:14 AM Makenzie Dubose ADVANCE DIRECTIVE 06/02/2021 11:13 AM Evelia r of Salvage Repairer-Medical * Full Code (Latest Code Status on File) Date Activated Date Inactivated Comments 06/01/2021 1:55 PM 06/01/2021 8:26 PM * Full Code Date Activated Date Inactivated Comments 04/26/2020 9:22 PM 05/05/2020 6:10 PM * Full Code Date Activated Date Inactivated Comments 04/26/2020 5:21 PM 04/26/2020 9:22 PM * LIMITED - No CPR Date Activated Date Inactivated Comments 04/14/2020 2:09 PM 04/21/2020 10:12 PM Question Answer Comments Provide aggressive medical m anagement before a full cardiopulmonary arrest occurs. Use antibiotics, IV Fluids, and medical treatment unless specifically selected below: No intubation Discussed with the following attending physician : Brock Nicolas MD * Full Code Date Activated Date Inactivated Comments 04/10/2020 7:29 PM 04/14/2020 2:09 PM Care Teams Director Of Oncology Relationship Specialty Start Date End Date Aislinn Nugent PA PCP - General Physician Electrocardiographic Technician 09/07/19 Priya Novak MD PhD Surgeon Cardiothoracic Surgery 05/05/20 Miscellaneous, Not In File 05/05/20
--- OUTSIDE RECORDS SUMMARY | 2025-03-03 14:03 | XMS_ITS | Encounter Summary ---
Author Organization [facility] Care Team Providers Care Production Clerks Supervisor Name Role Phone Carolee Caruso Primary Care Provider [phone] Aislinn Nugent Primary Care Pr ovider Priya Novak MD PhD Unavailable [phone] Miscellaneous, Not In File Unavailable Unava ilable Encounter Details Date Type Department Care Team (Latest Contact Info) Description 11/09/2015 Orders Only [facility] CLINCONV Provider, MD Josselin [address] [place], [place] [id number] Social History Tobacco Use Types Packs/Day Years Used Date Smoking Tobacco: Never Assessed Sex and Gender Information Value Date Recorded Sex Assigned at Not on file Legal Sex Male 4:18 AM CLINICAL TRIAL LEADER Gender Identity Male 11/11/2020 8:35 AM CLINICAL TRIAL LEADER Sexual Orientation Not on file documented as of this encounter Plan of Treatment Not on file documented as of this encounter Procedures Procedure Name Priority Date/Time Associated Diagnosis Comments CARDIOLOGY REPORT 11/09/2015 12: 00 AM CLINICAL TRIAL LEADER documented in this encounter Results * CARDIOLOGY REPORT (11/09/2015 12:00 AM CLINICAL TRIAL LEADER) Anatomical Region Laterality Modality Other Narrative 11/09/2015 12:00 AM CLINICAL TRIAL LEADER Ordered by an unspecified provider. Historical Provider [facility] SCHUMACHER Final Result documented in this encounter Visit Diagnoses Not [...] documented as of this encounter Care Teams Production Clerks Supervisor Relationship Specialty Start Date End Date Carolee Caruso PA [address] [place] [id number] PCP - General 04/17/17 09/06/19 Aislinn Nugent PA [address] [place] [address] [id number] PCP - General Physician Ladle Filler 09/07/19 Priya Novak MD PhD [address] [place] [address] [phone] Surgeon Cardiothoracic Surgery 05/05/20 Miscellaneous, Not In File 05/05/20 documented as of this encounter
--- OUTSIDE RECORDS SUMMARY | 2025-03-03 14:03 | XMS_ITS | Clinical Summary ---
Author Organization [facility] Address [address] [place] [address] Care Team Providers Care Line Haul Driver Name Role Phone Aislinn Nugent Primary Care Pr ovider Priya Novak MD PhD Unavailable [phone] Miscellaneous, Not In File Unavailable Unava ilable Allergies No known active allergies Medications atorvastatin [...] total) by mouth daily 90 tablet 2 Active methotrexate 2.5 mg tabletIndications: Rheumatoid Arthritis [...] 10/25/2021 Assessment & Plan (11/01/2023 10:25 AM PRODUCT SAFETY MANAGER): The patient continues on Eliquis 5 mg twice a day. Do to the severity of the of the PE the patient will remain on life long anticoagulation. Assessment & Plan (10/25/2021 8:51 AM PRODUCT SAFETY MANAGER): The patient continues on Eliquis 5 mg twice a day. Do to the severity of the of the PE the patient will remain on life long anticoagulation. Iron deficiency anemia 10/18/2021 HILTON (obstructive sleep apnea) 01/20/2021 Assessment & Plan (11/04/2024 9:50 AM PRODUCT SAFETY MANAGER): The patient has requested a new CPAP set at 10 cm water pressure. I have sent an order over to [facility]. Assessment & Plan (11/01/2023 10:25 AM PRODUCT SAFETY MANAGER): The patient continue to wear his CPAP at 10 cm water pressure while sleeping. His DME is [facility]. Assessment & Plan (10/31/2022 10:02 AM PRODUCT SAFETY MANAGER): The patient will continue CPAP therapy at 10 cm water pressure. Denied need for supplies. DME [facility] Assessment & Plan (10/25/2021 8:38 AM PRODUCT SAFETY MANAGER): Patient continue to wear CPAP at 10 [...] PICC RUE Waiting for bed back to [facility] Assessment & Plan (04/26/2020 3:18 AM CDT): F/u blood cx Vanc/zosyn Plan for I&D when appropriate from an anticoagulation standpoint History of pulmonary embolism 04/26/2020 Assessment & Plan (11/04/2024 9:51 AM PRODUCT SAFETY MANAGER): Due to the severity of the pulmonary embolism the patient is on lifelong Eliquis. Assessment & Plan (10/31/2022 10:03 AM PRODUCT SAFETY MANAGER): Will continue Eliquis on a lifelong basis. [...] (04/27/2020): Added automatically from request for surgery [id number] Assessment & Plan (04/28/2020 3:24 PM CDT): [...] Plan (04/18/2020 12:11 AM CDT): - Baseline Die Trimmer upon Ecare everywhere review is ~1.0-1.2. - Avoid nephrotoxins, renally dose meds as appropriate - No dialysis per , continuing to make urine - Creatinine improving Assessment & Plan (04/16/2020 9:42 PM CDT): - Baseline Die Trimmer upon Ecare everywhere review is ~1.0-1.2. - Avoid nephrotoxins, renally dose meds as appropriate -No dialysis per , continuing to make urine Assessment & Plan (04/15/2020 9:30 PM CDT): - Baseline Die Trimmer upon Ecare everywhere review is ~1.0-1.2. - Avoid nephrotoxins, renally dose meds as appropriate Assessment & Plan (04/14/2020 5:28 PM CDT): - Baseline Die Trimmer upon Ecare everywhere review is ~1.0-1.2. - Avoid nephrotoxins, renally dose meds as appropriate Assessment & Plan (04/14/2020 12:30 AM CDT): - Baseline Die Trimmer upon Ecare everywhere review is ~1.0-1.2. - Avoid nephrotoxins, renally dose meds as appropriate Assessment & Plan (04/13/2020 5:36 AM CDT): - Baseline Die Trimmer upon Ecare everywhere review is ~1.0-1.2. Die Trimmer up to 1.55 on admission. Profound metabolic acidosis 2/2 cardiogenic shock with high dose triple pressor therapy. - Avoid nephrotoxins, renally dose meds as appropriate Assessment & Plan (04/12/2020 5:19 AM CDT): - Baseline Die Trimmer upon Ecare everywhere review is ~1.0-1.2. Die Trimmer up to 1.55 on admission. Profound metabolic [...] & Plan (04/11/2020 4:35 AM CDT): Baseline Die Trimmer upon Ecare everywhere review is ~1.0-1.2. Die Trimmer up to 1.55 on admission. Profound metabolic [...] (01/20/2020): Added automatically from request for surgery [id number] Hypertension 10/29/2019 Assessment & Plan (04/28/2020 3:23 PM CDT): Home meds:continue amlodipine Hyperlipidemia 10/29/2019 GERD (gastroesophageal reflux disease) 0 Hypothyroidism 10/29/2019 Assessment & Plan (04/28/2020 3:23 PM CDT): Home meds:continue levothyroxine Risk factors for obstructive sleep apnea 020 Rotator cuff arthropathy of left shoulder 2019 Overview (09/17/2019): Added automatically from request for surgery [id number] Recurrent kidney stones 07/29/2018 Basal cell carcinoma [...] Plan (04/16/2020 9:42 PM CDT): Extubated to NC Assessment & Plan (04/15/2020 9:30 PM CDT): [...] (04/12/2020): Added automatically from request for surgery [id number] Encounters Date Type Department Care Team Description 02/08/2025 Telephone [facility] Cardiology [address] [place] [address] Brendan Bermeo MD from Last 3 Months Immunizations Immunization Administration Dates Next Due Influenza, Trivalent, High D ose, Split, Preservative Free, Intramuscular 07/01/2019,06/14/2017 Influenza, Trivalent, Preservative Free, Intramu scular 06/02/2015 Surgical History Surgery Date Site/Laterality Comments MT LASER VAPORIZATION OF PROSTATE FOR URINE FLOW 04/01/2003 Laser Vaporization - Greenlight laser 04/01/2003 (Added by TW Conv) MT JOHNS W/O FACETEC FORAMOT/DSC 09/03 VRT SGM CRV 09/02/2014 - 09/01/2015 Laminectomy Lumbar - (Added by TW Conv) COLONOSCOPY 2016 & 2010 CATARACT EXTRACTION EXTRACAPSULAR W/ INTRAOCULAR LENS IMPLANTATION 09/02/2015 - 09/01/2016 Bilateral TOTAL SHOULDER REPLACEMENT 11/02/2019 Left Shoulder Surgery - (Added by TW Conv) TOTAL KNEE ARTHROPLASTY 09/02/2015 - 09/01/2016 Left KIDNEY STONE SURGERY 10/03/2018 - 10/30/2018 stents EXTRACORPOREAL CIRCULATION 04/11/2020 MT COLECTOMY PARTIAL W/ANASTOMOSIS 09/02/1999 - 09/01/2000 Partial Colectomy - (Added by TW Conv) EYE SURGERY 09/02/2017 - 09/01/2018 Right injury mowing/large pupil EYELID CARCINOMA EXCISION 02/01/2020 - 03/01/2020 Left PROSTATE SURGERY 09/02/2018 - 09/01/2019 Prostate Surgery - (Added by TW Conv) growth bx benign JOINT REPLACEMENT ABCESS DRAINAGE 04/02/2020 - 05/02/2020 left groin wound PROSTATE SURGERY 09/02/2020 - 09/01/2021 CATARACT EXTRACTION SPINE SURGERY ABDOMINAL SURGERY 1998 Medical History Medical History Date Comments Personal history of other endocrine, nutritional and metabolic disease History of hypothyroidism - (Added by TW Conv) Gastro-esophageal reflux disease without esophagitis Gastric reflux - (Added by TW Conv) Personal history of other diseases of the digestive system History of hiatal hernia - (Added by TW Conv) Personal history of urinary calculi History of kidney stones - (Added by TW Conv) Personal history of other diseases of the musculoskeletal system and connective tissue History of spinal stenosis - (Added by TW Conv) History of chemotherapy 1999 colon ca ncer Osteoarthritis shoulder Colon cancer (HCC) 1999 Seizure (HCC) 1981 x1 BPH (benign prostatic hyperplasia) Syncope [address] Jain's dc summary from 03/26/2014 Spinal stenosis Neurogenic claudication HTN (hypertension) 2018 [place] Wearrs alla ateral hearing aides GERD (gastroesophageal reflu x disease) Personal history of other medical treatment (+) dilated right pupil S/p eye injury (rock flew in eye 06/2018) and lens implant in eye shifted. 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 Family History Medical History Relation Name Comments COPD Father Imer Collinsigley Cancer Father Imer Collinsigley Diabetes Father Imer Guillermo Heart attack Father Imer [place] Hyperlipidemia Father Imer Collinsigley Arthritis Mother Aarti Collinsigley Hearing loss Mother Aarti Li Hypertension Mother Aarti Collinsigley Memory loss Mother Aarti Li Prostate cancer Other 1 Prostate Can cer - (Added by TW Conv) Diabetes Other 2 Family history of diabetes mellitus - (Added by TW Conv) Hypertension Other 3 Family history of hypertension - (Added by TW Conv) Heart disease Other 4 Family history of cardiac disorder - (Added by TW Conv) Cancer Other 5 Family history of cancer - (Added by TW Conv) Anesthesia problems Neg Hx Relation Name Status Comments Father Imer Li Mother Aarti Li Other 1 Other 2 Other 3 Other 4 Other 5 Social History Tobacco Use Types Packs/Day Years [...] How often do you attend chur or quaker services? More than 4 times per year 03/18/2024 Do you belong to any clubs o r organizations such as baptist groups, unions, fraternal or athletic groups, or [...] Recorded Patient Health Questionnaire-2 Score 0 03/18/2024 [facility] [place] of Occupat ional Health - Occupational Stress Questionnaire Answer Date Recorded [...] place to sleep or slept in a long-term (including now)? No 09/09/2023 Personal Safety Answer Date Recorded Have you ever been in or are you currently in a harmful physical or emotional relationship or is someone making you feel afraid or unsafe? Denies 11/19/2023 Sex and Gender Information Value Date Recorded Sex Assigned at Not on file Legal Sex Male 4:18 AM PRODUCT SAFETY MANAGER Gender Identity Male 11/11/2020 8:35 AM PRODUCT SAFETY MANAGER Sexual Orientation Not on file Obstetrics History Last Filed Vital Signs Vital Sign Reading Time Taken Comments Blood Pressure 128/78 11/04/2024 9:36 AM PRODUCT SAFETY MANAGER Pulse 72 11/04/2024 9:36 AM PRODUCT SAFETY MANAGER Temperature 36.7 C (98 F) 11/04/2024 9:36 AM PRODUCT SAFETY MANAGER Respiratory Rate 18 11/04/2024 9:36 AM PRODUCT SAFETY MANAGER Oxygen Saturation 95% 11/04/2024 9:36 AM PRODUCT SAFETY MANAGER Inhaled Oxygen Concentration - - Weight 92.6 kg (204 lb 3.2 oz) 11/04/2024 9:36 A M PRODUCT SAFETY MANAGER Height 177.8 cm (5' 10) 11/04/2024 9:36 AM PRODUCT SAFETY MANAGER Body Mass Index 29.3 11/04/2024 9:36 AM PRODUCT SAFETY MANAGER Plan of Treatment Health Maintenance Due Date Last Done Comments Hepatitis B Screening 1958 Well Visit 65+ 2006 Fall Risk Assessment 06/01/2022 06/01/2021 Covid-19 Vaccine (2023-2 5 season) 2024 05/05/2021, 11/25/2020, 10/28/2020 Depression Screening 03/18/2025 03/18/2024, 09/09/2023, 05/27/2023 Influenza Vaccine (#1) 2025 , 05/05/2021, 06/16/2020, Additional history exists DTaP/Tdap/Td Vaccine (2 - Td or Tdap) 06/14/2027 06/14/2017 Pneumococcal vaccine 65+ Completed 10/18/2015, 09/2011 Zoster Vaccine Completed 03/28/2020, 03/03, 09/17/2019, Additional history exists Medical Devices Implanted Type Area Parquetry Floor Layer Device Identifier Shelf Expiration Date Model / Serial / Lot Hardware Left: Knee [employer] [id number] Base Plate 26mm Tm Reverse 20m - [id number] Implanted:Qty: 1 on 11/02/2019 by Jan Aguiar MD at [facility] [employer] [id number] / / [id number] [employer] 01.92355.048 Ncb Anatomical Shoulder 4.5mm 48mm Inverse Reverse Lock Self Tap - [id number] Implanted:Qty: 1 on 11/02/2019 by Jan Aguiar MD at [facility] [employer] [id number] / / [id number] [employer] 01.93611.042 Ncb Anatomical Shoulder 4.5mm 42mm Inverse Reverse Lock Self Tap - [id number] Implanted:Qty: 1 on 11/02/2019 by Jan Aguiar MD at [facility] [employer] [id number] [id number] / / [id number] [employer] [id number] Glenosphere Tm Reverse 36mm Centric - [id number] Implanted:Qty: 1 on 11/02/2019 by Jan Aguiar MD at [facility] [employer] [id number] / / [id number] [employer] [id number] 14mm 130mm Shoulder Stem Humeral Trabecular Metal Tivanium - [id number] Implanted:Qty: 1 on 11/02/2019 by Jan Aguiar MD at [facility] [employer] [id number] / / [id number] [employer] [id number] 36mm H+3mm Reverse Humerus 7d Standard Liner Shoulder Trabecular - [id number] Implanted:Qty: 1 on 11/02/2019 by Jan Aguiar MD at [facility] [employer] [id number] / / [id number] Derek Craniomaxillofac ial [id number] Impl Soft Tissue [id number] Moist Tough Flex Sheet Enduragen - S0 - [id number] Implanted:Qty: 1 on 02/15/2020 by Bishnu Canas MD at [facility] Left: Eyelid Derek Craniomaxillofacial 01/31/2024 [id number] / 0 / [id number] Description:Endfrank [place] en implant Explanted Type Area Parquetry Floor Layer Device Identifier Shelf Expiration Date Model / Serial / Lot [employer] [id number] [facility] 3/32in 9in 2 Trocar Pin Fixation Nonsterile - S0 - [id number] Explanted:Qty: 1 on 11/02/2019 by Jan Aguiar MD at [facility] [employer] [id number] / 0 / [employer] [id number] 36mm H+3mm Reverse Humerus 7d Standard Liner Shoulder Trabecular - [id number] Implanted:Qty: 1 Explanted:Qty: 1 on 11/02/2019 at [facility] [employer] [id number] 06/01/2027 [id number] / / [id number] Additional Health Concerns Infection Onset Date Last 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 04/27/2020 Insurance MEDICARE Scrip-t [facility] MEDICARE Scrip-t [facility] MEDICARE [facility] MEDICARE SUPPLEMENT Advance Directives For more information, please contact: [phone] Documents on File Type Date Recorded Patient News Internship Expl anation ADVANCE DIRECTIVE 06/02/2021 11:14 AM Makenzie Dubose ADVANCE DIRECTIVE 06/02/2021 11:13 AM Evelia r of Clinical Aide-Medical * Full Code (Latest Code Status on [...] 7:29 PM 04/14/2020 2:09 PM Care Teams Line Haul Driver Relationship Specialty Start Date End Date Aislinn Nugent PA PCP - General Physician Software Lead 09/07/19 Priya Novak MD PhD Surgeon Cardiothoracic Surgery 05/05/20 Miscellaneous, Not In File 05/05/20
--- OUTSIDE RECORDS SUMMARY | 2025-03-03 14:03 | XMS_ITS | Encounter Summary ---
Author Organization [facility] Care Team Providers Care Electrical Checkout Mechanic Name Role Phone Carolee Caruso Primary Care Provider [phone] Aislinn Nugent Primary Care Pr ovider Priya Novak MD PhD Unavailable [phone] Miscellaneous, Not In File Unavailable Unava ilable Encounter Details Date Type Department Care Team (Latest Contact Info) Description 10/19/2016 Orders Only [facility]INCONV Provider, MD Josselin [address] [place], [place] [id number] Social History Tobacco Use Types Packs/Day Years Used Date Smoking Tobacco: Never Assessed Sex and Gender Information Value Date Recorded Sex Assigned at Not on file Legal Sex Male 4:18 AM GERIATRIC PHYSICIAN Gender Identity Male 11/11/2020 8:35 AM GERIATRIC PHYSICIAN Sexual Orientation Not on file documented as of this encounter Plan of Treatment Not on file documented as of this encounter Procedures Procedure Name Priority Date/Time Associated Diagnosis Comments PROCEDURE - RESULT 10/19/2016 12 :00 AM GERIATRIC PHYSICIAN documented in this encounter Results * PROCEDURE - RESULT (10/19/2016 12:00 AM GERIATRIC PHYSICIAN) Narrative 10/19/2016 12:00 AM GERIATRIC PHYSICIAN Ordered by an unspecified provider. Historical Provider [...] documented as of this encounter Care Teams Electrical Checkout Mechanic Relationship Specialty Start Date End Date Carolee Caruso PA [address] [place] [id number] PCP - General 04/17/17 09/06/19 Aislinn Nugent PA [address] [place] [address] [phone] PCP - General Physician Supervisor Gas Meter Repair 09/07/19 Priya Novak MD PhD [address] [place] [address] [phone] Surgeon Cardiothoracic Surgery 05/05/20 Miscellaneous, Not In File 05/05/20 documented as of this encounter
--- OUTSIDE RECORDS SUMMARY | 2025-03-03 14:03 | XMS_ITS | Clinical Summary ---
Author Organization [facility] [employer] Address [address] [place] [address] Care Team Providers Care Still Operator Helper Name Role Phone Aislinn Soriano Primary Care Pr ovider Source Comments [facility] [employer],non-owned Affiliates and Associated Physician Practices is amultiple site organization consisting of ambulatory clinics and hospital sitesin [place], [place], [place] and [place]. This disclosure is being madepursuant to the Care Everywhere program and may not contain all information available regarding this patient. Last updated 18.[facility] [employer] Allergies No known active allergies Medications * Be aware that medications may not be up to date on this document. Alwaysverify current medications with the patient. therapeutic multivitamin-min erals (THERAGRAN-M) tablet Take 1 tablet by mouth every morning Active atorvastatin (LIPITOR) 20 MG tablet Take 20 mg by mouth every morning Active aspirin 81 MG chew tablet Take 81 mg by mouth every morning Active predniSONE (DELTASONE) 1 MG tablet Take 3 mg by mouth every morning Active folic acid (FOLVITE) 1 MG tablet Take 1 mg by mouth every morning Active omeprazole (PRILOSEC) 20 MG capsule Take 20 mg by mouth daily before breakfast. Active levothyroxine (SYNTHROID) 75 MCG tablet Take 75 mcg by mouth daily before breakfast. Active carbamide peroxide (DEBROX) 6.5 % otic solution Instill 5-10 drops into both ears 2 times daily as needed Active Docusate Sodium 250 MG Take 250 mg by mouth every morning Active methotrexate 2.5 MG tablet Take 20 mg by mouth every Saturday Active Bromfenac Sodium (BROMSITE) 0.075 % SOLNIndications: Postoperative Ophthalmic Inflammation 1 drop by Ophthalmic route 2 times daily Reasons: Inflammation of the Eye Following Surgery Active White Petrolatum-[place] al Oil (LUBRICANT EYE NIGHTTIME) OINT 1 strip by Ophthalmic route at bedtime Active tobramycin-dexam ethasone (TOBRADEX) 0.3-0.1 % ophthalmic suspensionIndica tions:Ophthalmic Inflammation Instill 1 drop into both eyes 4 times daily Reasons: Inflammation of the Eye Active HYDROcodone-acet aminophen (NORCO) 5-325 MG tablet Take 1 tablet by mouth every 4 hours as needed 20 tablet 8 Active finasteride (PROSCAR) 5 MG tablet Take 1 tablet by mouth once daily 30 tablet 1 8 Active tamsulosin (FLOMAX) 0.4 MG capsule Take 1 capsule by mouth once daily Take 30 minutes after a meal at the same time each day. 30 capsule 1 8 Active ketorolac (TORADOL) 10 MG tablet Take 1 tablet by mouth 3 times daily as needed with food for Pain 15 tablet 8 Active Active Problems Problem Noted Date Diagnosed Date Recurrent kidney stones 07/29/2018 Kidney stone on left side 07/29/2018 Syncope and collapse 11/04/2015 Hx of carcinoma in situ of colon 11/04/2015 Positive D dimer 11/04/2015 Overview (11/04/2015): d Dimer 0.83, CT Chest neg. PE. Subclinical hypothyroidism 11/04/2015 Overview (11/04/2015): TSH 5.1114 Cardiac dysrhythmia 03/21/2014 Overview (06/02/2015): Syncope and collapse 03/21/2014 Lactic acidosis 03/21/2014 Pain in the muscles 03/21/2014 Severe sepsis with acute organ dysfunction 03/21 Colon cancer 09/02/1999 High cholesterol Hypothyroid Rheumatoid arthritis Overview (07/10/2015): HTN (hypertension) Resolved Problems Problem Noted Date Diagnosed Date Resolved Date Fever 03/21/2014 01/12/2015 Immunizations Immunization Administration Dates Next Due INFLUENZA VACCINE 06/02/2013 PNEUMOCOCCAL PPSV23 09/02/2011 VARICELLA 09/02/2011 Family History Medical History Relation Name Comments Cancer Father Heart Failure Mother Hypertension Mother Cancer Paternal Uncle Cancer Sister Relation Name Status Comments Father Mother Paternal Uncle Sister Social History Tobacco Use Types Packs/Day Years Used Date Smoking Tobacco: Never Smokeless Tobacco: Never Alcohol Use Standard Drinks/Week Comments Yes 1.7 (1 standard drink = 0.6 oz p ure alcohol) Sex and Gender Information Value Date Recorded Sex Assigned at Not on file Legal Sex Male 2:01 PM CDT Gender Identity Not on file Sexual Orientation Not on file Last Filed Vital Signs Vital Sign Reading Time Taken Comments Blood Pressure 159/94 08/03/2018 4:39 AM RECORDER HELPER SEISMOGRAPH Pulse 90 08/03/2018 12:05 AM RECORDER HELPER SEISMOGRAPH Temperature 36.9 C (98.4 F) 08/03/2018 12:05 AM RECORDER HELPER SEISMOGRAPH Respiratory Rate 14 08/03/2018 12:05 AM RECORDER HELPER SEISMOGRAPH Oxygen Saturation 95% 08/03/2018 4:38 AM RECORDER HELPER SEISMOGRAPH Inhaled Oxygen Concentration 92% 03/24/2014 1 0:56 AM CDT Weight 86.2 kg (190 lb) 08/03/2018 12:05 AM RECORDER HELPER SEISMOGRAPH Height 177.8 cm (5' 10) 08/03/2018 12:05 AM RECORDER HELPER SEISMOGRAPH Body Mass Index 27.26 08/03/2018 12:05 AM RECORDER HELPER SEISMOGRAPH Plan of Treatment Health Maintenance Due Date Last Done Comments DTAP/TDAP/TD VACCINES (1 - Tdap) 1960 ZOSTER VACCINE (1 of 2) 1991 PNEUMOCOCCAL VACCINE 50+ (2 of 2 - PCV) 09/02/2012 09/02/2011 Respiratory Syncytial Virus (RSV) Vaccine Pt: or over 60 yrs (1 - 1-dose 75+ series) 2016 COVID-19 VACCINE (1 - 2023-2 5 season) 2024 DEPRESSION SCREENING 09/02/2024 INFLUENZA VACCINE (Season Ended) 2025 06/02/20 13 HEPATITIS B VACCINE Aged Out No longe r eligible based on patient's age to complete this topic HIB VACCINE Aged Out No longer eligi ble based on patient's age to complete this topic HPV VACCINE Aged Out No longer eligi ble based on patient's age to complete this topic MENINGOCOCCAL (Group B) VACC INE SHARED DECISION-MAKING Aged Out No longer eligibl e based on patient's age to complete this topic MENINGOCOCCAL GROUPS A/C/Y/W VACCINE Aged Out No longer eligible b ased on patient's age to complete this topic Medical Devices Implanted Type Area Space Technologist Device Identifier Shelf Expiration Date Model / Serial / Lot Stent Uret 6fr 22-30cm Pgtl Crv Tpr Tip - [id number] Implanted:Qty: 1 on 07/29/2018 by Joo Girard MD at [facility] Right: Ureter [employer] 04/20/2021 [id number] / [id number] 0 / [id number] Stent Uret 6fr 26cm Pgtl Crv Lg Inr Lum - [id number] Implanted:Qty: 1 on 07/29/2018 by Joo Girard MD at [facility] Right: Ureter [employer] 04/16/2021 [id number] / [id number] / [id number] Insurance MEDICARE [facility] [place] MEDICARE [facility] Care Address: [facility] [id number] [place] [address] Advance Directives Documents on File Type Date Recorded Patient Saddle Lining Stitcher Expl anation Adv Directive/Living Will/POA 11/08/2015 10:19 AM SIGNED 11-04-2015 Adv Directive/Living Will/POA 11/04/2015 * Full Code (Latest Code Status on File) Date Activated Date Inactivated Comments 07/29/2018 12:06 PM 08/01/2018 2:26 PM * Full Code Date Activated Date Inactivated Comments 11/04/2015 10:24 AM 11/07/2015 7:37 PM * Full Code Date Activated Date Inactivated Comments 03/21/2014 5:22 PM 03/25/2014 1:45 PM * FULL RESUSCITATION Date Activated Date Inactivated Comments 02/25/2013 5:38 PM 02/26/2013 3:24 PM Care Teams Still Operator Helper Relationship Specialty Start Date End Date Aislinn Soriano PA [address] [place] [address] PCP - General 08/10/21
--- OUTSIDE RECORDS SUMMARY | 2025-03-03 14:04 | XMS_ITS | Encounter Summary ---
Author Organization [facility] Facility Care Team Providers Care Financial Reporting Advisor Name Role Phone Carolee Caruso Primary Care Provider [phone] Aislinn Nugent Primary Care Pr ovider Priya Novak MD PhD Unavailable [phone] Miscellaneous, Not In File Unavailable Unava ilable Encounter Details Date Type Department Care Team (Latest Contact Info) Description 02/27/2017 Orders Only [facility] CLINCONV Provider, MD Josselin [address] [place], [place] [id number] Social History Tobacco Use Types Packs/Day Years Used Date Smoking Tobacco: Never Assessed Sex and Gender Information Value Date Recorded Sex Assigned at Not on file Legal Sex Male 4:18 AM RESIDENT ASSOCIATE Gender Identity Male 11/11/2020 8:35 AM RESIDENT ASSOCIATE Sexual Orientation Not on file documented as of this encounter Plan of Treatment Not on file documented as of this encounter Procedures Procedure Name Priority Date/Time Associated Diagnosis Comments COLONOSCOPY - SCAN 02/28/2017 12 :00 AM CDT documented in this encounter Results * COLONOSCOPY - SCAN (02/28/2017 12:00 AM CDT) Narrative 02/28/2017 12:00 AM CDT Ordered by an unspecified [...] documented as of this encounter Care Teams Financial Reporting Advisor Relationship Specialty Start Date End Date Carolee Caruso PA [address] [place] [id number] PCP - General 04/17/17 09/06/19 Aislinn Nugent PA [address] [place] [address] [phone] PCP - General Physician Police Department Secretary 09/07/19 Priya Novak MD PhD [address] [place] [address] [id number] Surgeon Cardiothoracic Surgery 05/05/20 Miscellaneous, Not In File 05/05/20 documented as of this encounter
--- OUTSIDE RECORDS SUMMARY | 2025-03-03 14:04 | XMS_ITS | Encounter Summary ---
Author Organization [facility] Facility Care Team Providers Care Manager Pe Name Role Phone Carolee Caruso Primary Care Provider [phone] Aislinn Nugent Primary Care Pr ovider Priya Novak MD PhD Unavailable [phone] Miscellaneous, Not In File Unavailable Unava ilable Encounter Details Date Type Department Care Team (Latest Contact Info) Description 09/25/2016 Orders Only [facility] CLINCONV Provider, MD Josselin [address] [place], [place] [id number] Social History Tobacco Use Types Packs/Day Years Used Date Smoking Tobacco: Never Assessed Sex and Gender Information Value Date Recorded Sex Assigned at Not on file Legal Sex Male 4:18 AM ASSEMBLER ENGINE Gender Identity Male 11/11/2020 8:35 AM ASSEMBLER ENGINE Sexual Orientation Not on file documented as of this encounter Plan of Treatment Not on file documented as of this encounter Procedures Procedure Name Priority Date/Time Associated Diagnosis Comments SCAN - LABS 10/09/2016 12:00 AM ASSEMBLER ENGINE documented in this encounter Results * SCAN - LABS (10/09/2016 12:00 AM ASSEMBLER ENGINE) Narrative 10/09/2016 12:00 AM ASSEMBLER ENGINE Ordered by an unspecified provider. Historical Provider [...] documented as of this encounter Care Teams Manager Pe Relationship Specialty Start Date End Date Carolee Caruso PA [address] [place] [id number] PCP - General 04/17/17 09/06/19 Aislinn Nugent PA [address] [place] [address] [phone] PCP - General Physician Hyperbaric Technologist 09/07/19 Priya Novak MD PhD [address] [place] [address] [id number] Surgeon Cardiothoracic Surgery 05/05/20 Miscellaneous, Not In File 05/05/20 documented as of this encounter
--- OUTSIDE RECORDS SUMMARY | 2025-03-03 14:04 | XMS_ITS | Clinical Summary ---
Author Organization [facility] Address [address] [place] [phone] Phone Care Team Providers Care Sports Medicine Masseur Name Role Phone Aislinn Nugent Primary Care Provider [phone] Allergies No known active allergies Medications methotrexate (RHEUMATREX) 2.5 mg Tablet Take 2.5 mg by mouth every 7 days. Active predniSONE (DELTASONE) 5 mg tablet Take 3 mg by mouth daily. Active folic acid (FOLVITE) 1 mg tablet Take 1 mg by mouth daily. Active atorvastatin (LIPITOR) 20 mg tablet Take 20 mg by mouth late in the day. Active omeprazole (PriLOSEC) 20 mg Capsule, Delayed Release(E.C.) Take 20 mg by mouth daily. Active aspirin (ECOTRIN EC) 81 mg Tablet, Delayed Release (E.C.) Take 81 mg by mouth daily. Active multivitamin (DAILY-DAVID) tablet Take 1 Tablet by mouth daily. Active DOCUSATE CALCIUM (STOOL SOFTENER ORAL) Take 250 mg by mouth 2 times daily. Active amLODIPine (NORVASC) 10 mg tablet Take 10 mg by mouth daily. Active apixaban (Eliquis) 5 mg tablet Take by mouth 2 times daily. Active allopurinoL (ZYLOPRIM) 100 mg tablet Take 200 mg by mouth daily. Active CALCIUM CARBONATE-VITAM IN D3 ORAL Take by mouth. Active diphenhydrAMINE (BENADRYL) 25 mg tablet Take 25 mg by mouth nightly as needed for Allergies. Active levothyroxine (EUTHYROX) 100 mcg tablet Take 100 mcg by mouth daily in the morning. Active Active Problems No known active problems Family History Medical History Relation Name Comments Colon Cancer Neg Hx Social History Tobacco Use Types Packs/Day Years Used Date Smoking Tobacco: Never Smokeless Tobacco: Never Alcohol Use Standard Drinks/Week Comments Yes 0 (1 standard drink = 0.6 oz pur e alcohol) Sex and Gender Information Value Date Recorded Sex Assigned at Not on file Legal Sex Male 11:09 AM CANE LOADER Gender Identity Not on file Sexual Orientation Not on file Last Filed Vital Signs Vital Sign Reading Time Taken Comments Blood Pressure 128/74 09/13/2021 11:25 AM CANE LOADER Pulse 78 09/13/2021 11:25 AM CANE LOADER Temperature 37.1 C (98.7 F) 09/13/2021 10:56 AM CANE LOADER Respiratory Rate 16 09/13/2021 11:25 AM CANE LOADER Oxygen Saturation 100% 09/13/2021 11:25 AM CANE LOADER Inhaled Oxygen Concentration - - Weight 92.4 kg (203 lb 9.6 oz) 09/13/2021 9:16 A M CANE LOADER Height 177.8 cm (5' 10) 09/13/2021 9:16 AM CANE LOADER Body Mass Index 29.21 09/13/2021 9:16 AM CANE LOADER Plan of Treatment Health Maintenance Due Date Last Done Comments DTAP/TDAP/TD VACCINES (1 - Tdap) 1960 ZOSTER VACCINE (1 of 2) 1991 PNEUMOCOCCAL VACCINE 50+ YEA RS (2 of 2 - PCV) 09/02/2012 09/02/2011 RSV VACCINE (60+ or ) (1 - 1-dose 75+ series) 2016 INFLUENZA VACCINE (#1) 2025 , 07/01/2019, 06/14/2017, Additional history exists COLORECTAL SCREENING 09/13/2026 09/13/2021, 09/13/2021, 02/27/2017, Additional history exists Procedures Procedure Name Priority Date/Time Associated Diagnosis Comments COLONOSCOPY REPORT 09/13/2021 11 :14 AM CANE LOADER from Last 3 Months or Most Recently Relevant to Health Maintenance Results * COLONOSCOPY REPORT (09/13/2021 11:14 AM CANE LOADER) Narrative Procedure Note Brendan Fitzgerald MD - 09/13/2021 11:13 AM CST [facility] Endoscopy Patient Name: Kosta Li Procedure Date: 09/13/2021 Date of : 1940 Attending MD: Brendan Fitzgerald MD Procedure: Colonoscopy Indications: Iron deficiency anemia, Personal history of malignant neoplasm of the colon 2000 and subsequent small polyps. Most recent colonoscopy January, with no polyps. Providers: Brendan Fitzgerald MD Referring MD: Aislinn Nugent Medicines: Monitored Anesthesia Care Complications: No immediate complications. Procedure: Informed consent was obtained for the procedure, including moderate sedation after risks were discussed. Based on the pre-procedure assessment, including review of the patient's medical history, medications, allergies, and review of systems, the patient was deemed to be an appropriate candidate for sedation. A timeout was performed. Continuous ECG monitoring, pulse oximetry, blood pressure monitoring, and direct observation were performed. The Colonoscope was introduced through the anus and advanced to the terminal ileum. The quality of the bowel preparation was excellent. Estimated Blood Loss: Estimated blood loss: none. Findings: There was evidence of a prior functional end-to-end colo-colonic anastomosis in the distal sigmoid colon. This was patent and was characterized by healthy appearing mucosa. Two sessile polyps were found in the ascending colon. The polyps were 5 to 7 mm in size. These polyps were removed with a cold snare. Resection and retrieval were complete. A 5 mm polyp was found in the hepatic flexure. The polyp was sessile. The polyp was removed with a cold snare. Resection and retrieval were complete. External and internal hemorrhoids were found during retroflexion and during perianal exam. The hemorrhoids were mild. The terminal ileum was examined 25-30 cm and appeared normal. Impression: - Patent functional end-to-end colo-colonic anastomosis, characterized by healthy appearing mucosa. - Two 5 to 7 mm polyps in the ascending colon, removed with a cold snare. Resected and retrieved. - One 5 mm polyp at the hepatic flexure, removed with a cold snare. Resected and retrieved. - External and internal hemorrhoids. - The examined portion of the ileum was normal. 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 Hematocrit rebounded significantly, but mild persistent anemia remained and there was evidence iron deficiency in May,. Hematocrit has normalized with iron supplementation. Recommendation: - Await pathology results. - Repeat colonoscopy in 3 - 5 years for surveillance depending on pathology and overall health. - See hemorrhoid handout. - Continue to follow anemia and iron deficiency with Dr. Nugent. Hemoglobin has normalized. May need buttermaker helper iron supplementation with Eliquis and with Italo erosions. Follow up in GI office if overt bleeding, refractory anemia or new GI symptoms. Brendan Fitzgerald MD 09/13/2021 11:13:51 AM This report has been signed electronically. Number of Addenda: [address]; [place] [address] Brendan Fitzgerald MD GI PROCEDURE ORDERABLES Final Result from Last 3 Months or Most Recently Relevant to Health Maintenance Insurance MEDICARE PART A AND B [facility] Advance Directives For more information, please contact: [phone] * Full Code (Latest Code Status on File) Date Activated Date Inactivated Comments 09/13/2021 9:15 AM 09/13/2021 1:53 PM * Full Code Date Activated Date Inactivated Comments 02/27/2017 12:06 PM 02/27/2017 4:00 PM Care Teams Sports Medicine Masseur Relationship Specialty Start Date End Date Aislinn Nugent PA PCP - General Physician Needle Bar Molder 06/07/21
--- OUTSIDE RECORDS SUMMARY | 2025-03-03 14:04 | XMS_ITS | Encounter Summary ---
Author Organization [facility] Facility Care Team Providers Care Energy Auditor Name Role Phone Carolee Caruso Primary Care Provider [phone] Aislinn Nugent Primary Care Pr ovider Priya Novak MD PhD Unavailable [phone] Miscellaneous, Not In File Unavailable Unava ilable Encounter Details Date Type Department Care Team (Latest Contact Info) Description 06/13/2016 Orders Only [facility] CLINCONV Provider, MD Josselin [address] [place], [place] [phone] Social History Tobacco Use Types Packs/Day Years Used Date Smoking Tobacco: Never Assessed Sex and Gender Information Value Date Recorded Sex Assigned at Not on file Legal Sex Male 4:18 AM HOOKER UP Gender Identity Male 11/11/2020 8:35 AM HOOKER UP Sexual Orientation Not on file documented as of this encounter Plan of Treatment Not on file documented as of this encounter Procedures Procedure Name Priority Date/Time Associated Diagnosis Comments SCAN - LABS 08/03/2016 12:00 AM HOOKER UP documented in this encounter Results * SCAN - LABS (08/03/2016 12:00 AM HOOKER UP) Narrative 08/03/2016 12:00 AM HOOKER UP Ordered by an unspecified provider. us Historical Provider Final Res ult documented in [...] documented as of this encounter Care Teams Energy Auditor Relationship Specialty Start Date End Date Carolee Caruso PA [address] [place] [id number] PCP - General 04/17/17 09/06/19 Aislinn Nugent PA [address] [place] [address] [phone] PCP - General Physician Sales Agent Food Vending Service 09/07/19 Priya Novak MD PhD [address] [place] [address] [phone] Surgeon Cardiothoracic Surgery 05/05/20 Miscellaneous, Not In File 05/05/20 documented as of this encounter
--- OUTSIDE RECORDS SUMMARY | 2025-03-03 14:04 | XMS_ITS | Encounter Summary ---
Author Organization [facility] Facility Care Team Providers Care Clipping Marker Name Role Phone Carolee Caruso Primary Care Provider [phone] Aislinn Nugent Primary Care Pr ovider Priya Novak MD PhD Unavailable [phone] Miscellaneous, Not In File Unavailable Unava ilable Encounter Details Date Type Department Care Team (Latest Contact Info) Description 10/04/2016 Orders Only [facility] CLINCONV Provider, MD Josselin [address] [place], [place] [phone] Social History Tobacco Use Types Packs/Day Years Used Date Smoking Tobacco: Never Assessed Sex and Gender Information Value Date Recorded Sex Assigned at Not on file Legal Sex Male 4:18 AM ROLL SETTER Gender Identity Male 11/11/2020 8:35 AM ROLL SETTER Sexual Orientation Not on file documented as of this encounter Plan of Treatment Not on file documented as of this encounter Procedures Procedure Name Priority Date/Time Associated Diagnosis Comments PROCEDURE - RESULT 10/05/2016 12 :00 AM ROLL SETTER documented in this encounter Results * PROCEDURE - RESULT (10/05/2016 12:00 AM ROLL SETTER) Narrative 10/05/2016 12:00 AM ROLL SETTER Ordered by an unspecified provider. Historical Provider [...] documented as of this encounter Care Teams Clipping Marker Relationship Specialty Start Date End Date Carolee Caruso PA [address] [place] [id number] PCP - General 04/17/17 09/06/19 Aislinn Nugent PA [address] [place] [address] [phone] PCP - General Physician Sleeve Fixer 09/07/19 Priya Novak MD PhD [address] [place] [address] [phone] Surgeon Cardiothoracic Surgery 05/05/20 Miscellaneous, Not In File 05/05/20 documented as of this encounter
--- OUTSIDE RECORDS SUMMARY | 2025-03-03 14:04 | XMS_ITS | Encounter Summary ---
Author Organization [facility] Address [address] [place] [address] Phone Care Team Providers Care Hot Dog Vender Name Role Phone Aislinn Nugent Primary Care Pr ovider Priya Novak MD PhD Unavailable Miscellaneous, Not In File Unavailable Unava ilable Encounter Details Date Type Department Care Team (Late st Contact Info) Description 05/20/2023 Orders Only [facility] Scanning, Provider Social History Tobacco Use Types Packs/Day Years Used Date Smoking Tobacco: Never Smokeless Tobacco: Never Alcohol Use Standard Drinks/Week Comments Yes 0 (1 standard drink = 0.6 oz pur e alcohol) one beer a month Sex and Gender Information Value Date Recorded Sex Assigned at Not on file Legal Sex Male 4:18 AM INFECTIOUS DISEASE TECHNICIAN Gender Identity Male 11/11/2020 8:35 AM INFECTIOUS DISEASE TECHNICIAN Sexual Orientation Not on file documented as of this encounter Plan of Treatment Not on file documented as of this encounter Procedures Procedure Name Priority Date/Time Associated Diagnosis Comments SCAN - LABS 05/20/2023 documented in this encounter Results * SCAN - LABS (05/20/2023) us Provider Scanning Final Result documented in this encounter Visit Diagnoses Not on filedocumented in this encounter Additional Health Concerns Infection Onset Date Last Indicated Resolved Time 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
== END 2025-03-03 13:51 | disposition home or self-care (01) ==
PROVIDERS: PCP Physician Assistant; Visit Provider Physician Assistant
DX: R10.9 Unspecified abdominal pain (principal); K44.9 Diaphragmatic hernia without obstruction or gangrene; K80.20 Calculus of gallbladder without cholecystitis without obstruction; N20.0 Calculus of kidney
CPT/HCPCS: 74176

== ENCOUNTER 2025-04-01 08:13 | Outpatient (CLI) | payer MEDICARE, SELFPAY ==
--- OUTSIDE RECORDS SUMMARY | 2025-04-01 08:20 | XMS_ITS | Clinical Summary ---
Author Organization [facility] [employer] Address [address] [place] [address] Care Team Providers Care Steam Oven Operator Name Role Phone Aislinn Soriano Primary Care Pr ovider Source Comments [facility] [employer],non-owned Affiliates and Associated Physician Practices is amultiple site organization consisting of ambulatory clinics and hospital sitesin [place], [place], [place] and [place]. This disclosure is being madepursuant to the Care Everywhere program and may not contain all information available regarding this patient. Last updated 18.[facility] [employer] Allergies No known active allergies Medications * [...] of the Eye Following Surgery Active White Petrolatum-[place] al Oil (LUBRICANT EYE NIGHTTIME) OINT 1 [...] Comments Blood Pressure 159/94 08/03/2018 4:39 AM HOST AND HOSTESS Pulse 90 08/03/2018 12:05 AM HOST AND HOSTESS Temperature 36.9 C (98.4 F) 08/03/2018 12:05 AM HOST AND HOSTESS Respiratory Rate 14 08/03/2018 12:05 AM HOST AND HOSTESS Oxygen Saturation 95% 08/03/2018 4:38 AM HOST AND HOSTESS Inhaled Oxygen Concentration 92% 03/24/2014 1 0:56 AM CDT Weight 86.2 kg (190 lb) 08/03/2018 12:05 AM HOST AND HOSTESS Height 177.8 cm (5' 10) 08/03/2018 12:05 AM HOST AND HOSTESS Body Mass Index 27.26 08/03/2018 12:05 AM HOST AND HOSTESS Plan of Treatment Health Maintenance Due Date Last Done Comments DTAP/TDAP/TD VACCINES (1 - Tdap) 1960 ZOSTER VACCINE (1 of 2) 1991 PNEUMOCOCCAL VACCINE 50+ (2 of 2 - PCV) 09/02/2012 09/02/2011 Respiratory Syncytial Virus (RSV) Vaccine Pt: or over 60 yrs (1 - 1-dose 75+ series) 2016 COVID-19 VACCINE (1 - 2023-2 5 season) 2024 DEPRESSION SCREENING 09/02/2024 INFLUENZA VACCINE (#1) 2025 06/02/2013 HEPATITIS B VACCINE Aged Out No longe [...] this topic Medical Devices Implanted Type Area [employer] Weapons Crewmember Device Identifier Shelf Expiration Date Model / Serial / Lot Stent Uret 6fr 22-30cm Pgtl Crv Tpr Tip - [id number] Implanted:Qty: 1 on 07/29/2018 by Joo Girard MD at [facility] Right: [employer] 04/20/2021 [id number] / [id number] / [id number] Stent Uret 6fr 26cm Pgtl Crv Lg Inr Lum - [id number] Implanted:Qty: 1 on 07/29/2018 by Joo Girard MD at [facility] Right: [employer] 04/16/2021 [id number] / [id number] / [id number] Insurance MEDICARE FORMERLY NAMED [facility] MEDICARE [facility] Care Address: [facility] [id number] [place] [address] Advance Directives Documents on File Type Date Recorded Patient Package Sorter Expl anation Adv Directive/Living Will/POA 11/08/2015 10:19 [...] 5:38 PM 02/26/2013 3:24 PM Care Teams Steam Oven Operator Relationship Specialty Start Date End Date Aislinn Soriano PA [address] [place] [address] PCP - General 08/10/21
--- OUTSIDE RECORDS SUMMARY | 2025-04-01 08:20 | XMS_ITS | Encounter Summary ---
Author Organization [facility] Facility Care Team Providers Care Crucible Packer Name Role Phone Carolee Caruso Primary Care Provider [phone] Aislinn Nugent Primary Care Pr ovider Priya Novak MD PhD Unavailable Miscellaneous, Not In File Unavailable Unava ilable Encounter Details Date Type Department Care Team (Latest Contact Info) Description 10/04/2016 Orders Only [facility]G CLINCONV Provider, MD Josselin [address] [place], [place] [id number] Social History Tobacco Use Types Packs/Day Years Used Date Smoking Tobacco: Never Assessed Sex and Gender Information Value Date Recorded Sex Assigned at Not on file Legal Sex Male 4:18 AM CHASSIS ENGINEER Gender Identity Male 11/11/2020 8:35 AM CHASSIS ENGINEER Sexual Orientation Not on file documented as of this encounter Plan of Treatment Not on file documented as of this encounter Procedures Procedure Name Priority Date/Time Associated Diagnosis Comments PROCEDURE - RESULT 10/05/2016 12 :00 AM CHASSIS ENGINEER documented in this encounter Results * PROCEDURE - RESULT (10/05/2016 12:00 AM CHASSIS ENGINEER) Narrative 10/05/2016 12:00 AM CHASSIS ENGINEER Ordered by an unspecified provider. Historical Provider [...] documented as of this encounter Care Teams Crucible Packer Relationship Specialty Start Date End Date Carolee Caruso PA [address] [place] [address] [id number] PCP - General 04/17/17 09/06/19 Aislinn Nugent PA [address] [place] [address] [phone] PCP - General Physician Rn Ccu 09/07/19 Priya Novak MD PhD [address] [place] [address] [phone] Surgeon Cardiothoracic Surgery 05/05/20 Miscellaneous, Not In File 05/05/20 documented as of this encounter
--- OUTSIDE RECORDS SUMMARY | 2025-04-01 08:20 | XMS_ITS ---
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 Do to the severity of the of the PE the patient will remain on life long anticoagulation. Assessment & Plan (10/25/2021 8:51 AM SCIENTIFIC LABORATORY SUPERVISOR): The patient continues on Eliquis 5 mg twice a day. Do to the severity of the of the PE the patient will remain on life long anticoagulation. Iron deficiency anemia 10/18/2021 [place] (obstructive sleep apnea) 01/20/2021 Assessment & Plan (11/04/2024 9:50 AM SCIENTIFIC LABORATORY SUPERVISOR): The patient has requested a new CPAP set at 10 cm water pressure. I have sent an order over to [facility]. Assessment & Plan (11/01/2023 10:25 AM SCIENTIFIC LABORATORY SUPERVISOR): The patient continue to wear his CPAP at 10 cm water pressure while sleeping. His DME is [facility]. Assessment & Plan (10/31/2022 10:02 AM SCIENTIFIC LABORATORY SUPERVISOR): The patient will continue CPAP therapy at 10 cm water pressure. Denied need for supplies. DME [facility] Assessment & Plan (10/25/2021 8:38 AM SCIENTIFIC LABORATORY SUPERVISOR): Patient continue to wear CPAP at 10 [...] PICC RUE Waiting for bed back to [facility] Assessment & Plan (04/26/2020 3:18 AM CDT): F/u blood cx Vanc/zosyn Plan for I&D when appropriate from an anticoagulation standpoint History of pulmonary embolism 04/26/2020 Assessment & Plan (11/04/2024 9:51 AM SCIENTIFIC LABORATORY SUPERVISOR): Due to the severity of the pulmonary embolism the patient is on lifelong Eliquis. Assessment & Plan (10/31/2022 10:03 AM SCIENTIFIC LABORATORY SUPERVISOR): Will continue Eliquis on a lifelong basis. [...] (04/27/2020): Added automatically from request for surgery [id number] Assessment & Plan (04/28/2020 3:24 PM CDT): [...] Plan (04/18/2020 12:11 AM CDT): - Baseline C Python Developer upon Ecare everywhere review is ~1.0-1.2. - Avoid nephrotoxins, renally dose meds as appropriate - No dialysis per , continuing to make urine - Creatinine improving Assessment & Plan (04/16/2020 9:42 PM CDT): - Baseline C Python Developer upon Ecare everywhere review is ~1.0-1.2. - Avoid nephrotoxins, renally dose meds as appropriate -No dialysis per , continuing to make urine Assessment & Plan (04/15/2020 9:30 PM CDT): - Baseline C Python Developer upon Ecare everywhere review is ~1.0-1.2. - Avoid nephrotoxins, renally dose meds as appropriate Assessment & Plan (04/14/2020 5:28 PM CDT): - Baseline C Python Developer upon Ecare everywhere review is ~1.0-1.2. - Avoid nephrotoxins, renally dose meds as appropriate Assessment & Plan (04/14/2020 12:30 AM CDT): - Baseline C Python Developer upon Ecare everywhere review is ~1.0-1.2. - Avoid nephrotoxins, renally dose meds as appropriate Assessment & Plan (04/13/2020 5:36 AM CDT): - Baseline C Python Developer upon Ecare everywhere review is ~1.0-1.2. C Python Developer up to 1.55 on admission. Profound metabolic acidosis 2/2 cardiogenic shock with high dose triple pressor therapy. - Avoid nephrotoxins, renally dose meds as appropriate Assessment & Plan (04/12/2020 5:19 AM CDT): - Baseline C Python Developer upon Ecare everywhere review is ~1.0-1.2. C Python Developer up to 1.55 on admission. Profound metabolic [...] & Plan (04/11/2020 4:35 AM CDT): Baseline C Python Developer upon Ecare everywhere review is ~1.0-1.2. C Python Developer up to 1.55 on admission. Profound metabolic [...] (01/20/2020): Added automatically from request for surgery [id number] Hypertension 10/29/2019 Assessment & Plan (04/28/2020 3:23 PM CDT): Home meds:continue amlodipine Hyperlipidemia 10/29/2019 GERD (gastroesophageal reflux disease) 0 Hypothyroidism 10/29/2019 Assessment & Plan (04/28/2020 3:23 PM CDT): Home meds:continue levothyroxine Risk factors for obstructive sleep apnea 020 Rotator cuff arthropathy of left shoulder 2019 Overview (09/17/2019): Added automatically from request for surgery [id number] Recurrent kidney stones 07/29/2018 Basal cell carcinoma [...] Plan (04/16/2020 9:42 PM CDT): Extubated to [place] Assessment & Plan (04/15/2020 9:30 PM CDT): [...] (04/12/2020): Added automatically from request for surgery [id number]
--- OUTSIDE RECORDS SUMMARY | 2025-04-01 08:20 | XMS_ITS | Clinical Summary ---
Author Organization [facility] Address [address] [place] [id number] Phone Care Team Providers Care Resolution Manager Name Role Phone Aislinn Nugent Primary Care Provider [phone] Allergies No known active allergies Medications methotrexate [...] on file Legal Sex Male 11:09 AM BASIC ACOUSTIC ANALYST Gender Identity Not on file Sexual Orientation Not on file Last Filed Vital Signs Vital Sign Reading Time Taken Comments Blood Pressure 128/74 09/13/2021 11:25 AM BASIC ACOUSTIC ANALYST Pulse 78 09/13/2021 11:25 AM BASIC ACOUSTIC ANALYST Temperature 37.1 C (98.7 F) 09/13/2021 10:56 AM BASIC ACOUSTIC ANALYST Respiratory Rate 16 09/13/2021 11:25 AM BASIC ACOUSTIC ANALYST Oxygen Saturation 100% 09/13/2021 11:25 AM BASIC ACOUSTIC ANALYST Inhaled Oxygen Concentration - - Weight 92.4 kg (203 lb 9.6 oz) 09/13/2021 9:16 A M BASIC ACOUSTIC ANALYST Height 177.8 cm (5' 10) 09/13/2021 9:16 AM BASIC ACOUSTIC ANALYST Body Mass Index 29.21 09/13/2021 9:16 AM BASIC ACOUSTIC ANALYST Plan of Treatment Health Maintenance Due Date [...] Comments COLONOSCOPY REPORT 09/13/2021 11 :14 AM BASIC ACOUSTIC ANALYST from Last 3 Months or Most Recently Relevant to Health Maintenance Results * COLONOSCOPY REPORT (09/13/2021 11:14 AM BASIC ACOUSTIC ANALYST) Narrative Procedure Note Brendan Fitzgerald MD - 09/13/2021 11:13 AM CST [facility] Endoscopy Patient Name: Kosta Li Procedure Date: [...] Dr. Nugent. Hemoglobin has normalized. May need continuous churn buttermaker iron supplementation with Eliquis and with Italo erosions. Follow up in GI office if overt bleeding, refractory anemia or new GI symptoms. Brendan Fitzgerald MD 09/13/2021 11:13:51 AM This report has been signed electronically. Number of Addenda: [address]; [place] [address] Brendan Fitzgerald MD GI PROCEDURE ORDERABLES Final Result from Last 3 Months or Most Recently Relevant to Health Maintenance Insurance MEDICARE PART A AND B [facility] Advance Directives For more information, please contact: [phone] * Full Code (Latest Code Status on File) Date Activated Date Inactivated Comments 09/13/2021 9:15 AM 09/13/2021 1:53 PM * Full Code Date Activated Date Inactivated Comments 02/27/2017 12:06 PM 02/27/2017 4:00 PM Care Teams Resolution Manager Relationship Specialty Start Date End Date Aislinn Nugent PA PCP - General Physician Measuring Clerk 06/07/21
--- OUTSIDE RECORDS SUMMARY | 2025-04-01 08:20 | XMS_ITS | Encounter Summary ---
Author Organization [facility] Facility Care Team Providers Care Security System Analyst Name Role Phone Carolee Caruso Primary Care Provider [phone] Aislinn Nugent Primary Care Pr ovider Priya Novak MD PhD Unavailable [phone] Miscellaneous, Not In File Unavailable Unava ilable Encounter Details Date Type Department Care Team (Latest Contact Info) Description 09/25/2016 Orders Only MMG CLINCONV Provider, MD Josselin [address] [place], [place] [phone] Social History Tobacco Use Types Packs/Day Years Used Date Smoking Tobacco: Never Assessed Sex and Gender Information Value Date Recorded Sex Assigned at Not on file Legal Sex Male 4:[address] MACHINE OPERATOR Gender Identity Male 11/11/2020 8:[address] MACHINE OPERATOR Sexual Orientation Not on file documented as of this encounter Plan of Treatment Not on file documented as of this encounter Procedures Procedure Name Priority Date/Time Associated Diagnosis Comments SCAN - LABS 10/09/2016 12:[address] MACHINE OPERATOR documented in this encounter Results * SCAN - LABS (10/09/2016 12:[address] MACHINE OPERATOR) Narrative 10/09/2016 12:[address] MACHINE OPERATOR Ordered by an unspecified provider. Historical Provider [...] documented as of this encounter Care Teams Security System Analyst Relationship Specialty Start Date End Date Carolee Caruso PA [address] [place] [id number] PCP - General 04/17/17 09/06/19 Aislinn Nugent PA [address] [place] [address] [phone] PCP - General Physician Rotary Operator 09/07/19 Priya Novak MD PhD [address] [place] [address] [phone] Surgeon Cardiothoracic Surgery 05/05/20 Miscellaneous, Not In File 05/05/20 documented as of this encounter
--- OUTSIDE RECORDS SUMMARY | 2025-04-01 08:20 | XMS_ITS | Encounter Summary ---
Author Organization [facility] Facility Care Team Providers Care Damaged Freight Inspector Name Role Phone Carolee Caruso Primary Care Provider [phone] Aislinn Nugent Primary Care Pr ovider Priya Novak MD PhD Unavailable [phone] Miscellaneous, Not In File Unavailable Unava ilable Encounter Details Date Type Department Care Team (Latest Contact Info) Description 06/13/2016 Orders Only MMG CLINCONV Provider, MD Josselin [address] [place], [place] [phone] Social History Tobacco Use Types Packs/Day Years Used Date Smoking Tobacco: Never Assessed Sex and Gender Information Value Date Recorded Sex Assigned at Not on file Legal Sex Male 4:18 AM BUSINESS BANKING RELATIONSHIP MANAGER Gender Identity Male 11/11/2020 8:35 AM BUSINESS BANKING RELATIONSHIP MANAGER Sexual Orientation Not on file documented as of this encounter Plan of Treatment Not on file documented as of this encounter Procedures Procedure Name Priority Date/Time Associated Diagnosis Comments SCAN - LABS 08/03/2016 12:00 AM BUSINESS BANKING RELATIONSHIP MANAGER documented in this encounter Results * SCAN - LABS (08/03/2016 12:00 AM BUSINESS BANKING RELATIONSHIP MANAGER) Narrative 08/03/2016 12:00 AM BUSINESS BANKING RELATIONSHIP MANAGER Ordered by an unspecified provider. us Historical [...] documented as of this encounter Care Teams Damaged Freight Inspector Relationship Specialty Start Date End Date Carolee Caruso PA [address] [place] [id number] PCP - General 04/17/17 09/06/19 Aislinn Nugent PA [address] [place] [address] [phone] PCP - General Physician Warehouse Attendant 09/07/19 Priya Novak MD PhD [address] [place] [address] [phone] Surgeon Cardiothoracic Surgery 05/05/20 Miscellaneous, Not In File 05/05/20 documented as of this encounter
--- OUTSIDE RECORDS SUMMARY | 2025-04-01 08:20 | XMS_ITS | Encounter Summary ---
Author Organization [facility] Facility Care Team Providers Care Shochet Name Role Phone Carolee Caruso Primary Care Provider [phone] Aislinn Nugent Primary Care Pr ovider Priya Novak MD PhD Unavailable [phone] Miscellaneous, Not In File Unavailable Unava ilable Encounter Details Date Type Department Care Team (Latest Contact Info) Description 11/09/2015 Orders Only MMG CLINCONV Provider, MD Josselin [address] [place], [place] [phone] Social History Tobacco Use Types Packs/Day Years Used Date Smoking Tobacco: Never Assessed Sex and Gender Information Value Date Recorded Sex Assigned at Not on file Legal Sex Male 4:18 AM CREDIT CONTROL ADMINISTRATOR Gender Identity Male 11/11/2020 8:35 AM CREDIT CONTROL ADMINISTRATOR Sexual Orientation Not on file documented as of this encounter Plan of Treatment Not on file documented as of this encounter Procedures Procedure Name Priority Date/Time Associated Diagnosis Comments CARDIOLOGY REPORT 11/09/2015 12: 00 AM CREDIT CONTROL ADMINISTRATOR documented in this encounter Results * CARDIOLOGY REPORT (11/09/2015 12:00 AM CREDIT CONTROL ADMINISTRATOR) Anatomical Region Laterality Modality Other Narrative 11/09/2015 12:00 AM CREDIT CONTROL ADMINISTRATOR Ordered by an unspecified provider. Historical Provider [...] documented as of this encounter Care Teams Shochet Relationship Specialty Start Date End Date Carolee Caruso PA [address] [place] [id number] PCP - General 04/17/17 09/06/19 Aislinn Nugent PA [address] [place] [address] [phone] PCP - General Physician Fern Cutter 09/07/19 Priya Novak MD PhD [address] [place] [address] [phone] Surgeon Cardiothoracic Surgery 05/05/20 Miscellaneous, Not In File 05/05/20 documented as of this encounter
--- OUTSIDE RECORDS SUMMARY | 2025-04-01 08:20 | XMS_ITS | Encounter Summary ---
Author Organization [facility] Address [address] [place] [address] Phone Care Team Providers Care Integration Technician Name Role Phone Aislinn Nugent Primary Care Pr ovider Priya Novak MD PhD Unavailable [phone] Miscellaneous, Not In File Unavailable Unava ilable [...] on file Legal Sex Male 4:18 AM FAMILY CONSUMER SCIENTIST Gender Identity Male 11/11/2020 8:35 AM FAMILY CONSUMER SCIENTIST Sexual Orientation Not on file documented as [...] documented as of this encounter Care Teams Integration Technician Relationship Specialty Start Date End Date Aislinn Nugent PA PCP - General Physician Electronic Publications Specialist 09/07/19 Priya Novak MD PhD Surgeon Cardiothoracic Surgery 05/05/20 Miscellaneous, Not In File 05/05/20 documented as of this encounter
--- OUTSIDE RECORDS SUMMARY | 2025-04-01 08:20 | XMS_ITS | Encounter Summary ---
Author Organization [facility] Facility Care Team Providers Care Fuel Manager Name Role Phone Carolee Caruso Primary Care Provider [phone] Aislinn Nugent Primary Care Pr ovider Priya Novak MD PhD Unavailable [phone] Miscellaneous, Not In File Unavailable Unava ilable Encounter Details Date Type Department Care Team (Latest Contact Info) Description 11/10/2015 Orders Only MMG CLINCONV Provider, MD Josselin [address] [place], [place] [id number] Social History Tobacco Use Types Packs/Day Years Used Date Smoking Tobacco: Never Assessed Sex and Gender Information Value Date Recorded Sex Assigned at Not on file Legal Sex Male 4:18 AM EDGE STAINER MACHINE Gender Identity Male 11/11/2020 8:35 AM EDGE STAINER MACHINE Sexual Orientation Not on file documented as [...] 04/11/2020 04/11/2020 1:33 PM CDT Respiratory Infection (ASRAH), contact + droplet Comment:Automatically added due to negative COVID-19 result. Patient classified as Low Risk for COVID-19 and has one negative COVID-19 test. Patient meets criteria for COVID-19 isolation discontinuation 04/11/2020 04/11/2020 04/11/2020 2:05 PM C DT 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 04/27/2020 documented as of this encounter Care Teams Fuel Manager Relationship Specialty Start Date End Date Carolee Caruso PA [address] [place] [phone] PCP - General 04/17/17 09/06/19 Aislinn Nugent PA [address] [place] [address] [phone] PCP - General Physician Veneer Layer 09/07/19 Priya Novak MD PhD [address] [place] [address] [phone] Surgeon Cardiothoracic Surgery 05/05/20 Miscellaneous, Not In File 05/05/20 documented as of this encounter
--- OUTSIDE RECORDS SUMMARY | 2025-04-01 08:20 | XMS_ITS | Encounter Summary ---
Author Organization [facility] Facility Care Team Providers Care Mgmt Analyst Name Role Phone Carolee Caruso Primary Care Provider [phone] Aislinn Nugent Primary Care Pr ovider Priya Novak MD PhD Unavailable [phone] Miscellaneous, Not In File Unavailable Unava ilable Encounter Details Date Type Department Care Team (Latest Contact Info) Description 02/27/2017 Orders Only MMG CLINCONV Provider, MD Josselin [address] [place], [place] [phone] Social History Tobacco Use Types Packs/Day Years Used Date Smoking Tobacco: Never Assessed Sex and Gender Information Value Date Recorded Sex Assigned at Not on file Legal Sex Male 4:18 AM HAND BOOKED FOLDER AND STITCHER Gender Identity Male 11/11/2020 8:35 AM HAND BOOKED FOLDER AND STITCHER Sexual Orientation Not on file documented as [...] documented as of this encounter Care Teams Mgmt Analyst Relationship Specialty Start Date End Date Carolee Caruso PA [address] [place] [phone] PCP - General 04/17/17 09/06/19 Aislinn Nugent PA [address] [place] [address] [phone] PCP - General Physician Affirmative Action Officer 09/07/19 Priya Novak MD PhD [address] [place] [address] [phone] Surgeon Cardiothoracic Surgery 05/05/20 Miscellaneous, Not In File 05/05/20 documented as of this encounter
--- OUTSIDE RECORDS SUMMARY | 2025-04-01 08:20 | XMS_ITS | Referral Summary ---
Author Organization [facility] Address [address] [place] [address] Care Team Providers Care Outpatient Receptionist Name Role Phone Aislinn Nugent Primary Care Pr ovider Priya Novak MD PhD Unavailable [phone] Miscellaneous, Not In File Unavailable Unava ilable Encounters Date Type Department Care Team Description 02/08/2025 Telephone [facility] Cardiology [address] [place] [address] Brendan Bermeo MD from Last 3 Months Allergies No known active allergies Medications atorvastatin (LIPITOR) 20 mg tabletIndications:h yperlipidemia Take 1 tablet (20 mg total) by mouth every morning Active multivitamin tabletIndications:V itamin Deficiency Prevention Take 1 tablet by mouth every morning Active aspirin 81 mg enteric coated tabletIndications:M yocardial Reinfarction Prevention Take 1 tablet (81 mg total) by mouth every morning Active allopurinoL (ZYLOPRIM) 100 mg tablet Take 2 tablets (200 mg total) by mouth daily 10/05/19 21 Active Euthyrox 100 mcg tablet TAKE 1 TABLET BY MOUTH ONCE DAILY IN THE MORNING 03/16/20 21 Active diphenhydrAMINE (BENADRYL) 25 mg capsule Take [...] BY MOUTH ONCE DAILY IN THE MORNING 09/23/19 22 Active ascorbic acid (VITAMIN C ORAL) Vitamin C 1 TAB DAILY Active alendronate (FOSAMAX) 70 mg tabletIndications:o steopenia Take 1 tablet (70 mg total) by mouth every 7 days Take on an empty stomach. Do not lie down or eat for 1/2 hour after taking. 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) Take 3 tablets (3 mg) by mouth daily 270 tablet 1 10/01/19 25 Active apixaban (ELIQUIS) 5 mg tabletIndications:h x PE Take 1 tablet (5 mg total) by mouth every 12 (twelve) hours 180 tablet 2 02/09/20 25 2025 Active metoprolol XL (TOPROL-XL) 50 mg extended release tabletIndications:P SVT (paroxysmal supraventricular tachycardia) TAKE 1 TABLET BY MOUTH ONCE DAILY IN THE MORNING 90 tablet 02/11/20 25 Active methotrexate 2.5 mg tabletIndications:R heumatoid Arthritis Take 4 tablets (10 mg total) by mouth every 7 days 48 tablet 1 10/01/19 25 2024 Active Problems Problem Noted Date Diagnosed Date Paroxysmal supraventricular tachycardia 10/22/19 24 Chronic pulmonary embolism without acute cor pul monale 10/25/2021 Assessment & Plan (11/01/2023 10:25 AM RECORDING ARTIST): The patient continues on Eliquis 5 mg twice a day. Do to the severity of the of the PE the patient will remain on life long anticoagulation. Assessment & Plan (10/25/2021 8:51 AM RECORDING ARTIST): The patient continues on Eliquis 5 mg twice a day. Do to the severity of the of the PE the patient will remain on life long anticoagulation. Iron deficiency anemia 10/18/2021 HILTON (obstructive sleep apnea) 01/20/2021 Assessment & Plan (11/04/2024 9:50 AM RECORDING ARTIST): The patient has requested a new CPAP set at 10 cm water pressure. I have sent an order over to [facility]. Assessment & Plan (11/01/2023 10:25 AM RECORDING ARTIST): The patient continue to wear his CPAP at 10 cm water pressure while sleeping. His DME is [facility]. Assessment & Plan (10/31/2022 10:02 AM RECORDING ARTIST): The patient will continue CPAP therapy at 10 cm water pressure. Denied need for supplies. DME [facility] Assessment & Plan (10/25/2021 8:38 AM RECORDING ARTIST): Patient continue to wear CPAP at 10 [...] PICC RUE Waiting for bed back to [facility] Assessment & Plan (04/26/2020 3:18 AM CDT): F/u blood cx Vanc/zosyn Plan for I&D when appropriate from an anticoagulation standpoint History of pulmonary embolism 04/26/2020 Assessment & Plan (11/04/2024 9:51 AM RECORDING ARTIST): Due to the severity of the pulmonary embolism the patient is on lifelong Eliquis. Assessment & Plan (10/31/2022 10:03 AM RECORDING ARTIST): Will continue Eliquis on a lifelong basis. [...] (04/27/2020): Added automatically from request for surgery [id number] Assessment & Plan (04/28/2020 3:24 PM CDT): [...] Plan (04/18/2020 12:11 AM CDT): - Baseline Sewing Machine Operator Plastic Zipper upon Ecare everywhere review is ~1.0-1.2. - Avoid nephrotoxins, renally dose meds as appropriate - No dialysis per , continuing to make urine - Creatinine improving Assessment & Plan (04/16/2020 9:42 PM CDT): - Baseline Sewing Machine Operator Plastic Zipper upon Ecare everywhere review is ~1.0-1.2. - Avoid nephrotoxins, renally dose meds as appropriate -No dialysis per , continuing to make urine Assessment & Plan (04/15/2020 9:30 PM CDT): - Baseline Sewing Machine Operator Plastic Zipper upon Ecare everywhere review is ~1.0-1.2. - Avoid nephrotoxins, renally dose meds as appropriate Assessment & Plan (04/14/2020 5:28 PM CDT): - Baseline Sewing Machine Operator Plastic Zipper upon Ecare everywhere review is ~1.0-1.2. - Avoid nephrotoxins, renally dose meds as appropriate Assessment & Plan (04/14/2020 12:30 AM CDT): - Baseline Sewing Machine Operator Plastic Zipper upon Ecare everywhere review is ~1.0-1.2. - Avoid nephrotoxins, renally dose meds as appropriate Assessment & Plan (04/13/2020 5:36 AM CDT): - Baseline Sewing Machine Operator Plastic Zipper upon Ecare everywhere review is ~1.0-1.2. Sewing Machine Operator Plastic Zipper up to 1.55 on admission. Profound metabolic acidosis 2/2 cardiogenic shock with high dose triple pressor therapy. - Avoid nephrotoxins, renally dose meds as appropriate Assessment & Plan (04/12/2020 5:19 AM CDT): - Baseline Sewing Machine Operator Plastic Zipper upon Ecare everywhere review is ~1.0-1.2. Sewing Machine Operator Plastic Zipper up to 1.55 on admission. Profound metabolic [...] & Plan (04/11/2020 4:35 AM CDT): Baseline Sewing Machine Operator Plastic Zipper upon Ecare everywhere review is ~1.0-1.2. Sewing Machine Operator Plastic Zipper up to 1.55 on admission. Profound metabolic [...] (01/20/2020): Added automatically from request for surgery [id number] Hypertension 10/29/2019 Assessment & Plan (04/28/2020 3:23 PM CDT): Home meds:continue amlodipine Hyperlipidemia 10/29/2019 GERD (gastroesophageal reflux disease) 0 Hypothyroidism 10/29/2019 Assessment & Plan (04/28/2020 3:23 PM CDT): Home meds:continue levothyroxine Risk factors for obstructive sleep apnea 020 Rotator cuff arthropathy of left shoulder 2019 Overview (09/17/2019): Added automatically from request for surgery [id number] Recurrent kidney stones 07/29/2018 Basal cell carcinoma [...] Plan (04/16/2020 9:42 PM CDT): Extubated to [place] Assessment & Plan (04/15/2020 9:30 PM CDT): [...] (04/12/2020): Added automatically from request for surgery [id number] Immunizations Immunization Administration Dates Next Due Influenza, [...] 03/18/2024 How often do you attend chur ch or oriental orthodox services? More than 4 times per year 03/18/2024 Do you belong to any clubs o r organizations such as pentecostal groups, unions, fraternal or athletic groups, or [...] Recorded Patient Health Questionnaire-2 Score 0 03/18/2024 [place] [place] [facility] - Occupational Stress [...] place to sleep or slept in a mcc (including now)? No 09/09/2023 Personal Safety Answer Date Recorded Have you ever been in or are you currently in a harmful physical or emotional relationship or is someone making you feel afraid or unsafe? Denies 11/19/2023 Sex and Gender Information Value Date Recorded Sex Assigned at Not on file Legal Sex Male 4:18 AM RECORDING ARTIST Gender Identity Male 11/11/2020 8:35 AM RECORDING ARTIST Sexual Orientation Not on file Last Filed Vital Signs Vital Sign Reading Time Taken Comments Blood Pressure 128/78 11/04/2024 9:36 AM RECORDING ARTIST Pulse 72 11/04/2024 9:36 AM RECORDING ARTIST Temperature 36.7 C (98 F) 11/04/2024 9:36 AM RECORDING ARTIST Respiratory Rate 18 11/04/2024 9:36 AM RECORDING ARTIST Oxygen Saturation 95% 11/04/2024 9:36 AM RECORDING ARTIST Inhaled Oxygen Concentration - - Weight 92.6 kg (204 lb 3.2 oz) 11/04/2024 9:36 A M RECORDING ARTIST Height 177.8 cm (5' 10) 11/04/2024 9:36 AM RECORDING ARTIST Body Mass Index 29.3 11/04/2024 9:36 AM RECORDING ARTIST Plan of Treatment Not on file Medical Devices Implanted Type Area Security Project Manager Device Identifier Shelf Expiration Date Model / Serial / Lot Hardware Left: Knee [employer] [id number] Base Plate 26mm Tm Reverse 20m - [id number] Implanted:Qty: 1 on 11/02/2019 by Jan Aguiar MD at [facility] [employer] [id number] / / [id number] [employer] 01.67097.048 Ncb Anatomical Shoulder 4.5mm 48mm Inverse Reverse Lock Self Tap - [id number] Implanted:Qty: 1 on 11/02/2019 by Jan Aguiar MD at [facility] [employer] [id number] 4 [id number] / / [id number] [employer] [id number] Ncb Anatomical Shoulder 4.5mm 42mm Inverse Reverse Lock Self Tap - [id number] Implanted:Qty: 1 on 11/02/2019 by Jan Aguiar MD at [facility] [employer] [id number] / / [id number] [employer] [id number] Glenosphere Tm Reverse 36mm Centric - [id number] Implanted:Qty: 1 on 11/02/2019 by Jan Aguiar MD at [facility] [employer] [id number] / / [id number] [employer] [id number] 14mm 130mm Shoulder Stem Humeral Trabecular Metal Tivanium - [id number] Implanted:Qty: 1 on 11/02/2019 by Jan Aguiar MD at [facility] [employer] [id number] / / [id number] [employer] [id number] 36mm H+3mm Reverse Humerus 7d Standard Liner Shoulder Trabecular - [id number] Implanted:Qty: 1 on 11/02/2019 by Jan Aguiar MD at [facility] [employer] [id number] / / [id number] Derek Craniomaxillofac ial 98906 Impl Soft Tissue 1v5w5ao Moist Tough Flex Sheet Enduragen - S0 - [id number] Implanted:Qty: 1 on 02/15/2020 by Bishnu Canas MD at [facility] Left: Eyelid Lula Craniomaxillofacial 01/31/2024 [id number] / 0 / [id number] Description:Enduragen collag en implant Explanted Type Area Security Project Manager Device Identifier Shelf Expiration Date Model / Serial / Lot [employer] [id number] [facility] 3/32in 9in 2 Trocar Pin Fixation Nonsterile - S0 - [id number] Explanted:Qty: 1 on 11/02/2019 by Jan Aguiar MD at [facility] [employer] [id number] / 0 / [employer] [id number] 36mm H+3mm Reverse Humerus 7d Standard Liner Shoulder Trabecular - [id number] Implanted:Qty: 1 Explanted:Qty: 1 on 11/02/2019 at [facility] [employer] [id number] 06/01/2027 [id number] / / [id number] Additional Health Concerns Infection Onset Date Last 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 04/27/2020 Insurance MEDICARE [facility] MEDICARE [facility] MEDICARE [facility] MEDICARE SUPPLEMENT Advance Directives For more information, please contact: [phone] Documents on File Type Date Recorded Patient Public Relations Studies Director Expl anation ADVANCE DIRECTIVE 06/02/2021 11:14 AM Makenzie jaqueline Will ADVANCE DIRECTIVE 06/02/2021 11:13 AM Evelia r of E Commerce Web Developer-Medical * Full Code (Latest Code Status on [...] 7:29 PM 04/14/2020 2:09 PM Care Teams Outpatient Receptionist Relationship Specialty Start Date End Date Aislinn Nugent PA PCP - General Physician Telephony Engineer 09/07/19 Priya Novak MD PhD Surgeon Cardiothoracic Surgery 05/05/20 Miscellaneous, Not In File 05/05/20
--- OUTSIDE RECORDS SUMMARY | 2025-04-01 08:20 | XMS_ITS | Clinical Summary ---
Author Organization [facility] Address [address] [place] [address] Care Team Providers Care Property Analyst Name Role Phone Aislinn Nugent Primary Care Pr ovider Priya Novak MD PhD Unavailable [phone] Miscellaneous, Not In File Unavailable Unava ilable [...] 10/25/2021 Assessment & Plan (11/01/2023 10:25 AM OUTBOUND SALES REPRESENTATIVE): The patient continues on Eliquis 5 mg twice a day. Do to the severity of the of the PE the patient will remain on life long anticoagulation. Assessment & Plan (10/25/2021 8:51 AM OUTBOUND SALES REPRESENTATIVE): The patient continues on Eliquis 5 mg twice a day. Do to the severity of the of the PE the patient will remain on life long anticoagulation. Iron deficiency anemia 10/18/2021 HILTON (obstructive sleep apnea) 01/20/2021 Assessment & Plan (11/04/2024 9:50 AM OUTBOUND SALES REPRESENTATIVE): The patient has requested a new CPAP set at 10 cm water pressure. I have sent an order over to [facility]. Assessment & Plan (11/01/2023 10:25 AM OUTBOUND SALES REPRESENTATIVE): The patient continue to wear his CPAP at 10 cm water pressure while sleeping. His DME is [facility]. Assessment & Plan (10/31/2022 10:02 AM OUTBOUND SALES REPRESENTATIVE): The patient will continue CPAP therapy at 10 cm water pressure. Denied need for supplies. DME [facility] Assessment & Plan (10/25/2021 8:38 AM OUTBOUND SALES REPRESENTATIVE): Patient continue to wear CPAP at 10 [...] PICC RUE Waiting for bed back to [facility] Assessment & Plan (04/26/2020 3:18 AM CDT): F/u blood cx Vanc/zosyn Plan for I&D when appropriate from an anticoagulation standpoint History of pulmonary embolism 04/26/2020 Assessment & Plan (11/04/2024 9:51 AM OUTBOUND SALES REPRESENTATIVE): Due to the severity of the pulmonary embolism the patient is on lifelong Eliquis. Assessment & Plan (10/31/2022 10:03 AM OUTBOUND SALES REPRESENTATIVE): Will continue Eliquis on a lifelong basis. [...] (04/27/2020): Added automatically from request for surgery [id number] Assessment & Plan (04/28/2020 3:24 PM CDT): [...] Plan (04/18/2020 12:11 AM CDT): - Baseline Research Associate Professor upon Ecare everywhere review is ~1.0-1.2. - Avoid nephrotoxins, renally dose meds as appropriate - No dialysis per , continuing to make urine - Creatinine improving Assessment & Plan (04/16/2020 9:42 PM CDT): - Baseline Research Associate Professor upon Ecare everywhere review is ~1.0-1.2. - Avoid nephrotoxins, renally dose meds as appropriate -No dialysis per , continuing to make urine Assessment & Plan (04/15/2020 9:30 PM CDT): - Baseline Research Associate Professor upon Ecare everywhere review is ~1.0-1.2. - Avoid nephrotoxins, renally dose meds as appropriate Assessment & Plan (04/14/2020 5:28 PM CDT): - Baseline Research Associate Professor upon Ecare everywhere review is ~1.0-1.2. - Avoid nephrotoxins, renally dose meds as appropriate Assessment & Plan (04/14/2020 12:30 AM CDT): - Baseline Research Associate Professor upon Ecare everywhere review is ~1.0-1.2. - Avoid nephrotoxins, renally dose meds as appropriate Assessment & Plan (04/13/2020 5:36 AM CDT): - Baseline Research Associate Professor upon Ecare everywhere review is ~1.0-1.2. Research Associate Professor up to 1.55 on admission. Profound metabolic acidosis 2/2 cardiogenic shock with high dose triple pressor therapy. - Avoid nephrotoxins, renally dose meds as appropriate Assessment & Plan (04/12/2020 5:19 AM CDT): - Baseline Research Associate Professor upon Ecare everywhere review is ~1.0-1.2. Research Associate Professor up to 1.55 on admission. Profound metabolic [...] & Plan (04/11/2020 4:35 AM CDT): Baseline Research Associate Professor upon Ecare everywhere review is ~1.0-1.2. Research Associate Professor up to 1.55 on admission. Profound metabolic [...] (01/20/2020): Added automatically from request for surgery [id number] Hypertension 10/29/2019 Assessment & Plan (04/28/2020 3:23 PM CDT): Home meds:continue amlodipine Hyperlipidemia 10/29/2019 GERD (gastroesophageal reflux disease) 0 Hypothyroidism 10/29/2019 Assessment & Plan (04/28/2020 3:23 PM CDT): Home meds:continue levothyroxine Risk factors for obstructive sleep apnea 020 Rotator cuff arthropathy of left shoulder 2019 Overview (09/17/2019): Added automatically from request for surgery [id number] Recurrent kidney stones 07/29/2018 Basal cell carcinoma [...] Plan (04/16/2020 9:42 PM CDT): Extubated to [place] Assessment & Plan (04/15/2020 9:30 PM CDT): [...] (04/12/2020): Added automatically from request for surgery [id number] Encounters Date Type Department Care Team Description 02/08/2025 Telephone [facility] Cardiology [address] [place] [address] Brendan Bermeo MD from Last 3 Months Immunizations Immunization Administration Dates Next Due Influenza, Trivalent, High D ose, Split, Preservative Free, Intramuscular 07/01/2019,06/14/2017 Influenza, Trivalent, Preservative Free, Intramu scular 06/02/2015 Surgical History Surgery Date Site/Laterality Comments [place] LASER VAPORIZATION OF PROSTATE FOR URINE FLOW 04/01/2003 Laser Vaporization - Greenlight laser 04/01/2003 (Added by TW Conv) [place] JOHNS W/O FACETEC FORAMOT/DSC 09/03 VRT SGM CRV 09/02/2014 - 09/01/2015 Laminectomy Lumbar - (Added by TW Conv) COLONOSCOPY 2016 & 2010 CATARACT EXTRACTION EXTRACAPSULAR W/ INTRAOCULAR LENS IMPLANTATION 09/02/2015 - 09/01/2016 Bilateral TOTAL SHOULDER REPLACEMENT 11/02/2019 Left Shoulder Surgery - (Added by TW Conv) TOTAL KNEE ARTHROPLASTY 09/02/2015 - 09/01/2016 Left KIDNEY STONE SURGERY 10/03/2018 - 10/30/2018 stents EXTRACORPOREAL CIRCULATION 04/11/2020 [place] COLECTOMY PARTIAL W/ANASTOMOSIS 09/02/1999 - 09/01/2000 Partial [...] shoulder Colon cancer (HCC) 1999 Seizure (HCC) 1982 x1 BPH (benign prostatic hyperplasia) Syncope [address] Jain's dc summary from 03/26/2014 Spinal stenosis Neurogenic claudication HTN (hypertension) 2018 RAMONA (hard of hearing) Wearrs alla ateral hearing [...] on Eliquis , Apr Autoimmune disease R.A., 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 More than 4 times per year 03/18/2024 Do you belong to any clubs o r organizations such as yarsanism groups, unions, fraternal or athletic groups, or [...] Recorded Patient Health Questionnaire-2 Score 0 03/18/2024 [facility] - Occupational Stress [...] place to sleep or slept in a senior care (including now)? No 09/09/2023 Personal Safety Answer Date Recorded Have you ever been in or are you currently in a harmful physical or emotional relationship or is someone making you feel afraid or unsafe? Denies 11/19/2023 Sex and Gender Information Value Date Recorded Sex Assigned at Not on file Legal Sex Male 4:18 AM OUTBOUND SALES REPRESENTATIVE Gender Identity Male 11/11/2020 8:35 AM OUTBOUND SALES REPRESENTATIVE Sexual Orientation Not on file Obstetrics History Last Filed Vital Signs Vital Sign Reading Time Taken Comments Blood Pressure 128/78 11/04/2024 9:36 AM OUTBOUND SALES REPRESENTATIVE Pulse 72 11/04/2024 9:36 AM OUTBOUND SALES REPRESENTATIVE Temperature 36.7 C (98 F) 11/04/2024 9:36 AM OUTBOUND SALES REPRESENTATIVE Respiratory Rate 18 11/04/2024 9:36 AM OUTBOUND SALES REPRESENTATIVE Oxygen Saturation 95% 11/04/2024 9:36 AM OUTBOUND SALES REPRESENTATIVE Inhaled Oxygen Concentration - - Weight 92.6 kg (204 lb 3.2 oz) 11/04/2024 9:36 A M OUTBOUND SALES REPRESENTATIVE Height 177.8 cm (5' 10) 11/04/2024 9:36 AM OUTBOUND SALES REPRESENTATIVE Body Mass Index 29.3 11/04/2024 9:36 AM OUTBOUND SALES REPRESENTATIVE Plan of Treatment Health Maintenance Due Date Last Done Comments Hepatitis B Screening 1958 Well Visit 65+ 2006 Fall Risk Assessment 06/01/2022 06/01/2021 Covid-19 Vaccine (2023- 5 season) 2024 05/05/2021, 11/25/2020, 10/28/2020 Depression Screening 03/18/2025 03/18/2024, 09/09/2023, 05/27/2023 Influenza Vaccine (#1) 2025 3, 05/05/2021, 06/16/2020, Additional history exists DTaP/Tdap/Td Vaccine (2 - Td or Tdap) 06/14/2027 06/14/2017 Pneumococcal vaccine 65+ Completed 10/18/2015, 09/2011 Zoster Vaccine Completed 03/28/2020, 03/03, 09/17/2019, Additional history exists Medical Devices Implanted Type Area Paper Machine Supervisor Device Identifier Shelf Expiration Date Model / Serial / Lot Hardware Left: Knee [employer] [id number] Base Plate 26mm Tm Reverse 20m - [id number] Implanted:Qty: 1 on 11/02/2019 by Jan Aguiar MD at [facility] [employer] [id number] / / [id number] [employer] 01.79341.048 Ncb Anatomical Shoulder 4.5mm 48mm Inverse Reverse Lock Self Tap - [id number] Implanted:Qty: 1 on 11/02/2019 by Jan Aguiar MD at [facility] [employer] [id number] 4 [id number] / / [id number] [employer] 01.54211.042 Ncb Anatomical Shoulder 4.5mm 42mm Inverse Reverse Lock Self Tap - [id number] Implanted:Qty: 1 on 11/02/2019 by Jan Aguiar MD at [facility] [employer] [id number] 4 01.48930.042 / / [id number] [employer] [id number] Glenosphere Tm Reverse 36mm Centric - [id number] Implanted:Qty: 1 on 11/02/2019 by Jan Aguiar MD at [facility] [employer] [id number] / / [id number] [employer] [id number] 14mm 130mm Shoulder Stem Humeral Trabecular Metal Tivanium - [id number] Implanted:Qty: 1 on 11/02/2019 by Jan Aguiar MD at [facility] [employer] [id number] / / [id number] [employer] [id number] 36mm H+3mm Reverse Humerus 7d Standard Liner Shoulder Trabecular - [id number] Implanted:Qty: 1 on 11/02/2019 by Jan Aguiar MD at [facility] [employer] [id number] / / [id number] Derek Craniomaxillofac ial 73766 Impl Soft Tissue [id number] Moist Tough Flex Sheet Enduragen - S0 - [id number] Implanted:Qty: 1 on 02/15/2020 by Bishnu Canas MD at [facility] Left: Eyelid Derek Craniomaxillofacial 01/31/2024 [id number] / 0 / [id number] Description:Enduragen collag en implant Explanted Type Area Paper Machine Supervisor Device Identifier Shelf Expiration Date Model / Serial / Lot [employer] [id number] 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 04/27/2020 Insurance MEDICARE [facility] MEDICARE [facility] MEDICARE [facility] MEDICARE SUPPLEMENT Advance Directives For more information, please contact: [phone] Documents on File Type Date Recorded Patient Sales Support Assistant Expl anation ADVANCE DIRECTIVE 06/02/2021 11:14 AM Makenzie parsons Will ADVANCE DIRECTIVE 06/02/2021 11:13 AM Evelia r of Engineering Instructor-Medical * Full Code (Latest Code Status on [...] 7:29 PM 04/14/2020 2:09 PM Care Teams Property Analyst Relationship Specialty Start Date End Date Aislinn Nugent PA PCP - General Physician Melt Helper 09/07/19 Priya Novak MD PhD Surgeon Cardiothoracic Surgery 05/05/20 Miscellaneous, Not In File 05/05/20
--- OUTSIDE RECORDS SUMMARY | 2025-04-01 08:20 | XMS_ITS | Encounter Summary ---
Author Organization [facility] Facility Care Team Providers Care Insole Bottom Filler Name Role Phone Carolee Caruso Primary Care Provider [phone] Aislinn Nugent Primary Care Pr ovider Priya Novak MD PhD Unavailable [phone] Miscellaneous, Not In File Unavailable Unava ilable Encounter Details Date Type Department Care Team (Latest Contact Info) Description 10/19/2016 Orders Only [facility] CLINCONV Provider, MD Josselin [address] [place], [place] [id number] Social History Tobacco Use Types Packs/Day Years Used Date Smoking Tobacco: Never Assessed Sex and Gender Information Value Date Recorded Sex Assigned at Not on file Legal Sex Male 4:18 AM INTERNATIONAL MARKETING SPECIALIST Gender Identity Male 11/11/2020 8:35 AM INTERNATIONAL MARKETING SPECIALIST Sexual Orientation Not on file documented as of this encounter Plan of Treatment Not on file documented as of this encounter Procedures Procedure Name Priority Date/Time Associated Diagnosis Comments PROCEDURE - RESULT 10/19/2016 12 :00 AM INTERNATIONAL MARKETING SPECIALIST documented in this encounter Results * PROCEDURE - RESULT (10/19/2016 12:00 AM INTERNATIONAL MARKETING SPECIALIST) Narrative 10/19/2016 12:00 AM INTERNATIONAL MARKETING SPECIALIST Ordered by an unspecified provider. Historical Provider [...] documented as of this encounter Care Teams Insole Bottom Filler Relationship Specialty Start Date End Date Carolee Caruso PA [address] [place] [id number] PCP - General 04/17/17 09/06/19 Aislinn Nugent PA [address] [place] [address] [phone] PCP - General Physician Activity Director 09/07/19 Priya Novak MD PhD [address] [place] [address] [id number] Surgeon Cardiothoracic Surgery 05/05/20 Miscellaneous, Not In File 05/05/20 documented as of this encounter
--- NOTE | 2025-04-01 08:22 | ECG_ITS ---
Test Date: 2025-04-01 08:46:21 Measurements Intervals [place] Rate: 80 P: 34 CO: 172 QRS: 10 QRSD: 99 T: -3 QT: 361 QTc: 416 Interpretive Statements SINUS RHYTHM CONSIDER INFERIOR INFARCT, AGE INDETERMINATE BASELINE ARTIFACT- I, II, III, AVR, AVL, AVF ABNORMAL ECG No previous ECG available for comparison Electronically Signed On 04-02-2025 06:24:05 CDT by Johann Jones D.O.
== END 2025-04-01 08:14 | disposition home or self-care (01) ==
LOC: ANHSURGERY 08:18
PROVIDERS: PCP Physician Assistant; Visit Provider Urology
DX: R97.20 Elevated prostate specific antigen [PSA] (principal); I10 Essential (primary) hypertension; R94.31 Abnormal electrocardiogram [ECG] [EKG]
CPT/HCPCS: 87086; 93005

== ENCOUNTER 2025-04-13 03:23 | Day surgery (SDC) | payer MEDICARE, SELFPAY ==
[2025-03-31 15:33] VITALS: BMI 29.6
--- NOTE | 2025-03-31 16:08 | PC.NURSE ---
Report to the Outpatient Waiting Room, entrance under the green pavilion located off [facility], at time ___10:30AM__ on date __04/13/25___. Planned Procedure Time: ___12:30PM___.? Time changes happen often and if your time is changed the preop area will call you the afternoon before. - You and your visitor will be asked to self-screen and do not enter if you have any COVID symptoms. Please call surgeon if you need to reschedule. - A mask is optional within the hospital at this time. Patients may have clear liquids (water, carbonated beverages, clear teas, apple juice) until 3 hours prior to surgery (9:30AM) with a maximum of 20 ounces. - No food from midnight until time of surgery and no smoking, or chewing tobacco (or any form of nicotine). No chewing gum, candy or mints. Take only the following medications with a SIP of water on the morning of surgery: LEVOTHYROXINE, METOPROLOL, PREDNISONE DO NOT STOP ANY OF YOUR OTHER PRESCRIPTION MEDICATIONS PRIOR TO SURGERY EXCEPT THE FOLLOWING Hold all vitamins and supplements for 3 days per anesthesiologist.- LAST DOSE 04/09/25 Medications to discontinue per physician ___HOLD ASPIRIN AND ELIQUIS 3 DAYS PRE-OP PER SHAJI/DR TITUS Date to take last dose 04/09/25 Please no make-up, nail tajik, hairspray, perfume, deodorant, or body powder the day of surgery.? No jewelry (including any body piercings) or valuables the day of surgery, leave them at home.? Please take a shower or bath the night before, or the morning of, surgery with an antibacterial soap.? Wear comfortable, loose fitting clothing.? - Jewelry must be removed prior to entering the operating room.? Rings and piercings that are not removed may be cut off. - The hospital will not accept responsibility for valuables.? - Please leave all valuables, including medications, at home the day of surgery. If you are going home after surgery, a licensed delivery driver/customer service must drive you home.? - NO public transportation without another adult if you receive anesthesia. - We recommend that an adult stay with you for 24 hours following discharge. - We also recommend that you do not drive, make important decision, drink alcoholic beverages, or take any drugs that were not prescribed by your health care provider for at least 24 hours after your discharge time. Follow any additional instructions given to you from your surgeon. Telephone instructions given to ___PATIENT'S , KRISTINA and asked if any additional questions and then verbalized understanding. Patient advised to call surgeon office or pre surgery nurse liaison [phone] if any additional questions.
--- OUTSIDE RECORDS SUMMARY | 2025-04-13 03:27 | XMS_ITS | Encounter Summary ---
Author Organization [facility] Facility Care Team Providers Care Air Pollution Analyst Name Role Phone Carolee Caruso Primary Care Provider [phone] Aislinn Nugent Primary Care Pr ovider Priya Novak MD PhD Unavailable [phone] Miscellaneous, Not In File Unavailable Unava ilable Encounter Details Date Type Department Care Team (Latest Contact Info) Description 02/27/2017 Orders Only [facility] CLINCONV ProviderJosselin MD [address] [place] [id number] Social History Tobacco Use Types Packs/Day Years Used Date Smoking Tobacco: Never Assessed Sex and Gender Information Value Date Recorded Sex Assigned at Not on file Legal Sex Male 4:18 AM REGISTERED VETERINARY TECHNICIAN Gender Identity Male 11/11/2020 8:35 AM REGISTERED VETERINARY TECHNICIAN Sexual Orientation Not on file documented as of this encounter Plan of Treatment Not on file documented as of this encounter Procedures Procedure Name Priority Date/Time Associated Diagnosis Comments COLONOSCOPY - SCAN 02/28/2017 12 :00 AM CDT documented in this encounter Results * COLONOSCOPY - SCAN (02/28/2017 12:00 AM CDT) Narrative 02/28/2017 12:00 AM CDT Ordered by an unspecified provider. us Historical [...] documented as of this encounter Care Teams Air Pollution Analyst Relationship Specialty Start Date End Date Carolee Caruso PA [address] [place] [phone] PCP - General 04/17/17 09/06/19 Aislinn Nugent PA [address] [place] [address] [phone] PCP - General Physician Kennel Attendant 09/07/19 Priya Novak MD PhD [address] [place] [address] [phone] Surgeon Cardiothoracic Surgery 05/05/20 Miscellaneous, Not In File 05/05/20 documented as of this encounter
--- OUTSIDE RECORDS SUMMARY | 2025-04-13 03:27 | XMS_ITS | Encounter Summary ---
Author Organization [facility] Facility Care Team Providers Care Manager Truck Name Role Phone Carolee Caruso Primary Care Provider [phone] Aislinn Nugent Primary Care Pr ovider Priya Novak MD PhD Unavailable [phone] Miscellaneous, Not In File Unavailable Unava ilable Encounter Details Date Type Department Care Team (Latest Contact Info) Description 11/09/2015 Orders Only [facility] CLINCONV ProviderJosselin MD [address] [place] [id number] Social History Tobacco Use Types Packs/Day Years Used Date Smoking Tobacco: Never Assessed Sex and Gender Information Value Date Recorded Sex Assigned at Not on file Legal Sex Male 4:18 AM ENDLESS BELT FINISHER Gender Identity Male 11/11/2020 8:35 AM ENDLESS BELT FINISHER Sexual Orientation Not on file documented as of this encounter Plan of Treatment Not on file documented as of this encounter Procedures Procedure Name Priority Date/Time Associated Diagnosis Comments CARDIOLOGY REPORT 11/09/2015 12: 00 AM ENDLESS BELT FINISHER documented in this encounter Results * CARDIOLOGY REPORT (11/09/2015 12:00 AM ENDLESS BELT FINISHER) Anatomical Region Laterality Modality Other Narrative 11/09/2015 12:00 AM ENDLESS BELT FINISHER Ordered by an unspecified provider. Historical Provider [...] as of this encounter Care Teams Manager Truck Relationship Specialty Start Date End Date Carolee Caruso PA [address] [place] [address] [phone] PCP - General 04/17/17 09/06/19 Aislinn Nugent PA [address] [place] [address] [phone] PCP - General Physician Conveyor Maintenance Mechanic 09/07/19 Priya Novak MD PhD [address] [place] [address] [phone] Surgeon Cardiothoracic Surgery 05/05/20 Miscellaneous, Not In File 05/05/20 documented as of this encounter
--- OUTSIDE RECORDS SUMMARY | 2025-04-13 03:27 | XMS_ITS | Clinical Summary ---
Author Organization [facility] [employer] Address [address] [place] [address] Care Team Providers Care Escapement Matcher Name Role Phone Aislinn Soriano Primary Care Pr ovider Source Comments [facility] [employer],non-owned Affiliates and Associated Physician Practices is amultiple site organization consisting of ambulatory clinics and hospital sitesin [place], [place], [place] and [place]. This disclosure is being madepursuant to the Care Everywhere program and may not contain all information available regarding this patient. Last updated 18.[facility] [employer] Allergies No known active allergies Medications * [...] of the Eye Following Surgery Active White Petrolatum-Estancia al Oil (LUBRICANT EYE NIGHTTIME) OINT 1 [...] Comments Blood Pressure 159/94 08/03/2018 4:39 AM SLIVER CUTTER Pulse 90 08/03/2018 12:05 AM SLIVER CUTTER Temperature 36.9 C (98.4 F) 08/03/2018 12:05 AM SLIVER CUTTER Respiratory Rate 14 08/03/2018 12:05 AM SLIVER CUTTER Oxygen Saturation 95% 08/03/2018 4:38 AM SLIVER CUTTER Inhaled Oxygen Concentration 92% 03/24/2014 1 0:56 AM CDT Weight 86.2 kg (190 lb) 08/03/2018 12:05 AM SLIVER CUTTER Height 177.8 cm (5' 10) 08/03/2018 12:05 AM SLIVER CUTTER Body Mass Index 27.26 08/03/2018 12:05 AM SLIVER CUTTER Plan of Treatment Health Maintenance Due Date [...] this topic Medical Devices Implanted Type Area Key Holder Device Identifier Shelf Expiration Date Model / Serial / Lot Stent Uret 6fr 22-30cm Pgtl Crv Tpr Tip - [id number] Implanted:Qty: 1 on 07/29/2018 by Joo Girard MD at [facility] Right: [employer] 04/20/2021 [id number] 0 / [id number] / [id number] Stent Uret 6fr 26cm Pgtl Crv Lg Inr Lum - [id number] Implanted:Qty: 1 on 07/29/2018 by Joo Girard MD at [facility] Right: [employer] 04/16/2021 [id number] 0 / [id number] 0 / [id number] Insurance MEDICARE [facility][NOTE 3] MEDICARE ANTHEM Advance Directives Documents on File Type Date Recorded Patient Parts Counter Associate Expl anation Adv Directive/Living Will/POA 11/08/2015 10:19 [...] 5:38 PM 02/26/2013 3:24 PM Care Teams Escapement Matcher Relationship Specialty Start Date End Date Aislinn Soriano PA [address] [place] [phone] PCP - General 08/10/21
--- OUTSIDE RECORDS SUMMARY | 2025-04-13 03:27 | XMS_ITS | Encounter Summary ---
Author Organization [facility] Facility Care Team Providers Care Membership Secretary Name Role Phone Carolee Caruso Primary Care Provider [phone] Aislinn Nugent Primary Care Pr ovider Priya Novak MD PhD Unavailable Miscellaneous, Not In File Unavailable Unava ilable Encounter Details Date Type Department Care Team (Latest Contact Info) Description 06/13/2016 Orders Only [facility] CLINCONV Provider, MD Josselin [address] [place] [id number] Social History Tobacco Use Types Packs/Day Years Used Date Smoking Tobacco: Never Assessed Sex and Gender Information Value Date Recorded Sex Assigned at Not on file Legal Sex Male 4:18 AM GOLF COURSE EQUIPMENT OPERATOR Gender Identity Male 11/11/2020 8:35 AM GOLF COURSE EQUIPMENT OPERATOR Sexual Orientation Not on file documented as of this encounter Plan of Treatment Not on file documented as of this encounter Procedures Procedure Name Priority Date/Time Associated Diagnosis Comments SCAN - LABS 08/03/2016 12:00 AM GOLF COURSE EQUIPMENT OPERATOR documented in this encounter Results * SCAN - LABS (08/03/2016 12:00 AM GOLF COURSE EQUIPMENT OPERATOR) Narrative 08/03/2016 12:00 AM GOLF COURSE EQUIPMENT OPERATOR Ordered by an unspecified provider. Historical [...] documented as of this encounter Care Teams Membership Secretary Relationship Specialty Start Date End Date Carolee Caruso PA [address] [place] [address] [phone] PCP - General 04/17/17 09/06/19 Aislinn Nugent PA [address] [place] [address] [phone] PCP - General Physician Archery Instructor 09/07/19 Priya Novak MD PhD [address] [place] [address] [phone] Surgeon Cardiothoracic Surgery 05/05/20 Miscellaneous, Not In File 05/05/20 documented as of this encounter
--- OUTSIDE RECORDS SUMMARY | 2025-04-13 03:27 | XMS_ITS | Clinical Summary ---
Author Organization [facility] Address [address] [place] [address] Care Team Providers Care Automotive Glass Specialist Name Role Phone Aislinn Nugent Primary Care Pr ovider Priya Novak MD PhD Unavailable [phone] Miscellaneous, Not In File Unavailable Unava ilable Allergies Active Allergy Reactions Criticality Noted Date Comments Lidocaine Unknown 04/01/2025 lidocaine Medications atorvastatin (LIPITOR) 20 mg tabletIndications: hyperlipidemia [...] ORAL) Vitamin C 1 TAB DAILY Active folic acid (FOLVITE) 1 mg tabletIndications: Rheumatoid arthritis involving multiple sites with positive rheumatoid factor (HCC) Take 1 tablet (1,000 mcg total) by mouth daily 90 tablet 2 Active apixaban (ELIQUIS) 5 mg tabletIndications: hx PE Take 1 tablet (5 mg total) by mouth every 12 (twelve) hours 180 tablet 2 025 2025 Active metoprolol XL (TOPROL-XL) 50 mg extended release tabletIndications: PSVT (paroxysmal supraventricular tachycardia) TAKE 1 TABLET BY MOUTH ONCE DAILY IN THE MORNING 90 tablet Active predniSONE (DELTASONE) 1 mg tabletIndications: Rheumatoid arthritis involving multiple sites with positive rheumatoid factor (HCC) Take 3 tablets (3 mg) by mouth daily 270 tablet 1 025 2025 Active methotrexate 2.5 mg tabletIndications: Rheumatoid Arthritis Take 4 tablets (10 mg total) by mouth once a week 16 tablet 3 025 2024 Active alendronate (FOSAMAX) 70 mg tabletIndications: osteopenia Take 1 tablet (70 mg total) by mouth every 7 days Take on an empty stomach. Do not lie down or eat for 1/2 hour after taking. 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 Do to the severity of the of the PE the patient will remain on life long anticoagulation. Assessment & Plan (10/25/2021 8:51 AM COUPLING MACHINE OPERATOR): The patient continues on Eliquis 5 mg twice a day. Do to the severity of the of the PE the patient will remain on life long anticoagulation. Iron deficiency anemia 10/18/2021 [place] (obstructive sleep apnea) 01/20/2021 Assessment & Plan (11/04/2024 9:50 AM COUPLING MACHINE OPERATOR): The patient has requested a new CPAP set at 10 cm water pressure. I have sent an order over to [facility]. Assessment & Plan (11/01/2023 10:25 AM COUPLING MACHINE OPERATOR): The patient continue to wear his CPAP at 10 cm water pressure while sleeping. His DME is [facility]. Assessment & Plan (10/31/2022 10:02 AM COUPLING MACHINE OPERATOR): The patient will continue CPAP therapy at 10 cm water pressure. Denied need for supplies. DME [facility] Assessment & Plan (10/25/2021 8:38 AM COUPLING MACHINE OPERATOR): Patient continue to wear CPAP at 10 [...] PICC RUE Waiting for bed back to [facility] Assessment & Plan (04/26/2020 3:18 AM CDT): F/u blood cx Vanc/zosyn Plan for I&D when appropriate from an anticoagulation standpoint History of pulmonary embolism 04/26/2020 Assessment & Plan (11/04/2024 9:51 AM COUPLING MACHINE OPERATOR): Due to the severity of the pulmonary embolism the patient is on lifelong Eliquis. Assessment & Plan (10/31/2022 10:03 AM COUPLING MACHINE OPERATOR): Will continue Eliquis on a lifelong basis. [...] (04/27/2020): Added automatically from request for surgery [id number] Assessment & Plan (04/28/2020 3:24 PM CDT): [...] Plan (04/18/2020 12:11 AM CDT): - Baseline Community Living Specialist upon Ecare everywhere review is ~1.0-1.2. - Avoid nephrotoxins, renally dose meds as appropriate - No dialysis per , continuing to make urine - Creatinine improving Assessment & Plan (04/16/2020 9:42 PM CDT): - Baseline Community Living Specialist upon Ecare everywhere review is ~1.0-1.2. - Avoid nephrotoxins, renally dose meds as appropriate -No dialysis per , continuing to make urine Assessment & Plan (04/15/2020 9:30 PM CDT): - Baseline Community Living Specialist upon Ecare everywhere review is ~1.0-1.2. - Avoid nephrotoxins, renally dose meds as appropriate Assessment & Plan (04/14/2020 5:28 PM CDT): - Baseline Community Living Specialist upon Ecare everywhere review is ~1.0-1.2. - Avoid nephrotoxins, renally dose meds as appropriate Assessment & Plan (04/14/2020 12:30 AM CDT): - Baseline Community Living Specialist upon Ecare everywhere review is ~1.0-1.2. - Avoid nephrotoxins, renally dose meds as appropriate Assessment & Plan (04/13/2020 5:36 AM CDT): - Baseline Community Living Specialist upon Ecare everywhere review is ~1.0-1.2. Community Living Specialist up to 1.55 on admission. Profound metabolic acidosis 2/2 cardiogenic shock with high dose triple pressor therapy. - Avoid nephrotoxins, renally dose meds as appropriate Assessment & Plan (04/12/2020 5:19 AM CDT): - Baseline Community Living Specialist upon Ecare everywhere review is ~1.0-1.2. Community Living Specialist up to 1.55 on admission. Profound metabolic [...] & Plan (04/11/2020 4:35 AM CDT): Baseline Community Living Specialist upon Ecare everywhere review is ~1.0-1.2. Community Living Specialist up to 1.55 on admission. Profound metabolic [...] (01/20/2020): Added automatically from request for surgery [id number] Hypertension 10/29/2019 Assessment & Plan (04/28/2020 3:23 PM CDT): Home meds:continue amlodipine Hyperlipidemia 10/29/2019 GERD (gastroesophageal reflux disease) 0 Hypothyroidism 10/29/2019 Assessment & Plan (04/28/2020 3:23 PM CDT): Home meds:continue levothyroxine Risk factors for obstructive sleep apnea 020 Rotator cuff arthropathy of left shoulder 2019 Overview (09/17/2019): Added automatically from request for surgery [id number] Recurrent kidney stones 07/29/2018 Basal cell carcinoma [...] Plan (04/16/2020 9:42 PM CDT): Extubated to [place] Assessment & Plan (04/15/2020 9:30 PM CDT): [...] (04/12/2020): Added automatically from request for surgery [id number] Encounters Date Type Department Care Team Description 04/01/2025 11:00 AM CDT Office Visit [facility] Rheumatology [address] [place] [address] [place] [address] Shirley Castro MD Rheumatoid arthritis involving multiple sites with positive rheumatoid factor (HCC) (Primary Dx); Osteopenia, unspecified location; Poisoning by vitamin D, accidental or unintentional, sequela; High risk medication use; extermination inspector (current) use of systemic steroids; extermination inspector systemic steroid user 04/01/2025 10:45 AM CDT Lab [facility] Endocrinology Metabolism and Lipid [address] [place] [address] [place] [address] Rheumatoid arthritis involving multiple sites with positive rheumatoid factor (HCC); High risk medication use; Osteopenia, unspecified location; Poisoning by vitamin D, accidental or unintentional, sequela 02/08/2025 Telephone [facility] Cardiology [address] [place] [address] Brendan Bermeo MD from Last 3 Months Immunizations Immunization Administration Dates Next Due Influenza, Trivalent, High D ose, Split, Preservative Free, Intramuscular 07/01/2019,06/14/2017 Influenza, Trivalent, Preservative Free, Intramu scular 06/02/2015 Surgical History Surgery Date Site/Laterality Comments CO LASER VAPORIZATION OF PROSTATE FOR URINE FLOW 04/01/2003 Laser Vaporization - Greenlight laser 04/01/2003 (Added by TW Conv) CO JOHNS W/O FACETEC FORAMOT/DSC 09/03 VRT SGM CRV 09/02/2014 - 09/01/2015 Laminectomy Lumbar - (Added by TW Conv) COLONOSCOPY 2016 & 2010 CATARACT EXTRACTION EXTRACAPSULAR W/ INTRAOCULAR LENS IMPLANTATION 09/02/2015 - 09/01/2016 Bilateral TOTAL SHOULDER REPLACEMENT 11/02/2019 Left Shoulder Surgery - (Added by TW Conv) TOTAL KNEE ARTHROPLASTY 09/02/2015 - 09/01/2016 Left KIDNEY STONE SURGERY 10/03/2018 - 10/30/2018 stents EXTRACORPOREAL CIRCULATION 04/11/2020 CO COLECTOMY PARTIAL W/ANASTOMOSIS 09/02/1999 - 09/01/2000 Partial [...] Spinal stenosis Neurogenic claudication HTN (hypertension) 2018 [place] (hard of hearing) Wearrs alla ateral hearing [...] 01/2021 cpap started Hypothyroidism Hyperlipidemia Pulmonary embolism 2019 on eliquis Nephrolithiasis see surgery RA (rheumatoid arthritis) Anemia mild MILLY per RA doctor not [...] one beer a month Social Connection and Isolation Panel Answer Date Recorded In a typical week, how many times do you talk on the phone with family, friends, or neighbors? Three times a week 03/18/2024 How often do you get togethe r with friends or relatives? Once a week 03/18/2024 How often do you attend chur or tenriism services? More than 4 times per year 03/18/2024 Do you belong to any clubs o r organizations such as evangelical groups, unions, fraternal or athletic groups, or [...] Recorded Patient Health Questionnaire-2 Score 0 03/18/2024 [facility] - Occupational Stress Questionnaire Answer Date [...] place to sleep or slept in a longterm (including now)? No 09/09/2023 Personal Safety Answer Date Recorded Have you ever been in or are you currently in a harmful physical or emotional relationship or is someone making you feel afraid or unsafe? Denies 11/19/2023 Sex and Gender Information Value Date Recorded Sex Assigned at Not on file Legal Sex Male 4:18 AM COUPLING MACHINE OPERATOR Gender Identity Male 11/11/2020 8:35 AM COUPLING MACHINE OPERATOR Sexual Orientation Not on file Obstetrics History Last Filed Vital Signs Vital Sign Reading Time Taken Comments Blood Pressure 123/82 04/01/2025 10:12 AM CDT Pulse 78 04/01/2025 10:12 AM CDT Temperature 36.3 C (97.3 F) 04/01/2025 10:12 AM CDT Respiratory Rate 18 11/04/2024 9:36 AM COUPLING MACHINE OPERATOR Oxygen Saturation 95% 11/04/2024 9:36 AM COUPLING MACHINE OPERATOR Inhaled Oxygen Concentration - - Weight 93 kg (205 lb) 04/01/2025 10:12 AM CDT Height 177.8 cm (5' 10) 04/01/2025 10:12 AM CDT Body Mass Index 29.41 04/01/2025 10:12 AM CDT Plan of Treatment Health Maintenance Due Date Last Done Comments Hepatitis B Screening 1958 Well Visit 65+ 2006 Fall Risk Assessment 06/01/2022 06/01/2021 Covid-19 Vaccine (4 - 2023-2 5 season) 2024 05/05/2021, 11/25/2020, 10/28/2020 Depression Screening 03/18/2025 03/18/2024, 09/09/2023, 05/27/2023 Influenza Vaccine (#1) 2025 , 05/11/2023, 05/05/2021, Additional history exists DTaP/Tdap/Td Vaccine (3 - Td or Tdap) 08/02/2027 08/02/2017, 06/14/2017 Pneumococcal vaccine 65+ Completed 016, 09/02/2014, 09/02/2011 Zoster Vaccine Completed 03/28/2020, 03/03, 09/17/2019, Additional history exists Medical Devices Implanted Type Area Storage And Backup Administrator Device Identifier Shelf Expiration Date Model / Serial / Lot Hardware Left: Knee [employer] [id number] Base Plate 26mm Tm Reverse 20m - [id number] Implanted:Qty: 1 on 11/02/2019 by Jan Aguiar MD at [facility] [employer] [id number] / / [id number] [employer] .86157.048 Ncb Anatomical Shoulder 4.5mm 48mm Inverse Reverse Lock Self Tap - [id number] Implanted:Qty: 1 on 11/02/2019 by Jan Aguiar MD at [facility] [employer] [id number] 4 .[id number] / / [id number] [employer] .12056.042 Ncb Anatomical Shoulder 4.5mm 42mm Inverse Reverse Lock Self Tap - [id number] Implanted:Qty: 1 on 11/02/2019 by Jan Aguiar MD at [facility] [employer] [id number] 4 .[id number] / / [id number] [employer] [id number] Glenosphere Tm Reverse 36mm Centric - [id number] Implanted:Qty: 1 on 11/02/2019 by Jan Aguiar MD at [facility] [employer] [id number] / / [id number] [employer] [id number] 14mm 130mm Shoulder Stem Humeral Trabecular Metal Tivanium - [id number] Implanted:Qty: 1 on 11/02/2019 by Jan Aguiar MD at [facility] [employer] [id number] 9 [id number] / / [id number] [employer] [id number] 36mm H+3mm Reverse Humerus 7d Standard Liner Shoulder Trabecular - [id number] Implanted:Qty: 1 on 11/02/2019 by Jan Aguiar MD at [facility] [employer] [id number] / / [id number] Derek Craniomaxillofac ial [id number] Impl Soft Tissue [id number] Moist Tough Flex Sheet Enduragen - S0 - [id number] Implanted:Qty: 1 on 02/15/2020 by Bishnu Canas MD at [facility] Left: Eyelid Derek Craniomaxillofacial 01/31/2024 [id number] / 0 / [id number] Description:Endura collag en implant Explanted Type Area Storage And Backup Administrator Device Identifier Shelf Expiration Date Model / Serial / Lot [employer] 1624-109ns Steinmann 3/32in 9in 2 Trocar Pin Fixation Nonsterile - S0 - [id number] Explanted:Qty: 1 on 11/02/2019 by Jan Aguiar MD at [facility] [employer] [id number] / 0 / [employer] [id number] 36mm H+3mm Reverse Humerus 7d Standard Liner Shoulder Trabecular - [id number] Implanted:Qty: 1 Explanted:Qty: 1 on 11/02/2019 at [facility] [employer] [id number] 06/01/2027 [id number] / / [id number] Procedures Procedure Name Priority Date/Time Associated Diagnosis Comments VITAMIN D 25 HYDROXY Routine 04/01/2025 10:52 AM CDT Osteopenia, unspecified location Poisoning by vitamin D, accidental or unintentional, sequela ERYTHROCYTE SEDIMENTATION RATE Routine 04/01/2025 10:52 AM CDT Rheumatoid arthritis involving multiple sites with positive rheumatoid factor (HCC) COMPREHENSIVE METABOLIC PANEL Routine 04/01/2025 10:52 AM CDT Rheumatoid arthritis involving multiple sites with positive rheumatoid factor (HCC) High risk medication use CBC WITH AUTO DIFFERENTIAL Routine 04/01/2025 10:52 AM CDT Rheumatoid arthritis involving multiple sites with positive rheumatoid factor (HCC) High risk medication use CRP (ACUTE PHASE) Routine 04/01/2025 10: 52 AM CDT Rheumatoid arthritis involving multiple sites with positive rheumatoid factor (HCC) from Last 3 Months Results * (ABNORMAL) CBC with auto differential (04/01/2025 10:52 AM CDT) White Blood Count 9.6 3.6 - 11.2 K/uL [facility] RBC 4.64 4.06 - 5.63 M/uL [facility] Hemoglobin 15.0 13.0 - 17.5 g/dL [facility] Hematocrit 45.7 40.7 - 50.3 % [facility] MCV 98.5(H) 80.0 - 97.6 fL [facility] MCH 32.4 26.7 - 33.7 pg [facility] MCHC 32.9 32.7 - 35.5 g/dL [facility] RBC Dist Width 16.4 12.3 - 17.0 % [facility] Platelet Count 317 140 - 440 K/uL [facility] MPV 9.3 6.8 - 10.4 fL [facility] Neutrophils % 66.6 38.7 - 74.5 % [facility] Lymphocyte % 21.5 20.0 - 54.3 % [facility] Monocytes % 9.9 4.3 - 13.5 % [facility] Eosinophils % 1.6 0.0 - 6.0 % [facility] Basophil % 0.4 0.0 - 3.0 % [facility] Absolute Neutrophil 6.4 1.8 - 6.6 K/uL [facility] Absolute Lymphocyte 2.1 0.8 - 3.3 K/uL [facility] Absolute Monocyte 1.0 0.2 - 1.2 K/uL [facility] Absolute Eosinophil 0.2 0.0 - 0.5 K/uL [facility] Absolute Basophil 0.0 0.0 - 0.2 K/uL [facility] Nucleated RBC % 0.0 0.0 - 0.4 /100 WBC [facility] Blood 04/01/2025 10:5 2 AM CDT 04/01/2025 12:40 PM CDT Shirley Watson MD LAB BL OOD ORDERABLES Final Result [facility] * Vitamin D 25 hydroxy (04/01/2025 10:52 AM CDT) Vitamin D 81.2 20.0 - 100.0 ng/mL [facility] Comment: VITAMIN D DEFICIENCY = LESS THAN or EQUAL TO 20 ng/mL VITAMIN D INSUFFICIENCY = 21 - 29 ng/mL VITAMIN D SUFFICIENT = 30-100 ng/mL Blood 04/01/2025 10:5 2 AM CDT 04/01/2025 12:40 PM CDT Shirley Watson MD LAB BL OOD ORDERABLES Final Result [facility] * (ABNORMAL) Erythrocyte sedimentation rate (04/01/2025 10:52 AM CDT) Erythrocyte Sedimentation Rate 25(H) <20 mm/hr [facility] Blood 04/01/2025 10:5 2 AM CDT 04/01/2025 12:40 PM CDT Shirley Watson MD LAB BL OOD ORDERABLES Final Result Performing Organization Address [facility] Co de Phone Number [facility] * CRP (acute phase) (04/01/2025 10:52 AM CDT) C-Reactive Protein, Acute <3.0 <5.0 mg/L [facility] Blood 04/01/2025 10:5 2 AM CDT 04/01/2025 12:40 PM CDT Shirley Watson MD LAB BL OOD ORDERABLES Final Result [facility] * (ABNORMAL) Comprehensive metabolic panel (04/01/2025 10:52 AM CDT) Total Protein 7.6 6.1 - 8.4 g/dL [facility] Albumin 4.3 3.5 - 5.2 g/dL [facility] Calcium 9.6 8.6 - 10.3 mg/dL [facility] BUN 17 7 - 23 mg/dL [facility] Total Bilirubin 0.60 0.20 - 1.40 mg/dL [facility] Alk Phos, Total 69 35 - 129 IU/L [facility] AST (SGOT) 19 11 - 47 IU/L [facility] ALT (SGPT) 15 6 - 53 IU/L [facility] Creatinine 1.30 0.70 - 1.30 mg/dL [facility] Sodium 140 135 - 145 mmol/L [facility] Potassium 4.7 3.3 - 5.1 mmol/L [facility] Chloride 102 95 - 107 mmol/L [facility] CO2 Content 26 21 - 29 mmol/L [facility] Glucose 93 64 - 99 mg/dL [facility] Comment: NONFASTING GLUCOSE RANGE = 64-199 mg/dL FASTING GLUCOSE 64 - 99 = NORMAL FASTING GLUCOSE 100 - 125 = IMPAIRED FASTING GLUCOSE FASTING GLUCOSE >=126 = PROVISIONAL DIAGNOSIS OF DIABETES eGFR 54.5(L) >60.0 mL/min/1.7 3 m2 [facility] Blood 04/01/2025 10:5 2 AM CDT 04/01/2025 12:40 PM CDT Shirley Watson MD LAB BL OOD ORDERABLES Final Result [facility] from Last 3 Months Additional Health Concerns Infection Onset Date Last 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 04/27/2020 Insurance MEDICARE [facility] MEDICARE [facility] MEDICARE [facility] Address: [address] [address] [place] [address] [facility] MEDICARE SUPPLEMENT Advance Directives For more information, please contact: [phone] Documents on File Type Date Recorded Patient Waterway Traffic Checker Expl anation ADVANCE DIRECTIVE 06/02/2021 11:14 AM Makenzie jaqueline Will ADVANCE DIRECTIVE 06/02/2021 11:13 AM Evelia r of Retail Wireless Associate-Medical * Full Code (Latest Code Status on [...] 7:29 PM 04/14/2020 2:09 PM Care Teams Automotive Glass Specialist Relationship Specialty Start Date End Date Aislinn Nugent PA PCP - General Physician Glass Cut Off Supervisor 09/07/19 Priya Novak MD PhD Surgeon Cardiothoracic Surgery 05/05/20 Miscellaneous, Not In File 05/05/20
--- OUTSIDE RECORDS SUMMARY | 2025-04-13 03:27 | XMS_ITS | Encounter Summary ---
Author Organization [facility] Facility Care Team Providers Care Security Public Safety Officer Name Role Phone Carolee Caruso Primary Care Provider [phone] Aislinn Nugent Primary Care Pr ovider Priya Novak MD PhD Unavailable [phone] Miscellaneous, Not In File Unavailable Unava ilable Encounter Details Date Type Department Care Team (Latest Contact Info) Description 11/10/2015 Orders Only [facility] ProviderJosselin MD [address] [place] [id number] Social History Tobacco Use Types Packs/Day Years Used Date Smoking Tobacco: Never Assessed Sex and Gender Information Value Date Recorded Sex Assigned at Not on file Legal Sex Male 4:18 AM CANNON FIRE DIRECTION SPECIALIST Gender Identity Male 11/11/2020 8:35 AM CANNON FIRE DIRECTION SPECIALIST Sexual Orientation Not on file documented [...] as of this encounter Care Teams Security Public Safety Officer Relationship Specialty Start Date End Date Carolee Caruso PA [address] [place] [phone] PCP - General 04/17/17 09/06/19 Aislinn Nugent PA [address] [place] [address] [phone] PCP - General Physician Cork Cutter 09/07/19 Priya Novak MD PhD [address] [place] [address] [phone] Surgeon Cardiothoracic Surgery 05/05/20 Miscellaneous, Not In File 05/05/20 documented as of this encounter
--- OUTSIDE RECORDS SUMMARY | 2025-04-13 03:27 | XMS_ITS | Encounter Summary ---
Author Organization [facility] Facility Care Team Providers Care Fleet Manager/Dispatch Name Role Phone Carolee Caruso Primary Care Provider [phone] Aislinn Nugent Primary Care Pr ovider Priya Novak MD PhD Unavailable [phone] Miscellaneous, Not In File Unavailable Unava ilable Encounter Details Date Type Department Care Team (Latest Contact Info) Description 10/19/2016 Orders Only [facility] CLINCONV ProviderJosselin MD [address] [place] [id number] Social History Tobacco Use Types Packs/Day Years Used Date Smoking Tobacco: Never Assessed Sex and Gender Information Value Date Recorded Sex Assigned at Not on file Legal Sex Male 4:18 AM GAMING FLOOR SUPERVISOR Gender Identity Male 11/11/2020 8:35 AM GAMING FLOOR SUPERVISOR Sexual Orientation Not on file documented as of this encounter Plan of Treatment Not on file documented as of this encounter Procedures Procedure Name Priority Date/Time Associated Diagnosis Comments PROCEDURE - RESULT 10/19/2016 12 :00 AM GAMING FLOOR SUPERVISOR documented in this encounter Results * PROCEDURE - RESULT (10/19/2016 12:00 AM GAMING FLOOR SUPERVISOR) Narrative 10/19/2016 12:00 AM GAMING FLOOR SUPERVISOR Ordered by an unspecified provider. Historical Provider [...] documented as of this encounter Care Teams Fleet Manager/Dispatch Relationship Specialty Start Date End Date Carolee Caruso PA [address] [place] [address] [phone] PCP - General 04/17/17 09/06/19 Aislinn Nugent PA [address] [place] [address] [phone] PCP - General Physician Senior Investment Analyst 09/07/19 Priya Novak MD PhD [address] [place] [address] [phone] Surgeon Cardiothoracic Surgery 05/05/20 Miscellaneous, Not In File 05/05/20 documented as of this encounter
--- OUTSIDE RECORDS SUMMARY | 2025-04-13 03:27 | XMS_ITS | Encounter Summary ---
Author Organization [facility] Address [address] [place] [address] Phone Care Team Providers Care Briar Shop Supervisor Name Role Phone Aislinn Nugent Primary Care Pr ovider Priya Novak MD PhD Unavailable [phone] Miscellaneous, Not In File Unavailable Unava ilable [...] on file Legal Sex Male 4:18 AM PACKING AND WRAPPING SUPERVISOR Gender Identity Male 11/11/2020 8:35 AM PACKING AND WRAPPING SUPERVISOR Sexual Orientation Not on file documented [...] documented as of this encounter Care Teams Briar Shop Supervisor Relationship Specialty Start Date End Date Aislinn Nugent PA PCP - General Physician Missile Control Pilot 09/07/19 Priya Novak MD PhD Surgeon Cardiothoracic Surgery 05/05/20 Miscellaneous, Not In File 05/05/20 documented as of this encounter
--- OUTSIDE RECORDS SUMMARY | 2025-04-13 03:27 | XMS_ITS ---
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 Do to the severity of the of the PE the patient will remain on life long anticoagulation. Assessment & Plan (10/25/2021 8:51 AM ELEVATOR SUPERVISOR): The patient continues on Eliquis 5 mg twice a day. Do to the severity of the of the PE the patient will remain on life long anticoagulation. Iron deficiency anemia 10/18/2021 [place] (obstructive sleep apnea) 01/20/2021 Assessment & Plan (11/04/2024 9:50 AM ELEVATOR SUPERVISOR): The patient has requested a new CPAP set at 10 cm water pressure. I have sent an order over to [facility]. Assessment & Plan (11/01/2023 10:25 AM ELEVATOR SUPERVISOR): The patient continue to wear his CPAP at 10 cm water pressure while sleeping. His DME is [facility]. Assessment & Plan (10/31/2022 10:02 AM ELEVATOR SUPERVISOR): The patient will continue CPAP therapy at 10 cm water pressure. Denied need for supplies. DME [facility] Assessment & Plan (10/25/2021 8:38 AM ELEVATOR SUPERVISOR): Patient continue to wear CPAP at [...] PICC RUE Waiting for bed back to [facility] Assessment & Plan (04/26/2020 3:18 AM CDT): F/u blood cx Vanc/zosyn Plan for I&D when appropriate from an anticoagulation standpoint History of pulmonary embolism 04/26/2020 Assessment & Plan (11/04/2024 9:51 AM ELEVATOR SUPERVISOR): Due to the severity of the pulmonary embolism the patient is on lifelong Eliquis. Assessment & Plan (10/31/2022 10:03 AM ELEVATOR SUPERVISOR): Will continue Eliquis on a lifelong [...] (04/27/2020): Added automatically from request for surgery [id number] Assessment & Plan (04/28/2020 3:24 PM CDT): [...] [facility] Postop MARIHCUY with mild RV dilation with goo biventricular [...] Plan (04/18/2020 12:11 AM CDT): - Baseline Supervisor Wound upon Ecare everywhere review is ~1.0-1.2. - Avoid nephrotoxins, renally dose meds as appropriate - No dialysis per , continuing to make urine - Creatinine improving Assessment & Plan (04/16/2020 9:42 PM CDT): - Baseline Supervisor Wound upon Ecare everywhere review is ~1.0-1.2. - Avoid nephrotoxins, renally dose meds as appropriate -No dialysis per , continuing to make urine Assessment & Plan (04/15/2020 9:30 PM CDT): - Baseline Supervisor Wound upon Ecare everywhere review is ~1.0-1.2. - Avoid nephrotoxins, renally dose meds as appropriate Assessment & Plan (04/14/2020 5:28 PM CDT): - Baseline Supervisor Wound upon Ecare everywhere review is ~1.0-1.2. - Avoid nephrotoxins, renally dose meds as appropriate Assessment & Plan (04/14/2020 12:30 AM CDT): - Baseline Supervisor Wound upon Ecare everywhere review is ~1.0-1.2. - Avoid nephrotoxins, renally dose meds as appropriate Assessment & Plan (04/13/2020 5:36 AM CDT): - Baseline Supervisor Wound upon Ecare everywhere review is ~1.0-1.2. Supervisor Wound up to 1.55 on admission. Profound metabolic acidosis 2/2 cardiogenic shock with high dose triple pressor therapy. - Avoid nephrotoxins, renally dose meds as appropriate Assessment & Plan (04/12/2020 5:19 AM CDT): - Baseline Supervisor Wound upon Ecare everywhere review is ~1.0-1.2. Supervisor Wound up to 1.55 on admission. Profound metabolic [...] & Plan (04/11/2020 4:35 AM CDT): Baseline Supervisor Wound upon Ecare everywhere review is ~1.0-1.2. Supervisor Wound up to 1.55 on admission. Profound metabolic [...] (01/20/2020): Added automatically from request for surgery [id number] Hypertension 10/29/2019 Assessment & Plan (04/28/2020 3:23 PM CDT): Home meds:continue amlodipine Hyperlipidemia 10/29/2019 GERD (gastroesophageal reflux disease) 0 Hypothyroidism 10/29/2019 Assessment & Plan (04/28/2020 3:23 PM CDT): Home meds:continue levothyroxine Risk factors for obstructive sleep apnea 020 Rotator cuff arthropathy of left shoulder 2019 Overview (09/17/2019): Added automatically from request for surgery [id number] Recurrent kidney stones 07/29/2018 Basal cell carcinoma [...] Plan (04/16/2020 9:42 PM CDT): Extubated to [place] Assessment & Plan (04/15/2020 9:30 PM CDT): [...] (04/12/2020): Added automatically from request for surgery [id number]
--- OUTSIDE RECORDS SUMMARY | 2025-04-13 03:27 | XMS_ITS | Encounter Summary ---
Author Organization [facility] Facility Care Team Providers Care Tomahawk Weapon System Operator Name Role Phone Carolee Caruso Primary Care Provider [phone] Aislinn Nugent Primary Care Pr ovider Priya Novak MD PhD Unavailable [phone] Miscellaneous, Not In File Unavailable Unava ilable Encounter Details Date Type Department Care Team (Latest Contact Info) Description 09/25/2016 Orders Only [facility] CLINCONV Provider, MD Josselin [address] [place] [id number] Social History Tobacco Use Types Packs/Day Years Used Date Smoking Tobacco: Never Assessed Sex and Gender Information Value Date Recorded Sex Assigned at Not on file Legal Sex Male 4:18 AM FILTER PRESS TENDER HEAD Gender Identity Male 11/11/2020 8:35 AM FILTER PRESS TENDER HEAD Sexual Orientation Not on file documented as of this encounter Plan of Treatment Not on file documented as of this encounter Procedures Procedure Name Priority Date/Time Associated Diagnosis Comments SCAN - LABS 10/09/2016 12:00 AM FILTER PRESS TENDER HEAD documented in this encounter Results * SCAN - LABS (10/09/2016 12:00 AM FILTER PRESS TENDER HEAD) Narrative 10/09/2016 12:00 AM FILTER PRESS TENDER HEAD Ordered by an unspecified provider. Historical Provider [...] documented as of this encounter Care Teams Tomahawk Weapon System Operator Relationship Specialty Start Date End Date Carolee Caruso PA [address] [place] [address] [phone] PCP - General 04/17/17 09/06/19 Aislinn Nugent PA [address] [place] [address] [phone] PCP - General Physician Field Merchandiser 09/07/19 Priya Novak MD PhD [address] [place] [address] [phone] Surgeon Cardiothoracic Surgery 05/05/20 Miscellaneous, Not In File 05/05/20 documented as of this encounter
--- OUTSIDE RECORDS SUMMARY | 2025-04-13 03:27 | XMS_ITS | Encounter Summary ---
Author Organization [facility] Facility Care Team Providers Care Trademark Attorney Name Role Phone Carolee Caruso Primary Care Provider Aislinn Nugent Primary Care Pr ovider Priya Novak MD PhD Unavailable [phone] Miscellaneous, Not In File Unavailable Unava ilable Encounter Details Date Type Department Care Team (Latest Contact Info) Description 10/04/2016 Orders Only [facility] CLINCONV ProviderJosselin MD [address] [place] [id number] Social History Tobacco Use Types Packs/Day Years Used Date Smoking Tobacco: Never Assessed Sex and Gender Information Value Date Recorded Sex Assigned at Not on file Legal Sex Male 4:18 AM WARRANTY ADMINISTRATOR Gender Identity Male 11/11/2020 8:35 AM WARRANTY ADMINISTRATOR Sexual Orientation Not on file documented as of this encounter Plan of Treatment Not on file documented as of this encounter Procedures Procedure Name Priority Date/Time Associated Diagnosis Comments PROCEDURE - RESULT 10/05/2016 12 :00 AM WARRANTY ADMINISTRATOR documented in this encounter Results * PROCEDURE - RESULT (10/05/2016 12:00 AM WARRANTY ADMINISTRATOR) Narrative 10/05/2016 12:00 AM WARRANTY ADMINISTRATOR Ordered by an unspecified provider. Historical [...] documented as of this encounter Care Teams Trademark Attorney Relationship Specialty Start Date End Date Carolee Caruso PA [address] [place] [address] [phone] PCP - General 04/17/17 09/06/19 Aislinn Nugent PA [address] [place] [address] [phone] PCP - General Physician Meter Tester Polyphase 09/07/19 Priya Novak MD PhD [address] [place] [address] [phone] Surgeon Cardiothoracic Surgery 05/05/20 Miscellaneous, Not In File 05/05/20 documented as of this encounter
--- OUTSIDE RECORDS SUMMARY | 2025-04-13 03:27 | XMS_ITS | Clinical Summary ---
Author Organization [facility] Address [address] [place] [phone] Phone Care Team Providers Care Cellophane Worker Name Role Phone Aislinn Nugent Primary Care Provider [phone] Allergies No known active allergies Medications methotrexate [...] on file Legal Sex Male 11:09 AM VEHICLE CONTROLS ENGINEER Gender Identity Not on file Sexual Orientation Not on file Last Filed Vital Signs Vital Sign Reading Time Taken Comments Blood Pressure 128/74 09/13/2021 11:25 AM VEHICLE CONTROLS ENGINEER Pulse 78 09/13/2021 11:25 AM VEHICLE CONTROLS ENGINEER Temperature 37.1 C (98.7 F) 09/13/2021 10:56 AM VEHICLE CONTROLS ENGINEER Respiratory Rate 16 09/13/2021 11:25 AM VEHICLE CONTROLS ENGINEER Oxygen Saturation 100% 09/13/2021 11:25 AM VEHICLE CONTROLS ENGINEER Inhaled Oxygen Concentration - - Weight 92.4 kg (203 lb 9.6 oz) 09/13/2021 9:16 A M VEHICLE CONTROLS ENGINEER Height 177.8 cm (5' 10) 09/13/2021 9:16 AM VEHICLE CONTROLS ENGINEER Body Mass Index 29.21 09/13/2021 9:16 AM VEHICLE CONTROLS ENGINEER Plan of Treatment Health Maintenance Due Date [...] Comments COLONOSCOPY REPORT 09/13/2021 11 :14 AM VEHICLE CONTROLS ENGINEER from Last 3 Months or Most Recently Relevant to Health Maintenance Results * COLONOSCOPY REPORT (09/13/2021 11:14 AM VEHICLE CONTROLS ENGINEER) Narrative Procedure Note Brendan Fitzgerald MD - 09/13/2021 11:13 AM CST [facility] Endoscopy Patient Name: Kosta Li Procedure Date: [...] Dr. Nugent. Hemoglobin has normalized. May need penitentiary iron supplementation with Eliquis and with Italo erosions. Follow up in GI office if overt bleeding, refractory anemia or new GI symptoms. Brendan Fitzgerald MD 09/13/2021 11:13:51 AM This report has been signed electronically. Number of Addenda: [address]; [place] [address] Brendan Fitzgerald MD GI PROCEDURE ORDERABLES Final Result from Last 3 Months or Most Recently Relevant to Health Maintenance Insurance MEDICARE PART A AND B [facility] Advance Directives For more information, please contact: [phone] * Full Code (Latest Code Status on File) Date Activated Date Inactivated Comments 09/13/2021 9:15 AM 09/13/2021 1:53 PM * Full Code Date Activated Date Inactivated Comments 02/27/2017 12:06 PM 02/27/2017 4:00 PM Care Teams Cellophane Worker Relationship Specialty Start Date End Date Aislinn Nugent PA PCP - General Physician Reporting Analyst 06/07/21
[2025-04-13] MEDS: LACTATED RINGERS 1,000 ML 30 ML IV CONT (11:05)
[2025-04-13 11:08] VITALS: BP 133/82; PULSE 82; TEMP 36.7; O2SAT 96; BMI 29.7
--- NOTE | 2025-04-13 11:59 | PM.IMHP ---
H&P: HPI History of Present Illness Date/Time: 04/13/25 11:59 Chief Complaint: elevated PSA Narrative: 84-year-old male with elevated PSA. PSA was up to 6.3. 4K score 38 which was elevated risk. MRI revealed a suspicious lesion and now is here for uronav us and prostate biopsy Review of Systems Review of Systems: All systems reviewed & are unremarkable except as noted in HPI and below PMFSH Past Medical History Medical History Neurocardiogenic syncope Patient reports positive tilt-table test years ago. Seronegative rheumatoid arthritis Chronic anticoagulation Vasovagal syncope (05/2021) Following cardiac catheterization. Basal cell carcinoma of skin Kidney stones Gastroesophageal reflux Paroxysmal supraventricular tachycardia Chronic obstructive pulmonary disease Coronary artery disease Cardiac catheterization in 2020 showed 40-50% stenosis of the proximal Left anterior descending, normal LV function. Lexiscan stress test was negative in May 2023 with normal MPI and EF of 65%. Benign prostatic hyperplasia Essential hypertension Obstructive sleep apnea on CPAP Gout Hypothyroidism Colon cancer Status post sigmoidectomy and chemotherapy. Hypercholesterolemia Cardiac arrest with pulseless electrical activity (04/2020) Due to massive PE requiring ECMO. Pulmonary embolism (04/2020) Massive PE resulting in cardiac arrest for which she was transferred to [place] for ECMO. Surgical History Surgical History History of bilateral cataract extraction History of transurethral resection of prostate History of cystoscopy (10/2020) With extraction of stone. History of appendectomy History of cardiac catheterization (05/2021) Nonobstructing disease as above. History of Mohs micrographic surgery for skin cancer (2019) History of back surgery stenosis, severe spinal decompression History of total left knee replacement (2016) History of total replacement of left shoulder joint (11/2019) History of open sigmoidectomy (1999) Family History Family History Mother Hypertension Father Diabetes mellitus Acute myocardial infarction Heart disease Hypercholesteremia Family history of malignant neoplasm of urinary bladder Cancer Pulmonary disease Sibling Cancer Sibling Cancer Social History Social History Social History: Surrogate medical decision maker: Mickie Li, spouse. Code status: Full code. Smoking status: Never smoker Second hand tobacco smoke exposure: No Alcohol intake: never Alcohol use details: Occasional beer but rarely. Substance use: never Substance use type: does not use Lack of Transportation: No Lack of Food: Never True Current Housing: I Have Housing Concerned About Future Housing: No Difficulty Paying Gas/Electric Bills: No Difficulty Paying for Meds: No Currently Unemployed: No Education: Decline to Answer Difficulty w/ Childcare or Family Care: No Living arrangements: with family Additional living arrangements comments: . Lives with spouse of over 53 years. They have 2 children, a son and daughter. Independent of ADLs. Walks his dog daily. Occupation/Education: retired Additional occupation/education comments: Retired from [employer] after over 30 years. Spiritual care concerns: No Meds Home Medications and Allergies Home Medications ?Medication ?Instructions ?Recorded ?Confirmed ?Type folic acid 1 mg tablet 1 mg PO DAILY 04/10/20 03/31/25 History methotrexate sodium 2.5 mg tablet 10 mg PO WEEKLY 04/10/20 03/31/25 History multivit with minerals-iron 18 1 tablet PO DAILY 04/10/20 03/31/25 History mg-folic ac 400 mcg-vit K 25 mcg tablet (Adults Multivitamin) apixaban 5 mg tablet (Eliquis) 5 mg PO BID 06/22/20 03/31/25 History allopurinol 100 mg tablet 200 mg PO DAILY 10/14/20 03/31/25 History prednisone 1 mg tablet 3 mg PO DAILY 10/18/20 04/13/25 History aspirin 81 mg tablet 81 mg PO DAILY 11/25/20 03/31/25 History atorvastatin 20 mg tablet 20 mg PO HS 11/25/20 03/31/25 History cholecalciferol (vitamin D3) 50 50 mcg PO EVERY OTHER DAY 11/25/20 03/31/25 History mcg (2,000 unit) capsule (Vitamin D3) ascorbic acid (vitamin C) 2,000 mg 2,000 mg PO DAILY 07/25/21 03/31/25 History tablet,extended release diphenhydramine HCl 25 mg capsule 25 mg PO HS 07/25/21 03/31/25 History (Benadryl) levothyroxine 100 mcg tablet 100 mcg PO DAILY 07/25/21 04/13/25 History (Euthyrox) nitroglycerin 0.4 mg sublingual 0.4 mg sublingual PRN PRN Chest 07/25/21 03/31/25 History tablet Pain omeprazole 20 mg capsule,delayed 20 mg PO DAILY 07/25/21 03/31/25 History release metoprolol succinate 50 mg 50 mg PO QAM #30 tabs 05/23/23 04/13/25 Rx tablet,extended release 24 hr acetaminophen 500 mg tablet 1,000 mg PO Q6H PRN pain 03/31/25 03/31/25 History (Acetaminophen Extra Strength) alendronate 70 mg tablet 70 mg PO WEEKLY 03/31/25 03/31/25 History docusate sodium 100 mg capsule 200 mg PO BID PRN constipation 03/31/25 03/31/25 History Allergies Allergy/AdvReac Type Severity Reaction Status Date / Time No Known Allergies Allergy Mild Verified 04/13/25 11:06 Vital Signs Vital Signs - 24 hr 04/13/25 11:08 Temperature 36.7 C Pulse Rate 82 Blood Pressure 133/82 Pulse Oximetry 96 Oxygen Delivery Room Air Exam Const: General: cooperative and comfortable Resp: Effort & Inspection: normal respiratory effort Cardio: Rate: regular rate Rhythm: regular rhythm Assessment and Plan Assessment and plan (1) Elevated PSA: Code(s): R97.20 - Elevated prostate specific antigen [PSA] Status: Acute Assessment and Plan: uronav us and prostate biopsy
--- NOTE | 2025-04-13 12:01 | WPDHPUPDATE1 ---
History and Physical Update Update Date/Time: 04/13/25 12:01 History and Physical has been reviewed, including an updated exam of the patient. There are NO changes in the patient's condition. Risks, benefits, and alternatives have been discussed and questions answered. Patient agrees to proceed with procedure.
--- NOTE | 2025-04-13 12:16 | S_PTH ---
PATIENT: Kosta Li LOC: [facility] U#:[id number] AGE/SX: 84/M ROOM: RE04/13/[address]: Finn Fernandez, : 1940 BED: DIS: 04/13/2025 SPEC #: [id number] RECD: 04/13/25 13:22 STATUS: [place] REAlejandra #: [id number] VIVIAN: 04/13/25 12:[address]: Rebecca,Finn Mosley DEPT: [facility] Surgical RECD BY: Anthony Matta ENTERED: 04/13/25 13:24 SP TYPE: Surgical OTHR DR: Aislinn Nugent, PATanya Tissues: A - Prostate Bx B - Prostate Bx C - Prostate Bx D - Prostate Bx E - Prostate Bx F - Prostate Bx G - Prostate Bx H - Prostate Bx I - Prostate Bx J - Prostate Bx K - Prostate Bx L - Prostate Bx M - Prostate Bx N - Prostate Bx Procedures: Unstained Slides Hematoxylin and Eosin Stain Prostate Biopsy
--- NOTE | 2025-04-13 12:31 | P.PNAN_ITS ---
Anes - Initial Pre Proc Eval Procedure: Operation Date: 04/13/25 12:30 Proposed Procedures p Transrectal Ultrasound Fusion Guided Prostate Biopsy - Finn Fernandez MD Date/Time: 04/13/25 12:31 Surgeon: Finn Fernandez MD Pre Op Diagnosis: elevated psa Patient Data Age: 84 Gender: M Height: 1.75 m Weight: 91.3 kg Last Vital Signs Temp 98.1 F 04/13/25 11:08 Pulse 82 04/13/25 11:08 BP 133/82 04/13/25 11:08 Pulse Ox 96 04/13/25 11:08 O2 Del Method Room Air 04/13/25 11:08 Allergies Allergy/AdvReac Type Severity Reaction Status Date / Time No Known Allergies Allergy Mild Verified 04/13/25 11:06 Home Medications ?Medication ?Instructions ?Recorded ?Confirmed ?Type folic acid 1 mg tablet 1 mg PO DAILY 04/10/20 03/31/25 History methotrexate sodium 2.5 mg tablet 10 mg PO WEEKLY 04/10/20 03/31/25 History multivit with minerals-iron 18 1 tablet PO DAILY 04/10/20 03/31/25 History mg-folic ac 400 mcg-vit K 25 mcg tablet (Adults Multivitamin) apixaban 5 mg tablet (Eliquis) 5 mg PO BID 06/22/20 03/31/25 History allopurinol 100 mg tablet 200 mg PO DAILY 10/14/20 03/31/25 History prednisone 1 mg tablet 3 mg PO DAILY 10/18/20 04/13/25 History aspirin 81 mg tablet 81 mg PO DAILY 11/25/20 03/31/25 History atorvastatin 20 mg tablet 20 mg PO HS 11/25/20 03/31/25 History cholecalciferol (vitamin D3) 50 50 mcg PO EVERY OTHER DAY 11/25/20 03/31/25 History mcg (2,000 unit) capsule (Vitamin D3) ascorbic acid (vitamin C) 2,000 mg 2,000 mg PO DAILY 07/25/21 03/31/25 History tablet,extended release diphenhydramine HCl 25 mg capsule 25 mg PO HS 07/25/21 03/31/25 History (Benadryl) levothyroxine 100 mcg tablet 100 mcg PO DAILY 07/25/21 04/13/25 History (Euthyrox) nitroglycerin 0.4 mg sublingual 0.4 mg sublingual PRN PRN Chest 07/25/21 03/31/25 History tablet Pain omeprazole 20 mg capsule,delayed 20 mg PO DAILY 07/25/21 03/31/25 History release metoprolol succinate 50 mg 50 mg PO QAM #30 tabs 05/23/23 04/13/25 Rx tablet,extended release 24 hr acetaminophen 500 mg tablet 1,000 mg PO Q6H PRN pain 03/31/25 03/31/25 History (Acetaminophen Extra Strength) alendronate 70 mg tablet 70 mg PO WEEKLY 03/31/25 03/31/25 History docusate sodium 100 mg capsule 200 mg PO BID PRN constipation 03/31/25 03/31/25 History Patient hx anesthesia problems: none Family hx anesthesia problems: none Results Review: All pre-operative results and documents have been reviewed as part of the pre- operative evaluation. [facility] Past Medical History Medical History Neurocardiogenic syncope Patient reports positive tilt-table test years ago. Seronegative rheumatoid arthritis Chronic anticoagulation Vasovagal syncope (05/2021) Following cardiac catheterization. Basal cell carcinoma of skin Kidney stones Gastroesophageal reflux Paroxysmal supraventricular tachycardia Chronic obstructive pulmonary disease Coronary artery disease Cardiac catheterization in 2020 showed 40-50% stenosis of the proximal Left anterior descending, normal LV function. Lexiscan stress test was negative in May 2023 with normal MPI and EF of 65%. Benign prostatic hyperplasia Essential hypertension Obstructive sleep apnea on CPAP Gout Hypothyroidism Colon cancer Status post sigmoidectomy and chemotherapy. Hypercholesterolemia Cardiac arrest with pulseless electrical activity (04/2020) Due to massive PE requiring ECMO. Pulmonary embolism (04/2020) Massive PE resulting in cardiac arrest for which she was transferred to [place] for ECMO. Surgical History Surgical History History of bilateral cataract extraction History of transurethral resection of prostate History of cystoscopy (10/2020) With extraction of stone. History of appendectomy History of cardiac catheterization (05/2021) Nonobstructing disease as above. History of Mohs micrographic surgery for skin cancer (2019) History of back surgery stenosis, severe spinal decompression History of total left knee replacement (2016) History of total replacement of left shoulder joint (11/2019) History of open sigmoidectomy (1999) Family History Family History Mother Hypertension Father Diabetes mellitus Acute myocardial infarction Heart disease Hypercholesteremia Family history of malignant neoplasm of urinary bladder Cancer Pulmonary disease Sibling Cancer Sibling Cancer Social History Social History Social History: Surrogate medical decision maker: Mickie Li, spouse. Code status: Full code. Smoking status: Never smoker Second hand tobacco smoke exposure: No Alcohol intake: never Alcohol use details: Occasional beer but rarely. Substance use: never Substance use type: does not use Lack of Transportation: No Lack of Food: Never True Current Housing: I Have Housing Concerned About Future Housing: No Difficulty Paying Gas/Electric Bills: No Difficulty Paying for Meds: No Currently Unemployed: No Education: Decline to Answer Difficulty w/ Childcare or Family Care: No Living arrangements: with family Additional living arrangements comments: . Lives with spouse of over 53 years. They have 2 children, a son and daughter. Independent of ADLs. Walks his dog daily. Occupation/Education: retired Additional occupation/education comments: Retired from [employer] after over 30 years. Spiritual care concerns: No Anes - Eval Final PreProcedure Day of Procedure 04/13/25 12:31 Patient weight: normal Heart: regular rate and rhythm Lungs: clear to auscultation Airway: Mallampati scale class II Neurological: alert and oriented Last oral intake: >/= 8 hours ASA classification: III Emergent: no Anesthetic plan: proceed Anesthesia type and monitoring: general GIVS and standard monitoring Results Review: All pre-operative results and documents have been reviewed as part of the pre- operative evaluation. Informed Consent: The patient's anesthetic plan and its attendant risks and benefits were discussed with the patient/family/POA. Questions were solicited and answers provided to the satisfaction of the patient/family/POA.
[2025-04-13] MEDS: ceFAZolin 2 GM in SODIUM CHLORIDE 0.9% IV 50 ML 100 ML IVPB (12:38)
--- NOTE | 2025-04-13 13:00 | P.OP_ITS ---
Procedure Note - Detailed Date of Procedure 04/13/25 Pre-op Diagnosis elevated psa Post-op Diagnosis Same Procedure Performed [facility] us and prostate biopsy Surgeon Finn Fernandez MD Anesthesia General Description of Procedure Patient was taken to the operative suite and correctly identified. Once anesthe mela was obtained was placed in lateral decubitus position. Transrectal ultrasound was then performed. The MRI image was fused to the ultrasound machine. Three cores were taken from each region of interest. Twelve standard cores were then taken. He tolerated procedure well without any complications and was taken recovery stable condition. He will call for path results in 1 week. This completes dictation. Please send a copy of op note to my office Estimated Blood Loss 0 Drains No Packing No Pathology Yes Complications No immediate complications Condition Stable Disposition PACU
[2025-04-13 13:03] VITALS: BP 138/87; PULSE 70; RESP 16; O2SAT 99
[2025-04-13 13:30] VITALS: BP 141/74; PULSE 63
== END 2025-04-13 14:00 | disposition home or self-care (01) ==
PROVIDERS: PCP Physician Assistant; Visit Provider Urology
PROC: (CPT 55700; principal; 2025-04-13 12:30)
DX: R97.20 Elevated prostate specific antigen [PSA] (principal); I10 Essential (primary) hypertension; E03.9 Hypothyroidism, unspecified; K21.9 Gastro-esophageal reflux disease without esophagitis; J44.9 Chronic obstructive pulmonary disease, unspecified; I25.10 Atherosclerotic heart disease of native coronary artery without angina pectoris; N40.0 Benign prostatic hyperplasia without lower urinary tract symptoms; G47.33 Obstructive sleep apnea (adult) (pediatric); R55 Syncope and collapse; M06.00 Rheumatoid arthritis without rheumatoid factor, unspecified site; I47.10 Supraventricular tachycardia, unspecified; Z99.89 Dependence on other enabling machines and devices; Z79.01 Long term (current) use of anticoagulants; Z79.52 Long term (current) use of systemic steroids; Z79.82 Long term (current) use of aspirin; Z79.83 Long term (current) use of bisphosphonates; Z98.890 Other specified postprocedural states; Z98.61 Coronary angioplasty status; Z98.1 Arthrodesis status; Z90.49 Acquired absence of other specified parts of digestive tract; Z87.442 Personal history of urinary calculi; Z92.21 Personal history of antineoplastic chemotherapy; Z86.711 Personal history of pulmonary embolism; Z85.828 Personal history of other malignant neoplasm of skin; Z85.038 Personal history of other malignant neoplasm of large intestine; Z80.52 Family history of malignant neoplasm of bladder; Z82.49 Family history of ischemic heart disease and other diseases of the circulatory system
CPT/HCPCS: 76872; 55700; J0690; G0416; J2003; J2704; J3010; J7120